=== PATIENT | female | born 1955 | race Caucasian/White ===

== ENCOUNTER 2016-09-14 15:01 | Emergency (ER) | payer OTHER ==
[~2016-09-14] VITALS: Ht 162.6 cm; Wt 107.5 kg
[~2016-09-14 15:01] MED LIST: ABILIFY2 MG PO; ADVAIR 250-501 EACH INH; ALBUTEROL SULF8.5 GM INH; ASPIRIN EC325 MG PO; ATIVAN1 MG PO; BENZONATATE100 MG PO; BISAC-EVAC10 MG PR; BUSPIRONE HCL5 MG PO; CHLORTHALIDONE25 MG; CITALOPRAM HBR20 MG PO; CITALOPRAM HBR40 MG PO; COZAAR50 MG PO; ENEMA133 M1 PR; ESCITALOPRAM OX20 MG; ESCITALOPRAM OX20 MG PO; FERROUS SULFAT325 MG PO; FUROSEMIDE40 MG PO; HYDROCODON-ACE1 EA10 PO; IBUPROFEN600 MG PO; K-TAB ER20 MEQ PO; LASIX40 MG PO; LEXAPRO20 MG PO; LIPITOR40 MG PO; LORAZEPAM1 MG PO; LOSARTAN-HCTZ1 EACH PO; MAPAP325 MG PO; MECLIZINE HCL25 MG PO; MELOXICAM15 MG PO; METOPROLOL SUCC50 MG PO; MICROZIDE12.5 MG PO; MILK OF MA400 MG/5 M PO; MULTI VITAMIN1 EACH PO; NORCO 5-325 TA1 EACH PO; POTASSIUM CHLO10 MEQ; PREDNISONE20 MG PO; REFRESH LIQUIGE15 ML OPTH; RISPERDAL1 MG PO; VALTREX1000 MG PO; VENTOLIN HFA18 GM INH; VITAMIN C250 MG PO; ZITHROMAX250 MG PO; ZOFRAN ODT8 MG PO; ZOFRAN4 MG PO
--- OUTSIDE RECORDS SUMMARY | 2016-09-14 15:30 | XMS ---
Demographics + + + | Address | [address] | | | [address] | | | [place] [address] | + + + | Preferred Language | Unknown | + + + | Marital Status | Unknown | + + + | Methodist Affiliation | Unknown | + + + | Race | Unknown | + + + | Ethnic Group | Unknown | + + + Author + + + | Author | [facility] | + + + | Organization | [facility] | + + + | Address | [address] | | | [place] [address] | + + + | Phone | | + + + Care Team Providers + + + + | Care Kiln Stoker Name | Role | Phone | + + + + Unavailable | Unavailable | + + + + PROBLEMS + + + + + + + + | Type | Condition | ICD9-CM | [id number] | Onset | Condition | SNOMED | | | | Code | Code | Dates | Status | Code | + + + + + + + + | Assessment | Right | | R10.11 | 14 Jun, | Active | [id number] | | | upper | | | 2017 | | | | | quadrant | | | | | | | | pain | | | | | | + + + + + + + + | Assessment | Left lower | | R10.32 | 14 Jun, | Active | [id number] | | | quadrant | | | 2017 | | | | | pain | | | | | | + + + + + + + + | Problem | Blindness, | | H54.12 | | Active | 16443729 | | | left eye, | | | | | | | | low | | | | | | | | vision | | | | | | | | right eye | | | | | | + + + + + + + + | Problem | 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 | | Active | [id number] | | | incontinen | | | | | | | | ce | | | | | | + + + + + + + + | Problem | Anemia | | D64.9 | | Active | 521611627 | + + + + + + + + | 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 | | | Active | 067627025 | | | ve | | | | | | | | arthropath | | | | | | | | y of | | | | | | | | spinal | | | | | | | | facet | | | | | | | | joint | | | | | | + + + + + + + + | Problem | Low mean | R71.8 | | | Active | 18356010 | | | corpuscula | | | | | | | | r volume | | | | | | | | (MCV) | | | | | | + + + + + + + + | Problem | RAD | J45.909 | | | Active | 98883159 | | | (reactive | | | | | | | | airway | | | | | | | | disease) | | | | | | + + + + + + + + | Problem | Elevated | E79.0 | | | Active | 816441632 | | | uric acid | | | | | | | | in blood | | | | | | + + + + + + + + | Problem | High risk | Z79.899 | | | Active | 043088977 | | | medication | | | | | | | | use | | | | | | + + + + + + + + | Problem | Congestive | I50.9 | | | Active | 97393778 | | | heart | | | | | | | | failure | | | | | | + + + + + + + + | Problem | History of | Z86.69 | | | Active | | | | | | | | | | | | pseudoseiz | | | | | | | | ure | | | | | | + + + + + + + + | Problem | HARPAL | G47.33 | | | Active | 91355729 | | | (obstructi | | | | | | | | ve sleep | | | | | | | | apnea) | | | | | | + + + + + + + + | Problem | Right | S96.911A | | | Active | | | | ankle | | | | | | | | strain | | | | | | + + + + + + + + | Problem | Bronchitis | | J40 | | Active | 67945541 | + + + + + + + + | Problem | Constipati | | K59.00 | | Active | 20024839 | | | on | | | | | | + + + + + + + + | Problem | Essential | | I10 | | Active | 92377361 | | | hypertensi | | | | | | | | on | | | | | | + + + + + + + + | Problem | Gait | R26.9 | | | Active | 42348495 | | | disturbanc | | | | | | | | e | | | | | | + + + + + + + + | Problem | Cardiomyop | | I42.9 | | Active | 61809501 | | | athy | | | | | | + + + + + + + + | Problem | Iron | | D50.9 | | Active | 35467684 | | | deficiency | | | | | | | | anemia | | | | | | + + + + + + + + | Problem | Chronic | | N18.3 | | Active | 054343461 | | | kidney | | | | | | | | disease, | | | | | | | | stage 3 | | | | | | + + + + + + + + | Problem | Encounter | | Z13.89 | | Active | 015911316 | | | for | | | | | | | | screening | | | | | | | | for other | | | | | | | | disorder | | | | | | + + + + + + + + | Problem | RLS | | G25.81 | | Active | 88844625 | | | (restless | | | | | | | | legs | | | | | | | | syndrome) | | | | | | + + + + + + + + | Problem | Hyperchole | | E78.0 | | Active | 13733570 | | | sterolemia | | | | | | + + + + + + + + | Problem | Depression | | F32.9 | | Active | 348133059 | + + + + + + + + | Problem | NAFLD | K76.0 | | | Active | 747670849 | | | (nonalcoho | | | | | | | | lic fatty | | | | | | | | liver | | | | | | | | disease) | | | | | | + + + + + + + + | Problem | Anxiety | | F41.9 | | Active | 32983816 | + + + + + + + + | Problem | Anasarca | R60.1 | | | Active | 894024970 | + + + + + + + + | Problem | Osteopenia | | M85.80 | | Active | 50490640 | + + + + + + + + | Problem | PTSD | | F43.10 | | Active | 93611921 | | | (post-trau | | | | | | | | matic | | | | | | | | stress | | | | | | | | disorder) | | | | | | + + + + + + + + | Problem | COPD | | J44.9 | | Active | 15701792 | | | (chronic | | | | | | | | obstructiv | | | | | | | | e | | | | | | | | pulmonary | | | | | | | | disease) | | | | | | + + + + + + + + ALLERGIES + + + + +--------+ | Substance | Reaction | Event Type | Date | Status | + + + + +--------+ | strawberry | diarrhea,vomiti | Non Drug | Jun, | Active | | | ng | Allergy | | | + + + + +--------+ SOCIAL HISTORY No smoking Hx information available PLAN OF CARE VITAL SIGNS + + + + | Height | 64 in | 2016-06-26 | + + + + | Weight | 241 lbs | 2016-06-26 | + + + + | BMI | 41.36 kg/m2 | 2016-06-26 | + + + + | Temperature | 97.5 degrees Fahrenheit | 2016-06-26 | + + + + | Heart Rate | 70 /min | 2016-06-26 | + + + + | Blood pressure systolic | 137 mm Hg | 2016-06-26 | + + + + | Blood pressure diastolic | 82 mm Hg | 2016-06-26 | + + + + MEDICATIONS + + + + + + + +--------+ | Medicati | Instruct | Dosage | Frequenc | Start | End Date | Duration | Status | | on | ions | | y | Date | | | | + + + + + + + +--------+ | Atorvast | Orally | 1 tablet | 24h | | | | Active | | atin | Once a | | | | | | | | Calcium | day | | | | | | | | 40 MG | | | | | | | | + + + + + + + +--------+ | Furosemi | Orally | 2 tablet | 12h | Oct, | | | Active | | de 40 mg | Twice a | am, 1 | | 2015 | | | | | | day | tablet | | | | | | | | | pm | | | | | | + + + + + + + +--------+ | [place] | Nasally | 2 drops | | | | | Active | | Nasal | every 2 | in each | | | | | | | [place] | hrs | nostril | | | | | | | 0.65 % | | as | | | | | | | | | needed | | | | | | + + + + + + + +--------+ | Walker | | as | | 29 Aug, | | 99 | Active | | [place] | | directed | | 2013 | | | | | Wheels . | | | | | | | | + + + + + + + +--------+ | Refresh | Ophthalm | 1 drop | | | | | Active | | Liquigel | ic 24 | into | | | | | | | 1 % | time(s) | affected | | | | | | | | a day | eye as | | | | | | | | | needed | | | | | | + + + + + + + +--------+ | Fleet | | | | | | | Active | | Enema | | | | | | | | | 7-19 | | | | | | | | | GM/118ML | | | | | | | | + + + + + + + +--------+ | Milk of | Orally | 15 ml at | 24h | | | | Active | | Magnesia | Once a | bedtime | | | | | | | 400 | day | as | | | | | | | MG/5ML | | needed | | | | | | | | | for | | | | | | | | | constipa | | | | | | | | | tion | | | | | | + + + + + + + +--------+ | Bisacody | Rectal | 1 | 24h | | | | Active | | l 10 MG | Once a | supposit | | | | | | | | day | ory as | | | | | | | | | needed | | | | | | + + + + + + + +--------+ | Citalopr | Orally | 1 tablet | 24h | | | | Active | | am 20 MG | Once a | | | | | | | | | day | | | | | | | + + + + + + + +--------+ | Lift | NA As | NA | | Oct, | Jan, | 99 | Active | | Chair NA | needed | | | 2013 | 2021 | months | | + + + + + + + +--------+ | Aspirin | Orally | 1 tablet | 24h | | | | Active | | 81 MG | Once a | | | | | | | | | day | | | | | | | + + + + + + + +--------+ | Advair | Inhalati | as | | 30 Nick, | | 30 | Active | | Diskus | on twice | directed | | 2013 | | | | | 250-50 | a day | | | | | | | | MCG/DOSE | | | | | | | | + + + + + + + +--------+ | Miconazo | External | 1 to | 12h | | | | Active | | rb AF 2 | ly Twice | affected | | | | | | | % | a day | area | | | | | | + + + + + + + +--------+ | Ondanset | | | | | | | Active | | sahil 4 MG | | | | | | | | + + + + + + + +--------+ | Potassiu | Orally | 1 | 24h | | | | Active | | m | Once a | capsule | | | | | | | Chloride | day | | | | | | | | 20 MEQ | | | | | | | | + + + + + + + +--------+ | DuoNeb | Inhalati | 3 ml | | 21 Dec, | | 30 days | Active | | 0.5-2.5 | on 6 | | | 2015 | | | | | (3) | times a | | | | | | | | MG/3ML | day, prn | | | | | | | + + + + + + + +--------+ | Metoprol | Orally | 1 tablet | 24h | | | | Active | | ol | Once a | | | | | | | | Succinat | day | | | | | | | | e ER 50 | | | | | | | | | MG | | | | | | | | + + + + + + + +--------+ | Prazosin | Orally | 1 | 24h | | | | Active | | HCl 1 | Once a | capsule | | | | | | | MG | day | at | | | | | | | | | bedtime | | | | | | + + + + + + + +--------+ | Ferrous | Orally | 1 tablet | 12h | 20 Aug, | | 30 | Active | | Sulfate | twice a | | | 2015 | | day(s) | | | 325 (65 | day | | | | | | | | Fe) MG | | | | | | | | + + + + + + + +--------+ | Vitamin | Orally | 1 tablet | 12h | 20 Armond, | | 30 | Active | | C 250 MG | twice a | | | 2015 | | day(s) | | | | day | | | | | | | + + + + + + + +--------+ | Ventolin | Inhalati | 2 puffs | 4h | | | | Active | | HFA 90 | on every | as | | | | | | | MCG/ACT | 4 hrs | needed | | | | | | + + + + + + + +--------+ | Albutero | | | | | | | Active | | l-Ipratr | | | | | | | | | opium | | | | | | | | + + + + + + + +--------+ | Ropiniro | Orally | 1 tablet | 24h | | | | Active | | le HCl 2 | Once a | | | | | | | | MG | day | | | | | | | + + + + + + + +--------+ | Meloxica | Orally | 1 tablet | 24h | | | | Active | | m 15 MG | Once a | | | | | | | | | day | | | | | | | + + + + + + + +--------+ | Shower | | as | | Oct, | | 99 | Active | | Chair . | | directed | | 2013 | | | | + + + + + + + +--------+ | Aripipra | Orally | 1 tablet | 24h | | | | Active | | zole 2 | Once a | | | | | | | | MG | day | | | | | | | + + + + + + + +--------+ | Cetirizi | Orally | 1 tablet | 24h | | | | Active | | ne HCl | Once a | as | | | | | | | 10 MG | day | needed | | | | | | + + + + + + + +--------+ | Acetamin | Orally | 2 tablet | 8h | | | | Active | | ophen | every 8 | as | | | | | | | 325 MG | hrs | needed | | | | | | + + + + + + + +--------+ | BusPIRon | Orally | 1 tablet | 12h | 16 Aug, | | 30 | Active | | e HCl 5 | bid | | | 2016 | | day(s) | | | MG | | | | | | | | + + + + + + + +--------+ RESULTS No Results PROCEDURES + + + + + | Procedure | Date Ordered | Related Diagnosis | Body Site | + + + + + | Est Level III | June 26, 2016 | | | | Intermediate | | | | + + + + + | DSCHRG MED/CURRENT | June 26, 2016 | | | | MED MERGE | | | | + + + + + IMMUNIZATIONS No Known Immunizations"
--- OUTSIDE RECORDS SUMMARY | 2016-09-14 15:30 | XMS ---
Demographics + + + | Address | [address] | | | [address] | | | [place] [address] | + + + | Preferred Language | Unknown | + + + | Marital Status | Unknown | + + + | Islam Affiliation | Unknown | + + + | Race | Unknown | + + + | Ethnic Group | Unknown | + + + Author + + + | Author | [facility] | + + + | Organization | [facility] | + + + | Address | [address] | | | [place] [address] | + + + | Phone | | + + + Care Team Providers + + + + | Care Quantitative Developer Name | Role | Phone | + + + + Unavailable | Unavailable | + + + + PROBLEMS + + + + + + + + | Type | Condition | ICD9-CM | [id number] | Onset | Condition | SNOMED | | | | Code | Code | Dates | Status | Code | + + + + + + + + | Problem | Blindness, | | H54.12 | | Active | 00567255 | | | left eye, | | | | | | | | low | | | | | | | | vision | | | | | | | | right eye | | | | | | + + + + + + + + | Assessment | [place] | B02.9 | | Jun, | Active | 4469795 | | | | | | 2017 | | | + + + + + + + + | Problem | 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 | | Active | 187342124 | | | incontinen | | | | | | | | ce | | | | | | + + + + + + + + | Problem | Anemia | | D64.9 | | Active | 375002860 | + + + + + + + + | 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 | | | Active | 221650087 | | | ve | | | [...] | R71.8 | | | Active | 74580303 | | | corpuscula | | | | | | | | r volume | | | | | | | | (MCV) | | | | | | + + + + + + + + | Problem | Elevated | E79.0 | | | Active | 162510638 | | | uric acid | | | | | | | | in blood | | | | | | + + + + + + + + | Problem | High risk | Z79.899 | | | Active | 097044214 | | | medication | | | | | | | | use | | | | | | + + + + + + + + | Problem | Congestive | I50.9 | | | Active | 00994980 | | | heart | | | [...] | | I42.9 | | Active | 22624857 | | | athy | | | [...] | | N18.3 | | Active | 854609811 | | | kidney | | | | | | | | disease, | | | | | | | | stage 3 | | | | | | + + + + + + + + | Problem | HARPAL | G47.33 | | | Active | 32354472 | | | (obstructi | | | | | | | | ve sleep | | | | | | | | apnea) | | | | | | + + + + + + + + | Problem | Diverticul | K57.90 | | | Active | 325485080 | | | osis | | | | | | + + + + + + + + | Problem | Bronchitis | | J40 | | Active | 55104598 | + + + + + + + + | Problem | NAFLD | K76.0 | | | Active | 203160704 | | | (nonalcoho | | | | | | | | lic fatty | | | | | | | | liver | | | | | | | | disease) | | | | | | + + + + + + + + | Problem | Essential | | I10 | | Active | 03683766 | | | hypertensi | | | | | | | | on | | | | | | + + + + + + + + | Problem | Gait | R26.9 | | | Active | 96766870 | | | disturbanc | | | | | | | | e | | | | | | + + + + + + + + | Problem | RLS | | G25.81 | | Active | 97026089 | | | (restless | | | | | | | | legs | | | | | | | | syndrome) | | | | | | + + + + + + + + | Problem | Iron | | D50.9 | | Active | 87421207 | | | deficiency | | | | | | | | anemia | | | | | | + + + + + + + + | Problem | Constipati | | K59.00 | | Active | 26218557 | | | on | | | | | | + + + + + + + + | Problem | Encounter | | Z13.89 | | Active | 951740212 | | | for | | | | | | | | screening | | | | | | | | for other | | | | | | | | disorder | | | | | | + + + + + + + + | Problem | Depression | | F32.9 | | Active | 960588621 | + + + + + + + + | Problem | PTSD | | F43.10 | | Active | 72301146 | | | (post-trau | | | | | | | | matic | | | | | | | | stress | | | | | | | | disorder) | | | | | | + + + + + + + + | Problem | Anxiety | | F41.9 | | Active | 15832174 | + + + + + + + + | Problem | Hyperchole | | E78.0 | | Active | 18636144 | | | sterolemia | | | | | | + + + + + + + + | Problem | Osteopenia | | M85.80 | | Active | 73445099 | + + + + + + + + | Problem | RAD | J45.909 | | | Active | 58876548 | | | (reactive | | | | | | | | airway | | | | | | | | disease) | | | | | | + + + + + + + + | Problem | COPD | | J44.9 | | Active | 43078085 | | | (chronic | | | [...] | R60.1 | | | Active | 754576080 | + + + + + + [...] + | Height | 64 in | 2016-07-09 | + + + + | Weight | 243 lbs | 2016-07-09 | + + + + | BMI | 41.71 kg/m2 | 2016-07-09 | + + + + | Temperature | 97.8 degrees Fahrenheit | 2016-07-09 | + + + + | Heart Rate | 64 /min | 2016-07-09 | + + + + | Blood pressure systolic | 128 mm Hg | 2016-07-09 | + + + + | Blood pressure diastolic | 70 mm Hg | 2016-07-09 | + + + + MEDICATIONS + [...] MG | twice a | | | 2016 | | day(s) | | | | day | | | | | | | + + + + + + + +--------+ | [place]enda | Nasally | 2 drops | | | | | Active | | Nasal | every 2 | in each | | | | | | | [place] | hrs | nostril | | | [...] As | NA | | Oct, | 29 Jan, | 99 | Active | | Chair NA | needed | | | 2013 | 2021 | months | | + + + + + + + +--------+ | Advair | Inhalati | as | | 30 Sep, | | 30 | Active | | [...] | Shower | | as | | 29 Aug, [...] + + + + + +--------+ | Famciclo | Orally | 1 tablet | 8h | Jun, | 4 July, | 7 day(s) | Active | | vir 500 | every 8 | | | 2016 | 2016 | | | | mg | hrs | | | | | | | + + + + + + + +--------+ | Walker | | as | | Oct, | | 99 | Active | | [place] | | directed | | 2013 | [...] Sulfate | twice a | | | 2016 | | day(s) | | | 325 [...] + + | Est Level III | July 09, 2016 | | | | Intermediate | | | | + + + + + IMMUNIZATIONS No Known Immunizations"
--- OUTSIDE RECORDS SUMMARY | 2016-09-14 15:30 | XMS ---
Demographics + + + | Address | [address] | | | [address] | | | [place] [address] | + + + | Preferred Language | Unknown | + + + | Marital Status | Unknown | + + + | Catholic Affiliation | Unknown | + + + | Race | Unknown | + + + | Ethnic Group | Unknown | + + + Author + + + | Author | [facility] | + + + | Organization | [facility] | + + + | Address | [address] | | | [place] [address] | + + + | Phone | | + + + Care Team Providers + + + + | Care Steel Construction Worker Name | Role | Phone | + + + + Unavailable | Unavailable | + + + + PROBLEMS + + + + + + + + | Type | Condition | ICD9-CM | [id number] | Onset | Condition | SNOMED | | | | Code | Code | Dates | Status | Code | + + + + + + + + | Assessment | Shingles | B02.9 | | 20 July, | Active | 2058527 | | | | | | 2016 | | | + + + + + + + + | Problem | Blindness, | | H54.12 | | Active | 90921005 | | | left eye, | | | | | | | | low | | | | | | | | vision | | | | | | | | right eye | | | | | | + + + + + + + + | Assessment | Diverticul | K57.90 | | 20 July, | Active | 783976044 | | | osis | | | 2016 | | | + + + + + + + + | Problem | 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 | | Active | 569134711 | | | incontinen | | | | | | | | ce | | | | | | + + + + + + + + | Problem | Anemia | | D64.9 | | Active | 012290621 | + + + + + + + + | 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 | | | Active | 098328460 | | | ve | | | [...] | R71.8 | | | Active | 12099447 | | | corpuscula | | | | | | | | r volume | | | | | | | | (MCV) | | | | | | + + + + + + + + | Problem | Elevated | E79.0 | | | Active | 180301746 | | | uric acid | | | | | | | | in blood | | | | | | + + + + + + + + | Problem | High risk | Z79.899 | | | Active | 995067401 | | | medication | | | | | | | | use | | | | | | + + + + + + + + | Problem | Congestive | I50.9 | | | Active | 42186414 | | | heart | | | [...] | | I42.9 | | Active | 76458226 | | | athy | | | [...] | | N18.3 | | Active | 515646638 | | | kidney | | | | | | | | disease, | | | | | | | | stage 3 | | | | | | + + + + + + + + | Problem | HARPAL | G47.33 | | | Active | 80021286 | | | (obstructi | | | | | | | | ve sleep | | | | | | | | apnea) | | | | | | + + + + + + + + | Problem | Diverticul | K57.90 | | | Active | 696439028 | | | osis | | | | | | + + + + + + + + | Problem | Bronchitis | | J40 | | Active | 55023345 | + + + + + + + + | Problem | NAFLD | K76.0 | | | Active | 815099507 | | | (nonalcoho | | | | | | | | lic fatty | | | | | | | | liver | | | | | | | | disease) | | | | | | + + + + + + + + | Problem | Essential | | I10 | | Active | 74351710 | | | hypertensi | | | | | | | | on | | | | | | + + + + + + + + | Problem | Gait | R26.9 | | | Active | 97278749 | | | disturbanc | | | | | | | | e | | | | | | + + + + + + + + | Problem | RLS | | G25.81 | | Active | 73775554 | | | (restless | | | | | | | | legs | | | | | | | | syndrome) | | | | | | + + + + + + + + | Problem | Iron | | D50.9 | | Active | 59065590 | | | deficiency | | | | | | | | anemia | | | | | | + + + + + + + + | Problem | Constipati | | K59.00 | | Active | 12973716 | | | on | | | | | | + + + + + + + + | Problem | Encounter | | Z13.89 | | Active | 076285304 | | | for | | | | | | | | screening | | | | | | | | for other | | | | | | | | disorder | | | | | | + + + + + + + + | Problem | Depression | | F32.9 | | Active | 899715239 | + + + + + + + + | Problem | PTSD | | F43.10 | | Active | 71825294 | | | (post-trau | | | | | | | | matic | | | | | | | | stress | | | | | | | | disorder) | | | | | | + + + + + + + + | Problem | Anxiety | | F41.9 | | Active | 85646566 | + + + + + + + + | Problem | Hyperchole | | E78.0 | | Active | 65263819 | | | sterolemia | | | | | | + + + + + + + + | Problem | Osteopenia | | M85.80 | | Active | 00852864 | + + + + + + + + | Problem | RAD | J45.909 | | | Active | 96945494 | | | (reactive | | | | | | | | airway | | | | | | | | disease) | | | | | | + + + + + + + + | Problem | COPD | | J44.9 | | Active | 69349849 | | | (chronic | | | [...] | R60.1 | | | Active | 838666220 | + + + + + + + + ALLERGIES + + + + +--------+ | Substance | Reaction | Event Type | Date | Status | + + + + +--------+ | strawberry | diarrhea,vomiti | Non Drug | July, | Active | | | ng | Allergy | | | + + + + +--------+ SOCIAL HISTORY No smoking Hx information available PLAN OF CARE VITAL SIGNS + + + + | Height | 64 in | 2016-07-20 | + + + + | Weight | 145 lbs | 2016-07-20 | + + + + | BMI | 24.89 kg/m2 | 2016-07-20 | + + + + | Temperature | 97.6 degrees Fahrenheit | 2016-07-20 | + + + + | Heart Rate | 66 /min | 2016-07-20 | + + + + | Blood pressure systolic | 141 mm Hg | 2016-07-20 | + + + + | Blood pressure diastolic | 69 mm Hg | 2016-07-20 | + + + + MEDICATIONS + [...] | NA As | NA | | 29 Oct, | 29 Nov, | 99 | Active | | Chair [...] Twice a | am, 1 | | 2016 | | | | | | day [...] + + + + + +--------+ | [place] | Nasally | 2 drops | | | | | Active | | Nasal | every 2 | in each | | | | | | | [place] | hrs | nostril | | | | | | | 0.65 % | | as | | | | | | | | | needed | | | | | | + + + + + + + +--------+ | Walker | | as | | Oct, | | | Active | | [place] | | directed | | 2013 | | | | | [place] . | | | | | | [...] + | Est Level III | July 20, 2016 | | | | Intermediate | | | | + + + + + | DS[facility] MED/CURRENT | July 20, 2016 | | | | MED MERGE | | | | + + + + + IMMUNIZATIONS No Known Immunizations"
[2016-09-14] MEDS ORDERED: ABILIFY5 MG PO (16:18)
== END 2016-09-14 16:28 | disposition home or self-care (01) ==
LOC: ED 15:01
DX: G40.89 Other seizures (principal); F41.9 Anxiety disorder, unspecified; F32.9 Major depressive disorder, single episode, unspecified; I10 Essential (primary) hypertension; J44.9 Chronic obstructive pulmonary disease, unspecified; E78.5 Hyperlipidemia, unspecified; Z90.49 Acquired absence of other specified parts of digestive tract; Z98.51 Tubal ligation status; Z91.018 Allergy to other foods; Z79.82 Long term (current) use of aspirin; Z79.899 Other long term (current) drug therapy
CPT/HCPCS: 96374; 96375; 99283; J1885; J2060

== ENCOUNTER 2017-03-12 12:49 | Emergency (ER) | payer OTHER ==
[~2017-03-12] VITALS: Ht 162.6 cm; Wt 110.2 kg
[~2017-03-12 12:49] MED LIST changes: +ABILIFY5 MG PO
--- OUTSIDE RECORDS SUMMARY | 2017-03-12 12:59 | XMS ---
Demographics + + + | Address | [address] | | | [address] | | | [place] [address] | + + + | Preferred Language | Unknown | + + + | Marital Status | Unknown | + + + | Orthodoxy Affiliation | Unknown | + + + | Race | Unknown | + + + | Ethnic Group | Unknown | + + + Author + + + | Author | [facility] | + + + | Organization | [facility] | + + + | Address | [address] | | | [place] [address] | + + + | Phone | | + + + Care Team Providers + + + + | Care Senior Manager Asset Protection Name | Role | Phone | + + + + Unavailable | Unavailable | + + + + PROBLEMS +---------+ + + +--------+ + + | Type | Condition | ICD9-CM | VFO79-LN | Onset | Condition | SNOMED | | | | Code | Code | Dates | Status | Code | +---------+ + + +--------+ + + | Problem | 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 | | Active | [id number] | | | incontinen | | | | | | | | ce | | | | | | +---------+ + + +--------+ + + | Problem | Blindness, | | 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 | | Active | 78240192 | | | left eye, | | | | | | | | low | | | | | | | | vision | | | | | | | | right eye | | | | | | +---------+ + + +--------+ + + | 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 | | | Active | [id number] | | | ve | | | | | | | | arthropath | | | | | | | | y of | | | | | | | | spinal | | | | | | | | facet | | | | | | | | joint | | | | | | +---------+ + + +--------+ + + | Problem | Anemia | | D64.9 | | Active | 960037225 | +---------+ + + +--------+ + + | Problem | Low mean | R71.8 | | | Active | 40459539 | | | corpuscula | | | | | | | | r volume | | | | | | | | (MCV) | | | | | | +---------+ + + +--------+ + + | Problem | Elevated | E79.0 | | | Active | 368176181 | | | uric acid | | | | | | | | in blood | | | | | | +---------+ + + +--------+ + + | Problem | Congestive | I50.9 | | | Active | 12304400 | | | heart | | | | | | | | failure | | | | | | +---------+ + + +--------+ + + | Problem | Cardiomyop | | I42.9 | | Active | 28815280 | | | athy | | | | | | +---------+ + + +--------+ + + | Problem | Gait | R26.9 | | | Active | 77648474 | | | disturbanc | | | | | | | | e | | | | | | +---------+ + + +--------+ + + | Problem | HARPAL | G47.33 | | | Active | 27950458 | | | (obstructi | | | | | | | | ve sleep | | | | | | | | apnea) | | | | | | +---------+ + + +--------+ + + | Problem | Essential | | I10 | | Active | 21597520 | | | hypertensi | | | | | | | | on | | | | | | +---------+ + + +--------+ + + | Problem | Chronic | | N18.3 | | Active | 933074089 | | | kidney | | | | | | | | disease, | | | | | | | | stage 3 | | | | | | +---------+ + + +--------+ + + | Problem | NAFLD | K76.0 | | | Active | 871738230 | | | (nonalcoho | | | | | | | | lic fatty | | | | | | | | liver | | | | | | | | disease) | | | | | | +---------+ + + +--------+ + + | Problem | Iron | | D50.9 | | Active | 09251428 | | | deficiency | | | | | | | | anemia | | | | | | +---------+ + + +--------+ + + | Problem | Encounter | | Z13.89 | | Active | 750104213 | | | for | | | | | | | | screening | | | | | | | | for other | | | | | | | | disorder | | | | | | +---------+ + + +--------+ + + | Problem | RLS | | G25.81 | | Active | 12603146 | | | (restless | | | | | | | | legs | | | | | | | | syndrome) | | | | | | +---------+ + + +--------+ + + | Problem | 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 | | | Active | 79187875 | | | ure | | | | | | +---------+ + + +--------+ + + | Problem | Elevated | R74.8 | | | Active | 423767135 | | | alkaline | | | | | | | | phosphatas | | | | | | | | e level | | | | | | +---------+ + + +--------+ + + | Problem | Depression | | F32.9 | | Active | 511776378 | +---------+ + + +--------+ + + | Problem | Hyperchole | | E78.0 | | Active | 94766035 | | | sterolemia | | | | | | +---------+ + + +--------+ + + | Problem | Anxiety | | F41.9 | | Active | 73909033 | +---------+ + + +--------+ + + | Problem | Bronchitis | | J40 | | Active | 69566327 | +---------+ + + +--------+ + + | Problem | Constipati | | K59.00 | | Active | 61858783 | | | on | | | | | | +---------+ + + +--------+ + + | Problem | HTN | | I10 | | Active | 47209355 | | | (hypertens | | | | | | | | ion) | | | | | | +---------+ + + +--------+ + + | Problem | Diverticul | K57.90 | | | Active | 328732704 | | | osis | | | | | | +---------+ + + +--------+ + + | Problem | Anasarca | R60.1 | | | Active | 619901956 | +---------+ + + +--------+ + + | Problem | Osteopenia | | M85.80 | | Active | 91648796 | +---------+ + + +--------+ + + | Problem | PTSD | | F43.10 | | Active | 00931547 | | | (post-trau | | | | | | | | matic | | | | | | | | stress | | | | | | | | disorder) | | | | | | +---------+ + + +--------+ + + | Problem | COPD | | J44.9 | | Active | 51740463 | | | (chronic | | | | | | | | obstructiv | | | | | | | | e | | | | | | | | pulmonary | | | | | | | | disease) | | | | | | +---------+ + + +--------+ + + | Problem | History of | Z86.69 | | | Active | | | | | | | | | | | | pseudoseiz | | | | | | | | ure | | | | | | +---------+ + + +--------+ + + | Problem | Right | S96.911A | | | Active | | | | ankle | | | | | | | | strain | | | | | | +---------+ + + +--------+ + + | Problem | 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
--- OUTSIDE RECORDS SUMMARY | 2017-03-12 12:59 | XMS ---
Demographics + + + | Address | [address] | | | [address] | | | [place] [address] | + + + | Preferred Language | Unknown | + + + | Marital Status | Unknown | + + + | Holiness Affiliation | Unknown | + + + | Race | Unknown | + + + | Ethnic Group | Unknown | + + + Author + + + | Author | [facility] | + + + | Organization | [facility] | + + + | Address | [address] | | | [place] [address] | + + + | Phone | | + + + Care Team Providers + + + + | Care Gis Physical Scientist Name | Role | Phone | + + + + Unavailable | Unavailable | + + + + PROBLEMS +---------+ + + +--------+ + + | Type | Condition | ICD9-CM | XLU48-CH | Onset | Condition | SNOMED | | | | Code | Code | Dates | Status | Code | +---------+ + + +--------+ + + | Problem | Low mean | R71.8 | | | Active | 58128019 | | | corpuscula | | | | | | | | r volume | | | | | | | | (MCV) | | | | | | +---------+ + + +--------+ + + | 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 | | | Active | 925954907 | | | ve | | | [...] | I50.9 | | | Active | 82886035 | | | heart | | | | | | | | failure | | | | | | +---------+ + + +--------+ + + | Problem | Elevated | E79.0 | | | Active | 478671830 | | | uric acid | | | | | | | | in blood | | | | | | +---------+ + + +--------+ + + | Problem | Cardiomyop | | I42.9 | | Active | 65826001 | | | athy | | | | | | +---------+ + + +--------+ + + | Problem | Gait | R26.9 | | | Active | 82265140 | | | disturbanc | | | | | | | | e | | | | | | +---------+ + + +--------+ + + | Problem | Essential | | I10 | | Active | 69316305 | | | hypertensi | | | | | | | | on | | | | | | +---------+ + + +--------+ + + | Problem | NAFLD | K76.0 | | | Active | 623685874 | | | (nonalcoho | | | | | | | | lic fatty | | | | | | | | liver | | | | | | | | disease) | | | | | | +---------+ + + +--------+ + + | Problem | Anxiety | | F41.9 | | Active | 87469037 | +---------+ + + +--------+ + + | Problem | RLS | | G25.81 | | Active | 28702333 | | | (restless | | | | | | | | legs | | | | | | | | syndrome) | | | | | | +---------+ + + +--------+ + + | Problem | Hyperchole | | E78.0 | | Active | 27800415 | | | sterolemia | | | | | | +---------+ + + +--------+ + + | Problem | Encounter | | Z13.89 | | Active | 713016450 | | | for | | | | | | | | screening | | | | | | | | for other | | | | | | | | disorder | | | | | | +---------+ + + +--------+ + + | Problem | Depression | | F32.9 | | Active | 493649869 | +---------+ + + +--------+ + + | Problem | Constipati | | K59.00 | | Active | 01875633 | | | on | | | | | | +---------+ + + +--------+ + + | Problem | Diverticul | K57.90 | | | Active | 488733322 | | | osis | | | | | | +---------+ + + +--------+ + + | Problem | Bronchitis | | J40 | | Active | 24681796 | +---------+ + + +--------+ + + | Problem | 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 | | | Active | 28986652 | | | ure | | | | | | +---------+ + + +--------+ + + | Problem | Elevated | R74.8 | | | Active | 561246827 | | | alkaline | | | | | | | | phosphatas | | | | | | | | e level | | | | | | +---------+ + + +--------+ + + | Problem | Anasarca | R60.1 | | | Active | 486775028 | +---------+ + + +--------+ + + | Problem | COPD | | J44.9 | | Active | 31177496 | | | (chronic | | | | | | | | obstructiv | | | | | | | | e | | | | | | | | pulmonary | | | | | | | | disease) | | | | | | +---------+ + + +--------+ + + | Problem | PTSD | | F43.10 | | Active | 71132879 | | | (post-trau | | | | | | | | matic | | | | | | | | stress | | | | | | | | disorder) | | | | | | +---------+ + + +--------+ + + | Problem | Screening | Z12.31 | | | Active | 540680503 | | | for breast | | | | | | | | cancer | | | | | | +---------+ + + +--------+ + + | Problem | HTN | | I10 | | Active | 65621889 | | | (hypertens | | | | | | | | ion) | | | | | | +---------+ + + +--------+ + + | Problem | Screening | Z12.4 | | | Active | 638627789 | | | for | | | | | | | | cervical | | | | | | | | cancer | | | | | | +---------+ + + +--------+ + + | Problem | Encounter | Z12.2 | | | Active | 602195439 | | | for | | | | | | | | screening | | | | | | | | for lung | | | | | | | | cancer | | | | | | +---------+ + + +--------+ + + | Problem | 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 | | Active | 345477728 | | | incontinen | | | | | | | | ce | | | | | | +---------+ + + +--------+ + + | Problem | High risk | Z79.899 | | | Active | 651494237 | | | medication | | | | | | | | use | | | | | | +---------+ + + +--------+ + + | Problem | Anemia | | D64.9 | | Active | 000032827 | +---------+ + + +--------+ + + | Problem | History of | Z86.69 | | | Active | | | | | | | | | | | | pseudoseiz | | | | | | | | ure | | | | | | +---------+ + + +--------+ + + | Problem | Osteopenia | | M85.80 | | Active | 49613287 | +---------+ + + +--------+ + + | Problem | Blindness, | | H54.12 | | Active | 27398956 | | | left eye, | | | | | | | | low | | | | | | | | vision | | | | | | | | right eye | | | | | | +---------+ + + +--------+ + + | Problem | RAD | J45.909 | | | Active | 89579716 | | | (reactive | | | | | | | | airway | | | | | | | | disease) | | | | | | +---------+ + + +--------+ + + | Problem | Chronic | | N18.3 | | Active | 255654939 | | | kidney | | | | | | | | disease, | | | | | | | | stage 3 | | | | | | +---------+ + + +--------+ + + | Problem | Iron | | D50.9 | | Active | 91975610 | | | deficiency | | | [...] | G47.33 | | | Active | 02956087 | | | (obstructi | | | [...]
--- OUTSIDE RECORDS SUMMARY | 2017-03-12 12:59 | XMS ---
Demographics + + + | Address | [address] | | | [address] | | | [place] [address] | + + + | Preferred Language [...] | + + + | Organization | [facility] | + + + | Address | [address] | | | [place] [address] | + + + | Phone | | + + + Care Team Providers + + + + | Care Test Cell Technician Name | Role | Phone | + + + + Unavailable | Unavailable | + + + + PROBLEMS +---------+ + + +--------+ + + | Type | Condition | ICD9-CM | YIH66-GD | Onset | Condition | SNOMED | | | | Code | Code | Dates | Status | Code | +---------+ + + +--------+ + + | Problem | Low mean | R71.8 | | | Active | 21823303 | | | corpuscula | | | | | | | | r volume | | | | | | | | (MCV) | | | | | | +---------+ + + +--------+ + + | 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 | | | Active | 966423529 | | | ve | | | [...] | I50.9 | | | Active | 32999005 | | | heart | | | | | | | | failure | | | | | | +---------+ + + +--------+ + + | Problem | Elevated | E79.0 | | | Active | 628914443 | | | uric acid | | | | | | | | in blood | | | | | | +---------+ + + +--------+ + + | Problem | Cardiomyop | | I42.9 | | Active | 12410590 | | | athy | | | | | | +---------+ + + +--------+ + + | Problem | Gait | R26.9 | | | Active | 11605354 | | | disturbanc | | | | | | | | e | | | | | | +---------+ + + +--------+ + + | Problem | Essential | | I10 | | Active | 83314794 | | | hypertensi | | | | | | | | on | | | | | | +---------+ + + +--------+ + + | Problem | NAFLD | K76.0 | | | Active | 439066596 | | | (nonalcoho | | | | | | | | lic fatty | | | | | | | | liver | | | | | | | | disease) | | | | | | +---------+ + + +--------+ + + | Problem | Anxiety | | F41.9 | | Active | 19308201 | +---------+ + + +--------+ + + | Problem | RLS | | G25.81 | | Active | 05377324 | | | (restless | | | | | | | | legs | | | | | | | | syndrome) | | | | | | +---------+ + + +--------+ + + | Problem | Hyperchole | | E78.0 | | Active | 01927987 | | | sterolemia | | | | | | +---------+ + + +--------+ + + | Problem | Encounter | | Z13.89 | | Active | 607657102 | | | for | | | | | | | | screening | | | | | | | | for other | | | | | | | | disorder | | | | | | +---------+ + + +--------+ + + | Problem | Depression | | F32.9 | | Active | 318711006 | +---------+ + + +--------+ + + | Problem | Constipati | | K59.00 | | Active | 25967170 | | | on | | | | | | +---------+ + + +--------+ + + | Problem | Diverticul | K57.90 | | | Active | 426801233 | | | osis | | | | | | +---------+ + + +--------+ + + | Problem | Bronchitis | | J40 | | Active | 31614008 | +---------+ + + +--------+ + + | Problem | 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 | | | Active | 53383487 | | | ure | | | | | | +---------+ + + +--------+ + + | Problem | Elevated | R74.8 | | | Active | 971332735 | | | alkaline | | | | | | | | phosphatas | | | | | | | | e level | | | | | | +---------+ + + +--------+ + + | Problem | Anasarca | R60.1 | | | Active | 769449443 | +---------+ + + +--------+ + + | Problem | COPD | | J44.9 | | Active | 24943803 | | | (chronic | | | | | | | | obstructiv | | | | | | | | e | | | | | | | | pulmonary | | | | | | | | disease) | | | | | | +---------+ + + +--------+ + + | Problem | PTSD | | F43.10 | | Active | 38543993 | | | (post-trau | | | | | | | | matic | | | | | | | | stress | | | | | | | | disorder) | | | | | | +---------+ + + +--------+ + + | Problem | Screening | Z12.31 | | | Active | 389990849 | | | for breast | | | | | | | | cancer | | | | | | +---------+ + + +--------+ + + | Problem | HTN | | I10 | | Active | 21262874 | | | (hypertens | | | | | | | | ion) | | | | | | +---------+ + + +--------+ + + | Problem | Screening | Z12.4 | | | Active | 071763378 | | | for | | | | | | | | cervical | | | | | | | | cancer | | | | | | +---------+ + + +--------+ + + | Problem | Encounter | Z12.2 | | | Active | 832763350 | | | for | | | | | | | | screening | | | | | | | | for lung | | | | | | | | cancer | | | | | | +---------+ + + +--------+ + + | Problem | 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 | | Active | 936048673 | | | incontinen | | | | | | | | ce | | | | | | +---------+ + + +--------+ + + | Problem | High risk | Z79.899 | | | Active | 348884870 | | | medication | | | | | | | | use | | | | | | +---------+ + + +--------+ + + | Problem | Anemia | | D64.9 | | Active | 745037281 | +---------+ + + +--------+ + + | Problem | History of | Z86.69 | | | Active | | | | | | | | | | | | pseudoseiz | | | | | | | | ure | | | | | | +---------+ + + +--------+ + + | Problem | Osteopenia | | M85.80 | | Active | 87810992 | +---------+ + + +--------+ + + | Problem | Blindness, | | 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 | | Active | 78660984 | | | left eye, | | | | | | | | low | | | | | | | | vision | | | | | | | | right eye | | | | | | +---------+ + + +--------+ + + | Problem | RAD | J45.909 | | | Active | 97333271 | | | (reactive | | | | | | | | airway | | | | | | | | disease) | | | | | | +---------+ + + +--------+ + + | Problem | Chronic | | N18.3 | | Active | 570721710 | | | kidney | | | | | | | | disease, | | | | | | | | stage 3 | | | | | | +---------+ + + +--------+ + + | Problem | Iron | | D50.9 | | Active | 73250727 | | | deficiency | | | [...] | G47.33 | | | Active | 46484702 | | | (obstructi | | | | | | | | ve sleep | | | | | | | | apnea) | | | | | | +---------+ + + +--------+ + + ALLERGIES + + + + +--------+ | Substance | Reaction | Event Type | Date | Status | + + + + +--------+ | strawberry | diarrhea,vomiti | Non Drug | Oct, | Active | | | ng | Allergy | | | + + + + +--------+ SOCIAL HISTORY No smoking Hx information available PLAN OF CARE + +---------+ | Activity | Details | + +---------+ +---+ | | +---+ + + + | Follow Up | 2 Months Reason:null | + + + | Pending Test | CT Scan : Chest | + + + | Pending Test | Mammogram: Screening | + + + VITAL SIGNS + + + + | Height | 64 in | 2016-10-19 | + + + + | Weight | 241 lbs | 2016-10-19 | + + + + | BMI | 41.36 kg/m2 | 2016-10-19 | + + + + | Temperature | 98.0 degrees Fahrenheit | 2016-10-19 | + + + + | Heart Rate | 132/65 /min | 2016-10-19 | + + + + MEDICATIONS + [...] | | | Active | | am 40 MG | Once a | | | [...] | | 99 | Active | | [place] | | directed | | 2013 | | | | | Wheelradha . | | | | | | | | + + + + + + + +--------+ | Shower | | as | | 29 Aug, | | 99 | Active | | Chair . | | directed | | 2014 | | | | + + + [...] Orally | 2 tablet | 12h | 01 Aug, | | | Active | | de 40 mg | Twice a | am, 1 | | 2016 | | | | | | day | tablet | | | | | | | | | pm | | | | | | + + + + + + + +--------+ | Banner | Nasally | 2 drops | | | | | Active | | Nasal | every 2 | in each | | | | | | | [place] | hrs | nostril | | | [...] + + + + + +--------+ | Metamuci | | | | | | | Active | | l 48.57 | | | | | | | | | % | | | | | | | | + + + + + + + +--------+ | Abilify | Orally | 1 tablet | 24h | | | | Active | | 2 MG | Once a | | | [...] 0.5-2.5 | on 6 | | | 2014 | | | | | (3) | [...] | NA | | Oct, | 29 Nov, | 99 | Active | | Chair NA | needed | | | 2013 | 2021 | months | | + + + + + + + +--------+ | Ropiniro | Orally | 1 tablet | 12h | | | 30 days | Active | | le HCl 2 | bid | | | | | | | [...] + + + + | Est Level IV | Oct 19, 2016 | | | | Extended | | | | + + + + + | [facility] MED/CURRENT | Oct 19, 2016 | | | | MED MERGE | | | | + + + + + IMMUNIZATIONS No Known Immunizations"
--- OUTSIDE RECORDS SUMMARY | 2017-03-12 12:59 | XMS ---
Demographics + + + | Address | [address] | | | [address] | | | [place] [address] | + + + | Preferred Language [...] | + + + | Organization | [facility] | + + + | Address | [address] | | | [place] [address] | + + + | Phone | | + + + Care Team Providers + + + + | Care Name | Role | Phone | + + + + Unavailable | Unavailable | + + + + PROBLEMS +---------+ + + +--------+ + + | Type | Condition | ICD9-CM | [id number] | Onset | Condition | SNOMED | | | | Code | Code | Dates | Status | Code | +---------+ + + +--------+ + + | Problem | Low mean | R71.8 | | | Active | [id number] | | | corpuscula | | | | | | | | r volume | | | | | | | | (MCV) | | | | | | +---------+ + + +--------+ + + | 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 | | | Active | [id number] | | | ve | | | [...] | I50.9 | | | Active | 97461503 | | | heart | | | | | | | | failure | | | | | | +---------+ + + +--------+ + + | Problem | Elevated | E79.0 | | | Active | 051752507 | | | uric acid | | | | | | | | in blood | | | | | | +---------+ + + +--------+ + + | Problem | Cardiomyop | | I42.9 | | Active | 12589077 | | | athy | | | | | | +---------+ + + +--------+ + + | Problem | Gait | R26.9 | | | Active | 63862892 | | | disturbanc | | | | | | | | e | | | | | | +---------+ + + +--------+ + + | Problem | Essential | | I10 | | Active | 51670032 | | | hypertensi | | | | | | | | on | | | | | | +---------+ + + +--------+ + + | Problem | NAFLD | K76.0 | | | Active | 729316989 | | | (nonalcoho | | | | | | | | lic fatty | | | | | | | | liver | | | | | | | | disease) | | | | | | +---------+ + + +--------+ + + | Problem | Anxiety | | F41.9 | | Active | 79245789 | +---------+ + + +--------+ + + | Problem | RLS | | G25.81 | | Active | 04599688 | | | (restless | | | | | | | | legs | | | | | | | | syndrome) | | | | | | +---------+ + + +--------+ + + | Problem | Hyperchole | | E78.0 | | Active | 10325988 | | | sterolemia | | | | | | +---------+ + + +--------+ + + | Problem | Encounter | | Z13.89 | | Active | 740755238 | | | for | | | | | | | | screening | | | | | | | | for other | | | | | | | | disorder | | | | | | +---------+ + + +--------+ + + | Problem | Depression | | F32.9 | | Active | 387772081 | +---------+ + + +--------+ + + | Problem | Constipati | | K59.00 | | Active | 00646387 | | | on | | | | | | +---------+ + + +--------+ + + | Problem | Diverticul | K57.90 | | | Active | 897514320 | | | osis | | | | | | +---------+ + + +--------+ + + | Problem | Bronchitis | | J40 | | Active | 87598548 | +---------+ + + +--------+ + + | Problem | 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 | | | Active | 42670130 | | | ure | | | | | | +---------+ + + +--------+ + + | Problem | Elevated | R74.8 | | | Active | 014741782 | | | alkaline | | | | | | | | phosphatas | | | | | | | | e level | | | | | | +---------+ + + +--------+ + + | Problem | Anasarca | R60.1 | | | Active | 076674623 | +---------+ + + +--------+ + + | Problem | COPD | | J44.9 | | Active | 07758064 | | | (chronic | | | | | | | | obstructiv | | | | | | | | e | | | | | | | | pulmonary | | | | | | | | disease) | | | | | | +---------+ + + +--------+ + + | Problem | PTSD | | F43.10 | | Active | 26810776 | | | (post-trau | | | | | | | | matic | | | | | | | | stress | | | | | | | | disorder) | | | | | | +---------+ + + +--------+ + + | Problem | Screening | Z12.31 | | | Active | 757941786 | | | for breast | | | | | | | | cancer | | | | | | +---------+ + + +--------+ + + | Problem | HTN | | I10 | | Active | 60557350 | | | (hypertens | | | | | | | | ion) | | | | | | +---------+ + + +--------+ + + | Problem | Screening | Z12.4 | | | Active | 424684347 | | | for | | | | | | | | cervical | | | | | | | | cancer | | | | | | +---------+ + + +--------+ + + | Problem | Encounter | Z12.2 | | | Active | 398962991 | | | for | | | | | | | | screening | | | | | | | | for lung | | | | | | | | cancer | | | | | | +---------+ + + +--------+ + + | Problem | 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 | | Active | 264945345 | | | incontinen | | | | | | | | ce | | | | | | +---------+ + + +--------+ + + | Problem | High risk | Z79.899 | | | Active | 113841723 | | | medication | | | | | | | | use | | | | | | +---------+ + + +--------+ + + | Problem | Anemia | | D64.9 | | Active | 811088194 | +---------+ + + +--------+ + + | Problem | History of | Z86.69 | | | Active | | | | | | | | | | | | pseudoseiz | | | | | | | | ure | | | | | | +---------+ + + +--------+ + + | Problem | Osteopenia | | M85.80 | | Active | 86723644 | +---------+ + + +--------+ + + | Problem | Blindness, | | H54.12 | | Active | 02853591 | | | left eye, | | | | | | | | low | | | | | | | | vision | | | | | | | | right eye | | | | | | +---------+ + + +--------+ + + | Problem | RAD | 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 | | | Active | 33016175 | | | (reactive | | | | | | | | airway | | | | | | | | disease) | | | | | | +---------+ + + +--------+ + + | Problem | Chronic | | N18.3 | | Active | 431281039 | | | kidney | | | | | | | | disease, | | | | | | | | stage 3 | | | | | | +---------+ + + +--------+ + + | Problem | Iron | | D50.9 | | Active | 86507522 | | | deficiency | | | [...] | G47.33 | | | Active | 29472402 | | | (obstructi | | | [...] strawberry | diarrhea,vomiti | Non Drug | 11 Sep, 2016 | Active | | | ng | Allergy | | | + + + + +--------+ SOCIAL HISTORY No smoking Hx information available PLAN OF CARE + +---------+ | Activity | Details | + +---------+ +---+ | | +---+ + + + | Follow Up | prn Reason:null | + + + VITAL SIGNS + + + + | Height | 64 in | 2016-09-22 | + + + + | Weight | 240.6 lbs | 2016-09-22 | + + + + | BMI | 41.29 kg/m2 | 2016-09-22 | + + + + | Temperature | 98.1 degrees Fahrenheit | 2016-09-22 | + + + + | Heart Rate | 70 /min | 2016-09-22 | + + + + | Blood pressure systolic | 131 mm Hg | 2016-09-22 | + + + + | Blood pressure diastolic | 78 mm Hg | 2016-09-22 | + + + + MEDICATIONS + [...] | | 99 | Active | | [place] | | directed | | 2013 | [...] | on twice | directed | | 2014 | | | | | 250-50 | [...] Orally | 1 tablet | 12h | Oct, | | 30 | Active | | e HCl 5 | bid | | | 2015 | | day(s) | | | MG [...] + + + + + +--------+ | [place] | Nasally | 2 drops | | | | | Active | | Nasal | every 2 | in each | | | | | | | [place] | hrs | nostril | | | [...] + + | Est Level III | September 22, 2016 | | | | Intermediate | | | | + + + + + | [facility] MED/CURRENT | September 22, 2016 | | | | MED MERGE | | | | + + + + + IMMUNIZATIONS No Known Immunizations"
--- OUTSIDE RECORDS SUMMARY | 2017-03-12 12:59 | XMS ---
Demographics + + + | Address | [address] | | | [address] | | | [place] [address] | + + + | Preferred Language [...] | + + + | Organization | [facility] | + + + | Address | [address] | | | [place] [address] | + + + | Phone | | + + + Care Team Providers + + + + | Care Clinical Unit Educator Name | Role | Phone | + + + + Unavailable | Unavailable | + + + + PROBLEMS +---------+ + + +--------+ + + | Type | Condition | ICD9-CM | [id number] | Onset | Condition | SNOMED | | | | Code | Code | Dates | Status | Code | +---------+ + + +--------+ + + | Problem | Low mean | R71.8 | | | Active | 94935553 | | | corpuscula | | | | | | | | r volume | | | | | | | | (MCV) | | | | | | +---------+ + + +--------+ + + | 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 | | | Active | 396291034 | | | ve | | | [...] | I50.9 | | | Active | 47345929 | | | heart | | | | | | | | failure | | | | | | +---------+ + + +--------+ + + | Problem | Elevated | E79.0 | | | Active | 857503629 | | | uric acid | | | | | | | | in blood | | | | | | +---------+ + + +--------+ + + | Problem | Cardiomyop | | I42.9 | | Active | 69056213 | | | athy | | | | | | +---------+ + + +--------+ + + | Problem | Gait | R26.9 | | | Active | 00891570 | | | disturbanc | | | | | | | | e | | | | | | +---------+ + + +--------+ + + | Problem | Essential | | I10 | | Active | 98452175 | | | hypertensi | | | | | | | | on | | | | | | +---------+ + + +--------+ + + | Problem | NAFLD | K76.0 | | | Active | 741983704 | | | (nonalcoho | | | | | | | | lic fatty | | | | | | | | liver | | | | | | | | disease) | | | | | | +---------+ + + +--------+ + + | Problem | Anxiety | | F41.9 | | Active | 53489797 | +---------+ + + +--------+ + + | Problem | RLS | | G25.81 | | Active | 88825523 | | | (restless | | | | | | | | legs | | | | | | | | syndrome) | | | | | | +---------+ + + +--------+ + + | Problem | Hyperchole | | E78.0 | | Active | 70936673 | | | sterolemia | | | | | | +---------+ + + +--------+ + + | Problem | Encounter | | Z13.89 | | Active | 123050855 | | | for | | | | | | | | screening | | | | | | | | for other | | | | | | | | disorder | | | | | | +---------+ + + +--------+ + + | Problem | Depression | | F32.9 | | Active | 109241040 | +---------+ + + +--------+ + + | Problem | Constipati | | K59.00 | | Active | 69857344 | | | on | | | | | | +---------+ + + +--------+ + + | Problem | Diverticul | K57.90 | | | Active | 634275761 | | | osis | | | | | | +---------+ + + +--------+ + + | Problem | Bronchitis | | J40 | | Active | 92561564 | +---------+ + + +--------+ + + | Problem | 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 | | | Active | 59208361 | | | ure | | | | | | +---------+ + + +--------+ + + | Problem | Elevated | R74.8 | | | Active | 353679448 | | | alkaline | | | | | | | | phosphatas | | | | | | | | e level | | | | | | +---------+ + + +--------+ + + | Problem | Anasarca | R60.1 | | | Active | 492337857 | +---------+ + + +--------+ + + | Problem | COPD | | J44.9 | | Active | 51852873 | | | (chronic | | | | | | | | obstructiv | | | | | | | | e | | | | | | | | pulmonary | | | | | | | | disease) | | | | | | +---------+ + + +--------+ + + | Problem | PTSD | | F43.10 | | Active | 76373866 | | | (post-trau | | | | | | | | matic | | | | | | | | stress | | | | | | | | disorder) | | | | | | +---------+ + + +--------+ + + | Problem | Screening | Z12.31 | | | Active | 370165070 | | | for breast | | | | | | | | cancer | | | | | | +---------+ + + +--------+ + + | Problem | HTN | | I10 | | Active | 41313299 | | | (hypertens | | | | | | | | ion) | | | | | | +---------+ + + +--------+ + + | Problem | Screening | Z12.4 | | | Active | 054042725 | | | for | | | | | | | | cervical | | | | | | | | cancer | | | | | | +---------+ + + +--------+ + + | Problem | Encounter | Z12.2 | | | Active | 423445924 | | | for | | | | | | | | screening | | | | | | | | for lung | | | | | | | | cancer | | | | | | +---------+ + + +--------+ + + | Problem | 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 | | Active | 512675662 | | | incontinen | | | | | | | | ce | | | | | | +---------+ + + +--------+ + + | Problem | High risk | Z79.899 | | | Active | 173709693 | | | medication | | | | | | | | use | | | | | | +---------+ + + +--------+ + + | Problem | Anemia | | D64.9 | | Active | 935970509 | +---------+ + + +--------+ + + | Problem | History of | Z86.69 | | | Active | | | | | | | | | | | | pseudoseiz | | | | | | | | ure | | | | | | +---------+ + + +--------+ + + | Problem | Osteopenia | | M85.80 | | Active | 38456235 | +---------+ + + +--------+ + + | Problem | Blindness, | | H54.12 | | Active | 53564399 | | | left eye, | | | | | | | | low | | | | | | | | vision | | | | | | | | right eye | | | | | | +---------+ + + +--------+ + + | Problem | RAD | J45.909 | | | Active | 14172051 | | | (reactive | | | | | | | | airway | | | | | | | | disease) | | | | | | +---------+ + + +--------+ + + | Problem | Chronic | | N18.3 | | Active | 494804732 | | | kidney | | | | | | | | disease, | | | | | | | | stage 3 | | | | | | +---------+ + + +--------+ + + | Problem | Iron | | D50.9 | | Active | 82136396 | | | deficiency | | | [...] | G47.33 | | | Active | 16984896 | | | (obstructi | | | [...] | | +---+ + + + | Pending Test | Comprehensive Metabolic Panel | + + + | Pending Test | CBC with Differential Count | + + + VITAL SIGNS MEDICATIONS Unknown Medications RESULTS No Results PROCEDURES No Known procedures IMMUNIZATIONS No Known Immunizations"
--- OUTSIDE RECORDS SUMMARY | 2017-03-12 12:59 | XMS ---
Demographics + + + | Address | [address] | | | [address] | | | [place] [address] | + + + | Preferred Language | Unknown | + + + | Marital Status | Unknown | + + + | Anglican Affiliation | Unknown | + + + | Race | Unknown | + + + | Ethnic Group | Unknown | + + + Author + + + | Author | [facility] | + + + | Organization | [facility] | + + + | Address | [address] | | | [place] [address] | + + + | Phone | | + + + Care Team Providers + + + + | Care Manager Community Outreach Name | Role | Phone | + + + + Unavailable | Unavailable | + + + + PROBLEMS +---------+ + + +--------+ + + | Type | Condition | ICD9-CM | [id number] | Onset | Condition | SNOMED | | | | Code | Code | Dates | Status | Code | +---------+ + + +--------+ + + | Problem | 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 | | Active | 384620024 | | | incontinen | | | | | | | | ce | | | | | | +---------+ + + +--------+ + + | Problem | Blindness, | | H54.12 | | Active | 19606746 | | | left eye, | | | | | | | | low | | | | | | | | vision | | | | | | | | right eye | | | | | | +---------+ + + +--------+ + + | Problem | Anemia | | D64.9 | | Active | 792414473 | +---------+ + + +--------+ + + | 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 | | | Active | 940969653 | | | ve | | | [...] | R71.8 | | | Active | 22295496 | | | corpuscula | | | | | | | | r volume | | | | | | | | (MCV) | | | | | | +---------+ + + +--------+ + + | Problem | Elevated | E79.0 | | | Active | 715886975 | | | uric acid | | | | | | | | in blood | | | | | | +---------+ + + +--------+ + + | Problem | Congestive | I50.9 | | | Active | 31250726 | | | heart | | | [...] | | I42.9 | | Active | 34286904 | | | athy | | | | | | +---------+ + + +--------+ + + | Problem | Right | S96.911A | | | Active | | | | ankle | | | | | | | | strain | | | | | | +---------+ + + +--------+ + + | Problem | Gait | R26.9 | | | Active | 34305432 | | | disturbanc | | | | | | | | e | | | | | | +---------+ + + +--------+ + + | Problem | HARPAL | G47.33 | | | Active | 02747472 | | | (obstructi | | | | | | | | ve sleep | | | | | | | | apnea) | | | | | | +---------+ + + +--------+ + + | Problem | Iron | | D50.9 | | Active | 36844701 | | | deficiency | | | | | | | | anemia | | | | | | +---------+ + + +--------+ + + | Problem | Chronic | | N18.3 | | Active | 089170361 | | | kidney | | | | | | | | disease, | | | | | | | | stage 3 | | | | | | +---------+ + + +--------+ + + | Problem | HTN | | I10 | | Active | 07444647 | | | (hypertens | | | | | | | | ion) | | | | | | +---------+ + + +--------+ + + | Problem | Diverticul | K57.90 | | | Active | 530685311 | | | osis | | | | | | +---------+ + + +--------+ + + | Problem | Anxiety | | F41.9 | | Active | 10929542 | +---------+ + + +--------+ + + | Problem | NAFLD | K76.0 | | | Active | 411073999 | | | (nonalcoho | | | | | | | | lic fatty | | | | | | | | liver | | | | | | | | disease) | | | | | | +---------+ + + +--------+ + + | Problem | Essential | | I10 | | Active | 77104377 | | | hypertensi | | | | | | | | on | | | | | | +---------+ + + +--------+ + + | Problem | Encounter | | Z13.89 | | Active | 989617036 | | | for | | | | | | | | screening | | | | | | | | for other | | | | | | | | disorder | | | | | | +---------+ + + +--------+ + + | Problem | RLS | | G25.81 | | Active | 08392902 | | | (restless | | | | | | | | legs | | | | | | | | syndrome) | | | | | | +---------+ + + +--------+ + + | Problem | Bronchitis | | J40 | | Active | 61933926 | +---------+ + + +--------+ + + | Problem | Constipati | | K59.00 | | Active | 64221331 | | | on | | | | | | +---------+ + + +--------+ + + | Problem | PTSD | | F43.10 | | Active | 64344325 | | | (post-trau | | | | | | | | matic | | | | | | | | stress | | | | | | | | disorder) | | | | | | +---------+ + + +--------+ + + | Problem | COPD | | J44.9 | | Active | 00131562 | | | (chronic | | | | | | | | obstructiv | | | | | | | | e | | | | | | | | pulmonary | | | | | | | | disease) | | | | | | +---------+ + + +--------+ + + | Problem | Hyperchole | | E78.0 | | Active | 75750469 | | | sterolemia | | | | | | +---------+ + + +--------+ + + | Problem | Depression | | F32.9 | | Active | 962895044 | +---------+ + + +--------+ + + | Problem | RAD | J45.909 | | | Active | 44821822 | | | (reactive | | | | | | | | airway | | | | | | | | disease) | | | | | | +---------+ + + +--------+ + + | Problem | High risk | Z79.899 | | | Active | 249161209 | | | medication | | | | | | | | use | | | | | | +---------+ + + +--------+ + + | Problem | Anasarca | R60.1 | | | Active | 870165920 | +---------+ + + +--------+ + + | Problem | Osteopenia | | M85.80 | | Active | 12221132 | +---------+ + + +--------+ + + ALLERGIES + + + + +--------+ | Substance | Reaction | Event Type | Date | Status | + + + + +--------+ | strawberry | diarrhea,vomiti | Non Drug | Sep, | Active | | | ng | Allergy | | | + + + + +--------+ SOCIAL HISTORY No smoking Hx information available PLAN OF CARE + +---------+ | Activity | Details | + +---------+ +---+ | | +---+ + + + | Follow Up | 4 Weeks Reason:null | + + + VITAL SIGNS + + + + | Height | 64 in | 2016-09-14 | + + + + | Weight | 237.2 lbs | 2016-09-14 | + + + + | BMI | 40.71 kg/m2 | 2016-09-14 | + + + + | Temperature | 98.0 degrees Fahrenheit | 2016-09-14 | + + + + | Heart Rate | 73 /min | 2016-09-14 | + + + + | Blood pressure systolic | 126 mm Hg | 2016-09-14 | + + + + | Blood pressure diastolic | 80 mm Hg | 2016-09-14 | + + + + MEDICATIONS + [...] | | 99 | Active | | [place] | | directed | | 2013 | | | | | [place] . | | | | | | | | + + + + + + + +--------+ | [place] | Nasally | 2 drops | | | | | Active | | Nasal | every 2 | in each | | | | | | | [place] | hrs | nostril | | | [...] + + + + + +--------+ RESULTS + +--------+ + + | Name | Result | Date | Reference Range | + +--------+ + + | Urinalysis, Dip | | 2016-09-14 | | | (IH) | | | | + +--------+ + + | Specific [place] | 1.015 | | | + +--------+ + + | pH | 7 | | | + +--------+ + + | Leukocytes | neg | | | + +--------+ + + | Nitrite, Urine | neg | | | + +--------+ + + | Protein | neg | | | + +--------+ + + | Glucose | norm | | | + +--------+ + + | Ketones | neg | | | + +--------+ + + | Urobilingen, | norm | | | | Semi-Qn | | | | + +--------+ + + | Bilirubin | neg | | | + +--------+ + + | Blood Hemoglobin | neg | | | | (BLD) | | | | + +--------+ + + | Phosphorus, Serum | | 2016-09-14 | | + +--------+ + + | Phosphorus, Serum | | | | + +--------+ + + | Magnesium, Serum | | 2016-09-14 | | + +--------+ + + | Magnesium, Serum | | | | + +--------+ + + | TSH | | 2016-09-14 | | + +--------+ + + | TSH | | | | + +--------+ + + | Urinalysis, | | 2016-09-14 | | | w/Culture Reflex | | | | + +--------+ + + | Collection Type | | | | + +--------+ + + | Color | | | | + +--------+ + + | Clarity | | | | + +--------+ + + | Specific [place] | | | | + +--------+ + + | PH | | | | + +--------+ + + | Protein | | | | + +--------+ + + | Glucose | | | | + +--------+ + + | Ketone | | | | + +--------+ + + | Bilirubin | | | | + +--------+ + + | Blood/HGB | | | | + +--------+ + + | Nitrite | | | | + +--------+ + + | Urobilinogen | | | | + +--------+ + + | Leuk Esterase | | | | + +--------+ + + | Casts | | | | + +--------+ + + | WBC'S | | | | + +--------+ + + | RBC'S | | | | + +--------+ + + | Epithelial | | | | + +--------+ + + | Crystals | | | | + +--------+ + + | Bacteria | | | | + +--------+ + + | Comprehensive | | 2016-09-14 | | | Metabolic Panel | | | | + +--------+ + + | CBC with | | 2016-09-14 | | | Differential Count | | | | + +--------+ + + PROCEDURES + + + + + | Procedure | Date Ordered | Related Diagnosis | Body Site | + + + + + | LAB URINALYSIS (DIP | September 14, 2016 | | | | STICK ONLY | | | | + + + + + | Est Level III | September 14, 2016 | | | | Intermediate | | | | + + + + + | [facility] MED/CURRENT | September 14, 2016 | | | | MED MERGE | | | | + + + + + IMMUNIZATIONS No Known Immunizations"
--- OUTSIDE RECORDS SUMMARY | 2017-03-12 12:59 | XMS ---
Demographics + + + | Address | [address] | | | [address] | | | [place] [address] | + + + | Preferred Language | Unknown | + + + | Marital Status | Unknown | + + + | Cheondoism Affiliation | Unknown | + + + | Race | Unknown | + + + | Ethnic Group | Unknown | + + + Author + + + | Author | [facility] | + + + | Organization | [facility] | + + + | Address | [address] | | | [place] [address] | + + + | Phone | | + + + Care Team Providers + + + + | Care Operations Support Specialist Name | Role | Phone | + + + + Unavailable | Unavailable | + + + + PROBLEMS +---------+ + + +--------+ + + | Type | Condition | ICD9-CM | FXL39-FI | Onset | Condition | SNOMED | | | | Code | Code | Dates | Status | Code | +---------+ + + +--------+ + + | Problem | Elevated | E79.0 | | | Active | [id number] | | | uric acid | | | | | | | | in blood | | | | | | +---------+ + + +--------+ + + | Problem | Low mean | R71.8 | | | Active | 64879382 | | | corpuscula | | | | | | | | r volume | | | | | | | | (MCV) | | | | | | +---------+ + + +--------+ + + | Problem | Cardiomyop | | I42.9 | | Active | 47809027 | | | athy | | | | | | +---------+ + + +--------+ + + | Problem | Congestive | I50.9 | | | Active | 62106716 | | | heart | | | | | | | | failure | | | | | | +---------+ + + +--------+ + + | Problem | Gait | R26.9 | | | Active | 72441889 | | | disturbanc | | | | | | | | e | | | | | | +---------+ + + +--------+ + + | Problem | Essential | | I10 | | Active | 59153420 | | | hypertensi | | | | | | | | on | | | | | | +---------+ + + +--------+ + + | Problem | NAFLD | K76.0 | | | Active | 644508344 | | | (nonalcoho | | | | | | | | lic fatty | | | | | | | | liver | | | | | | | | disease) | | | | | | +---------+ + + +--------+ + + | Problem | Anxiety | | F41.9 | | Active | 51345919 | +---------+ + + +--------+ + + | Problem | Hyperchole | | E78.0 | | Active | 29104412 | | | sterolemia | | | | | | +---------+ + + +--------+ + + | Problem | Encounter | | Z13.89 | | Active | 200969022 | | | for | | | | | | | | screening | | | | | | | | for other | | | | | | | | disorder | | | | | | +---------+ + + +--------+ + + | Problem | Depression | | F32.9 | | Active | 206197684 | +---------+ + + +--------+ + + | Problem | Constipati | | K59.00 | | Active | 64423591 | | | on | | | | | | +---------+ + + +--------+ + + | Problem | PTSD | | F43.10 | | Active | 45606797 | | | (post-trau | | | | | | | | matic | | | | | | | | stress | | | | | | | | disorder) | | | | | | +---------+ + + +--------+ + + | Problem | Bronchitis | | J40 | | Active | 23279443 | +---------+ + + +--------+ + + | Problem | HTN | | I10 | | Active | 42412064 | | | (hypertens | | | | | | | | ion) | | | | | | +---------+ + + +--------+ + + | Problem | Diverticul | K57.90 | | | Active | 554239202 | | | osis | | | | | | +---------+ + + +--------+ + + | Problem | Type 2 | E11.9 | | | Active | 29065915 | | | diabetes | | | | | | | | mellitus | | | | | | +---------+ + + +--------+ + + | Problem | 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 | | | Active | 11169171 | | | ure | | | | | | +---------+ + + +--------+ + + | Problem | Osteopenia | | M85.80 | | Active | 14254141 | +---------+ + + +--------+ + + | Problem | Anasarca | R60.1 | | | Active | 487363170 | +---------+ + + +--------+ + + | Problem | COPD | | J44.9 | | Active | 62478830 | | | (chronic | | | | | | | | obstructiv | | | | | | | | e | | | | | | | | pulmonary | | | | | | | | disease) | | | | | | +---------+ + + +--------+ + + | Problem | Encounter | Z12.2 | | | Active | 002086717 | | | for | | | | | | | | screening | | | | | | | | for lung | | | | | | | | cancer | | | | | | +---------+ + + +--------+ + + | Problem | Screening | Z12.31 | | | Active | 425050578 | | | for breast | | | | | | | | cancer | | | | | | +---------+ + + +--------+ + + | Problem | Elevated | R74.8 | | | Active | 853871157 | | | alkaline | | | | | | | | phosphatas | | | | | | | | e level | | | | | | +---------+ + + +--------+ + + | Problem | Screening | Z12.4 | | | Active | 514199507 | | | for | | | | | | | | cervical | | | | | | | | cancer | | | | | | +---------+ + + +--------+ + + | Problem | Anemia | | D64.9 | | Active | 712936060 | +---------+ + + +--------+ + + | Problem | History of | Z86.69 | | | Active | | | | | | | | | | | | pseudoseiz | | | | | | | | ure | | | | | | +---------+ + + +--------+ + + | 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 | | | Active | 618847087 | | | ve | | | [...] | | H54.12 | | Active | 37653341 | | | left eye, | | | | | | | | low | | | | | | | | vision | | | | | | | | right eye | | | | | | +---------+ + + +--------+ + + | Problem | RAD | J45.909 | | | Active | 84038093 | | | (reactive | | | | | | | | airway | | | | | | | | disease) | | | | | | +---------+ + + +--------+ + + | Problem | 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 | | Active | 763002821 | | | incontinen | | | | | | | | ce | | | | | | +---------+ + + +--------+ + + | Problem | High risk | Z79.899 | | | Active | 026977065 | | | medication | | | | | | | | use | | | | | | +---------+ + + +--------+ + + | Problem | Iron | | D50.9 | | Active | 40847338 | | | deficiency | | | | | | | | anemia | | | | | | +---------+ + + +--------+ + + | Problem | RLS | | G25.81 | | Active | 89306145 | | | (restless | | | | | | | | legs | | | | | | | | syndrome) | | | | | | +---------+ + + +--------+ + + | Problem | HARPAL | G47.33 | | | Active | 63538702 | | | (obstructi | | | | | | | | ve sleep | | | | | | | | apnea) | | | | | | +---------+ + + +--------+ + + | Problem | Chronic | | N18.3 | | Active | 528603331 | | | kidney | | | [...]
[2017-03-12] MEDS ORDERED: REQUIP2 MG PO (13:09)
[2017-03-12] MEDS ORDERED: MINIPRESS1 MG PO (13:09)
== END 2017-03-12 14:30 | disposition home or self-care (01) ==
LOC: ED 12:49
DX: M25.551 Pain in right hip (principal); I10 Essential (primary) hypertension; F32.9 Major depressive disorder, single episode, unspecified; F41.9 Anxiety disorder, unspecified; J44.9 Chronic obstructive pulmonary disease, unspecified; E78.5 Hyperlipidemia, unspecified; Z91.018 Allergy to other foods; Z79.899 Other long term (current) drug therapy; Z79.82 Long term (current) use of aspirin
CPT/HCPCS: 73502; 99283

== ENCOUNTER 2018-04-27 07:50 | Day surgery (SDC) | payer OTHER ==
[~2018-04-27] VITALS: Ht 162.6 cm; Wt 104.8 kg
[~2018-04-27 07:50] MED LIST changes: +MINIPRESS1 MG PO; +REQUIP2 MG PO
--- NOTE | 2018-04-27 08:08 | NUR ---
STATES SHE USES WALKER.
[2018-04-27] MEDS ORDERED: GLUCOPHAGE500 MG PO (08:19)
--- NOTE | 2018-04-27 09:36 | NUR ---
04/27/18 0936 Jumana,Tammy 0916 PT ARRIVED TO PACU ON 8L VIA MASK, PT REACTIVE TO TACTILE STIMULI RESP EVEN AND UNLABORED. 0918 O2 DECREASED TO 6L 0926 O2 DECREASED TO 2L. PT WAKES TO VERBAL STIMULI AND DENIES NAUSEA AND PAIN. PT ENCOURAGED TO PASS GAS/AIR. PT REORINTED TO PACU. 0930 PT ASLEEP AND SMALL AMOUNT OF SNORING NOTED.
--- NOTE | 2018-04-27 13:03 | OR ---
[facility] [address], [place] [address] Signed DATE OF OPERATION: 04/27/2018 SURGEON: Alfonzo Monroy MD PREOPERATIVE DIAGNOSES: 1. Left lung cancer status post radiation therapy. 2. Iron-deficiency anemia. 3. Diverticulosis (2017). POSTOPERATIVE DIAGNOSES: 1. Mild gastritis. 2. Tiny hiatal hernia. 3. Moderate sigmoid diverticulosis. 4. A 4 mm polyp in left colon. PROCEDURES: 1. EGD with CLOtest and biopsies of the antrum, fundus, and GE junction. 2. Colonoscopy with hot biopsy. ESTIMATED BLOOD LOSS: None. INDICATIONS: Marina is a 62-year-old female, diabetic female who has been through radiation therapy recently for her left lung cancer. Her oncologist realized she had iron-deficiency anemia. He requested both upper and lower endoscopy. Marina reviewed her colonoscopy in June 2016, with her oncologist. They both agreed to proceed with the upper and lower endoscopy given her findings. We know she has some diverticulosis, but no previous polyps. No family history of colon cancer or polyps. Marina seems to have no specific upper or lower GI complaints currently. In the office, I gave her a pamphlet on both upper and lower endoscopy. We reviewed that together in detail along with the risks including, but not limited to gas bloating, crampy abdominal pain, bleeding, perforation, requiring surgery, and missed diagnosis. We had also reviewed the bowel prep. She also understands the need for IV conscious sedation. We had used an anesthesia provider 2 years ago, for the colonoscopy and it worked out quite well given her advanced medical issues and her ASA 4 status. We therefore had an anesthesia provider help us on this occasion, and once again, it worked out very well for Marina. She had expressed understanding and wished to proceed. PROCEDURE NOTE: Electronically Signed By: ALFONZO MONROY MD 04/27/18 1303 PATIENT NAME: MARINA VALLEJO OPERATIVE REPORT DATE OF : 53 REPORT #: [id number] PHYSICIAN: ALFONZO MONROY MD PCP: JOHNNY RIZO MD REPORT IS CONFIDENTIAL AND NOT TO BE RELEASED WITHOUT AUTHORIZATION [facility] [address], [place] [address] Signed Marina was taken into our endoscopy suite and placed in the supine semi-recumbent position. The posterior oropharynx was anesthetized with Hurricaine spray. A bite block was utilized for the case. She was given IV sedation with propofol per our nurse roughener. The adult gastroscope was introduced and advanced out into the third portion of the duodenum under direct visualization of camera without difficulty. The duodenum and pyloric channel were unremarkable. She had very mild erythema in the stomach, so we went ahead and took a biopsy of the antrum for CLOtest as well as pathologic review. We also took a biopsy of the fundus for pathologic review. Upon retroflexion of scope, she does not have a true hiatal hernia, but it is less than optimal valve at the top of her stomach. We went and brought the camera through the area of the GE junction, which was compliant without stricture. She has very minimal disruption to the Z-line, so we went ahead and took a biopsy in this area. No distal esophagitis. No Huddleston's mucosa. The middle and upper esophagus were unremarkable. After this, the gas had been suctioned out and the gastroscope removed. We could see that Marina had just a little bit punctate erythema above her vocal cords and I do not know if that would be in the field of her radiation or not, I suspect not. Nevertheless, Marina tolerated upper endoscopy quite well. Marina was rotated into the left lateral decubitus position. She was maintained on IV sedation with the propofol per our nurse roughener. A digital rectal exam was performed and this was unremarkable. The adult colonoscope was introduced and advanced all the way around into the cecum under direct visualization of camera. She required just a little extra propofol and a little abdominal compression in order to advance the scope down into the cecum itself. Her prep was good. The scope was slowly withdrawn. We took pictures throughout for photodocumentation. We saw just a tiny polyp back in the left colon and removed it easily with hot biopsy forceps. Of course, she does have diverticula in the left sigmoid colon. They were minimal to moderate in size, minimal to moderate in number, and scattered about. The rectum itself was unremarkable. Upon retroflexion of scope, I saw no pathology above the anal canal. After this, the gas was suctioned out and colonoscope removed. Marina tolerated the procedure quite well. RECOMMENDATIONS: I will see Marina back in my office in 7 to 14 days to review her results. No obvious source for iron-deficiency anemia. Alfonzo Monroy MD ALB/MODL Electronically Signed By: ALFONZO MONROY MD 04/27/18 1303 PATIENT NAME: MARINA VALLEJO MAYCO OPERATIVE REPORT DATE OF : 53 REPORT #: [id number] PHYSICIAN: ALFONZO MONROY MD PCP: JOHNNY RIZO MD REPORT IS CONFIDENTIAL AND NOT TO BE RELEASED WITHOUT AUTHORIZATION [facility] [address] [place] [address] Signed /[id number] cc: MD Johnny Hurst MD Copies: ALFONZO MONROY MD, MALCOLM MD ~ Electronically Signed By: ALFONZO MONROY MD 04/27/18 1303 PATIENT NAME: MARINA VLALEJO OPERATIVE REPORT DATE OF : 53 REPORT #: [id number] PHYSICIAN: ALFONZO MONROY MD PCP: JOHNNY RIZO MD REPORT IS CONFIDENTIAL AND NOT TO BE RELEASED WITHOUT AUTHORIZATION
== END 2018-04-27 10:13 | disposition home or self-care (01) ==
LOC: OPS 07:50 → DS 07:50 → OPS 08:30
PROVIDERS: Colon & Rectal Surgery
PROC: 0DB68ZX Excision of Stomach, Via Natural or Artificial Opening Endoscopic, Diagnostic (ICD-10-PCS; 2018-04-27)
PROC: 0DBE8ZZ Excision of Large Intestine, Via Natural or Artificial Opening Endoscopic (ICD-10-PCS; 2018-04-27)
PROC: 0DB48ZX Excision of Esophagogastric Junction, Via Natural or Artificial Opening Endoscopic, Diagnostic (ICD-10-PCS; principal; 2018-04-27 08:30)
PROC: 0DB78ZX Excision of Stomach, Pylorus, Via Natural or Artificial Opening Endoscopic, Diagnostic (ICD-10-PCS; 2018-04-27 08:30)
DX: D12.6 Benign neoplasm of colon, unspecified (principal); K57.30 Diverticulosis of large intestine without perforation or abscess without bleeding; K29.50 Unspecified chronic gastritis without bleeding; K25.9 Gastric ulcer, unspecified as acute or chronic, without hemorrhage or perforation; K20.9 Esophagitis, unspecified; K44.9 Diaphragmatic hernia without obstruction or gangrene; D50.9 Iron deficiency anemia, unspecified; Z85.118 Personal history of other malignant neoplasm of bronchus and lung; I13.0 Hypertensive heart and chronic kidney disease with heart failure and stage 1 through stage 4 chronic kidney disease, or unspecified chronic kidney disease; E11.22 Type 2 diabetes mellitus with diabetic chronic kidney disease; K21.9 Gastro-esophageal reflux disease without esophagitis; I50.9 Heart failure, unspecified; N18.3 Chronic kidney disease, stage 3 (moderate); J44.9 Chronic obstructive pulmonary disease, unspecified; E78.5 Hyperlipidemia, unspecified; M85.80 Other specified disorders of bone density and structure, unspecified site; F32.9 Major depressive disorder, single episode, unspecified; F41.9 Anxiety disorder, unspecified; E66.9 Obesity, unspecified; Z87.891 Personal history of nicotine dependence; Z91.018 Allergy to other foods; Z79.899 Other long term (current) drug therapy; Z79.82 Long term (current) use of aspirin; Z79.84 Long term (current) use of oral hypoglycemic drugs; G47.30 Sleep apnea, unspecified; Z99.89 Dependence on other enabling machines and devices; Z68.39 Body mass index [BMI] 39.0-39.9, adult
CPT/HCPCS: 86677; 88305; J2250; J2704; J3010; J7120

== ENCOUNTER 2019-01-25 04:38 | Emergency (ER) | payer OTHER ==
[~2019-01-25] VITALS: Ht 162.6 cm; Wt 106.1 kg
--- OUTSIDE RECORDS SUMMARY | ~2019-01-25 | XMS | Encounter Summary ---
Demographics + + + | Address | [address] | | | [place] [address] | + + + | Home Phone | | + + + | Preferred Language | Unknown | + + + | Marital Status | Single | + + + | Mormonism Affiliation | 1041 | + + + | Race | Unknown | + + + | Ethnic Group | Unknown | + + + Author + + + | Author | [facility] | | | and [place] | + + + | Organization | [facility] | | | and [place] | + + + | Address | Unknown | + + + | Phone | Unavailable | + + + Support + + +---------+ + | Name | Relationship | Address | Phone | + + +---------+ + | Carlos Bhatti | ECON | Unknown | | + + +---------+ + | Ney Bhatti | ECON | Unknown | | + + +---------+ + Care Team Providers + +------+ + | Care Adobe Flex Developer Name | Role | Phone | + +------+ + PCP | Unavailable | + +------+ + Encounter Details +--------+ + + + + | Date | Type | Department | Care Team | Description | +--------+ + + + + | 10/04/ | Orders Only | [facility] | Conversion | | | 2018 | | [facility] | Transaction, | | | | | [address] | Provider Unknown | | | | | [address] [place] | | | | | | [address] | (Fax) | | | | | [phone] | | | +--------+ + + + + Social History + +-------+ +--------+------+ | Tobacco Use | Types | Packs/Day | Years | Date | | | | | Used | | + +-------+ +--------+------+ | Never Assessed | | | | | + +-------+ +--------+------+ + + + | Sex Assigned at [...] as of this encounter Plan of Treatment +--------+---------+ + + + | Date | Type | Specialty | Care Team | Description | +--------+---------+ + + + | 05/02/ | Office | Oncology | Monet Mcginnis MD | | | 2019 | Visit | | [address] | | | | | | [place] | | | | | | [address] | | | | | | | | +--------+---------+ + + + | 08/01/ | Office | Pulmonology | Jorge, | | | 2019 | Visit | | Caitlyn Simon, | | | | | | MD [address] | | | | | | [place], | | | | | | [place] [address] | | | | | | [phone] | | | | | | | | +--------+---------+ + + + documented as of this encounter Procedures + +--------+ + + + | Procedure Name | Priori | Date/Time | Associated Diagnosis | Comments | | | ty | | | | + +--------+ + + + | URINALYSIS, | Routin | 10/04/2017 | | Results for this | | MICROSCOPIC ONLY | e | 10:50 AM | | procedure are in the | | | | PDT | | results section. | + +--------+ + + + | RENAL FUNCTION PANEL | Routin | 10/04/2017 | | Results for this | | | e | 10:50 AM | | procedure are in the | | | | PDT | | results section. | + +--------+ + + + documented in this encounter Results Urinalysis, Microscopic Only (10/04/2017 10:50 AM PDT) + + + + + + | Component | Value | Ref Range | Performed | Pathologist | | | | | At | Signature | + + + + + + | Color | Colorless | | EXTERNAL | | | | | | LAB | | + + + + + + | Clarity | Clear | | EXTERNAL | | | | | | LAB | | + + + + + + | Specific | 1.004 (A) | 1.005 - 1.030 | EXTERNAL | | | [facility] | | | LAB | | + + + + + + | Leukocyte | Negative | | EXTERNAL | | | Esterase, | | | LAB | | | Urine | | | | | + + + + + + | Nitrite, | Negative | | EXTERNAL | | | Urine | | | LAB | | + + + + + + | Urobilinoge | Normal | | EXTERNAL | | | n, Urine | | | LAB | | + + + + + + | Protein, | Negative | | EXTERNAL | | | Urine | | | LAB | | + + + + + + | pH, Urine | 5 | 5 - 9 | EXTERNAL | | | | | | LAB | | + + + + + + | Blood, | Negative | | EXTERNAL | | | Urine | | | LAB | | + + + + + + | Ketones | Negative | | EXTERNAL | | | | | | LAB | | + + + + + + | Bilirubin, | Negative | | EXTERNAL | | | Urine | | | LAB | | + + + + + + | Glucose, | Negative | | EXTERNAL | | | Urine | | | LAB | | + + + + + + + + | Specimen | + + | Urine specimen | | (specimen) | + + + + + | Narrative | Performed At | + + + | Bacteria: 1+ | EXTERNAL LAB | + + + + +---------+ + + | Performing | Address | City/State/Zipcode | Phone Number | | Organization | | | | + +---------+ + + | EXTERNAL LAB | | | | + +---------+ + + Renal Function Panel (10/04/2017 10:50 AM PDT) + +---------+ + + + | Component | Value | Ref Range | Performed | Pathologist | | | | | At | Signature | + +---------+ + + + | Glucose, | 111 (A) | 70 - 100 mg/dL | EXTERNAL | | | Fasting | | | LAB | | + +---------+ + + + | BUN | 32 (A) | 6 - 23 mg/dL | EXTERNAL | | | | | | LAB | | + +---------+ + + + | Creatinine | 1.12 | 0.7 - 1.25 | EXTERNAL | | | | | mg/dL | LAB | | + +---------+ + + + | PHOSPHORUS | 3.5 | 2.5 - 5.0 mg/dL | EXTERNAL | | | | | | LAB | | + +---------+ + + + | Albumin | 4.5 | 3.5 - 5.0 | EXTERNAL | | | | | | LAB | | + +---------+ + + + | Na | 140 | 132 - 143 | EXTERNAL | | | | | mmol/L | LAB | | + +---------+ + + + | K | 4.3 | 3.6 - 5.1 | EXTERNAL | | | | | mmol/L | LAB | | + +---------+ + + + | Cl | 99 | 95 - 112 mmol/L | EXTERNAL | | | | | | LAB | | + +---------+ + + + | CO2 | 25 | 19 - 31 mmol/L | EXTERNAL | | | | | | LAB | | + +---------+ + + + | Anion Gap | 20.3 | 7 - 21 mmol/L | EXTERNAL | | | | | | LAB | | + +---------+ + + + | eGFR if not | | | EXTERNAL | | | | | | LAB | | | [place] | | | | | + +---------+ + + + | Phosphorus, | | | EXTERNAL | | | Inorganic | | | LAB | | + +---------+ + + + | BUN/Creatin | 28.6 | 6.0 - 28.6 | EXTERNAL | | | ine Ratio | | | LAB | | + +---------+ + + + | Calcium | 10.1 | 8.5 - 10.3 | EXTERNAL | | | | | mg/dL | LAB | | + +---------+ + + + | Estimated | 49 (A) | 60 mg/dL | EXTERNAL | | | GFR | | | LAB | | + +---------+ + + + + + | Specimen | + + | Blood specimen | | (specimen) | + + + +---------+ + + | Performing | Address | City/State/Zipcode | Phone Number | | Organization | | | | + +---------+ + + | EXTERNAL LAB | | | | + +---------+ + + documented in this encounter Visit Diagnoses Not on filedocumented in this encounter"
--- OUTSIDE RECORDS SUMMARY | ~2019-01-25 | XMS | Encounter Summary ---
Demographics + + + | Address | [address] | | | [place] [address] | + + + | Home Phone | | + + + | Preferred Language | Unknown | + + + | Marital Status | Single | + + + | Holiness Affiliation | 1041 | + + + | Race | Unknown | + + + | Ethnic Group | Unknown | + + + Author + + + | Author | [facility] [employer] (Historical as of | | | 10-29-18) | + + + | Organization | [facility] [employer] (Historical as of | | | 10-29-18) | + + + | Address | [...] | | + + +---------+ + | Marivel Bhatti | ECON | Unknown | | + + +---------+ + Care Team Providers + +------+ + | Care Ad Setter Name | Role | Phone | + +------+ + | Johnny Caldera MD | PCP | | + +------+ + Encounter Details +--------+ + + + + | Date | Type | Department | Care Team | Description | +--------+ + + + + | 10/26/ | Orders Only | [facility] | Mendez, | CKD (chronic kidney | | 2019 | | [place] [address] | [place] | disease), stage II; | | | | [address] | | Essential | | | | [place] [address] | | hypertension, | | | | [phone] | | benign; | | | | | | Hyperuricemia | +--------+ + + + + Social History + + + +--------+ + | Tobacco Use | Types | Packs/Day | Years | Date | | | | | Used | | + + + +--------+ + | Former Smoker | Cigarettes | 2 | 33 | Quit: 02/16/2013 | + + + +--------+ + + +---+---+---+ | Smokeless Tobacco: | | | | | Never Used | | | | + +---+---+---+ + + | Comments: 02/16/13 is when pt quit | + + + + +---------+ + | Alcohol Use | Drinks/We | oz/Week | Comments | | | ek | | | + + +---------+ + | No | 0 | 0.0 | heavy drinker in past hx. | | | Standard | | | | | drinks or | | | | | | | | | | equivalen | | | | | t | | | + + +---------+ + + + + | Sex Assigned at | Date Recorded | | | | + + + | Not on file | | + + + as of this encounter Plan of Treatment Not on fileas of this encounter Procedures + +--------+ + + + | Procedure Name | Priori | Date/Time | Associated Diagnosis | Comments | | | ty | | | | + +--------+ + + + | PROTEIN / CREATININE | Routin | 10/25/2018 | CKD (chronic | Results for this | | RATIO, URINE | e | 3:09 PM | kidney disease), | procedure are in the | | | | PDT | stage II Essential | results section. | | | | | hypertension, benign | | | | | | Hyperuricemia | | + +--------+ + + + | CBC W/AUTO DIFF | Routin | 10/25/2018 | CKD (chronic | Results for this | | (REFLEX TO MANUAL) | e | 3:09 PM | kidney disease), | procedure are in the | | | | PDT | stage II Essential | results section. | | | | | hypertension, benign | | | | | | Hyperuricemia | | + +--------+ + + + | MAGNESIUM | Routin | 10/25/2018 | CKD (chronic | Results for this | | | e | 3:09 PM | kidney disease), | procedure are in the | | | | PDT | stage II Essential | results section. | | | | | hypertension, benign | | | | | | Hyperuricemia | | + +--------+ + + + | RENAL FUNCTION PANEL | Routin | 10/25/2018 | CKD (chronic | Results for this | | | e | 3:09 PM | kidney disease), | procedure are in the | | | | PDT | stage II Essential | results section. | | | | | hypertension, benign | | | | | | Hyperuricemia | | + +--------+ + + + in this encounter Results Renal function panel (10/25/2018 3:09 PM) + +---------+ + + | Component | Value | Ref Range | Performed At | + +---------+ + + | GLUCOSE | 106 (A) | 70 - 100 mg/dL | [facility] | | | | | [facility] | + +---------+ + + | BUN | 32 (A) | 6 - 23 mg/dL | [facility] | | | | | [facility] | + +---------+ + + | CREATININE | 1.14 | 0.70 - 1.25 mg/dL | [facility] | | | | | [facility] | + +---------+ + + | PHOSPHORUS | 3.7 | 2.5 - 5.0 mg/dL | [facility] | | | | | [facility] | + +---------+ + + | Albumin | 4.3 | 3.5 - 5.0 | [facility] | | | | | [facility] | + +---------+ + + | SODIUM | 139 | 132 - 143 mmol/L | [facility] | | | | | [facility] | + +---------+ + + | POTASSIUM | 4.2 | 3.6 - 5.1 mmol/L | [facility] | | | | | [facility] | + +---------+ + + | CHLORIDE | 103 | 95 - 112 mmol/L | [facility] | | | | | [facility] | + +---------+ + + | CO2 | 27 | 19 - 31 mmol/L | [facility] | | | | | [facility] | + +---------+ + + | ANION GAP AGAP | 13.2 | 7 - 21 mmol/L | [facility] | | | | | [facility] | + +---------+ + + | GFR MDRD Non Af Amer | | | [facility] | | | | | [facility] | + +---------+ + + | Phosphorus,Inorganic | | | [facility] | | | | | [facility] | + +---------+ + + | BUN/CREAT | 28.1 | 6.0 - 28.6 | [facility] | | | | | [facility] | + +---------+ + + | CALCIUM | 9.7 | 8.5 - 10.3 mg/dL | [facility] | | | | | [facility] | + +---------+ + + | EGFR | 48 (A) | 60 - 140 mg/dL | [facility] | | | | | [facility] | + +---------+ + + + + | Specimen | + + | Blood | + + + + + + + | Performing | Address | City/State/Zipcode | Phone Number | | Organization | | | | + + + + + | [facility] | [address] | [place] [address] | [phone] | | LABORATORY | [address] | | | + + + + + Magnesium (10/25/2018 3:09 PM) + +-------+ + + | Component | Value | Ref Range | Performed At | + +-------+ + + | MAGNESIUM | 2.2 | 1.7 - 2.5 mg/dL | [facility] | | | | | [facility] | + +-------+ + + + + | Specimen | + + | Blood | + + + + + + + | Performing | Address | City/State/Zipcode | Phone Number | | Organization | | | | + + + + + | [facility] | [address] | [place] [address] | [phone] | | LABORATORY | [address] | | | + + + + + CBC W/Auto Diff (Reflex to Manual) (10/25/2018 3:09 PM) + + + + + | Component | Value | Ref Range | Performed At | + + + + + | WBC | 10.5 | 4.5 - 11.0 10^3/mL | [facility] | | | | | [facility] | + + + + + | RBC | 4.99 | 3.8 - 5.1 10^6/ L | [facility] | | | | | [facility] | + + + + + | HGB | 11.8 (A) | 12.0 - 16.0 g/dL | [facility] | | | | | [facility] | + + + + + | HCT | 36.8 | 35 - 45 % | [facility] | | | | | LABORATORY | + + + + + | MCV | 73.8 (A) | 81 - 99 fL | [facility] | | | | | LAB[facility] | + + + + + | MCH | 19.2 (A) | 10.5 - 15.0 pg | [facility] | | | | | LAB[facility] | + + + + + | MCHC | 24 (A) | 27 - 33 g/dL | [facility] | | | | | [facility] | + + + + + | PLT | 240 | 140 - 440 K/ L | [facility] | | | | | [facility] | + + + + + | RDW SD | 19.2 (A) | 10.5 - 15.0 % | [facility] | | | | | [facility] | + + + + + | MPV | | fL | [facility] | | | | | [facility] | + + + + + | DIFF TYPE | | | [facility] | | | | | [facility] | + + + + + | NEUTROPHILS | 61.6 | 39 - 80 % | [facility] | | | | | [facility] | + + + + + | LYMPHOCYTES | 28.7 | 24 - 44 % | [facility] | | | | | [facility] | + + + + + | MONOCYTES | 7.7 | 0 - 12 % | [facility] | | | | | [facility] | + + + + + | EOSINOPHILS | 1.5 | 0 - 6 % | [facility] | | | | | [facility] | + + + + + | BASOPHILS | 0.5 | 0 - 2 % | [facility] | | | | | LAB[facility] | + + + + + | NEUTROPHILS ABS | | / L | [facility] | | | | | LAB[facility]AT[facility] | + + + + + | LYMPHOCYTES ABS | | / L | [facility] | | | | | LAB[facility] | + + + + + | MONOCYTES ABS | | / L | [facility] | | | | | LAB[facility] | + + + + + | EOSINOPHILS ABS | | / L | [facility] | | | | | LAB[facility]ATORY | + + + + + | BASOPHILS ABS | | / L | [facility] | | | | | LAB[facility]ATORY | + + + + + + + | Specimen | + + | Blood | + + + + + + + | Performing | Address | City/State/Zipcode | Phone Number | | Organization | | | | + + + + + | [facility] | [address] | [place] [address] | [phone] | | LABORATORY | [address] | | | + + + + + Protein / creatinine ratio, urine (10/25/2018 3:09 PM) + +-------+ + + | Component | Value | Ref Range | Performed At | + +-------+ + + | UR | 87.2 | 0 - 150 | [facility] | | PROTEIN/CREATININE | | | LABORATORY | + +-------+ + + + + | Specimen | + + | Urine | + + + + + + + | Performing | Address | City/State/Zipcode | Phone Number | | Organization | | | | + + + + + | [facility] | [address] | [place] [address] | [phone] | | LABORATORY | [address] | | | + + + + + in this encounter Visit Diagnoses + + | Diagnosis | + + | CKD (chronic kidney disease), stage II | + + | Essential hypertension, benign | + + | Hyperuricemia | + + | Other abnormal blood chemistry | + +"
--- OUTSIDE RECORDS SUMMARY | ~2019-01-25 | XMS | Encounter Summary ---
Demographics + + + | Address | [address] | | | [place] [address] | + + + | Home Phone | | + + + | Preferred Language | Unknown | + + + | Marital Status | Single | + + + | Anglican Affiliation | 1041 | + + + | Race | Unknown | + + + | Ethnic Group | Unknown | + + + Author + + + | Author | [facility] | | | and [place] | + + + | Organization | [facility] | | | and [place] | + + + | Address | Unknown | + + + | Phone | Unavailable | + + + Support + + +---------+ + | Name | Relationship | Address | Phone | + + +---------+ + | Carlos Reyeser | ECON | Unknown | | + + +---------+ + | Ney Reyeser | ECON | Unknown | | + + +---------+ + Care Team Providers + +------+ + | Care Hide Worker Name | Role | Phone | + +------+ + PCP | Unavailable | + +------+ + Encounter Details +--------+ + + + + | Date | Type | Department | Care Team | Description | +--------+ + + + + | 08/30/ | Hospital | [facility] | Conversion | Neck pain | | 2014 | Encounter | CONVERSION [address] | Transaction, | | | | | [address] | Provider Unknown | | | | | [place], [place] | | | | | | [address] | (Fax) | | | | | [phone] | | | +--------+ + + + [...] + + documented as of this encounter Medications at Time of Discharge + + + +---------+ + + | Medication | Sig | Dispensed | Refills | Start | End Date | | | | | | Date | | + + + +---------+ + + | albuterol (PROAIR | Inhale 2 puffs into | | 0 | 07/26/19 | | | HFA) 90 mcg/puff | the lungs every 4 | | | 14 | | | inhaler | (four) hours as | | | | | | | needed. | | | | | + + + +---------+ + + | atorvaSTATin | Take 40 mg by mouth | | 0 | 07/26/19 | | | (LIPITOR) 40 mg | daily. | | | 14 | | | tablet | | | | | | + + + +---------+ + + documented as of this encounter Plan of Treatment +--------+---------+ + + + | Date | Type | Specialty | Care Team | Description | +--------+---------+ + + + | 02/18/ | Office | Oncology | Monet Mcginnis MD | | | 2019 | Visit | | [address] | | | | | | [place] | | | | | | [address] | | | | | | | | +--------+---------+ + + + | 08/01/ | Office | Pulmonology | Jorge, | | | 2019 | Visit | | Caitlyn Simon, | | | | | | MD [address] | | | | | | [place], | | | | | | [place] [address] | | | | | | [phone] | | | | | | | | +--------+---------+ + + + documented as of this encounter Procedures + +--------+ + + + | Procedure Name | Priori | Date/Time | Associated Diagnosis | Comments | | | ty | | | | + +--------+ + + + | MRI CERVICAL SPINE W | Routin | 08/04/2013 | | Results for this | | WO CONTRAST | e | 2:38 PM | | procedure are in the | | | | PDT | | results section. | + +--------+ + + + documented in this encounter Results MRI Cervical Spine w wo Contrast (08/04/2013 2:38 PM PDT) + + | Specimen | + + | | + + + + + | Narrative | Performed At | + + + | This is a non-reportable procedure without a radiologist report and | | | is used for image storage only | | + + + + + | Procedure Note | + + | Evin Malhotra - 10/28/2018 2:44 PM PDT This is a non-reportable procedure | | without a radiologist report and isused for image storage only | + + documented in this encounter Visit Diagnoses + + | Diagnosis | + + | Neck pain Cervicalgia | + + documented in this encounter"
--- OUTSIDE RECORDS SUMMARY | ~2019-01-25 | XMS | Encounter Summary ---
Demographics + + + | Address | [address] | | | [place] [address] | + + + | Home Phone | | + + + | Preferred Language | Unknown | + + + | Marital Status | Single | + + + | Orthodox Affiliation | 1041 | + + + | Race | Unknown | + + + | Ethnic Group | Unknown | + + + Author + + + | Author | [facility] | | | and [place] | + + + | Organization | [facility] | | | and [...] Team Providers + +------+ + | Care Visual Inspector Name | Role | Phone | + +------+ + | Johnny Caldera MD | PCP | | + +------+ + Encounter Details +--------+ + + + + | Date | Type | Department | Care Team | Description | +--------+ + + + + | 10/28/ | Orders Only | [facility] | Monet Mcginnis MD | Malignant neoplasm | | 2019 | | HEMATOLOGY AND | [address] | of upper lobe, left | | | | ONCOLOGY [address] | [place] | bronchus or lung | | | | [address] | [address] | (HCC); Iron | | | | [place] | | deficiency anemia; | | | | [address] | | Chronic kidney | | | | [phone] | | disease, stage II | | | | | | (mild); Essential | | | | | | (primary) | | | | | | hypertension | +--------+ + + + + Social History + +-------+ +--------+------+ | Tobacco Use | Types | Packs/Day | Years | Date | | | | | Used | | + +-------+ +--------+------+ | Former Smoker | | 2 | | | + +-------+ +--------+------+ + + | Comments: 02/16/13 is when pt quit | + + + + + | Sex Assigned [...] [place] | | | | | | [address] | | | | | | | | +--------+---------+ + + + | 08/01/ | Office | Pulmonology | Jorge, | | | 2019 | Visit | | Caitlyn Simon | | | | | | MD [address] | | | | | | [place], | | | | | | [place] [address] | | | | | | [phone] | | | | | | | | +--------+---------+ + + + + +------+--------+ + + | Name | Type | Priori | Associated Diagnoses | Order Schedule | | | | ty | | | + +------+--------+ + + | CBC with | Lab | Routin | Malignant neoplasm | Expected: | | Differential | | e | of upper lobe, left | 09/05/2018, Expires: | | | | | bronchus or lung | 12/10/2018 | | | | | (HCC) Iron | | | | | | deficiency anemia | | + +------+--------+ + + | Comprehensive | Lab | STAT | Malignant neoplasm | Expected: | | Metabolic Panel | | | of upper lobe, left | 09/05/2018, Expires: | | | | | bronchus or lung | 12/10/2018 | | | | | (HCC) Iron | | | | | | deficiency anemia | | + +------+--------+ + + | Basic Metabolic | Lab | Routin | Chronic kidney | Expected: | | Panel | | e | disease, stage II | 10/27/2018, Expires: | | | | | (mild) Essential | 11/12/2018 | | | | | (primary) | | | | | | hypertension | | + +------+--------+ + + documented as of this encounter Visit Diagnoses + + | Diagnosis | + + | Malignant neoplasm of upper lobe, left bronchus or lung (HCC) | + + | Iron deficiency anemia Iron deficiency anemia, unspecified | + + | Chronic kidney disease, stage II (mild) Chronic kidney disease, Stage II (mild) | + + | Essential (primary) hypertension Unspecified essential hypertension | + + documented in this encounter"
--- OUTSIDE RECORDS SUMMARY | ~2019-01-25 | XMS | Clinical Summary ---
Demographics + + + | Address | [address] | | | [place] [address] | + + + | Home Phone | | + + + | Preferred Language | Unknown | + + + | Marital Status | Single | + + + | Denominational Affiliation | [id number] | + + + | Race | Unknown | + + + | Ethnic Group | Unknown | + + + Author + + + | Author | [facility] (Historical as of | | | 10-29-18) | + + + | Organization | [facility] (Historical as of | | | 10-29-18) | + + + | Address | Unknown | + + + | Phone | Unavailable | + + + Support + + +---------+ + | Name | Relationship | Address | Phone | + + +---------+ + | Carlos Vallejo | ECON | Unknown | | + + +---------+ + | Ney Vallejo | TEGAN | Unknown | | + + +---------+ + | Marivel Vallejo | ECON | Unknown | | + + +---------+ + Care Team Providers + +------+ + | Care Necktie Operator Pockets And Pieces Name | Role | Phone | + +------+ + | Johnny Caldera MD | PP | | + +------+ + Allergies No Known Allergies Current Medications + + +-------+---------+------+------+-------+ | Prescription | Sig. | Disp. | Refills | Star | End | Statu | | | | | | t | Date | s | | | | | | Date | | | + + +-------+---------+------+------+-------+ | albuterol (PROAIR | Inhale 2 puffs into | | | | | Activ | | HFA) 108 (90 BASE) | the lungs every 4 | | | | | e | | MCG/ACT inhaler | (four) hours as | | | | | | | | needed. | | | | | | + + +-------+---------+------+------+-------+ | atorvastatin | Take 40 mg by mouth | | | | | Activ | | (LIPITOR) 40 MG | daily. | | | | | e | | tablet | | | | | | | + + +-------+---------+------+------+-------+ | | Inhale 1 puff into | | | | | Activ | | fluticasone-salmeter | the lungs 2 (two) | | | | | e | | ol (ADVAIR) 250-50 | times daily. | | | | | | | MCG/DOSE | | | | | | | + + +-------+---------+------+------+-------+ | citalopram | Take 40 mg by mouth | | | | | Activ | | (CELEXA) 20 MG | every morning. | | | | | e | | tablet | | | | | | | + + +-------+---------+------+------+-------+ | LORazepam (ATIVAN) | Take 0.5 mg by mouth | | | | | Activ | | 0.5 MG tablet | every 12 (twelve) | | | | | e | | | hours as needed for | | | | | | | | Anxiety. | | | | | | + + +-------+---------+------+------+-------+ | metoprolol | Take 50 mg by mouth | | | | | Activ | | (TOPROL-XL) 50 MG 24 | daily. | | | | | e | | hr tablet | | | | | | | + + +-------+---------+------+------+-------+ | | Apply 1 drop to eye | | | | | Activ | | carboxymethylcellulo | 2 (two) times daily. | | | | | e | | se (REFRESH) 1 % | | | | | | | | ophthalmic solution | | | | | | | + + +-------+---------+------+------+-------+ | acetaminophen | Take 650 mg by mouth | | | | | Activ | | (TYLENOL) 325 MG | nightly. | | | | | e | | tablet | | | | | | | + + +-------+---------+------+------+-------+ | | Inhale 2 puffs into | | | | | Activ | | ipratropium-albutero | the lungs every 6 | | | | | e | | l (COMBIVENT) 18-103 | (six) hours as | | | | | | | MCG/ACT inhaler | needed for Wheezing. | | | | | | + + +-------+---------+------+------+-------+ | busPIRone (BUSPAR) | Take 10 mg by mouth | | | | | Activ | | 5 MG tablet | 3 (three) times | | | | | e | | | daily. | | | | | | + + +-------+---------+------+------+-------+ | miconazole | Apply topically 2 | | | | | Activ | | (MICONAZORB AF) 2 % | (two) times daily. | | | | | e | | powder | | | | | | | + + +-------+---------+------+------+-------+ | ascorbic acid | Take 250 mg by mouth | | | | | Activ | | (VITAMIN C) 250 MG | 2 (two) times | | | | | e | | tablet | daily. | | | | | | + + +-------+---------+------+------+-------+ | psyllium | Take 1 packet by | | | | | Activ | | (METAMUCIL SMOOTH | mouth 2 (two) times | | | | | e | | TEXTURE) 28 % packet | daily. | | | | | | + + +-------+---------+------+------+-------+ | furosemide (LASIX) | Take 40 mg by mouth | | | | | Activ | | 40 MG tablet | daily. Take 1 tablet | | | | | e | | | by mouth every | | | | | | | | evening | | | | | | + + +-------+---------+------+------+-------+ | prazosin | Take 1 mg by mouth | | | | | Activ | | (MINIPRESS) 1 MG | nightly. | | | | | e | | capsule | | | | | | | + + +-------+---------+------+------+-------+ | ropinirole | Take 2 mg by mouth | | | | | Activ | | (REQUIP) 2 MG tablet | nightly. | | | | | e | + + +-------+---------+------+------+-------+ | lisinopril | Take 5 mg by mouth | | | | | Activ | | (ZESTRIL) 5 MG | daily. | | | | | e | | tablet | | | | | | | + + +-------+---------+------+------+-------+ | metFORMIN | Take 500 mg by mouth | | | | | Activ | | (GLUCOPHAGE) 500 MG | 2 (two) times daily | | | | | e | | tablet | with meals. | | | | | | + + +-------+---------+------+------+-------+ | | Take 3 mLs by | | | | | Activ | | ipratropium-albutero | nebulization 4 | | | | | e | | l (DUO-NEB) 0.5-2.5 | (four) times daily | | | | | | | mg/3mL | as needed. | | | | | | + + +-------+---------+------+------+-------+ | Nasal Moisturizer | by Nasal route. | | | | | Activ | | Combination (OCEAN | | | | | | e | | COMPLETE NA) | | | | | | | + + +-------+---------+------+------+-------+ | fexofenadine | Take 180 mg by mouth | | | | | Activ | | (EMILY) 180 MG | daily. | | | | | e | | tablet | | | | | | | + + +-------+---------+------+------+-------+ | sodium chloride | 1 spray by Each Nare | | | | | Activ | | (OCEAN) 0.65 % nasal | route as needed for | | | | | e | | | Congestion. | | | | | | + + +-------+---------+------+------+-------+ | Turmeric 500 MG | Take by mouth. | | | | | Activ | | CAPS | | | | | | e | + + +-------+---------+------+------+-------+ | benzonatate | Take 100 mg by mouth | | | | | Activ | | (TESSALON) 100 MG | 3 (three) times | | | | | e | | capsule | daily as needed for | | | | | | | | Cough. | | | | | | + + +-------+---------+------+------+-------+ | potassium chloride | Take 0.5 tablets by | | | 02/0 | | Activ | | SA (LIDA PISANO) | mouth daily. | | | 1/20 | | e | | 20 MEQ tablet | | | | 19 | | | + + +-------+---------+------+------+-------+ | gabapentin | TAKE 1 CAPSULE BY | | 1 | 07/ | | Activ | | (NEURONTIN) 100 MG | MOUTH IN THE MORNING | | | 8/20 | | e | | capsule | AND TAKE 1 TO 2 | | | 19 | | | | | CAPSULES BY MOUTH AT | | | | | | | | BEDTIME FOR | | | | | | | | AKATHISIA | | | | | | + + +-------+---------+------+------+-------+ Active Problems + + + | Problem | Noted Date | + + + | Malignant neoplasm of upper lobe of left lung (HCC) | 09/28/2017 | + + + | Chronic obstructive pulmonary disease (HCC) | 08/24/2017 | + + + | Multiple pulmonary nodules | 08/24/2017 | + + + | HARPAL on CPAP | 08/24/2017 | + + + | Personal history of tobacco use, presenting hazards to health | 08/24/2017 | + + + | Irritable larynx syndrome | 08/24/2017 | + + + | Low vitamin D level | 09/18/2016 | + + + | CKD (chronic kidney disease), stage II | 12/16/2015 | + + + | Hyperuricemia | 12/16/2015 | + + + | Chronic diastolic heart failure (HCC) | 06/24/2015 | + + + + + | Last Assessment & Plan: HFpEF. 59yo WF, who complains | | of shortness of breath, edema, increasing weight, some degree of | | orthopnea and PND. Despite going on for some time, gradual in | | onset, has persisted despite attempts at medical therapy. She is | | a resident at [facility], [place], apparently she has poor | | balance, ambulates with the assistance of a walker, the cause is | | poorly understood. She is a distant smoker, quit a couple years | | ago. Echocardiogram reveals normal systolic function. A | | pharmacological nuclear perfusion study fails to demonstrate any | | ischemia, ejection fraction well preserved. There is no evidence | | of pulmonary hypertension or right heart failure. Blood | | pressure well-controlled. She does have persistent edema, this | | may be due to chronic venous insufficiency or some form of lymph | | vessel damage, although there is no surgical history to suggest | | this. At this time, all we can offer is low salt diet, | | compression stockings, elevation of the legs when not ambulating, | | and continued judicious use of diuretics. Tolerating | | medications. No changes in therapy.Last Cath: naLast Echo, | | 07/02/2015: borderline concentric LVH, Grade 1 diastolic | | abnormality, LVEF > 70%. , trace MR, trace TR, trace PI.Last | | Stress Test, 08/21/2015 ([facility]'): Lexiscan, images benign, | | LVEF 73%.ECG, : NSR, 66bpm. | + + + + + | Essential hypertension, benign | 06/24/2015 | + + + + + | Last Assessment & Plan: Hypertension, controlled, continue | | current meds at current dose (furosemide, HCTZ, Toprol-XL).Lab, | | 08/30/2015: K: 4.0, BUN/Cr: 26/1.0 (GFR 55), glu: 175 | + + + + + | HLD (hyperlipidemia) | 06/24/2015 | + + + + + | Last Assessment & Plan: Hyperlipidemia, continue current meds | | at current dose (atorvastatin). | + + + + + | Vision changes | 07/25/2013 | + + + | Gait difficulty | 07/25/2013 | + + + + + | Last Assessment & Plan: Gait difficulty, followed by | | Neurology. | + + + + + | Nonspecific (abnormal) findings on radiological and other | 07/25/2013 | | examination of skull and head | | + + + Encounters +--------+ + + + + | Date | Type | Specialty | Care Team | Description | +--------+ + + + + | 10/26/ | Office | | Noel Bautista, | CKD (chronic kidney | | 2019 | Visit | | [employer] | disease), stage II | | | | | | (Primary Dx); | | | | | | Essential | | | | | | hypertension, benign | +--------+ + + + + | 10/26/ | Documentati | | Andrea | Labs Only (10/25/18) | | 2019 | on Only | | BLAKE Giron | | +--------+ + + + + | 10/26/ | Orders Only | | Andrea, | CKD (chronic kidney | | 2018 | | | BLAKE Giron | disease), stage II; | | | | | | Essential | | | | | | hypertension, | | | | | | benign; | | | | | | Hyperuricemia | +--------+ + + + + from Last 3 Months Family History + + +------+ + | Medical History | Relation | Name | Comments | + + +------+ + | Cancer | Brother | | | + + +------+ + | High cholesterol | Brother | | | + + +------+ + | Hypertension | Brother | | | + + +------+ + | Cancer | Father | | pancreatic | + + +------+ + | Other (see comments) | Mother | | MS | + + +------+ + | Diabetes type II | Paternal | | | | | Grandfath | | | | | er | | | + + +------+ + | Heart disease | Paternal | | | | | Grandfath | | | | | er | | | + + +------+ + | Diabetes type II | Sister | | | + + +------+ + | High cholesterol | Sister | | | + + +------+ + | Hypertension | Sister | | | + + +------+ + + +------+ + + | Relation | Name | Status | Comments | + +------+ + + | Brother | | | cancer | | | | (Age | | | | | 60) | | + +------+ + + | Father | | | pancreatitis cancer, rheumatoid arthritis | | | | (Age | | | | | 68) | | + +------+ + + | Mother | | | Multiple Sclerosis | | | | (Age | | | | | 69) | | + +------+ + + | Paternal Grandfather | | | heart disease, DMII-amputation of leg | | | | (Age | | | | | 72) | | + +------+ + + | Paternal Grandmother | | | age related | | | | (Age | | | | | 93) | | + +------+ + + | Sister | | Alive | DMII,HTN,Hyperlipidmeia | + +------+ + + Social History + + + [...] on file | | + + + Last Filed Vital Signs + + + + | Vital Sign | Reading | Time Taken | + + + + | Blood Pressure | 82/50 | 10/26/2018 11:18 AM PDT | + + + + | Pulse | 62 | 10/26/2018 11:18 AM PDT | + + + + | Temperature | 35.7 C (96.3 F) | 06/09/2018 10:01 AM PDT | + + + + | Respiratory Rate | 16 | 06/09/2018 10:01 AM PDT | + + + + | Oxygen Saturation | 95% | 06/09/2018 10:01 AM PDT | + + + + | Inhaled Oxygen | - | - | | Concentration | | | + + + + | Weight | 109.4 kg (241 lb 3.2 | 10/26/2018 11:18 AM PDT | | | oz) | | + + + + | Height | 162.6 cm (5' 4") | 10/26/2018 11:18 AM PDT | + + + + | Body Mass Index | 41.4 | 10/26/2018 11:18 AM PDT | + + + + Plan of Treatment + + + + + | Health Maintenance | Due Date | Last Done | Comments | + + + + + | Vaccine: | | | | | Dtap/Tdap/Td (1 - | 4 | | | | Tdap) | | | | + + + + + | Vaccine: | | | | | Pneumococcal 19-64 | 4 | | | | Highest Risk (1 of 3 | | | | | - PCV13) | | | | + + + + + | Cervical Cancer | | | | | Screening (Pap) | 5 | | | + + + + + | Breast Cancer | | | | | Screening | 5 | | | | (Mammogram) | | | | + + + + + | Colon Cancer | | | | | Screening | 5 | | | | (Colonoscopy) | | | | + + + + + | Vaccine: Zoster (1 | | | | | of 2) | 5 | | | + + + + + | Vaccine: Influenza | | | | | (#1) | 9 | | | + + + + + Procedures + +--------+ + + + | Procedure Name | Priori | Date/Time | Associated Diagnosis | Comments | | | ty | | | | + +--------+ + + + | URIC ACID | Routin | 10/25/2018 | | Results for this | | | e | 3:09 PM | | procedure are in the [...] | | + +--------+ + + + from Last 3 Months Results Protein / creatinine ratio, urine (10/25/2018 3:09 PM) + +-------+ + + | Component | Value | Ref Range | Performed At | + +-------+ + + | UR | 87.2 | 0 - 150 | [facility] | | PROTEIN/CREATININE | | | LABORATORY | + +-------+ + + + + | Specimen | + + | Urine | + + + + + + + | Performing | Address | City/State/Zipcode | Phone Number | | Organization | | | | + + + + + | [facility] | [address] | [place] [address] | [phone] | | LABORATORY | Blvd[address] | | [...] | + + + + + | [facility] | [address] | [place] [address] | [phone] | | LABORATORY | [address]vd[address] | | | + + + + + Uric acid (10/25/2018 3:09 PM) + +---------+ + + | Component | Value | Ref Range | Performed At | + +---------+ + + | URIC ACID | 6.8 (A) | 2.3 - 6.6 | | + +---------+ + + + + | Specimen | + + | Blood | + + Magnesium (10/25/2018 3:09 PM) + [...] | + + + + + | [facility] | [address] | [place] [address] | [phone] | | LABORATORY | Blvd[address] | | | + + + + + Renal function panel (10/25/2018 3:09 PM) + [...] | + + + + + | [facility] | [address] | [place] [address] | [phone] | | LABORATORY | Blvd. | | | + + + + + from Last 3 Months Insurance + +--------+ +------+-------+ + | Payer | Benefi | Subscriber | Type | Phone | Address | | | t Plan | ID | | | | | | / | | | | | | | Group | | | | | + +--------+ +------+-------+ + | MEDICAID | [employer] | [id number] | | | [address] | | | [address] | | | | [place] | | | [place] | | | | [phone] | | | [employer] | | | | | + +--------+ +------+-------+ + + +--------+ +--------+ + + | Guarantor Name | Accoun | Relation to | Date | Phone | Billing Address | | | t Type | Patient | of | | | | | | | | | | + +--------+ +--------+ + + | HAZEL VALLEJO | Person | Self [birth year] Home: | [address] | | | al/Fam | | [phone] [address] [place], | | | [place] | | | [phone] | [place] [address] | + +--------+ +--------+ + +
--- OUTSIDE RECORDS SUMMARY | ~2019-01-25 | XMS | Encounter Summary ---
Demographics + + + | Address | [address] | | | [place] [address] | + + + | Home Phone | | + + + | Preferred Language | Unknown | + + + | Marital Status | Single | + + + | Moravian Affiliation | 1041 | + + + | Race | Unknown | + + + | Ethnic Group | Unknown | + + + Author + + + | Author | [facility] | | | and [place] | + + + | Organization | [facility] | | [...] Team Providers + +------+ + | Care News Technical Director Name | Role | Phone | + +------+ + | Johnny Caldera MD | PCP | | + +------+ + Encounter Details +--------+ + + + + | Date | Type | Department | Care Team | Description | +--------+ + + + + | 07/01/ | Orders Only | [facility] | Arik Tate | | | 2015 | | [address] | [address] | | | [address] | [place] | | | | | [place], [place] | [place] [address] | | | | | [address] | [phone] | | | | | [phone] | | | +--------+ + + + [...] | Visit | | [address] | | | | | | [place] | | | | | | [address] | | | | | | | | +--------+---------+ + + + | 08/01/ | Office | Pulmonology | Jorge, | | | 2019 | Visit | | Caitlyn Simon, | | | | | | MD [address] | | | | | | [place], | | | | | | [place] [address] | | | | | | [phone] | | | | | | | | +--------+---------+ + + + documented as of this encounter Procedures + +--------+ + + + | Procedure Name | Priori | Date/Time | Associated Diagnosis | Comments | | | ty | | | | + +--------+ + + + | ECHO INTERPRETATION | Routin | 07/02/2015 | | Results for this | | OF OUTSIDE FILMS | e | 4:35 PM | | procedure are in the | | | | PDT | | results section. | + +--------+ + + + documented in this encounter Results ECHO Interpretation of Outside Films (07/02/2015 4:35 PM PDT) + + | Specimen | + + | | + + + + + | Impressions | Performed At | + + + | 1. See Dictation. 2. Borderline concentric LVH, systolic function | | | NML, Grade 1 diastolic abnormality, LVEF >70%. LA/RA/RV NML. 3. | | | Aortic, Mitral, and Tricuspid valves NML, Pulmonic valve not seen | | | well. No /AI. Trace MR, trace TR, trace PI. 4. No Pericardial | | | effusion. 5. IVC appears NML. Inadequate TR to estimate PAP. | | + + + + + + | Narrative | Performed At | + + + | Patient Name: Hazel Bhatti Date of : 1955 | | | Performing Physician: Arik Tate DO | | | | | | INDICATIONS CHF CONCLUSIONS 1. See | | | Dictation. 2. Borderline concentric LVH, systolic function NML, Grade | | | 1 diastolic abnormality, LVEF >70%. LA/RA/RV NML. 3. Aortic, Mitral, | | | and Tricuspid valves NML, Pulmonic valve not seen well. No /AI. | | | Trace MR, trace TR, trace PI. 4. No Pericardial effusion. 5. IVC | | | appears NML. Inadequate TR to estimate PAP. FINDINGS -------- | | | ECG rhythm: Sinus rhythm. Study: This was a technically adequate | | | study. Left Ventricle: Left ventricular systolic function is | | | hyperdynamic with an estimated EF of >70%. Left Ventricle: The left | | | ventricle cavity size is normal. Left Ventricle: There is mild | | | concentric left ventricular hypertrophy. Left Ventricle: The | | | diastolic filling pattern indicates impaired relaxation consistent | | | with mild dysfunction (Grade I). Right Ventricle: The right ventricle | | | is normal in size and function. Left Atrium: The left atrium is | | | normal in size. Right Atrium: The right atrium is normal in size. | | | Aortic Valve: The aortic valve is trileaflet, and appears anatomically | | | normal. No aortic stenosis or regurgitation. Mitral Valve: The | | | mitral valve is normal. Mitral Valve: There is trace mitral | | | regurgitation. Tricuspid Valve: The tricuspid valve appears | | | structurally normal. Tricuspid Valve: Trace tricuspid regurgitation | | | present. Pulmonic Valve: The pulmonic valve was not well visualized. | | | Pulmonic Valve: Trace pulmonic regurgitation. Pericardium: There | | | is no pericardial effusion. IVC/Hepatic Veins: The IVC is normal size | | | (1.5-2.5cm) and collapses >50% with sniff, consistent with central | | | venous pressures of 5-10mmHg. MEASUREMENTS | | | Repair Electric Motor Assembler: MISSAEL Authenticated by: Arik Tate DO Report | | | Date/Time: 07-03-2015 18:35:15 | | + + + + + | Procedure Note | + + | Evin Malhotra Conversion - 11/04/2018 10:53 AM PDT Patient Name: Maribeth Bhatti of | | : 1955 Performing Physician: Arik Tate | | DO INDICATIONS C | | HF CONCLUSIONS 1. See Dictation. 2. Borderline concentric LVH, systolic | | function NML, Grade 1 diastolic abnormality, LVEF >70%. LA/RA/RV NML. 3. Aortic, | | Mitral, and Tricuspid valves NML, Pulmonic valve not seen well. No /AI. Trace MR, | | trace TR, trace PI. 4. No Pericardial effusion. 5. IVC appears NML. Inadequate TR to | | estimate PAP. FINDINGS--------ECG rhythm: Sinus rhythm.Study: This was a technically | | adequate study.Left Ventricle: Left ventricular systolic function is hyperdynamic with | | an estimated EF of >70%.Left Ventricle: The left ventricle cavity size is normal.Left | | Ventricle: There is mild concentric left ventricular hypertrophy.Left Ventricle: The | | diastolic filling pattern indicates impaired relaxation consistent with mild dysfunction | | (Grade I).Right Ventricle: The right ventricle is normal in size and function.Left | | Atrium: The left atrium is normal in size.Right Atrium: The right atrium is normal in | | size.Aortic Valve: The aortic valve is trileaflet, and appears anatomically normal. No | | aortic stenosis or regurgitation.Mitral Valve: The mitral valve is normal.Mitral Valve: | | There is trace mitral regurgitation.Tricuspid Valve: The tricuspid valve appears | | structurally normal.Tricuspid Valve: Trace tricuspid regurgitation present.Pulmonic | | Valve: The pulmonic valve was not well visualized.Pulmonic Valve: Trace pulmonic | | regurgitation.Pericardium: There is no pericardial effusion.IVC/Hepatic Veins: The IVC | | is normal size (1.5-2.5cm) and collapses >50% with sniff, consistent with central venous | | pressures of 5-10mmHg. MEASUREMENTS Repair Electric Motor Assembler: PATRICKuthenticated by: | | Arik Mitchell Date/Time: 07-03-2015 18:35:15 IMPRESSION: 1. See Dictation. 2. | | Borderline concentric LVH, systolic function NML, Grade 1 diastolic abnormality, LVEF | | >70%. LA/RA/RV NML. 3. Aortic, Mitral, and Tricuspid valves NML, Pulmonic valve not | | seen well. No /AI. Trace MR, trace TR, trace PI. 4. No Pericardial effusion. 5. IVC | | appears NML. Inadequate TR to estimate PAP. | |Right Atrium: The right atrium is normal in size. | |Aortic Valve: The aortic valve is trileaflet, and appears anatomically normal. No aortic st enosis or regurgitation. | |Mitral Valve: The mitral valve is normal. | |Mitral Valve: There is trace mitral regurgitation. | |Tricuspid Valve: The tricuspid valve appears structurally normal. | |Tricuspid Valve: Trace tricuspid regurgitation present. | |Pulmonic Valve: The pulmonic valve was not well visualized. | |Pulmonic Valve: Trace pulmonic regurgitation. | |Pericardium: There is no pericardial effusion. | |IVC/Hepatic Veins: The IVC is normal size (1.5-2.5cm) and collapses >50% with sniff, consis tent with central venous pressures of 5-10mmHg. | | | |MEASUREMENTS | | | | | |Repair Electric Motor Assembler: | |Authenticated by: Arik Tate DO | |Report Date/Time: 07-03-2015 18:35:15 | | | |IMPRESSION: | |1. See Dictation. 2. Borderline concentric LVH, systolic function NML, Grade 1 diastolic ab normality, LVEF >70%. LA/RA/RV NML. 3. Aortic, Mitral, and Tricuspid valves NML, Pulmonic v alve not seen well. No /AI. Trace MR, trace TR, trace PI. 4. No | |Pericardial effusion. 5. IVC appears NML. Inadequate TR to estimate PAP. | + + documented in this encounter Visit Diagnoses Not on filedocumented in this encounter"
--- OUTSIDE RECORDS SUMMARY | ~2019-01-25 | XMS | Encounter Summary ---
Demographics + + + | Address | [address] | | | [place] [address] | + + + | Home Phone | | + + + | Preferred Language | Unknown | + + + | Marital Status | Single | + + + | Moravian Affiliation | 1041 | + + + | Race | Unknown | + + + | Ethnic Group | Unknown | + + + Author + + + | Author | [facility] | | | and [place] | + + + | Organization | [facility] | | | [...] Team Providers + +------+ + | Care Technician Trainee Name | Role | Phone | + +------+ + PCP | Unavailable | + +------+ + Encounter Details +--------+ + + + + | Date | Type | Department | Care Team | Description | +--------+ + + + + | 10/27/ | Hospital | [facility] | Conversion | Pain | | 2018 | Encounter | CONVERSION [address] | Transaction, | | | | | [address] | Provider Unknown | | | | | [place], [place] | [phone] | | | | | [address] | | | | | | [phone] | | | +--------+ + + + [...] + + + +---------+ + + | acetaminophen | Take 650 mg by mouth | | 0 | 06/24/19 | | | (TYLENOL) 325 mg | nightly. | | | 16 | | | tablet | | | [...] + + + +---------+ + + | | Inhale 2 puffs into | | 0 | 06/24/19 | | | albuterol-ipratropiu | the lungs every 6 | | | 16 | | | m (COMBIVENT) 103-18 | (six) hours as | | | | | | mcg/puff inhaler | needed for Wheezing. | | | | | + + + +---------+ + + | | Take 3 mLs by | | 0 | 08/25/19 | | | albuterol-ipratropiu | nebulization 4 | | | 18 | | | m 2.5-0.5 mg/3 mL | (four) times daily | | | | | | SOLN | as needed. | | | | | + + + +---------+ + + | ascorbic acid | Take 250 mg by mouth | | 0 | 12/16/19 | | | (VITAMIN C) 250 MG | 2 (two) times | | | 16 | | | tablet | daily. | | | | | + + + +---------+ + + | atorvaSTATin | Take 40 mg by mouth | | 0 | 07/26/19 | | | (LIPITOR) 40 mg | daily. | | | 14 | | | tablet | | | | | | + + + +---------+ + + | busPIRone (BUSPAR) | Take 10 mg by mouth | | 0 | 12/16/19 | | | 5 mg tablet | 3 (three) times | | | 16 | | | | daily. | | | | | + + + +---------+ + + | | Apply 1 drop to eye | | 0 | 06/24/19 | | | carboxymethylcellulo | 2 (two) times daily. | | | 16 | | | se (CELLUVISC) 1% | | | | | | | ophthalmic solution | | | | | | + + + +---------+ + + | citalopram | Take 40 mg by mouth | | 0 | 06/24/19 | | | (CELEXA) 20 mg | every morning. | | | 16 | | | tablet | | | | | | + + + +---------+ + + | fexofenadine | Take 180 mg by mouth | | 0 | 08/25/19 | | | (EMILY) 180 mg | daily. | | | 18 | | | tablet | | | | | | + + + +---------+ + + | | Inhale 1 puff into | | 0 | 06/24/19 | | | fluticasone-salmeter | the lungs 2 (two) | | | 16 | | | ol (ADVAIR DISKUS) | times daily. | | | | | | 250-50 mcg/puff | | | | | | | diskus inhaler | | | | | | + + + +---------+ + + | furosemide (LASIX) | Take 40 mg by mouth | | 0 | 09/12/19 | | | 40 mg tablet | daily. Take 1 tablet | | | 17 | | | | by mouth every | | | | | | | evening | | | | | + + + +---------+ + + | lisinopril | Take 5 mg by mouth | | 0 | 04/02/19 | | | (PRINIVIL, ZESTRIL) | daily. | | | 18 | | | 5 mg tablet | | | | | | + + + +---------+ + + | LORazepam (ATIVAN) | Take 0.5 mg by mouth | | 0 | 06/24/19 | | | 0.5 mg tablet | every 12 (twelve) | | | 16 | | | | hours as needed for | | | | | | | Anxiety. | | | | | + + + +---------+ + + | metFORMIN | Take 500 mg by mouth | | 0 | 04/02/19 | | | (GLUCOPHAGE) 500 mg | 2 (two) times daily | | | 18 | | | tablet | with meals. | | | | | + + + +---------+ + + | metoprolol | Take 50 mg by mouth | | 0 | 06/24/19 | | | succinate | daily. | | | 16 | | | (TOPROL-XL) 50 mg 24 | | | | | | | hr tablet | | | | | | + + + +---------+ + + | miconazole | Apply topically 2 | | 0 | 12/16/19 | | | (LOTRIMIN AF) 2% | (two) times daily. | | | 16 | | | powder | | | | | | + + + +---------+ + + | NASAL MOISTURIZER | by Nasal route. | | 0 | /03/03 | | | COMBINATION NA | | | | 18 | | + + + +---------+ + + | prazosin | Take 1 mg by mouth | | 0 | /30/20 | | | (MINIPRESS) 1 mg | nightly. | | | 17 | | | capsule | | | | | | + + + +---------+ + + | psyllium | Take 1 packet by | | 0 | //20 | | | (METAMUCIL) 28 % | mouth 2 (two) times | | | 17 | | | packet | daily. | | | | | + + + +---------+ + + | rOPINIRole | Take 2 mg by mouth | | 0 | /30/20 | | | (REQUIP) 2 MG tablet | nightly. | | | 17 | | + + + +---------+ + + | sodium chloride | 1 spray by Each Nare | | 0 | 08/25/19 | | | (OCEAN) 0.65% nasal | route as needed for | | | 18 | | | spray | Congestion. | | | | | + + + +---------+ + + | Turmeric 500 MG | Take by mouth. | | 0 | 08/25/19 | | | CAPS | | | | 18 | | + + + +---------+ + [...] [place] | | | | | | [address] | | | | | | | | +--------+---------+ + + + | 08/01/ | Office | Pulmonology | Jorge, | | | 2019 | Visit | | Caitlyn Simon, | | | | | | MD [address] | | | | | | [place], | | | | | | [place] [address] | | | | | | [phone] | | | | | | | | +--------+---------+ + + + documented as of this encounter Procedures + +--------+ + + + | Procedure Name | Priori | Date/Time | Associated Diagnosis | Comments | | | ty | | | | + +--------+ + + + | MRI BRAIN W WO | Routin | 10/26/2017 | | Results for this | | CONTRAST | e | 11:03 PM | | procedure are in the | | | | PDT | | results section. | + +--------+ + + + documented in this encounter Results MRI Brain w wo Contrast (10/26/2017 11:03 PM PDT) + + | Specimen | + + | | + + + + + | Narrative | Performed At | + + + | This is a non-reportable procedure without a radiologist report and | | | is used for image storage only | | + + + + + | Procedure Note | + + | Evin Malhotra - 10/26/2018 8:47 AM PDT This is a non-reportable procedure | | without a radiologist report and isused for image storage only | + + documented in this encounter Visit Diagnoses + + | Diagnosis | + + | Pain Generalized pain | + + documented in this encounter"
--- OUTSIDE RECORDS SUMMARY | ~2019-01-25 | XMS | Encounter Summary ---
Demographics + + + | Address | [address] | | | [place] [address] | + + + | Home Phone | | + + + | Preferred Language | Unknown | + + + | Marital Status | Single | + + + | Baptist Affiliation | CAT | + + + | Race | White | + + + | Ethnic Group | Not or | + + + Author + + + | Author | [facility] | + + + | Organization | [facility] | + + + | Address [...] Team Providers + +------+ + | Care Supervisor Inventory Merchandising Name | Role | Phone | + +------+ + | Jim Wiley MD | PCP | | + +------+ + Encounter Details +--------+ + + + + | Date | Type | Department | Care Team | Description | +--------+ + + + + | 03/18/ | Hospital | Registration [id number] | Jim Greco MD | | | 2005 | Activity | [facility] | [address] | | | | | [address] Mailcode: [id number] | [address] [place], [place] | | | | | [place], [place] | [address] | | | | | [address] | [phone] | | | | | [phone] | | | +--------+ + + + [...]
--- OUTSIDE RECORDS SUMMARY | ~2019-01-25 | XMS | Encounter Summary ---
Demographics + + + | Address | [address] | | | [place] [address] | + + + | Home Phone [...] Author + + + | Author | [facility] | + + + | Organization | [facility] | + + + | Address [...] Team Providers + +------+ + | Care Mortgage Loan Officer Originator Name | Role | Phone | + +------+ + | Jim Wiley MD | PCP | | + +------+ + Encounter Details +--------+ + + + + | Date | Type | Department | Care Team | Description | +--------+ + + + + | 10/17/ | Telephone | Neurology at | Kerry Fernández MD | | | 2013 | | [facility] & | [address] | | | | | [address] | [place] [address] | | | | | [address] Mailcode: | [phone] | | | | | [facility] | | | | | | Health and Healing, | | | | | | Building | | | | | | Floor [place], [place] | | | | | | [address] | | | | | | [phone] | | | +--------+ + + + [...]
--- OUTSIDE RECORDS SUMMARY | ~2019-01-25 | XMS | Encounter Summary ---
Demographics + + + | Address | [address] | | | [place] [address] | + + + | Home Phone | | + + + | Preferred Language | Unknown | + + + | Marital Status | Single | + + + | Gnosticist Affiliation | 1041 | + + + | Race | Unknown | + + + | Ethnic Group | Unknown | + + + Author + + + | Author | [facility] | | | and [place] | + + + | Organization | [facility] | | | and [...] Team Providers + +------+ + | Care Site Supervising Technical Operator Name | Role | Phone | + +------+ + | Johnny Caldera MD | PCP | | + +------+ + Encounter Details +--------+ + + + + | Date | Type | Department | Care Team | Description | +--------+ + + + + | 12/08/ | Orders Only | [facility] | Conversion | | | 2015 | | NEPHROLOGY BRIAN | Transaction, | | | | | [address] [facility] | Provider Unknown | | | | | [place] | | | | | | [address] | (Fax) | | | | | [phone] | | | +--------+ + + + [...] [place] | | | | | | [address] | | | | | | | | +--------+---------+ + + + | 08/01/ | Office | Pulmonology | Jorge, | | | 2019 | Visit | | Caitlyn Simon, | | | | | | MD [address] | | | | | | [place], | | | | | | [place] [address] | | | | | | [phone] | | | | | | | | +--------+---------+ + + + documented as of this encounter Procedures + +--------+ + + + | Procedure Name | Priori | Date/Time | Associated Diagnosis | Comments | | | ty | | | | + +--------+ + + + | CULTURE, URINE | Routin | 12/09/2015 | | Results for this | | | e | 12:00 AM | | procedure are in the | | | | PDT | | results section. | + +--------+ + + + documented in this encounter Results Culture, Urine (12/09/2015 12:00 AM PDT) + + | Specimen | + + | Urine specimen | | (specimen) | + + + + + | Narrative | Performed At | + + + | Specimen Description URINE CULTURE | EXTERNAL LAB | | Positive ESCHERICHIA COLI | | | REPORT STATUS FINAL | | + + + + +---------+ + + | Performing | Address | City/State/Zipcode | Phone Number | | Organization | | | | + +---------+ + + | EXTERNAL LAB | | | | + +---------+ + + documented in this encounter Visit Diagnoses Not on filedocumented in this encounter"
--- OUTSIDE RECORDS SUMMARY | ~2019-01-25 | XMS | Encounter Summary ---
Demographics + + + | Address | [address] | | | [place] [address] | + + + | Home Phone | | + + + | Preferred Language | Unknown | + + + | Marital Status | Single | + + + | Jew Affiliation | 1041 | + + + [...] | + + +---------+ + | Carlos Reyesrhonda | ECON | Unknown | | + + +---------+ + | Ney Reyeser | ECON | Unknown | | + + +---------+ + Care Team Providers + +------+ + | Care Electric Repair Supervisor Name | Role | Phone | + +------+ + PCP | Unavailable | + +------+ + Encounter Details +--------+ + + + + | Date | Type | Department | Care Team | Description | +--------+ + + + + | 08/26/ | Hospital | [facility] | Conversion | Dog bite of hand, | | 2018 | Encounter | CONVERSION [address] | Transaction, | right, initial | | | | [address] | Provider Unknown | encounter | | | | [place], [place] | [phone] | | | | | [address] | | | | | | [phone] | | | +--------+ + + + [...] by Nasal route. | | 0 | 08/25/19 | | | COMBINATION NA | | | | 18 | | + + + +---------+ + + | prazosin | Take 1 mg by mouth | | 0 | 09/12/19 | | | (MINIPRESS) 1 mg | nightly. | | | 17 | | | capsule | | | | | | + + + +---------+ + + | psyllium | Take 1 packet by | | 0 | 09/12/19 | | | (METAMUCIL) 28 % | mouth 2 (two) times | | | 17 | | | packet | daily. | | | | | + + + +---------+ + + | rOPINIRole | Take 2 mg by mouth | | 0 | 09/12/19 | | | (REQUIP) 2 MG tablet [...] [place] | | | | | | [address] | | | | | | | | +--------+---------+ + + + | 08/01/ | Office | Pulmonology | Jorge, | | | 2019 | Visit | | Caitlyn Simon, | | | | | | MD [address] | | | | | | [place], | | | | | | [place] [address] | | | | | | [phone] | | | | | | | | +--------+---------+ + + + documented as of this encounter Procedures + +--------+ + + + | Procedure Name | Priori | Date/Time | Associated Diagnosis | Comments | | | ty | | | | + +--------+ + + + | PET CT SKULL BASE TO | Routin | 07/26/2017 | | Results for this | | MID THIGH | e | 10:05 AM | | procedure are in the | | | | PDT | | results section. | + +--------+ + + + documented in this encounter Results PET CT Skull Base To Mid Thigh (07/26/2017 10:05 AM PDT) + + | Specimen | + + | | + + + + + | Narrative | Performed At | + + + | This is a non-reportable procedure without a radiologist report and | | | is used for image storage only | | + + + + + | Procedure Note | + + | Roscoe Evin Madhu - 10/26/2018 8:47 AM PDT This is a non-reportable procedure | | without a radiologist report and isused for image storage only | + + documented in this encounter Visit Diagnoses + + | Diagnosis | + + | Dog bite of hand, right, initial encounter | + + documented in this encounter"
--- OUTSIDE RECORDS SUMMARY | ~2019-01-25 | XMS | Encounter Summary ---
Demographics + + + | Address | [address] | | | [place] [address] | + + + | Home Phone | | + + + | Preferred Language | Unknown | + + + | Marital Status | Single | + + + | Cheondoism Affiliation | CAT | + + + | Race | White | + + + | Ethnic Group | Not or | + + + Author + + + | Author | [facility] | + + + | Organization | [facility] | + + + | [...] Team Providers + +------+ + | Care Concert Singer Name | Role | Phone | + [...] Bhatti | | 2015 | Encounter | [facility] & | [address] | | | | | [address] | [place], [place] | | | | | [address] Mailcode: | [address] | | | | | [facility] | [phone] | | | | | Health and Healing, | | | | | | [facility] | | | | | | [place], [place] | | | | | | [address] | | | | | | [phone] | | | +--------+ + + + [...]
--- OUTSIDE RECORDS SUMMARY | ~2019-01-25 | XMS | Encounter Summary ---
Demographics + + + | Address | [address] | | | [place] [address] | + + + | Home Phone [...] Author + + + | Author | [facility] | + + + | Organization | [facility] | + + + | Address [...] Team Providers + +------+ + | Care Book Cleaner Name | Role | Phone | + +------+ + | Jim Wiley MD | PCP | | + +------+ + Encounter Details +--------+ + + + + | Date | Type | Department | Care Team | Description | +--------+ + + + + | 08/20/ | Document-Sc | Health Information | Unknown . | | | 2017 | anned | Services [address] | | | | | | [address] | | | | | | Mailcode: [address]A | | | | | | [facility] | | | | | | [place], [place] | | | | | | [address] | | | | | | [phone] | | | +--------+ + + + [...]
--- OUTSIDE RECORDS SUMMARY | ~2019-01-25 | XMS | Encounter Summary ---
Demographics + + + | Address | [address] | | | [place] [address] | + + + | Home Phone | | + + + | Preferred Language | Unknown | + + + | Marital Status | Single | + + + | Congregational Affiliation | 1041 | + + + | Race | Unknown | + + + | Ethnic Group | Unknown | + + + Author + + + | Author | [facility] | | | and [place] | + + + | Organization | [facility] | | | [...] Team Providers + +------+ + | Care Systems Mechanic Name | Role | Phone | + +------+ + | Johnny Caldera MD | PCP | | + +------+ + Encounter Details +--------+ + + + + | Date | Type | Department | Care Team | Description | +--------+ + + + + | 09/10/ | Orders Only | [facility] | WalterNoel frausto, | | | 2016 | | NEPHROLOGY [place] | [facility] [address] | | | | | [address] [place] | [address] | | | | | [address] [place], [place] | [place] | | | | | [address] | [address] | | | | | [phone] | [phone] | | | | | | | | +--------+ + + + [...] [place] | | | | | | [address] | | | | | | | | +--------+---------+ + + + | 08/01/ | Office | Pulmonology | Jorge, | | | 2019 | Visit | | Caitlyn Simon, | | | | | | [address] | | | | | | [place], | | | | | | [place] [address] | | | | | | [phone] | | | | | | | | +--------+---------+ + + + documented as of this encounter Procedures + +--------+ + + + | Procedure Name | Priori | Date/Time | Associated Diagnosis | Comments | | | ty | | | | + +--------+ + + + | EXTERNAL LAB: CBC | Routin | 09/10/2016 | | Results for this | | | e | 7:43 AM | | procedure are in the | | | | PDT | | results section. | + +--------+ + + + | URIC ACID | Routin | 09/10/2016 | | Results for this | | | e | 7:43 AM | | procedure are in the | | | | PDT | | results section. | + +--------+ + + + | PARATHYROID HORMONE, | Routin | 09/10/2016 | | Results for this | | INTACT | e | 7:43 AM | | procedure are in the | | | | PDT | | results section. | + +--------+ + + + | RENAL FUNCTION PANEL | Routin | 09/10/2016 | | Results for this | | | e | 7:43 AM | | procedure are in the | | | | PDT | | results section. | + +--------+ + + + documented in this encounter Results External Lab: CBC (09/10/2016 7:43 AM PDT) + + + + + + | Component | Value | Ref Range | Performed | Pathologist | | | | | At | Signature | + + + + + + | WBC | 8.5 | 4.5 - 11.0 10 | EXTERNAL | | | | | | LAB | | + + + + + + | RED CELL | 4.90 | 3.8 - 5.1 10 | EXTERNAL | | | COUNT | | | LAB | | + + + + + + | Hgb | 12.8 | 12.0 - 16.0 | EXTERNAL | | | | | g/dL | LAB | | + + + + + + | Hematocrit, | 39.7 | 35 - 45 % | EXTERNAL | | | POC | | | LAB | | + + + + + + | MCV | 80.8 (A) | 81 - 99 fL | EXTERNAL | | | | | | LAB | | + + + + + + | MCH | 26 (A) | 27 - 33 pg | EXTERNAL | | | | | | LAB | | + + + + + + | MCHC | 32 | 30 - 36 g/dL | EXTERNAL | | | | | | LAB | | + + + + + + | Platelet | 212 | 140 - 440 K/ L | EXTERNAL | | | Count | | | LAB | | | Plasma | | | | | + + + + + + | RDW-CV | 15.6 (A) | 10.5 - 15.0 % | EXTERNAL | | | | | | LAB | | + + + + + + | MPV | | fL | EXTERNAL | | | | | | LAB | | + + + + + + | Differentia | | | EXTERNAL | | | l Type | | | LAB | | + + + + + + | % Segmented | | % | EXTERNAL | | | | | | LAB | | | Neutrophils | | | | | + + + + + + | % | | % | EXTERNAL | | | Lymphocytes | | | LAB | | + + + + + + | % Monocytes | | % | EXTERNAL | | | | | | LAB | | + + + + + + | % | | % | EXTERNAL | | | Eosinophils | | | LAB | | + + + + + + | % Basophils | | % | EXTERNAL | | | | | | LAB | | + + + + + + | Absolute | | / L | EXTERNAL | | | Segmented | | | LAB | | | Neutrophils | | | | | + + + + + + | Absolute | | / L | EXTERNAL | | | Lymphocytes | | | LAB | | + + + + + + | Absolute | | / L | EXTERNAL | | | Monocytes | | | LAB | | + + + + + + | Absolute | | / L | EXTERNAL | | | Eosinophils | | | LAB | | + + + + + + | Absolute | | / L | EXTERNAL | | | Basophils | | | LAB | | + + + + + + + + | Specimen | + + | Blood specimen | | (specimen) | + + + +---------+ + + | Performing | Address | City/State/Zipcode | Phone Number | | Organization | | | | + +---------+ + + | EXTERNAL LAB | | | | + +---------+ + + Uric Acid (09/10/2016 7:43 AM PDT) + +---------+ + + + | Component | Value | Ref Range | Performed | Pathologist | | | | | At | Signature | + +---------+ + + + | Uric Acid | 9.3 (A) | 2.3 - 6.6 | EXTERNAL | | | | | [...] | | | + +---------+ + + Parathyroid Hormone, Intact (09/10/2016 7:43 AM PDT) + + + + + + | Component | Value | Ref Range | Performed | Pathologist | | | | | At | Signature | + + + + + + | PTH INTACT | 108.5 (A) | 15 - 65 pg/mL | EXTERNAL | | | | | [...] + +---------+ + + Renal Function Panel (09/10/2016 7:43 AM PDT) + +---------+ + + + | Component | Value | Ref Range | Performed | Pathologist | | | | | At | Signature | + +---------+ + + + | Glucose, | 159 (A) | 70 - 100 mg/dL | EXTERNAL | | | Fasting | | | LAB | | + +---------+ + + + | BUN | 23 | 6 - 23 mg/dL | EXTERNAL | | | | | | LAB | | + +---------+ + + + | Creatinine | 1.16 | 0.70 - 1.25 | EXTERNAL | | | | | mg/dL | LAB | | + +---------+ + + + | PHOSPHORUS | | mg/dL | EXTERNAL | | | | | | LAB | | + +---------+ + + + | Albumin | 4.2 | 3.5 - 5.0 | EXTERNAL | | | | | | LAB | | + +---------+ + + + | Na | 139 | 132 - 143 | EXTERNAL | | | | | mmol/L | LAB | | + +---------+ + + + | K | 3.9 | 3.6 - 5.1 | EXTERNAL | | | | | mmol/L | LAB | | + +---------+ + + + | Cl | 100 | 95 - 112 mmol/L | EXTERNAL | | | | | | LAB | | + +---------+ + + + | CO2 | 26 | 19 - 31 mmol/L | EXTERNAL | | | | | | LAB | | + +---------+ + + + | Anion Gap | 16.9 | 7 - 21 mmol/L | EXTERNAL | | | | | | LAB | | + +---------+ + + + | eGFR if not | | | EXTERNAL | | | | | | LAB | | | SAMMARINESE | | | | | + +---------+ + + + | Phosphorus, | 3.5 | 2.5 - 5.0 | EXTERNAL | | | Inorganic | | | LAB | | + +---------+ + + + | BUN/Creatin | 19.8 | 6.0 - 28.6 | EXTERNAL | | | ine Ratio | | | LAB | | + +---------+ + + + | Calcium | 9.8 | 8.4 - 10.2 | EXTERNAL | | | | | mg/dL | LAB | | + +---------+ + + + | Estimated | 47 | mg/dL | EXTERNAL | | | GFR [...]
--- OUTSIDE RECORDS SUMMARY | ~2019-01-25 | XMS | Encounter Summary ---
Demographics + + + | Address | [address] | | | [place] [address] | + + + | Home Phone | | + + + | Preferred Language | Unknown | + + + | Marital Status | Single | + + + | Islam Affiliation | 1041 | + + + | Race | Unknown | + + + | Ethnic Group | Unknown | + + + Author + + + | Author | [facility] | | | and [place] | + + + | Organization | [facility] | | | [...] Team Providers + +------+ + | Care Bobtailer Name | Role | Phone | + +------+ + | Johnny Caldera MD | PCP | | + +------+ + Encounter Details +--------+ + + + + | Date | Type | Department | Care Team | Description | +--------+ + + + + | 04/02/ | Orders Only | [facility] | Conversion | | | 2018 | | CONVERSION [address] | Transaction, | | | | | [address] | Provider Unknown | | | | | [place], [place] | [phone] | | | | | [address] | | | | | | [phone] | | | +--------+ + + + [...] [place] | | | | | | [address] | | | | | | | | +--------+---------+ + + + | 08/01/ | Office | Pulmonology | Jorge, | | | 2019 | Visit | | Caitlyn Simon, | | | | | | MD [address] | | | | | | [place], | | | | | | [place] [address] | | | | | | [phone] | | | | | | | | +--------+---------+ + + + documented as of this encounter Visit Diagnoses Not on filedocumented in this encounter"
--- OUTSIDE RECORDS SUMMARY | ~2019-01-25 | XMS | Encounter Summary ---
Demographics + + + | Address | [address] | | | [place] [address] | + + + | Home Phone | | + + + | Preferred Language | Unknown | + + + | Marital Status | Single | + + + | Mandaen Affiliation | CAT | + + + | Race | White | + + + | Ethnic Group | Not or | + + + Author + + + | Author | [facility] | + + + | Organization | [facility] | + + + | Address [...] Team Providers + +------+ + | Care Home Demonstration Agent Name | Role | Phone | + [...] [address] | | | | | [facility] | [place], [place] | | | | | [address] | [address] | | | | | [place] Mailcode: | [phone] | | | | | [address] | | | | | | [place], [place] | | | | | | [address] | | | | | | [phone] | | | +--------+ + + + [...]
--- OUTSIDE RECORDS SUMMARY | ~2019-01-25 | XMS | Encounter Summary ---
Demographics + + + | Address | [address] | | | [place] [address] | + + + | Home Phone | | + + + | Preferred Language | Unknown | + + + | Marital Status | Single | + + + | Confucianism Affiliation | 1041 | + + + | Race | Unknown | + + + | Ethnic Group | Unknown | + + + Author + + + | Author | [facility] | | | and [place] | + + + | Organization | [facility] | | | [...] Team Providers + +------+ + | Care Chain Pegger Name | Role | Phone | + +------+ + PCP | Unavailable | + +------+ + Encounter Details +--------+ + + + + | Date | Type | Department | Care Team | Description | +--------+ + + + + | 10/04/ | Orders Only | [facility] | Conversion | | | 2018 | | NEPHROLOGY [place] | Transaction, | | | | | [address] | Provider Unknown | | | | | [address] [place] | | | | | | [address] | (Fax) | | | | | [phone] | | | +--------+ + + + [...] [place] | | | | | | [address] | | | | | | | | +--------+---------+ + + + | 08/01/ | Office | Pulmonology | Jorge, | | | 2019 | Visit | | Caitlyn Simon, | | | | | | MD [address] | | | | | | [place], | | | | | | [place] [address] | | | | | | [phone] | | | | | | | [...] - 1.030 | EXTERNAL | | | [place] | | | LAB | | + [...] | | | LAB | | | [place] | | | | | + +---------+ [...]
--- OUTSIDE RECORDS SUMMARY | ~2019-01-25 | XMS | Encounter Summary ---
Demographics + + + | Address | [address] | | | [place] [address] | + + + | Home Phone | | + + + | Preferred Language | Unknown | + + + | Marital Status | Single | + + + | Pentecostalism Affiliation | CAT | + + + | Race | White | + + + | Ethnic Group | Not or | + + + Author + + + | Author | [facility] | + + + | Organization | [facility] | + + + | Address [...] Team Providers + +------+ + | Care Trust Mail Clerk Name | Role | Phone | + +------+ + | Jim Wiley MD | PCP | | + +------+ + Encounter Details +--------+ + + + + | Date | Type | Department | Care Team | Description | +--------+ + + + + | 06/22/ | Abstract | Neurology at | Clinic, Neurology | | | 2014 | | [facility] & | | | | | | Healing [address] | | | | | | [address] Mailcode: | | | | | | [facility] | | | | | | Health and Healing, | | | | | | Building | | | | | | Floor [place], [place] | | | | | | [address] | | | | | | [phone] | | | +--------+ + + + [...]
--- OUTSIDE RECORDS SUMMARY | ~2019-01-25 | XMS | Encounter Summary ---
Demographics + + + | Address | [address] | | | [place] [address] | + + + | Home Phone | | + + + | Preferred Language | Unknown | + + + | Marital Status | Single | + + + | Buddhist Affiliation | CAT | + + + | Race | White | + + + | Ethnic Group | Not or | + + + Author + + + | Author | [facility] | + + + | Organization | [facility] | + + + | [...] Team Providers + +------+ + | Care Program Manufacturing Leader Name | Role | Phone | + +------+ + | Jim Wiley MD | PCP | | + +------+ + Encounter Details +--------+ + + + + | Date | Type | Department | Care Team | Description | +--------+ + + + + | 01/01/ | Abstract | Neurology at | Kerry Fernández MD | | | 2013 | | [facility] & | [address] | | | | | [address] | [place] [address] | | | | | [address] Mailcode: | [phone] | | | | | [address] | | | | | | Health and Healing, | | | | | | [facility] | | | | | | [place], [place] | | | | | | [address] | | | | | | [phone] | | | +--------+ + + + [...]
--- OUTSIDE RECORDS SUMMARY | ~2019-01-25 | XMS | Encounter Summary ---
Demographics + + + | Address | [address] | | | [place] [address] | + + + | Home Phone | | + + + | Preferred Language | Unknown | + + + | Marital Status | Single | + + + | Mormonism Affiliation | CAT | + + + | Race | White | + + + | Ethnic Group | Not or | + + + Author + + + | Author | [facility] | + + + | Organization | [facility] | + + + | [...] Team Providers + +------+ + | Care Manager Of Exhibitions And Collections Name | Role | Phone | + +------+ + | Jim Wiley MD | PCP | | + +------+ + Encounter Details +--------+ + + + + | Date | Type | Department | Care Team | Description | +--------+ + + + + | 03/19/ | Ancillary | Registration [id number] | [address] | | | 2004 | Registratio | [facility] | [address] | | | | n | [address] Mailcode: [address] | [address], | | | | | [place], [place] | [place] [address] | | | | | [address] | [phone] | | | | | [phone] | | | +--------+ + + + [...]
--- OUTSIDE RECORDS SUMMARY | ~2019-01-25 | XMS | Encounter Summary ---
Demographics + + + | Address | [address] | | | [place] [address] | + + + | Home Phone | | + + + | Preferred Language | Unknown | + + + | Marital Status | Single | + + + | Hoahaoism Affiliation | 1041 | + + + | Race | Unknown | + + + | Ethnic Group | Unknown | + + + Author + + + | Author | [facility] | | | and [place] | + + + | Organization | [facility] | | [...] Team Providers + +------+ + | Care Soil Checker Name | Role | Phone | + +------+ + | Johnny Caldera MD | PCP | | + +------+ + Encounter Details +--------+ + + + + | Date | Type | Department | Care Team | Description | +--------+ + + + + | 03/11/ | Orders Only | [facility] | Conversion | | | 2015 | | NEPHROLOGY [place] | Transaction, | | | | | [address] | Provider Unknown | | | | | [address] [place], [place] | | | | | | [address] | (Fax) | | | | | [phone] | | | +--------+ + + + [...] [place] | | | | | | [address] | | | | | | | | +--------+---------+ + + + | 08/01/ | Office | Pulmonology | Jorge, | | | 2019 | Visit | | Caitlyn Simon, | | | | | | MD [address] | | | | | | [place], | | | | | | [place] [address] | | | | | | [phone] | | | | | | | | +--------+---------+ + + + documented as of this encounter Procedures + +--------+ + + + | Procedure Name | Priori | Date/Time | Associated Diagnosis | Comments | | | ty | | | | + +--------+ + + + | EXTERNAL LAB: CBC | Routin | 03/11/2016 | | Results for this | | | e | 7:40 AM | | procedure are in the | | | | PST | | results section. | + +--------+ + + + | URIC ACID | Routin | 03/11/2016 | | Results for this | | | e | 7:40 AM | | procedure are in the | | | | PST | | results section. | + +--------+ + + + | BASIC METABOLIC | Routin | 03/11/2016 | | Results for this | | PANEL | e | 7:40 AM | | procedure are in the | | | | PST | | results section. | + +--------+ + + + | URINALYSIS, | Routin | 03/11/2016 | | Results for this | | MICROSCOPIC ONLY | e | 12:00 AM | | procedure are in the | | | | PST | | results section. | + +--------+ + + + documented in this encounter Results External Lab: CBC (03/11/2016 7:40 AM PST) + + + + + + | Component | Value | Ref Range | Performed | Pathologist | | | | | At | Signature | + + + + + + | WBC | 8.6 | 4.5 - 11.0 10 | EXTERNAL | | | | | | LAB | | + + + + + + | RED CELL | 5.03 | 3.8 - 5.1 10 | EXTERNAL | | | COUNT | | | LAB | | + + + + + + | Hgb | 13.3 | 12.0 - 16.0 | EXTERNAL | | | | | g/dL | LAB | | + + + + + + | Hematocrit, | 40.0 | 35 - 45 % | EXTERNAL | | | POC | | | LAB | | + + + + + + | MCV | 79.5 (A) | 81 - 99 fL | EXTERNAL | | | | | | LAB | | + + + + + + | MCH | 26 (A) | 27 - 33 pg | EXTERNAL | | | | | | LAB | | + + + + + + | MCHC | 33 | 30 - 36 g/dL | EXTERNAL | | | | | | LAB | | + + + + + + | Platelet | 225 | 140 - 440 K/ L | EXTERNAL | | | Count | | | LAB | | | Plasma | | | | | + + + + + + | RDW-CV | 15.7 (A) | 10.5 - 15.0 % | [...] | + +---------+ + + Uric Acid (03/11/2016 7:40 AM PST) + +---------+ + + + | Component | Value | Ref Range | Performed | Pathologist | | | | | At | Signature | + +---------+ + + + | Uric Acid | 8.5 (A) | 2.3 - 6.6 | EXTERNAL [...] | | | + +---------+ + + Basic Metabolic Panel (03/11/2016 7:40 AM PST) + +---------+ + + + | Component | Value | Ref Range | Performed | Pathologist | | | | | At | Signature | + +---------+ + + + | Glucose, | 113 (A) | 70 - 100 mg/dL | EXTERNAL | | | Fasting | | | LAB | | + +---------+ + + + | BUN | 17 | 6 - 23 mg/dL | EXTERNAL | | | | | | LAB | | + +---------+ + + + | Creatinine | 0.92 | 0.70 - 1.25 | EXTERNAL | | | | | mg/dL | LAB | | + +---------+ + + + | BUN/Creatin | 18.5 | 6.0 - 28.6 | EXTERNAL | [...] +---------+ + + + | K | 4.2 | 3.6 - 5.1 | EXTERNAL | | | | | mmol/L | LAB | | + +---------+ + + + | Cl | 102 | 95 - 112 mmol/L | EXTERNAL | | | | | | LAB | | + +---------+ + + + | CO2 | 25 | 19 - 31 mmol/L | EXTERNAL | | | | | | LAB | | + +---------+ + + + | Anion Gap | 16.2 | 7 - 21 mmol/L | EXTERNAL | | | | | | LAB | | + +---------+ + + + | Estimated | 62 | mg/dL | EXTERNAL | | | [...] | | | + +---------+ + + Urinalysis, Microscopic Only (03/11/2016 12:00 AM PST) + + + + + + | Component | Value | Ref Range | Performed | Pathologist | | | | | At | Signature | + + + + + + | Color | Yellow | | EXTERNAL | | | | | | LAB | | + + + + + + | Clarity | Clear | | EXTERNAL | | | | | | LAB | | + + + + + + | Specific | 1.004 (A) | 1.005 - 1.030 | EXTERNAL | | | [place] | | | LAB | | + [...]
--- OUTSIDE RECORDS SUMMARY | ~2019-01-25 | XMS | Encounter Summary ---
Demographics + + + | Address | [address] | | | [place] [address] | + + + | Home Phone | | + + + | Preferred Language | Unknown | + + + | Marital Status | Single | + + + | Jewish Affiliation | CAT | + + + | Race | White | + + + | Ethnic Group | Not or | + + + Author + + + | Author | [facility] | + + + | Organization | [facility] | + + + | Address | Unknown | + + + | Phone | Unavailable | + + + Support + + +---------+ + | Name | Relationship | Address | Phone | + + +---------+ + | Guy Bhatti | ECON | Unknown | | + + +---------+ + | Calros Bhatti | ECON | Unknown | | + + +---------+ + Care Team Providers + +------+ + | Care Food Scientist Name | Role | Phone | + +------+ + PCP | Unavailable | + +------+ + Encounter Details +--------+ + + + + | Date | Type | Department | Care Team | Description | +--------+ + + + + | 05/23/ | Results | [facility] | Jim Greco MD | | | 2003 | Only | [facility] at | [address] | | | | | [address] [place] [address] [place], [place] | | | | | [address] | [address] | | | | | Mailcode: [place] | [phone] | | | | | [place], [place] | | | | | | [address] | | | | | | [phone] | | | +--------+ + + + [...] + +--------+ + + + | CULTURE, BODY FLUID | Routin | 05/24/2003 | | Results for this | | | e | 4:45 PM | | procedure are in the | | | | PST | | results section. | + +--------+ + + + documented in this encounter Results CULT, BODY FLUID (05/24/2003 4:45 PM PST) + + + + + + | Component | Value | Ref Range | Performed | Pathologist | | | | | At | Signature | + + + + + + | SOURCE BODY | Left Eye Vitreous | | | | | SITE | | | | | + + + + + + | CULTURE | Body Fluid | | | | | RESULT | Culture | | | | | | Source...............: | | | | | | Left Eye Vitreous RLB | | | | | | Gram Stain...........: | | | | | | No PMN's | | | | | | | | | | | | No organisms seen. | | | | | | Culture: Final | | | | | | Report: No growth | | | | | | after 14 days. | | | | | | Preliminary Report: No | | | | | | growth after 1 day. | | | | | | Culture examined | | | | | | daily. Report will | | | | | | be updated if growth | | | | | | occurs. Preliminary | | | | | | Report: No growth after | | | | | | 3 days. | | | | | | Preliminary Report: No | | | | | | Growth 7 days Final | | | | | | Report | | | | + + + + + + + + | Specimen | + + | | + + + + + + + | Performing | Address | City/State/Zipcode | Phone Number | | Organization | | | | + + + + + | [facility] | [address] | [place] [address] | | | [facility] | | | | + + + + + documented in this encounter Visit Diagnoses Not on filedocumented in this encounter"
--- OUTSIDE RECORDS SUMMARY | ~2019-01-25 | XMS | Encounter Summary ---
Demographics + + + | Address | [address] | | | [place] [address] | + + + | Home Phone | | + + + | Preferred Language | Unknown | + + + | Marital Status | Single | + + + | Catholic Affiliation | 1041 | + + + [...] Team Providers + +------+ + | Care Tree Thinner Name | Role | Phone | + +------+ + | Johnny Caldera MD | PCP | | + +------+ + Encounter Details +--------+ + + + + | Date | Type | Department | Care Team | Description | +--------+ + + + + | 07/01/ | Orders Only | [facility] | Arik Ttae | | | 2015 | | CONVERSION [address] | [address] | | | [address] | [place] | | | | | [place], [place] | [place] [address] | | | | | [address] | [phone] | | | | | [phone] | | | +--------+ + + + [...] [place] | | | | | | [address] | | | | | | | | +--------+---------+ + + + | 08/01/ | Office | Pulmonology | Jorge, | | | 2019 | Visit | | Caitlyn Simon, | | | | | | MD [address] | | | | | | [place], | | | | | | [place] [address] | | | | | | [phone] | | | | | | | [...] pressures of 5-10mmHg. MEASUREMENTS | | | Buttermaker Continuous Churn: MISSAEL Authenticated by: Arik Tate DO Report [...] venous | | pressures of 5-10mmHg. MEASUREMENTS Buttermaker Continuous Churn: PATRICKuthenticated by: | | Arik Mitchell Date/Time: [...] | |MEASUREMENTS | | | | | |Buttermaker Continuous Churn: | |Authenticated by: Arik Tate DO | [...]
--- OUTSIDE RECORDS SUMMARY | ~2019-01-25 | XMS | Encounter Summary ---
Demographics + + + | Address | [address] | | | [place] [address] | + + + | Home Phone | | + + + | Preferred Language | Unknown | + + + | Marital Status | Single | + + + | Mormonism Affiliation | 1041 | + + + | Race | Unknown | + + + | Ethnic Group | Unknown | + + + Author + + + | Author | [facility] | | | and [place] | + + + | Organization | [facility] | | | [...] Team Providers + +------+ + | Care Grant Officer Name | Role | Phone | + +------+ + | Johnny Caldera MD | PCP | | + +------+ + Encounter Details +--------+ + + + + | Date | Type | Department | Care Team | Description | +--------+ + + + + | 06/23/ | Orders Only | [facility] | Conversion | | | 2016 | | CONVERSION [address] | Transaction, | | | | | [address] | Provider Unknown | | | | | [place], [place] | [phone] | | | | | [address] | | | | | | [phone] | | | +--------+ + + + [...] [place] | | | | | | [address] | | | | | | | | +--------+---------+ + + + | 08/01/ | Office | Pulmonology | Jorge, | | | 2019 | Visit | | Caitlyn Simon, | | | | | | MD [address] | | | | | | [place], | | | | | | [place] [address] | | | | | | [phone] | | | | | | | | +--------+---------+ + + + documented as of this encounter Visit Diagnoses Not on filedocumented in this encounter"
--- OUTSIDE RECORDS SUMMARY | ~2019-01-25 | XMS | Encounter Summary ---
Demographics + + + | Address | [address] | | | [place] [address] | + + + | Home Phone | | + + + | Preferred Language | Unknown | + + + | Marital Status | Single | + + + | Worship Affiliation | 1041 | + + + | Race | Unknown | + + + | Ethnic Group | Unknown | + + + Author + + + | Author | [facility] | | | and [place] | + + + | Organization | [facility] | | | [...] Team Providers + +------+ + | Care Senior Medical Billing Specialist Name | Role | Phone | + +------+ + PCP | Unavailable | + +------+ + Encounter Details +--------+ + + + + | Date | Type | Department | Care Team | Description | +--------+ + + + + | 02/08/ | Orders Only | [facility] | Noel Bautista, | | | 2018 | | [facility] | SUPERVISOR FINE GRADING [address] | | | | | [address] | [address] [address] | | | | | [address] [place], [place] | [place] | | | | | [address] | [address] | | | | | [phone] | [phone] | | | | | | | [...] [place] | | | | | | [address] | | | | | | | | +--------+---------+ + + + | 08/01/ | Office | Pulmonology | Jorge, | | | 2019 | Visit | | Caitlyn Simon, | | | | | | MD [address] | | | | | | [place], | | | | | | [place] [address] | | | | | | [phone] | | | | | | | | +--------+---------+ + + + documented as of this encounter Procedures + +--------+ + + + | Procedure Name | Priori | Date/Time | Associated Diagnosis | Comments | | | ty | | | | + +--------+ + + + | BASIC METABOLIC | Routin | 04/22/2018 | | Results for this | | PANEL | e | 12:00 AM | | procedure are in the | | | | PST | | results section. | + +--------+ + + + documented in this encounter Results Basic Metabolic Panel (04/22/2018 12:00 AM PST) + +---------+ + + + | Component | Value | Ref Range | Performed | Pathologist | | | | | At | Signature | + +---------+ + + + | Glucose, | 118 (A) | 70 - 100 mg/dL | EXTERNAL | | | Fasting | | | LAB | | + +---------+ + + + | BUN | 20 | 6 - 23 mg/dL | EXTERNAL | | | | | | LAB | | + +---------+ + + + | Creatinine | 0.93 | 0.70 - 1.25 | EXTERNAL | | | | | mg/dL | LAB | | + +---------+ + + + | BUN/Creatin | 21.5 | 6.0 - 28.6 | EXTERNAL | | | ine Ratio | | | LAB | | + +---------+ + + + | Calcium | 9.5 | 8.5 - 10.3 | EXTERNAL | | | | | mg/dL | LAB | | + +---------+ + + + | Na | 140 | 132 - 143 | EXTERNAL | | | | | mmol/L | LAB | | + +---------+ + + + | K | 4.5 | 3.6 - 5.1 | EXTERNAL | | | | | mmol/L | LAB | | + +---------+ + + + | Cl | 106 | 95 - 112 mmol/L | EXTERNAL | | | | | | LAB | | + +---------+ + + + | CO2 | 24 | 19 - 31 mmol/L | EXTERNAL | | | | | | LAB | | + +---------+ + + + | Anion Gap | 14.5 | 7 - 21 mmol/L | EXTERNAL | | | | | | LAB | | + +---------+ + + + | Estimated | 61 | mg/dL | EXTERNAL | | | [...]
--- OUTSIDE RECORDS SUMMARY | ~2019-01-25 | XMS | Encounter Summary ---
Demographics + + + | Address | [address] | | | [place] [address] | + + + | Home Phone [...] Author | [facility] | + + + | Organization | [facility] | + + + | Address | [...] Team Providers + +------+ + | Care Travel Rn Or Name | Role | Phone | + +------+ + PCP | Unavailable | + +------+ + Encounter Details +--------+ + + + + | Date | Type | Department | Care Team | Description | +--------+ + + + + | 05/23/ | Results | [facility] | Brown [address] Luna | | | 2003 | Only | [facility] at | [address] | | | | | [address] | [address], | | | | | [place] | [place] [address] | | | | | Mailcode: [place] | [phone] | | | | | [place], [place] | | | | | | [address] | | | | | | [phone] | | | +--------+ + + + [...] | + +--------+ + + + | VITREOUS(OP) | Routin | 05/24/2003 | | Results for this | | | e | | | procedure are in the | | | | | | results section. | + +--------+ + + + documented in this encounter Results VITREOUS(OP) (05/24/2003) + + + + + + | Component | Value | Ref Range | Performed | Pathologist | | | | | At | Signature | + + + + + + | VITREOUS | SOURCE OF SPECIMEN:A | | | | | | Vitreous, Right Eye | | | | | | MICROSCOPIC | | | | | | DESCRIPTION:Microscopic | | | | | | examination reveals | | | | | | there is a moderate | | | | | | infiltrate oflymphocytes | | | | | | and macrophages. There | | | | | | is a moderate amount of | | | | | | free pigment andpigment | | | | | | within macrophages. | | | | | | There are no organisms | | | | | | evident. FINAL | | | | | | PATHOLOGIC | | | | | | DIAGNOSIS:Vitreous: | | | | | | Inflammation, | | | | | | chronicRendering | | | | | | Diagnostician: Abdi | | | | | | Kenzie Saldana | | | | | | MDPathologistElectronica | | | | | | ethan Signed | | | | | | 08/13/2003Comment: | | | | | | SOURCE OF SPECIMEN: | | | | | | Vitreous, Right Eye | | | | + + + + + + + + | Specimen | + + | | + + + + + + + | Performing | Address | City/State/Zipcode | Phone Number | | Organization | | | | + + + + + | [facility] | [address] | [place] [address] | | | INSTITUTE | [place]. | | | + + + + + documented in this encounter Visit Diagnoses Not on filedocumented in this encounter"
--- OUTSIDE RECORDS SUMMARY | ~2019-01-25 | XMS | Encounter Summary ---
Demographics + + + | Address | [address] | | | [place] [address] | + + + | Home Phone | | + + + | Preferred Language | Unknown | + + + | Marital Status | Single | + + + | Baptism Affiliation | CAT | + + + | Race | White | + + + | Ethnic Group | Not or | + + + Author + + + | Author | [facility] | + + + | Organization | [facility] | + + + | Address [...] Team Providers + +------+ + | Care Heading And Priming Tool Setter Name | Role | Phone | + +------+ + | Jim Wiley MD | PCP | | + +------+ + Encounter Details +--------+ + + + + | Date | Type | Department | Care Team | Description | +--------+ + + + + | 03/20/ | Abstract | Neurology at | Rebecca Yuen MD | | | 2014 | | [facility] & | [address] | | | | | [address] | [place], [place] | | | | | [address] Mailcode: | [address] | | | | | [address] | [phone] | | | | | Health and Healing, | | | | | | [facility] | | | | | | Floor [place], [place] | | | | | | [address] | | | | | | [phone] | | | +--------+ + + + [...]
--- OUTSIDE RECORDS SUMMARY | ~2019-01-25 | XMS | Encounter Summary ---
Demographics + + + | Address | [address] | | | [place] [address] | + + + | Home Phone | | + + + | Preferred Language | Unknown | + + + | Marital Status | Single | + + + | Taoism Affiliation | 1041 | + + + | Race | Unknown | + + + | Ethnic Group | Unknown | + + + Author + + + | Author | [facility] | | | and [place] | + + + | Organization | [facility] | | [...] Team Providers + +------+ + | Care Code Clerk Name | Role | Phone | + +------+ + | Johnny Caldera MD | PCP | | + +------+ + Encounter Details +--------+ + + + + | Date | Type | Department | Care Team | Description | +--------+ + + + + | 12/15/ | Orders Only | [facility] | Conversion | | | 2016 | | [address] | Transaction, | | | | | [address] | Provider Unknown | | | | | [place], [place] | [phone] | | | | | [address] | | | | | | [phone] | | | +--------+ + + + [...] [place] | | | | | | [address] | | | | | | | | +--------+---------+ + + + | 08/01/ | Office | Pulmonology | Jorge, | | | 2019 | Visit | | Caitlyn Simon, | | | | | | MD [address] | | | | | | [place], | | | | | | [place] [address] | | | | | | [phone] | | | | | | | | +--------+---------+ + + + documented as of this encounter Visit Diagnoses Not on filedocumented in this encounter"
--- OUTSIDE RECORDS SUMMARY | ~2019-01-25 | XMS | Encounter Summary ---
Demographics + + + | Address | [address] | | | [place] [address] | + + + | Home Phone | | + + + | Preferred Language | Unknown | + + + | Marital Status | Single | + + + | Sabianist Affiliation | CAT | + + + | Race | White | + + + | Ethnic Group | Not or | + + + Author + + + | Author | [facility] | + + + | Organization | [facility] | + + + | [...] Team Providers + +------+ + | Care Agricultural Equipment Mechanic Name | Role | Phone | + +------+ + | Jim Wiley MD | PCP | | + +------+ + Reason for Referral Consultation (Routine) +--------+--------+ + + + + | Status | Reason | Specialty | Diagnoses / | Referred By | Referred To | | | | | Procedures | Contact | Contact | +--------+--------+ + + + + | Closed | | Ophthalmology | Diagnoses | Wilfrid, | Stephane | | | | | Unspecified | Breanne Landeros MD | MD Kerry | | | | | visual loss | [address] | [address] | | | | | Multiple | Ave | Ave | | | | | sclerosis | [place] | [place] | | | | | ([facility]) | [address] | [address] | | | | | Procedures | Phone: | Phone: | | | | | CONSULT TO | [phone] | [phone] | | | | | NEURO | Fax: | Fax: | | | | | OPHTHALMOLOG | [phone] | [phone] | | | | | Y | | | +--------+--------+ + + + + Reason for Visit + + + | Reason | Comments | + + + | Return Patient | | + + + Office Visit - E/M Services (Routine) +--------+--------+ + + + + | Status | Reason | Specialty | Diagnoses / | Referred By | Referred To | | | | | Procedures | Contact | Contact | +--------+--------+ + + + + | Closed | | Neurology | Diagnoses | Inez, | Mass, | | | | | Abnormality | Jim Villa MD | MD Tim | | | | | of gait | [address] | [address] [facility] | | | | | | [facility] | [facility] | | | | | | [facility] | [facility], | | | | | | [address] | [place] | | | | | | [address] | [address] | | | | | | [place], | Phone: | | | | | | [place] [address] | [phone] | | | | | | Phone: | Fax: | | | | | | [phone] | [phone] | | | | | | Fax: | | | | | | | [phone] | | +--------+--------+ + + + + Encounter Details +--------+---------+ + + + | Date | Type | Department | Care Team | Description | +--------+---------+ + + + | 03/21/ | Office | Neurology at | Breanne Yuen MD | Abnormal MRI | | 2015 | Visit | [facility] & | [address] | (Primary Dx) | | | | Healing [address] | [place], [place] | | | | | [address] Mailcode: | [address] | | | | | [address] | [phone] | | | | | Health and Healing, | | | | | | [facility] | | | | | | [place], [place] | | | | | | [address] | | | | | | [phone] | | | +--------+---------+ + + + [...] + + + | Blood Pressure | 111/78 | 03/21/2014 12:33 PM | | | | | PST | | + + + + + | Pulse | 74 | 03/21/2014 12:33 PM | | | [...] + + + + | Weight | 90 kg (198 lb 6.4 | 03/21/2014 12:33 PM | | | | oz) | PST | | + + + + + | Height | 162.6 cm (5' 4") | 03/21/2014 12:33 PM | | | | | PST | | + + + + + | Body Mass Index | 34.06 | 03/21/2014 12:33 PM | | | | | PST | | + + + + + documented in this encounter Progress Notes Tim Franz MD - 03/23/2014 12:11 PM PSTI personally interviewed the patient, duplicated the pertinent parts of the physical examination and personally formulated the plan with Dr. Webster. I have reviewed, entered my findings, and agree with the above documentation. Tim Franz M.D. [facility] aird, Marvin Landeros MD - 03/22/2014 8:07 PM PSTFormatting of this note might be different from the origin al. NEUROLOGY CLINIC FOLLOW UP NOTE 03/21/2014 Author: BREANNE WEBSTER MD SUBJECTIVE/HPI: Hazel Bhatti is a 57 y.o. female with a pmh of HLD, HTN, anxiety, depression, minor stutte r at baseline, and COPD who was admitted to [facility] from [facility] in early October 14 for a variety of neurological complaints including abnormal movements of her lower extre mities, instability, and increased stutter. Outside MRI was reviewed and LP was performed. E EG did not show any epileptic activity. She was discharged to SNF for rehab and external Psy chiatry referral was placed. Since discharge on 10/20, her gait improved significantly with rehab and she was able to move to an assisted living facility. Mrs. Bhatti has had one further event of full-body shaking t hat occurred with preserved consciousness and resulted in an ED visit, from which she was di scharged back to her assisted living facility and thinks she has had two smaller events sinc e then that resolved quickly. The shaking starts in her feet bilaterally and moves up her honey dy to include both of her legs and then all four extremities. 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 We reviewed the results of her MRI and her workup, nothing to suggest multiple sclerosis or malignancy in her CSF, and MRI changes are most likely small vessel disease. We talked abou t risk factors for small vessel disease (she says she does not have migraines). She continue s to have significant memory problems and occasional "electrical" sensations in her head, wo nders if these are strokes. I told her that she does not need to worry that the electrical s ensations are strokes. She has been seeing a mental health provider. Her vision is getting progressively worse (loss of peripheral vision, blurriness of central vision) and an engineering manager (Dr. Vasquez, family members were pretty sure he was not an opht halmologist) has told her that there is nothing intraocular that could be causing this, wond ering if there is a neurological issue but she has no signs on MRI of damage to optic nerve or occipital cortex. She currently has active shingles in R V1 dermatome with weeping sores and pain, dabbing at these frequently with handkerchief, no known ocular involvement per patient and her family. ROS also positive for back pain with no radiation, weakness of legs below knees. Neurologic ROS: MCNULTY: + Focal weakness: + legs bilaterally below knees Focal numbness: - Tingling/paresthesias: - Difficulty walking: + but improved from last admission Difficulty with balance: + but improved from last admission Vertigo: - Scotoma: loss of peripheral vision Change in vision: peripheral vision getting worse, central vision getting blurrier Change in hearing: no Tinnitus: + Exam: Last Vitals: BP 111/78 | Pulse 74 | Ht 1.626 m (5' 4") | Wt 89.994 kg (198 lb 6.4 oz) | BMI 34.04 kg/(m^2) Constitutional: overweight female wearing dark glasses, [...] Intact -Repetition: Intact -Naming: Intact Mood/Affect: Anxious Thought Content: Normal, no auditory or visual [...] in the bilateral upper and lower extremities. Pin prick: Intact and symmetric in the bilateral upper and lower extremities. Proprioception: Intact and symmetric in the bilateral upper and lower extremities. Coordination: Finger to nose is of normal speed, no action tremor, and no end-point dysmetria Patient cannot sufficiently lift legs to perform heel-stovall Gait: Wide-based, normal stride length, steady with walker smooth turning HEENT: Weeping sores in R V1 distribution, not involving eyelid or eye Pulm: breathing comfortably on room air CV: [...] mal slowing or epileptiform activity were seen. snf EEG monitoring to follow. Long-term EEG 10/19-10/20/13: No epileptic activity seen during push-button event on 10/20 at chery roximately 4AM. MRI from outside hospital reviewed with neuroradiology, multiple discrete white matter lesi ons Assessment: This is a 58 yo woman with history of HLD, HTN, anxiety, depression and COPD wh o is following up after an admission for limbshaking events and difficulty walking. Her gait has improved with rehab, now quite steady with walker, and her subsequent limbshaking event s have been rare, associated with increased stress, and all have preserved consciousness, co nsistent with the PNES diagnosis. MRI and LP only revealing of small vessel white matter dis ease. She asks about her difficulties with memory and executive function and although vascul ar dementia could play a role, I also think much of this is pseudodementia intertwined with her anxiety and depression. She has an ophthalmologic history significant for uveitis and mu ltiple surgeries and while her strange darting eye movements and inability to maintain later al gaze seem functional to me, I am not able to evaluate her well fundoscopically since she cannot keep her eyes open for long. I think she merits an evaluation by neuro-ophthalmology given her complicated history in case there is something I am missing, but as she has only b een seeing an engineering manager as an outpatient per family report, I would agree if they think [facility] ophthalmology seems more appropriate for her. Since there were enhancing lesions on th e MRI we reviewed during her admission, she needs to be followed with a repeat scan. We will have the most recent outside images pushed from [facility]. Recommendations: -Neuro-ophthalmology referral - [facility] - RTC in 3 months This patient has been staffed with Dr. Tim Franz, attending physician, who agrees with t jose a above assessment and plan. Breanne Webster MD Neurology PGY-2 Pager [phone] documented in this enco unter Plan of Treatment Not on filedocumented as of this encounter Visit Diagnoses + + | Diagnosis | + + | Abnormal MRI - Primary Other nonspecific (abnormal) findings on radiological and | | other examinations of body structure | + + documented in this encounter
--- OUTSIDE RECORDS SUMMARY | ~2019-01-25 | XMS | Encounter Summary ---
Demographics + + + | Address | [address] | | | [place] [address] | + + + | Home Phone | | + + + | Preferred Language | Unknown | + + + | Marital Status | Single | + + + | Islam Affiliation | 1041 | + + + | Race | Unknown | + + + | Ethnic Group | Unknown | + + + Author + + + | Author | [facility] | | | and [place] | + + + | Organization | [facility] | | [...] Team Providers + +------+ + | Care Prosthetic Dentist Name | Role | Phone | + +------+ + | Johnny Caldera MD | PCP | | + +------+ + Encounter Details +--------+ + + + + | Date | Type | Department | Care Team | Description | +--------+ + + + + | 03/11/ | Orders Only | [facility] | Conversion | | | 2015 | | NEPHROLOGY [place] | Transaction, | | | | | [address] [place] | Provider Unknown | | | | | [address] [place], [place] | | | | | | [address] | (Fax) | | | | | [phone] | | | +--------+ + + + [...] [place] | | | | | | [address] | | | | | | | | +--------+---------+ + + + | 08/01/ | Office | Pulmonology | Jorge, | | | 2019 | Visit | | Caitlyn Simon, | | | | | | MD [address] | | | | | | [place], | | | | | | [place] [address] | | | | | | [phone] | | | | | | | [...] - 1.030 | EXTERNAL | | | [place] | | | LAB | | + [...]
--- OUTSIDE RECORDS SUMMARY | ~2019-01-25 | XMS | Encounter Summary ---
Demographics + + + | Address | [address] | | | [place] [address] | + + + | Home Phone | | + + + | Preferred Language | Unknown | + + + | Marital Status | Single | + + + | Orthodoxy Affiliation | 1041 | + + + | Race | Unknown | + + + | Ethnic Group | Unknown | + + + Author + + + | Author | [facility] | | | and [place] | + + + | Organization | [facility] | | | [...] Team Providers + +------+ + | Care Corporate Risk Analyst Name | Role | Phone | + +------+ + | Johnny Caldera MD | PCP | | + +------+ + Encounter Details +--------+ + + + + | Date | Type | Department | Care Team | Description | +--------+ + + + + | 08/24/ | Orders Only | [facility] | Conversion | | | 2018 | | CONVERSION [address] | Transaction, | | | | | [address] | Provider Unknown | | | | | [place], [place] | [phone] | | | | | [address] | | | | | | [phone] | | | +--------+ + + + [...] [place] | | | | | | [address] | | | | | | | | +--------+---------+ + + + | 08/01/ | Office | Pulmonology | Jorge, | | | 2019 | Visit | | Caitlyn Simon, | | | | | | MD [address] | | | | | | [place], | | | | | | [place] [address] | | | | | | [phone] | | | | | | | | +--------+---------+ + + + documented as of this encounter Visit Diagnoses Not on filedocumented in this encounter"
--- OUTSIDE RECORDS SUMMARY | ~2019-01-25 | XMS | Encounter Summary ---
Demographics + + + | Address | [address] | | | [place] [address] | + + + | Home Phone | | + + + | Preferred Language | Unknown | + + + | Marital Status | Single | + + + | Gnosticism Affiliation | 1041 | + + + | Race | Unknown | + + + | Ethnic Group | Unknown | + + + Author + + + | Author | [facility] | | | and [place] | + + + | Organization | [facility] | | | and [...] Team Providers + +------+ + | Care Docent Coordinator Name | Role | Phone | + +------+ + | Johnny Caldera MD | PCP | | + +------+ + Encounter Details +--------+ + + + + | Date | Type | Department | Care Team | Description | +--------+ + + + + | 09/11/ | Orders Only | [facility] | Conversion | | | 2017 | | CONVERSION [address] | Transaction, | | | | | [address] | Provider Unknown | | | | | [place], [place] | [phone] | | | | | [address] | | | | | | [phone] | | | +--------+ + + + [...] [place] | | | | | | [address] | | | | | | | | +--------+---------+ + + + | 08/01/ | Office | Pulmonology | Jorge, | | | 2019 | Visit | | Caitlyn Simon, | | | | | | MD [address] | | | | | | [place], | | | | | | [place] [address] | | | | | | [phone] | | | | | | | | +--------+---------+ + + + documented as of this encounter Visit Diagnoses Not on filedocumented in this encounter"
--- OUTSIDE RECORDS SUMMARY | ~2019-01-25 | XMS | Encounter Summary ---
Demographics + + + | Address | [address] | | | [place] [address] | + + + | Home Phone | | + + + | Preferred Language | Unknown | + + + | Marital Status | Single | + + + | Alevism Affiliation | 1041 | + + + | Race | Unknown | + + + | Ethnic Group | Unknown | + + + Author + + + | Author | [facility] (Historical as of | | | 10-29-18) | + + + | Organization | [facility] (Historical as of | | | 10-29-18) [...] Team Providers + +------+ + | Care Endocrinology Teacher Name | Role | Phone | + [...] Essential | | | | [place] [address] | | hypertension, | | | | [phone] | | benign; | | | | [...] | + + + + + | [facility] | [address] | [place] [address] | [phone] | | LABORATORY | [address]vd[address] | | [...] | + + + + + | [facility] | [address] | [place] [address] | [phone] | | LABORATORY | Blvd[address] | | [...] | + + + + + | [facility] | [address] | [place] [address] | [phone] | | LABORATORY | Blvd. | | | + + + + + Protein / creatinine ratio, urine (10/25/2018 3:09 PM) + +-------+ + + | Component | Value | Ref Range | Performed At | + +-------+ + + | UR | 87.2 | 0 - 150 | [facility] | | PROTEIN/CREATININE | | | LABORATORY | + +-------+ + + + + | Specimen | + + | Urine | + + + + + + + | Performing | Address | City/State/Zipcode | Phone Number | | Organization | | | | + + + + + | [facility] | [address] | [place] [address] | [phone] | | LABORATORY | Blvd[address] | | | + + + + + in this encounter Visit Diagnoses + + | Diagnosis | + + | CKD (chronic kidney disease), stage II | + + | Essential hypertension, benign | + + | Hyperuricemia | + + | Other abnormal blood chemistry | + +"
--- OUTSIDE RECORDS SUMMARY | ~2019-01-25 | XMS | Encounter Summary ---
Demographics + + + | Address | [address] | | | [place] [address] | + + + | Home Phone | | + + + | Preferred Language | Unknown | + + + | Marital Status | Single | + + + | Sikh Affiliation | 1041 | + + + | Race | Unknown | + + + | Ethnic Group | Unknown | + + + Author + + + | Author | [facility] | | | and [place] | + + + | Organization | [facility] | | [...] Providers + +------+ + | Care Manager Hospitality Name | Role | Phone | + +------+ + | Johnny Caldera MD | PCP | | + +------+ + Encounter Details +--------+ + + + + | Date | Type | Department | Care Team | Description | +--------+ + + + + | 10/25/ | Orders Only | [facility] | Conversion | | | 2019 | | NEPRHOLOGY [place] | Transaction, | | | | | [address] | Provider Unknown | | | | | [address] [place], [place] | [phone] | | | | | [address] | | | | | | [phone] | | | +--------+ + + + [...] [place] | | | | | | [address] | | | | | | | | +--------+---------+ + + + | 08/01/ | Office | Pulmonology | Jorge, | | | 2019 | Visit | | Caitlyn Simon, | | | | | | MD [address] | | | | | | [place], | | | | | | [place] [address] | | | | | | [phone] | | | | | | | [...] + + documented in this encounter Results Uric Acid (10/25/2018 3:09 PM PDT) + +---------+ + + + | Component | Value | Ref Range | Performed | Pathologist | | | | | At | Signature | + +---------+ + + + | Uric Acid | 6.8 (A) | 2.3 - 6.6 | EXTERNAL [...]
--- OUTSIDE RECORDS SUMMARY | ~2019-01-25 | XMS | Encounter Summary ---
Demographics + + + | Address | [address] | | | [place] [address] | + + + | Home Phone | | + + + | Preferred Language | Unknown | + + + | Marital Status | Single | + + + | Orthodox Affiliation | CAT | + + + | Race | White | + + + | Ethnic Group | Not or | + + + Author + + + | Author | [facility] | + + + | Organization | [facility] | + + + | Address [...] Team Providers + +------+ + | Care Plastic Top Assembler Name | Role | Phone | + +------+ + | Jim Wiley MD | PCP | | + +------+ + Encounter Details +--------+ + + + + | Date | Type | Department | Care Team | Description | +--------+ + + + + | 01/01/ | Abstract | Neurology at | Kerry Fernández MD | | | 2013 | | [facility] & | [address] | | | | | [address] | [place] [address] | | | | | [address] Mailcode: | [phone] | | | | | [address] | | | | | | Health and Healing, | | | | | | [facility] | | | | | | [place], [place] | | | | | | [address] | | | | | | [phone] | | | +--------+ + + + [...]
--- OUTSIDE RECORDS SUMMARY | ~2019-01-25 | XMS | Encounter Summary ---
Demographics + + + | Address | [address] | | | [place] [address] | + + + | Home Phone | | + + + | Preferred Language | Unknown | + + + | Marital Status | Single | + + + | Judaism Affiliation | CAT | + + + | Race | White | + + + | Ethnic Group | Not or | + + + Author + + + | Author | [facility] | + + + | Organization | [facility] | + + + | [...] Team Providers + +------+ + | Care Offc Spec Name | Role | Phone | + +------+ + PCP | Unavailable | + +------+ + Encounter Details +--------+ + + + + | Date | Type | Department | Care Team | Description | +--------+ + + + + | 01/09/ | Letter-Neff | [facility] | Letter, [facility] | Letters | | 2004 | scribed | | [place] | | +--------+ + + + + [...] documented as of this encounter Progress Notes Interface, Behavioral Instructor In - 10/12/2004 8:55 AM PDT [id number] 01/09/2004 [id number] SERGESAVANAH LOTTMARINA January 10, 2004 Dr. Carlos De Luna [facility] RE: Marina Bhatti MR#: [id number] Dear Carlos, Thanks very much for your referral of this 48-year-old previously well lady who has presented with persistent left uveitis since cataract surgery in 2002. I understand that Mrs. Bhatti's symptoms in her left eye commenced in February last year approximately 2 months after an uncomplicated left cataract operation. The symptoms at the time consisted of ocular injection, discomfort, and mild decrease in vision. Her treatment at that stage consisted of topical pred forte drops with some relief. However, on presentation to you in April this year, I understand her uveitis persisted despite the use of pred forte and the vision had dropped to 20/400 mainly due to the deposition of a large plaque behind her intraocular lens. Further treatment therefore consisted of a vitrectomy, removal of the plaque, and intravitreal antibiotics. Unfortunately cultures and microscopy of the vitreous fluid did not reveal any organisms. However, Mrs. Bhatti did improve substantially postoperatively with her visual acuity returning to 20/25. Unfortunately Mrs. Bhatti has since had 2 recurrences of her intraocular inflammation commencing in September this year and worsening again in October this year. This inflammation has persisted and worsened despite the use of intensive topical pred forte drops every hour in combination with topical Cyclogyl. On examination today her best-corrected acuity was 20/120 on the left and 20/15 on the right. Intraocular pressure in the left eye was measured at 22 mmHg. Examination of the right eye was essentially within normal limits. Examination of the left anterior segment revealed 3 to 4+ anterior chamber cells with 3+ flare and marked large granulomatous KPs covering half of the inferior cornea. There is no evidence of any hypopyon. Fundal examination revealed 1+ vitreal cells with any evidence of retinitis or vasculitis. Review of systems also failed to reveal any underlying systemic autoimmune conditions. 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 This is largely based on not only her clinical appearance but also the persistence and worsening of her inflammation despite intensive topical pred forte drops. As a result we have decided to try a course of oral ciprofloxacin in an attempt to see whether or not it will respond. Should this fail, however, she may need to be considered for a repeat vitrectomy/vitreous biopsy and intravitreal antibiotics and perhaps even removal of her intraocular lens. I understand that arrangements have made to see her again in 2 weeks' time. Thanks again for your referral of this michelle. Yours sincerely, Dr. Yonatan Javed Uveitis Fellow Guy Durán M.D. Professor of Ophthalmology, Medicine and Cell Biology Chief, Division of Arthritis Rheumatic Diseases Director, Uveitis Clinic /yamilet A documented i n this encounter Plan of Treatment Not on filedocumented as of this encounter Visit Diagnoses Not on filedocumented in this encounter"
--- OUTSIDE RECORDS SUMMARY | ~2019-01-25 | XMS | Encounter Summary ---
Demographics + + + | Address | [address] | | | [place] [address] | + + + | Home Phone | | + + + | Preferred Language | Unknown | + + + | Marital Status | Single | + + + | Sabianist Affiliation | 1041 | + + + | Race | Unknown | + + + | Ethnic Group | Unknown | + + + Author + + + | Author | [facility] | | | and [place] | + + + | Organization | [facility] | | | [...] Team Providers + +------+ + | Care Groundskeeping Maintenance Name | Role | Phone | + +------+ + PCP | Unavailable | + +------+ + Encounter Details +--------+ + + + + | Date | Type | Department | Care Team | Description | +--------+ + + + + | 02/08/ | Orders Only | [facility] | Noel Bautista, | | | 2018 | | [facility] | BROOMMAKING SUPERVISOR [address] | | | | | [address] | [place] | | | | | [address] [place], [place] | [place] | | | | | [address] | [address] | | | | | [phone] | [phone] | | | | | | | [...] [place] | | | | | | [address] | | | | | | | | +--------+---------+ + + + | 08/01/ | Office | Pulmonology | Jorge, | | | 2019 | Visit | | Caitlyn Simon, | | | | | | MD [address] | | | | | | [place], | | | | | | [place] [address] | | | | | | [phone] | | | | | | | [...]
--- OUTSIDE RECORDS SUMMARY | ~2019-01-25 | XMS | Encounter Summary ---
Demographics + + + | Address | [address] | | | [place] [address] | + + + | Home Phone | | + + + | Preferred Language | Unknown | + + + | Marital Status | Single | + + + | Taoism Affiliation | CAT | + + + | Race | White | + + + | Ethnic Group | Not or | + + + Author + + + | Organization | Unknown | + + + | Address | [...] Team Providers + +------+ + | Care Clip And Hanger Attacher Name | Role | Phone | + +------+ + PCP | Unavailable | + +------+ + Encounter Details +--------+ + + + + | Date | Type | Department | Care Team | Description | +--------+ + + + + | 01/04/ | Orders Only | | Record, Operation | | | 2005 | | | | | +--------+ + [...] | + +--------+ + + + | OPERATION RECORD | | 03/18/2004 | | Results for this | | | | | | procedure are in the | | | | | | results section. | + +--------+ + + + documented in this encounter Results OPERATION RECORD (03/18/2004) + + | Transcriptions | + + | Interface, Project Management It Specialist In - 03/04/2005 7:29 PM PST | | [id number] | | [id number] GENEVIEVE GRAY | | | | Date: 03/18/2004 | | | | Attending Surgeon: Kenzie De Luna M.D. | | | | It Auditor(s): Jim Greco M.D. | | | | Preoperative Diagnosis(es): | | 1. Vitreous hemorrhage, left eye. | | 2. Hyphema, left eye. | | 3. 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 | | 4. Propionibacterium endophthalmitis (treated), left eye. | | | | | | Postoperative Diagnosis(es): | | 1. Vitreous hemorrhage, left eye. | | 2. Hyphema, left eye. | | 3. 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 | | 4. Propionibacterium endophthalmitis (treated), left eye. | | | | | | Procedures Performed: | | 1. Pars plana vitrectomy. | | 2. Anterior chamber washout. 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 This eventually required vitrectomy and removal and | | explantation of her posterior chamber intraocular lens. This was culture | | proven to be P. acnes. Shortly after the removal of her intraocular lens, | | she developed a vitreous hemorrhage which has not cleared over time. 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 | | | | Procedure: | | After the obtainment of an informed consent, the patient was taken to the | | Operating Room where retrobulbar anesthesia was obtained by delivering 4 mL | | of a 50:50 mixture of lidocaine and Marcaine into the retrobulbar space | | using an Packer needle. After the establishment of adequate anesthesia | | and akinesia, attention was directed towards the left eye into which a wire | | lid speculum was placed. Slit-like conjunctival peritomies were performed | | in the superotemporal, superonasal, and inferotemporal quadrants so as to | | expose bare sclera, 3 mm posterior to the limbus. The old sclerotomies | | were isolated and a 6-mm posterior infusion cannula was placed inside the | | eye. A 6-mm infusion was placed inside the eye, because with a dense | | hemorrhage and dense hyphema, I felt it would be difficult to see with a | | 4-mm infusion cannula and also ultrasound had shown mild choroidals. A | | paracentesis was made in the anterior chamber and an anterior chamber | | washout was performed. This revealed no corneal staining and a nicely | | formed anterior chamber. Hand-held infusion and microvitrector were placed | | inside the eye and were used to carry out an anterior vitrectomy. This was | | done successfully enough to disclose that the posterior infusion cannula | | was in the posterior cavity, so posterior infusion was turned on. Then | | hand-held infusion was removed and was exchanged for a light pipe. A | | thorough pars plana vitrectomy was performed which removed dense hemorrhage | | from the entirety of the inside of the eye. After removal of all the | | hemorrhage, it was clear that the retina was nicely attached. The optic | | nerve looked healthy, and there were indeed peripheral choroidals. These | | were not kissing, and I did not feel that they needed to be drained. After | | removing all of the hemorrhage in the anterior and posterior chamber, all | | instruments were withdrawn from the eye and binocular indirect | | ophthalmoscopy was performed which revealed a completely attached retina | | without problem. The sclerotomies were sewn closed with 6-0 Vicryl suture, | | were noted to be watertight upon closure. The conjunctiva was sewn closed | | with the 6-0 plain gut suture, and the eye received subconjunctival | | injections of Zinacef and Decadron. Maxitrol was placed in the eye, and the | | eye was patched. The patient was taken from the Operating Room to the | | Recovery Room in stable condition. Complications none. Estimated blood | | loss less than 1 mL. Specimens none. | | | | | | | | | | Kenzie De Luna M.D. | | | | JTS / HS | | [id number] / [id number] / [id number] / | | | | | | | | | | | | Electronically signed by Brown De Luna 03-25-2004 02:18:16 PM | + + documented in this encounter Visit Diagnoses Not on filedocumented in this encounter"
--- OUTSIDE RECORDS SUMMARY | ~2019-01-25 | XMS | Encounter Summary ---
Demographics + + + | Address | [address] | | | [place] [address] | + + + | Home Phone | | + + + | Preferred Language | Unknown | + + + | Marital Status | Single | + + + | Yazdanism Affiliation | CAT | + + + [...] | + + +---------+ + | Guy Vallejo | ECON | Unknown | | + + +---------+ + | Carlos Vallejo | ECON | Unknown | | + + +---------+ + Care Team Providers + +------+ + | Care Rotor Winder Name | Role | Phone | + +------+ + PCP | Unavailable | + +------+ + Encounter Details +--------+ + + + + | Date | Type | Department | Care Team | Description | +--------+ + + + + | 04/ | Procedure - | | Evaluation, Cei | [facility] | | 2005 | | | Ultrasound | | | | Transcribed | | | | +--------+ + + [...] as of this encounter Progress Notes Interface, Supplemental Manager In - 03/20/2005 6:23 AM PST [id number] GENEVIEVE GRAY Ultrasound Evaluation Report Patient: MARINA VALLEJO Date: 03/18/2004 Referring MD: Kenzie De Luna M.D. Eye: Left eye. History: This pleasant, adult female presents with a dense vitreous echo pattern consistent with hemorrhage. She has undergone a recent vitrectomy. She presents today with an increase in her intraocular pressure to 35. Echography: There continues to be a highly diffuse, dense vitreous echo pattern consistent with hemorrhage. There are far peripheral mild serous choroidal effusion elevations. The retina remains intact. There is a cupping of the optic nerve head and a swelling of the peripapillary retina. Jd Mcgarry M.D. and Nawaf Yip, Ophthalmic Echographer [place] / [id number] / [id number] / [id number] / Electronically signed by Jr. Jd Mcgarry 03-30-2004 04:21:01 PM documented i n this encounter Plan of Treatment Not on filedocumented as of this encounter Procedures + +--------+ + + + | Procedure Name | Priori | Date/Time | Associated Diagnosis | Comments | | | ty | | | | + +--------+ + + + | [facility] | | 03/18/2004 | | Results for this | | | | | | procedure are in the | | | | | | results section. | + +--------+ + + + documented in this encounter Results [facility] (03/18/2004) + + | Transcriptions | + + | Interface, Supplemental Manager In - 03/20/2005 6:23 AM PST | | [id number] | | [id number] GENEVIEVE GRAY | | | | | | | | Ultrasound Evaluation Report | | | | | | Patient: MARINA VALLEJO | | Date: 03/18/2004 | | Referring MD: Kenzie De Luna M.D. | | | | | | | | Eye: Left eye. | | | | History: This pleasant, adult female presents with a dense vitreous echo | | pattern consistent with hemorrhage. She has undergone a recent vitrectomy. | | She presents today with an increase in her intraocular pressure to 35. | | | | Echography: There continues to be a highly diffuse, dense vitreous echo | | pattern consistent with hemorrhage. There are far peripheral mild serous | | choroidal effusion elevations. | | | | The retina remains intact. | | | | There is a cupping of the optic nerve head and a swelling of the | | peripapillary retina. | | | | | | | | | | Jd Mcgarry M.D. and | | Nawaf Yip, Ophthalmic Echographer | | | | ME / HS | | [id number] / [id number] / [id number] / | | | | | | | | | | | | | | Electronically signed by Jr. Jd Mcgarry 03-30-2004 04:21:01 PM | + + documented in this encounter Visit Diagnoses Not on filedocumented in this encounter"
--- OUTSIDE RECORDS SUMMARY | ~2019-01-25 | XMS | Encounter Summary ---
Demographics + + + | Address | [address] | | | [place] [address] | + + + | Home Phone | | + + + | Preferred Language | Unknown | + + + | Marital Status | Single | + + + | Uatsdin Affiliation | CAT | + + + | Race | White | + + + | Ethnic Group | Not or | + + + Author + + + | Author | [facility] | + + + | Organization | [facility] | + + + | [...] Team Providers + +------+ + | Care Yarn Examiner Skeins Name | Role | Phone | + +------+ + PCP | Unavailable | + +------+ + Encounter Details +--------+ + + + + | Date | Type | Department | Care Team | Description | +--------+ + + + + | 05/23/ | Results | [facility] | Brown De Luna | | | 2003 | Only | [facility] | MD [address] | | | | | [address] | [place], | | | | | [place] | [place] [address] | | | | | Mailcode: NEAL | [phone] | | | | | [place], [place] | | | | | | [address] | | | | | | [phone] | | | +--------+ + + + [...] + + | [facility] | [address] | [place] [address] | | | INSTITUTE | [place]. | | | + + + + + documented in this encounter Visit Diagnoses Not on filedocumented in this encounter"
--- OUTSIDE RECORDS SUMMARY | ~2019-01-25 | XMS | Encounter Summary ---
Demographics + + + | Address | [address] | | | [place] [address] | + + + | Home Phone | | + + + | Preferred Language | Unknown | + + + | Marital Status | Single | + + + | Temple Affiliation | 1041 | + + + | Race | Unknown | + + + | Ethnic Group | Unknown | + + + Author + + + | Author | [facility] | | | and [place] | + + + | Organization | [facility] | | | [...] Team Providers + +------+ + | Care Photographic Spotter Name | Role | Phone | + +------+ + | Johnny Caldera MD | PCP | | + +------+ + Encounter Details +--------+ + + + + | Date | Type | Department | Care Team | Description | +--------+ + + + + | 09/25/ | Orders Only | [facility] | Conversion | | | 2017 | | NEPHROLOGY [place] | Transaction, | | | | | [address] [place] | Provider Unknown | | | | | [address] [place], [place] | | | | | | [address] | (Fax) | | | | | [phone] | | | +--------+ + + + [...] [place] | | | | | | [address] | | | | | | | | +--------+---------+ + + + | 08/01/ | Office | Pulmonology | Jorge, | | | 2019 | Visit | | Caitlyn Simon, | | | | | | MD [address] | | | | | | [place], | | | | | | [place] [address] | | | | | | [phone] | | | | | | | | +--------+---------+ + + + documented as of this encounter Procedures + +--------+ + + + | Procedure Name | Priori | Date/Time | Associated Diagnosis | Comments | | | ty | | | | + +--------+ + + + | BASIC METABOLIC | Routin | 09/25/2016 | | Results for this | | PANEL | e | 7:17 AM | | procedure are in the | | | | PDT | | results section. | + +--------+ + + + documented in this encounter Results Basic Metabolic Panel (09/25/2016 7:17 AM PDT) + +---------+ + + + | Component | Value | Ref Range | Performed | Pathologist | | | | | At | Signature | + +---------+ + + + | Glucose, | 167 (A) | 70 - 100 mg/dL | EXTERNAL | | | Fasting | | | LAB | | + +---------+ + + + | BUN | 19 | 6 - 23 mg/dL | EXTERNAL | | | | | | LAB | | + +---------+ + + + | Creatinine | 1.04 | 0.70 - 1.25 | EXTERNAL | | | | | mg/dL | LAB | | + +---------+ + + + | BUN/Creatin | 18.3 | 6.0 - 28.6 | EXTERNAL | | | ine Ratio | | | LAB | | + +---------+ + + + | Calcium | 9.5 | 8.4 - 10.2 | EXTERNAL | | | | | mg/dL | LAB | | + +---------+ + + + | Na | 138 | 132 - 143 | EXTERNAL | [...] +---------+ + + + | CO2 | 21 | 19 - 31 mmol/L | EXTERNAL | | | | | | LAB | | + +---------+ + + + | Anion Gap | 18.9 | 7 - 21 mmol/L | EXTERNAL | | | | | | LAB | | + +---------+ + + + | Estimated | 54 | mg/dL | EXTERNAL | | | [...]
--- OUTSIDE RECORDS SUMMARY | ~2019-01-25 | XMS | Encounter Summary ---
Demographics + + + | Address | [address] | | | [place] [address] | + + + | Home Phone | | + + + | Preferred Language | Unknown | + + + | Marital Status | Single | + + + | Episcopal Affiliation | CAT | + + + | Race | White | + + + | Ethnic Group | Not or | + + + Author + + + | Author | [facility] | + + + | Organization | [facility] | + + + | [...] Team Providers + +------+ + | Care Qi Specialist Name | Role | Phone | + +------+ + | Jim Wiley MD | PCP | | + +------+ + Reason for Visit + + + | Reason | Comments | + + + | Erroneous Encounter | | | - Disregard | | + + + Encounter Details +--------+--------+ + + + | Date | Type | Department | Care Team | Description | +--------+--------+ + + + | 10/19/ | Refill | Pediatric | Jennifer Drake, | Erroneous Encounter | | 2013 | | Neurology at | MD [address] [facility] | - Disregard | | | | [address] | [address] | | | | | [facility] | [place], [place] | | | | | [address] [facility] | [address] | | | | | Brittany Ellis Mailcode: | [phone] | | | | | [address] | | | | | | [place], [place] | | | | | | [address] | | | | | | [phone] | | | +--------+--------+ + + + Social History + + [...]
--- OUTSIDE RECORDS SUMMARY | ~2019-01-25 | XMS | Encounter Summary ---
Demographics + + + | Address | [address] | | | [place] [address] | + + + | Home Phone | | + + + | Preferred Language | Unknown | + + + | Marital Status | Single | + + + | Pentecostalism Affiliation | 1041 | + + + | Race | Unknown | + + + | Ethnic Group | Unknown | + + + Author + + + | Author | [facility] | | | and [place] | + + + | Organization | [facility] | | | [...] Team Providers + +------+ + | Care Laboratory Equipment Installer Name | Role | Phone | + +------+ + PCP | Unavailable | + +------+ + Encounter Details +--------+ + + + + | Date | Type | Department | Care Team | Description | +--------+ + + + + | 03// | Orders Only | [facility] | Monet Mcginnis MD | | | 2019 | | [address] [facility] | [address] | | | | | [place] | [place] | | | | | [address] | [address] | | | | | [phone] | | | +--------+ + + + [...] [place] | | | | | | [address] | | | | | | | | +--------+---------+ + + + | 08/01/ | Office | Pulmonology | Jorge, | | | 2019 | Visit | | Caitlyn Simon, | | | | | | MD [address] | | | | | | [place], | | | | | | [place] [address] | | | | | | [phone] | | | | | | | | +--------+---------+ + + + documented as of this encounter Procedures + +--------+ + + + | Procedure Name | Priori | Date/Time | Associated Diagnosis | Comments | | | ty | | | | + +--------+ + + + | EXTERNAL LAB: CBC | Routin | 06/09/2018 | | Results for this | | | e | 9:27 AM | | procedure are in the | | | | PDT | | results section. | + +--------+ + + + | FERRITIN | Routin | 06/09/2018 | | Results for this | | | e | 9:27 AM | | procedure are in the | | | | PDT | | results section. | + +--------+ + + + | COMPREHENSIVE | Routin | 06/09/2018 | | Results for this | | METABOLIC PANEL | e | 9:27 AM | | procedure are in the | | | | PDT | | results section. | + +--------+ + + + documented in this encounter Results External Lab: CBC (06/09/2018 9:27 AM PDT) + + + + + + | Component | Value | Ref Range | Performed | Pathologist | | | | | At | Signature | + + + + + + | WBC | 7.66 | 3.80 - 11.00 | EXTERNAL | | | | | 10*3/uL | LAB | | + + + + + + | RED CELL | 5.29 (H) | 3.70 - 5.10 | EXTERNAL | | | COUNT | | 10*6/uL | LAB | | + + + + + + | Hgb | 12.2 | 11.3 - 15.5 | EXTERNAL | | | | | g/dL | LAB | | + + + + + + | Hematocrit, | 38.3 | 34.0 - 46.0 % | EXTERNAL | | | POC | | | LAB | | + + + + + + | MCV | 72.4 (L) | 80.0 - 100.0 fL | EXTERNAL | | | | | | LAB | | + + + + + + | MCH | 23.0 (L) | 27.0 - 34.0 pg | EXTERNAL | | | | | | LAB | | + + + + + + | MCHC | 31.8 (L) | 32.0 - 35.5 | EXTERNAL | | | | | g/dL | LAB | | + + + + + + | RDW-CV | 63.0 (H) | 37 - 53 fL | EXTERNAL | | | | | | LAB | | + + + + + + | Platelet | 232 | 150 - 400 | EXTERNAL | | | Count | | 10*3/uL | LAB | | | Plasma | | | | | + + + + + + | MPV | 9.0 | fL | EXTERNAL | | | | | | LAB | | + + + + + + | Differentia | AUTOMATED | | EXTERNAL | | | l Type | | | LAB | | + + + + + + | % Segmented | 58.24 | % | EXTERNAL | | | | | | LAB | | | Neutrophils | | | | | + + + + + + | % | 29.43 | % | EXTERNAL | | | Lymphocytes | | | LAB | | + + + + + + | % Monocytes | 10.25 | % | EXTERNAL | | | | | | LAB | | + + + + + + | % | 1.40 | % | EXTERNAL | | | Eosinophils | | | LAB | | + + + + + + | % Basophils | 0.68 | % | EXTERNAL | | | | | | LAB | | + + + + + + | Absolute | 4.46 | 1.90 - 7.40 | EXTERNAL | | | Segmented | | 10*3/uL | LAB | | | Neutrophils | | | | | + + + + + + | Absolute | 2.26 | 1.00 - 3.90 | EXTERNAL | | | Lymphocytes | | 10*3/uL | LAB | | + + + + + + | Absolute | 0.79 | 0.00 - 0.80 | EXTERNAL | | | Monocytes | | 10*3/uL | LAB | | + + + + + + | Absolute | 0.11 | 0.00 - 0.50 | EXTERNAL | | | Eosinophils | | 10*3/uL | LAB | | + + + + + + | Absolute | 0.05 | 0.00 - 0.10 | EXTERNAL | | | Basophils | | 10*3/uL | LAB | | + + + + + + | RBC | 2+ | | EXTERNAL | | | Morphology | | | LAB | | + + + + + + | RBC | ANISO | | EXTERNAL | | | Morphology | | | LAB | | + + + + + + | RBC | 1+ | | EXTERNAL | | | Morphology | | | LAB | | + + + + + + | RBC | HYPO | | EXTERNAL | | | Morphology | | | LAB | | + + + + + + | RBC | 2+ | | EXTERNAL | | | Morphology | | | LAB | | + + + + + + | RBC | MICRO | | EXTERNAL | | | Morphology | | | LAB | | + + + + + + | RBC | 1+ | | EXTERNAL | | | Morphology | | | LAB | | + + + + + + | RBC | [facility]ISTOS | | EXTERNAL | | | Morphology | | | LAB | | + + + + + + | RBC | 1+ | | EXTERNAL | | | Morphology | | | LAB | | + + + + + + | RBC | [facility] | | EXTERNAL | | | Morphology | | | LAB | | + + + + + + + + | Specimen | + + | Blood specimen | | (specimen) | + + + +---------+ + + | Performing | Address | City/State/Zipcode | Phone Number | | Organization | | | | + +---------+ + + | EXTERNAL LAB | | | | + +---------+ + + Ferritin (06/09/2018 9:27 AM PDT) + +-------+ + + + | Component | Value | Ref Range | Performed | Pathologist | | | | | At | Signature | + +-------+ + + + | Ferritin, | 14 | 6 - 170 ng/mL | EXTERNAL | | | External | | | LAB | | + +-------+ + + + + + | Specimen | + + | Blood specimen | | (specimen) | + + + +---------+ + + | Performing | Address | City/State/Zipcode | Phone Number | | Organization | | | | + +---------+ + + | EXTERNAL LAB | | | | + +---------+ + + Comprehensive Metabolic Panel (06/09/2018 9:27 AM PDT) + + + + + + | Component | Value | Ref Range | Performed | Pathologist | | | | | At | Signature | + + + + + + | Na | 139 | 135 - 145 | EXTERNAL | | | | | mmol/L | LAB | | + + + + + + | K | 3.9 | 3.5 - 4.9 | EXTERNAL | | | | | mmol/L | LAB | | + + + + + + | Cl | 103 | 99 - 109 mmol/L | EXTERNAL | | | | | | LAB | | + + + + + + | CO2 | 28 | 23 - 32 mmol/L | EXTERNAL | | | | | | LAB | | + + + + + + | Anion Gap | 12 | 5 - 20 mmol/L | EXTERNAL | | | | | | LAB | | + + + + + + | Glucose, | 118 (H) | 65 - 99 mg/dL | EXTERNAL | | | Fasting | | | LAB | | + + + + + + | BUN | 26 (H) | 8 - 25 mg/dL | EXTERNAL | | | | | | LAB | | + + + + + + | Creatinine | 0.91 | 0.50 - 1.00 | EXTERNAL | | | | | mg/dL | LAB | | + + + + + + | BUN/Creatin | 29 | | EXTERNAL | | | ine Ratio | | | LAB | | + + + + + + | Calcium | 9.5 | 8.5 - 10.5 | EXTERNAL | | | | | mg/dL | LAB | | + + + + + + | Protein, | 7.1 | 6.3 - 8.2 g/dL | EXTERNAL | | | Total | | | LAB | | + + + + + + | Albumin | 4.3 | 3.3 - 4.8 g/dL | EXTERNAL | | | | | | LAB | | + + + + + + | Globulin | 2.8 | 1.3 - 4.9 g/dL | EXTERNAL | | | | | | LAB | | + + + + + + | A/G Ratio | 1.5 | 1.0 - 2.4 | EXTERNAL | | | | | | LAB | | + + + + + + | Bilirubin | 0.7 | 0.1 - 1.5 mg/dL | EXTERNAL | | | Total | | | LAB | | + + + + + + | ALP, | 112 | 35 - 115 U/L | EXTERNAL | | | External | | | LAB | | + + + + + + | AST | 19 | 10 - 45 U/L | EXTERNAL | | | | | | LAB | | + + + + + + | ALT | 24 | 10 - 65 U/L | EXTERNAL | | | | | | LAB | | + + + + + + | Estimated | >60Comment: GFR <60: | mL/min/1.73_m2 | EXTERNAL | | | GFR | CHRONIC KIDNEY DISEASE, | | LAB | | | | IF FOUND OVER A 3 MONTH | | | | | | PERIOD. GFR <15: KIDNEY | | | | | | FAILURE. FOR | | | | | | AMERICANS, MULTIPLY THE | | | | | | CALCULATED GFR BY 1.210. | | | | | | This eGFR is calculated | | | | | | using the MDRD IDMS | | | | | | traceable equation. | | | | + + + [...]
--- OUTSIDE RECORDS SUMMARY | ~2019-01-25 | XMS | Encounter Summary ---
Demographics + + + | Address | [address] | | | [place] [address] | + + + | Home Phone | | + + + | Preferred Language | Unknown | + + + | Marital Status | Single | + + + | Amish Affiliation | [id number] | + + + [...] Team Providers + +------+ + | Care Deburrer Strip Name | Role | Phone | + +------+ + | Johnny Caldera MD | PCP | | + +------+ + Encounter Details +--------+---------+ + + + | Date | Type | Department | Care Team | Description | +--------+---------+ + + + | 11/30/ | Office | [facility] | Jorge, | Adenocarcinoma of | | 2019 | Visit | PULMONOLOGY [address] | Caitlyn Aurora, | left lung (HCC) | | | | [address] [place] | MD [address] | (Primary Dx); | | | | [place], [place] | [place], | Multiple pulmonary | | | | [address] | [place] [address] | nodules; Chronic | | | | [phone] | [phone] | obstructive | | | | | | pulmonary disease, | | | | | | unspecified COPD | | | | | | type (HCC); | | | | | | Irritable larynx | | | | | | syndrome; HARPAL on | | | | | | CPAP; Personal | | | | | | history of tobacco | | | | | | use, presenting | | | | | | hazards to health | +--------+---------+ + + + Social History + +-------+ +--------+------+ | Tobacco Use | Types | Packs/Day | Years | Date | | | | | Used | | + +-------+ +--------+------+ | Former Smoker | | 2 | | | + +-------+ +--------+------+ + +---+---+---+ | Smokeless Tobacco: | | [...] + + + | Blood Pressure | 101/59 | 11/30/2018 9:28 AM | | | | | PDT | | + + + + + | Pulse | 57 | 11/30/2018 9:28 AM | | | | | PDT | | + + + + + | Temperature | 36.3 C (97.3 F) | 11/30/2018 9:28 AM | | | | | PDT | | + + + + + | Respiratory Rate | - | - | | + + + + + | Oxygen Saturation | 94% | 11/30/2018 9:28 AM | | | | | PDT | | + + + + + | Inhaled Oxygen | - | - | | | Concentration | | | | + + + + + | Weight | 109.3 kg (240 lb | 11/30/2018 9:28 AM | | | | 14.4 oz) | PDT | | + + + + + | Height | 162.6 cm (5' 4") | 11/30/2018 9:28 AM | | | | | PDT | | + + + + + | Body Mass Index | 41.35 | 11/30/2018 9:28 AM | | | | | PDT | | + + + + + documented in this encounter Patient Instructions Patient Instructions Caitlyn Patel MD - 11/30/2018 9:30 AM PDTPAUSED BREATH ING: Sit in a position that allows your neck & shoulders to relax but keep your back straight. Breathe in gently through the nose. Stick your tongue out of your mouth, past the teeth & lower lip, in preparation to exhale. This forward stretch of the tongue helps to open the airway at the vocal cords. This may be difficult to do with a severe spasm but will be easier the more you repeat this exercise. With the tongue out, exhale only through the mouth in slow, paused or spaced breaths. The t iming should be like saying Gallardo Gallardo, GallardoEladio, very slowly. Don t use your voice, just breath e out. Repeat 10 times and practice 3 times a day so you will know how to do it well when PAROXYSM S OF COUGHING OCCUR. BELLY BREATHING: Sit in a position that allows your neck and shoulders to relax but keep your back straight. Place your hand on your belly. Breathe in gently through the nose with your belly pushing y our hand outward from your body. As you start to exhale, place the tip of your tongue where your upper teeth meet the roof o f your mouth. This will allow you to make a hissing or S sound as you exhale. This cre ates a back pressure to help keep the airway open. Slowly exhale allowing the hand & belly to move inward to a resting position and make the h issing or S sound as you push the air between your tongue & teeth. Repeat 10 times & practice 3 times a day so you will know how to do it well when PAROXYSMS OF COGHING occurs. documented in this encounter Progress Notes Caitlyn Patel MD - 11/30/2018 9:30 AM PDTFormatting of this note might be d ifferent from the original. Subjective Patient ID: Hazel Bhatti is a 62 y.o. female with T2DM, CKD stage 2, HPL, COPD, chroni c pain syndrome, COPD, HARPAL on CPAP, here to establish care due to multiple pulmonary nodules . HPI Ms Ansari is a 61 yr old woman who multiple medical issues, who was referred to us due to mu ltiple pulmonary nodules, the largest of which is a SHAD nodule that is sub solid, and only m ildly avid with an SUV of 2. These nodules were apparently noted on a CT of the chest done i n October 2016 due to a persistent chest pain. Repeat CT this June showed that the SHAD nodul e is larger compared to 2016. A PET CT was then done this July which showed a low FDG avidity , with the rest of the nodules noted as FDG silent. She has been diagnosed with COPD, and is very short of breath with minimal exertion. She us es a walker to ambulate, and she needs assistance with her ADLs such as showering and gettin g dressed. She has a chronic cough which is productive of white to clear sputum. She has a t endency for fluid overload, and has been on diuretics for this. She also is notably photopho bic (wears dark glasses at all times), and also is very sensitive to smells. Chemical smells , and strong smells make her cough and have more phlegm, as well as make her short of breath . She reports that she eats well, and has not lost weight. She does admit to dysphagia and a spiration. She thinks that she may have aspirated into her lungs in the past. She denies ref lux and regurgitation. She has intermittent chest pains triggered by stress and sometimes gallardo ppens spontaneously. She has had difficulty sleeping despite using CPAP. She is fatigued due to this and does not have very good energy. She is on Advair 250-50 mcg BID, albuterol HFA and nebulizer as needed (often times using H FA up to 4x a day). She is not on oxygen supplementation. Interval History Narrative/Comments: Has done well and is being monitored [facility]. 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 Still complains of dy spnea on exertion and upper airway irritation due to certain smells and scents. The patient reports the following: DYSPNEA: On minimal exertion. Uses a walker to ambulate. Has sensitivities to smell and sce nts with increasing dyspnea and cough because of this. COUGH: Chronic, white sputum. Triggered by certain scents, dust, pollen. ACUTE EXACERBATION: None EXPOSURES: Former smoker. 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 ACTIVITIES OF DAILY LIVING: Needs assistance on all of activities of daily living due to i nability to ambulate and generalized weakness. CONSTITUTIONAL SYMPTOMS: Denies fevers, chills or night sweats. She is fatigued. SINO-NASAL SYMPTOMS: Denies. REFLUX or REGURGITATION: Denies aspiration, dysphagia, and denies uncontrolled reflux. SLEEP: Has had good sleep. CHEST PAINS: None ORTHOPNEA OR PND (Paroxysmal Nocturnal Dyspnea): None PEDAL EDEMA: Chronic mild edema OTHER SYMPTOMS: Debilitating arthralgias. Inhaler regimen includes: Advair 250-50 mcg BID, albuterol HFA and albuterol-ipratropium neb as needed. Oxygen Use: None PAP therapy: On PAP therapy nightly. Other relevant medications: Norah SOCIAL HISTORY She is a past smoker, stopped in 2012, about 1-2 packs a day, for the past 33 years. 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 She says that she did have du st exposure through her last work. She has no animals at home. She currently lives in an [facility] facility. The following elements of the patient's history were reviewed and updated as appropriate. T jose ay are available elsewhere in the patient record. allergies, current medications, past fam nikki history, past medical history, past social history, past surgical history and problem li st Review of Systems Constitutional: Positive for fatigue. Negative for fever and unexpected weight change. HENT: Positive for congestion and rhinorrhea. Negative for sore throat, trouble swallowing and voice change. Respiratory: Positive for apnea (on PAP txt), cough, shortness of breath and wheezing. Nega tive for choking and stridor. Cardiovascular: Positive for chest pain and leg swelling. Negative for palpitations. Gastrointestinal: Negative for abdominal pain, constipation, diarrhea, nausea and vomiting. Genitourinary: Negative for difficulty urinating. Musculoskeletal: Positive for arthralgias, back pain, gait problem, joint swelling, myalgia s and neck pain. Skin: Negative for rash. Neurological: Negative for dizziness. Psychiatric/Behavioral: Negative for sleep disturbance. All other systems reviewed and are negative. Past Medical History: Diagnosis Date Alcohol abuse Anxiety Asthma Chronic kidney disease Chronic UTI COPD (chronic obstructive pulmonary disease) (HCC) Dementia Depression Depression High cholesterol Hypertension Low blood pressure Osteoarthritis Seasonal allergies Seizures (HCC) Sleep apnea Type 2 diabetes mellitus (HCC) Past Surgical History: Procedure Laterality Date ABDOMEN SURGERY APPENDECTOMY COLONOSCOPY HERNIA REPAIR inguinal hernia-left LUNG BIOPSY 09/20/2017 CT NEEDLE BIOPSY LUNG 09/20/2017 Gregory Henderson MD [facility] OTHER SURGICAL HISTORY 12/07/02 OTHER SURGICAL HISTORY 12/16/02 OTHER SURGICAL HISTORY 03/21/03 from left eye OTHER SURGICAL HISTORY CATARACT EXTRACTION - bilateral TONSILLECTOMY AND ADENOIDECTOMY TUBAL LIGATION Objective BP 101/59 | Pulse 57 | Temp 36.3 C (97.3 F) (Oral) | Ht 1.626 m (5' 4") | Wt 109.3 kg (240 lb 14.4 oz) | SpO2 94% | BMI 41.35 kg/m Physical Exam Vital signs reviewed. Oxygen saturation noted at 94% on ambient air GENERAL: pleasant, cooperative, oriented, not in distress HEENT: pink conjunctiva, anicteric sclerae, moist oral mucosae and without any lesions, sli ghtly boggy appearing nasal mucosae; no JVD; MALAMPATTI 4; no thyromegaly; no cervicolymphad enopathies CVS: PMI laterally displaced, NRRR, S1 and S2, grade 2/6 MADONNA along the L parasternal border CHEST: Examination of the chest showed a mild kyphosis LUNGS: Normal effort, Equal in expansion, resonant to percussion, decreased breath sounds d iffusely but on adventitious sounds ABDOMEN: Flabby abdomen, NABS, non-tender on palpation, Traube's space intact, liver span n ormal, no masses palpated EXTREMITIES: good distal pulses, no cyanosis, no clubbing, no nail abnormalities, with +1 e andressa up to mid tibial areas NEURO: awake and oriented, no focal neurologic deficits, walks using a walker LABORATORY AND IMAGING Pulmonary Function Test: 04/30/17 FEV1 1.87 (82%) FVC 2.88 (101%) FEV1/FVC 65 TLC 5.8 (115%) RV/TLC 53 DLCO 21 (86%) IMAGES ARE FROM [facility] CT of the chest done on 06/30/17 reviewed (compared to October 2016) Interval increase in size of a sub solid nodule in the SHAD 0.7x1.3 cm; increase in GGO in t he SHAD at 1.7x1.[address] on 07/26/17 reviewed Mild FDG uptake in mixed nodule in the SHAD (SUV 2), and no activity in the other notable no dules. No hypermetabolic LNs. Pathology 09/20/17 SPECIMEN SOURCE: A. LUNG BIOPSY CLINICAL HISTORY: 09/20/2017 at 1300 H. Nodule SHAD. FINAL PATHOLOGIC DIAGNOSIS: Left upper lobe lung nodule, CT-guided needle core biopsies: - Positive for malignant cells adenocarcinoma. CT of the chest on 09/23/18 reviewed Diminishing SHAD GGO. No recurrence. Assessment /Plan 1. Adenocarcinoma of left lung (HCC) Ms Bhatti is a 62 yr old woman who is a former smoker, who has multiple pulmonary nodules, f ound to have a SHAD adenocarcinoma on CT guided biopsy. She has completed SBRT through Dr Melchor ray. Surveillance CTs, per her reports, have been normal. I will request copies of this from Michael Davis. 2. Multiple pulmonary nodules As above. 3. Chronic obstructive pulmonary disease, unspecified COPD type (HCC) We will continue Advair 250-50 mcg BID, and prn albuterol. PFT shows only mild obstruction, with normal DLCO. Her dyspnea is certainly out of proportion to her lung function. However, it is reassuring to see that she is exercising and that her level of dyspnea have not worse meño. 4. Irritable larynx syndrome I suspect that she has irritable laryngeal syndrome given sensitivity to particular smells and intolerance to this. I have given her upper airway exercises to help with the reactive l aryngospasm she experiences with certain exposures. 5. HARPAL on CPAP Continue PAP therapy. 6. Personal history of tobacco use, presenting hazards to health She is a past smoker. Continue being vigilant about signs of recurrent malignancy. Thank you for allowing us to participate in this patient's care. A return visit has been re quested/scheduled in 5 months for routine clinical follow up. The patient was instructed to call our clinic for any questions, and for any concerns regarding worsening dyspnea, cough o r change in sputum production. We will see the patient sooner than the recommended follow up date, if with any worsening of symptoms. Caitlyn Patel MD Pulmonary and Critical Care Medicine [facility]/[address] , [place] [address]. documente d in this encounter Plan of Treatment +--------+---------+ + + + | Date | Type | Specialty | Care Team | Description | +--------+---------+ + + + | 05/02/ | Office | Oncology | Monet Mcginnis MD | | | 2019 | Visit | | [address] | | | | | | [place] | | | | | | [address] | | | | | | | | +--------+---------+ + + + | 08/01/ | Office | Pulmonology | Jorge, | | | 2019 | Visit | | Caitlyn Simon, | | | | | | MD [address] | | | | | | [place], | | | | | | [place] [address] | | | | | | [phone] | | | | | | | | +--------+---------+ + + + documented as of this encounter Visit Diagnoses + + | Diagnosis | + + | Adenocarcinoma of left lung (HCC) - Primary | + + | Multiple pulmonary nodules Other nonspecific abnormal finding of lung field | + + | Chronic obstructive pulmonary disease, unspecified COPD type (HCC) | + + | Irritable larynx syndrome Other diseases of larynx | + + | HARPAL on CPAP Obstructive sleep apnea (adult) (pediatric) | + + | Personal history of tobacco use, presenting hazards to health | + + documented in this encounter
--- OUTSIDE RECORDS SUMMARY | ~2019-01-25 | XMS | Encounter Summary ---
Demographics + + + | Address | [address] | | | [place] [address] | + + + | Home Phone | | + + + | Preferred Language | Unknown | + + + | Marital Status | Single | + + + | Roman Catholic Affiliation | 1041 | + + + | Race | Unknown | + + + | Ethnic Group | Unknown | + + + Author + + + | Author | [facility] | | | and [place] | + + + | Organization | [facility] | | | and [...] Team Providers + +------+ + | Care Bed Manager Name | Role | Phone | + +------+ + PCP | Unavailable | + +------+ + Encounter Details +--------+ + + + + | Date | Type | Department | Care Team | Description | +--------+ + + + + | 08/31/ | Hospital | [facility] | Conversion | Pain | | 2014 | Encounter | CONVERSION [address] | Transaction, | | | | | [address] | Provider Unknown | | | | | [place], [place] | [phone] | | | | | [address] | | | | | | [phone] | | | +--------+ + + + [...] [place] | | | | | | [address] | | | | | | | | +--------+---------+ + + + | 08/01/ | Office | Pulmonology | Jorge, | | | 2019 | Visit | | Caitlyn Simon, | | | | | | MD [address] | | | | | | [place], | | | | | | [place] [address] | | | | | | [phone] | | | | | | | | +--------+---------+ + + + documented as of this encounter Procedures + +--------+ + + + | Procedure Name | Priori | Date/Time | Associated Diagnosis | Comments | | | ty | | | | + +--------+ + + + | FL C ARM < 1 HOUR | Routin | 08/11/2013 | | Results for this | | | e | 12:26 AM | | procedure are in the | | | | PDT | | results section. | + +--------+ + + + documented in this encounter Results FL C-Arm < 1 Hour (08/11/2013 12:26 AM PDT) + + | Specimen | + + | | + + + + + | Narrative | Performed At | + + + | This is a non-reportable procedure without a radiologist report and | | | is used for image storage only | | + + + + + | Procedure Note | + + | Roscoe Evin Madhu - 10/28/2018 2:44 PM PDT This is a non-reportable procedure | | without a radiologist report and isused for image storage only | + + documented in this encounter Visit Diagnoses + + | Diagnosis | + + | Pain Generalized pain | + + documented in this encounter"
--- OUTSIDE RECORDS SUMMARY | ~2019-01-25 | XMS | Encounter Summary ---
Demographics + + + | Address | [address] | | | [place] [address] | + + + | Home Phone | | + + + | Preferred Language | Unknown | + + + | Marital Status | Single | + + + | Restorationism Affiliation | 1041 | + + + | Race | Unknown | + + + | Ethnic Group | Unknown | + + + Author + + + | Author | [facility] | | | and [place] | + + + | Organization | [facility] | | | [...] Team Providers + +------+ + | Care Brim And Crown Presser Name | Role | Phone | + +------+ + | Johnny Caldera MD | PCP | | + +------+ + Encounter Details +--------+ + + + + | Date | Type | Department | Care Team | Description | +--------+ + + + + | 09/10/ | Orders Only | [facility] | Conversion | | | 2017 | | NEPHROLOGY [place] | Transaction, | | | | | [address] [place] | Provider Unknown | | | | | [address] [place], [place] | | | | | | [address] | (Fax) | | | | | [phone] | | | +--------+ + + + [...] [place] | | | | | | [address] | | | | | | | | +--------+---------+ + + + | 08/01/ | Office | Pulmonology | Jorge, | | | 2019 | Visit | | Caitlyn Simon, | | | | | | MD [address] | | | | | | [place], | | | | | | [place] [address] | | | | | | [phone] | | | | | | | | +--------+---------+ + + + documented as of this encounter Procedures + +--------+ + + + | Procedure Name | Priori | Date/Time | Associated Diagnosis | Comments | | | ty | | | | + +--------+ + + + | URINALYSIS, | Routin | 09/10/2016 | | Results for this | | MICROSCOPIC ONLY | e | 12:00 AM | | procedure are in the | | | | PDT | | results section. | + +--------+ + + + | PROTEIN/CREATININE | Routin | 09/10/2016 | | Results for this | | RATIO, URINE | e | 12:00 AM | | procedure are in the | | | | PDT | | results section. | + +--------+ + + + documented in this encounter Results Protein/Creatinine Ratio, Urine (09/10/2016 12:00 AM PDT) + +-------+ + + + | Component | Value | Ref Range | Performed | Pathologist | | | | | At | Signature | + +-------+ + + + | Protein/Cre | 70.4 | 0 - 150 | EXTERNAL | | | at Ratio | | | LAB | | [...] + +---------+ + + Urinalysis, Microscopic Only (09/10/2016 12:00 AM PDT) + + + + + [...] + + + + | Specific | 1.010 | 1.005 - 1.030 | EXTERNAL | | | [place] | | | LAB | | + [...] + + + | pH, Urine | 7 | 5 - 9 | EXTERNAL | [...]
--- OUTSIDE RECORDS SUMMARY | ~2019-01-25 | XMS | Encounter Summary ---
Demographics + + + | Address | [address] | | | [place] [address] | + + + | Home Phone | | + + + | Preferred Language | Unknown | + + + | Marital Status | Single | + + + | Denominational Affiliation | CAT | + + + | Race | White | + + + | Ethnic Group | Not or | + + + Author + + + | Author | [facility] | + + + | Organization | [facility] | + + + | [...] Team Providers + +------+ + | Care Front End Architect Name | Role | Phone | + [...] Advocate | | 2015 | Encounter | [facility] & | [address] | | | | | [address] | [place], [place] | | | | | [place] Mailcode: | [address] | | | | | [facility] | [phone] | | | | | Health and Healing, | | | | | | [facility] | | | | | | [place], [place] | | | | | | [address] | | | | | | [phone] | | | +--------+ + + + [...]
--- OUTSIDE RECORDS SUMMARY | ~2019-01-25 | XMS | Encounter Summary ---
Demographics + + + | Address | [address] | | | [place] [address] | + + + | Home Phone | | + + + | Preferred Language | Unknown | + + + | Marital Status | Single | + + + | Samaritan Affiliation | CAT | + + + [...] Team Providers + +------+ + | Care Winch Runner Name | Role | Phone | + +------+ + PCP | Unavailable | + +------+ + Encounter Details +--------+ + + + + | Date | Type | Department | Care Team | Description | +--------+ + + + + | 05/ | Procedure - | | Evaluation, Cei [...] as of this encounter Progress Notes Interface, Clinical Liaison In - 03/20/2005 6:23 AM PST [id number] [facility] Ultrasound Evaluation Report Patient: MARINA VALLEJO Date: 03/19/2004 Referring MD: Kenzie De Luna M.D. Eye: Left eye. History: This pleasant adult female is seen today, one day postop vitrectomy. Yesterday her pressure was 35. Today, she presents with a pressure of 5. Echography: The B-scan reveals a significant reduction in the amount of vitreous debris. However, there is an increase in the peripheral choroidal effusion with the largest choroidal being medial, elevated approximately 3 mm. The retina remains intact. Jd Mcgarry M.D. and Nawaf Yip, Ophthalmic Echographer MD / [id number] / [id number] / [id number] / Electronically signed by Jr. Jd Mcgarry 03-30-2004 04:30:14 PM documented i n this encounter Plan of Treatment Not on filedocumented as of this encounter Procedures + +--------+ + + + | Procedure Name | Priori | Date/Time | Associated Diagnosis | Comments | | | ty | | | | + +--------+ + + + | [facility] | | 03/19/2004 | | Results for this | | | | | | procedure are in the | | | | | | results section. | + +--------+ + + + documented in this encounter Results [facility] (03/19/2004) + + | Transcriptions | + + | Interface, Clinical Liaison In - 03/20/2005 6:23 AM PST | | [id number] | | [id number] [facility] G[facility] | | | | | | | | Ultrasound Evaluation Report | | | | | | Patient: MARINA VALLEJO | | Date: 03/19/2004 | | Referring MD: Kenzie De Luna M.D. | | | | | | | | Eye: Left eye. | | | | History: This pleasant adult female is seen today, one day postop | | vitrectomy. Yesterday her pressure was 35. Today, she presents with a | | pressure of 5. | | | | Echography: The B-scan reveals a significant reduction in the amount of | | vitreous debris. However, there is an increase in the peripheral choroidal | | effusion with the largest choroidal being medial, elevated approximately 3 | | mm. | | | | The retina remains intact. | | | | | | | | | | Jd Mcgarry M.D. and | | Nawaf Yip, Ophthalmic Echographer | | | | ME / HS | | [id number] / [id number] / [id number] / | | | | | | | | | | | | | | Electronically signed by Jr. Jd Mcgarry 03-30-2004 04:30:14 PM | + + documented in this encounter Visit Diagnoses Not on filedocumented in this encounter"
--- OUTSIDE RECORDS SUMMARY | ~2019-01-25 | XMS | Encounter Summary ---
Demographics + + + | Address | [address] | | | [place] [address] | + + + | Home Phone | | + + + | Preferred Language | Unknown | + + + | Marital Status | Single | + + + | [employer] Affiliation | [id number] | + + + [...] Team Providers + +------+ + | Care Human Services Assistant Name | Role | Phone | + +------+ + PCP | Unavailable | + +------+ + Encounter Details +--------+ + + + + | Date | Type | Department | Care Team | Description | +--------+ + + + + | 07/14/ | Hospital | [facility] | Conversion | Pain | | 2018 | Encounter | CONVERSION [address] | Transaction, | | | | | [address] | Provider Unknown | | | | | [place], [place] | [phone] | | | | | [address] | | | | | | [phone] | | | +--------+ + + + [...] Oncology | Monet Mcginnis MD | | 2019 | Visit | | [address] | | | | | | [place] | | | | | | [address] | | | | | | | | +--------+---------+ + + + | 08/01/ | Office | Pulmonology | Jorge, | | | 2020 | Visit | | Caitlyn Simon, | | | | | | [address] | | | | | | [place], | | | | | | [place] [address] | | | | | | [phone] | | | | | | | | +--------+---------+ + + + documented as of this encounter Procedures + +--------+ + + + | Procedure Name | Priori | Date/Time | Associated Diagnosis | Comments | | | ty | | | | + +--------+ + + + | CT CHEST WO CONTRAST | Routin | 06/30/2017 | | Results for this | | | e | 2:23 AM | | procedure are in the | | | | PDT | | results section. | + +--------+ + + + documented in this encounter Results CT Chest wo Contrast (06/30/2017 2:23 AM PDT) + + | Specimen | + + | | + + + + + | Narrative | Performed At | + + + | This is a non-reportable procedure without a radiologist report and | | | is used for image storage only | | + + + + + | Procedure Note | + + | Evin Malhotra Madhu - 10/26/2018 8:47 AM PDT This is a non-reportable procedure | | without a radiologist report and isused for image storage only | + + documented in this encounter Visit Diagnoses + + | Diagnosis | + + | Pain Generalized pain | + + documented in this encounter"
--- OUTSIDE RECORDS SUMMARY | ~2019-01-25 | XMS | Encounter Summary ---
Demographics + + + | Address | [address] | | | [place] [address] | + + + | Home Phone | | + + + | Preferred Language | Unknown | + + + | Marital Status | Single | + + + | Adventist Affiliation | 1041 | + + + | Race | Unknown | + + + | Ethnic Group | Unknown | + + + Author + + + | Author | [facility] | | | and [place] | + + + | Organization | [facility] | | | and [place] | + + + | Address | Unknown | + + + | Phone | Unavailable | + + + Support + + +---------+ + | Name | Relationship | Address | Phone | + + +---------+ + | Carlos Reyeser | ECON | Unknown | | + + +---------+ + | Ney Reger | ECON | Unknown | | + + +---------+ + Care Team Providers + +------+ + | Care Dehydrator Operator Name | Role | Phone | + +------+ + PCP | Unavailable | + +------+ + Encounter Details +--------+ + + + + | Date | Type | Department | Care Team | Description | +--------+ + + + + | 09/20/ | Hospital | [facility] | Conversion | Multiple pulmonary | | 2018 | Encounter | [facility] | Transaction, | nodules | | | | CLINICAL DECISION | Provider Unknown | | | | | [address] | [phone] | | | | | [place], [place] | | | | | | [address] | Sofiya Quintero, | | | | | [phone] | MD [facility] | | | | | | [place], [place] | | | | | | [address] | | | | | | | [...] + + + | Blood Pressure | 139/66 | 09/20/2017 4:27 PM | | | | | PDT | | + + + + + | Pulse | 67 | 09/20/2017 4:27 PM | | | | | PDT | | + + + + + | Temperature | 36.5 C (97.7 F) | 09/20/2017 4:27 PM | | | | | PDT | | + + + + + | Respiratory Rate | 16 | 09/20/2017 4:27 PM | | | | | PDT | | + + + + + | Oxygen Saturation | - | - | | + + + + + | Inhaled Oxygen | - | - | | | Concentration | | | | + + + + + | Weight | 107 kg (236 lb) | 09/20/2017 4:27 PM | | | | | PDT | | + + + + + | Height | 162.6 cm (5' 4") | 09/20/2017 4:27 PM | | | | | PDT | | + + + + + | Body Mass Index | 40.51 | 09/20/2017 4:27 PM | | | | | PDT | | + + + + + documented in this encounter Medications at Time of Discharge [...] documented as of this encounter Progress Notes Conversion Transaction, Provider Unknown - 09/20/2017 4:27 PM PDTFormatting of this note m ight be different from the original. Nurse Progress Note by Pauline Rodriges RN at 09/20/17 1627 Author: Pauline Rodriges RN Service: (none) Author Type: Registered Nurse Filed: 09/20/17 1631 Date of Service: 09/20/171626 Status: Signed Senior Developer: Pauline Rodriges RN (Registered Nurse) Pt has met all criteria for discharge. No c/o pain at this time. Discharge instructions g iven to Pt/daughter, no questions or concerns. Drsg to biopsy site C/D/I. Pt has all belon gings, no missing items. Pt discharged home via private automobile with daughter. onver rodo Transaction, Provider Unknown - 09/20/2017 1:27 PM PDT Nurse Progress Note by Julisa Mata RN at 09/20/17 1327 Author: Julisa Mata RN Service: (none) Author Type: Registered Nurse Filed: 09/20/17 1328 Date of Service: 09/20/171326 Status: Signed Senior Developer: Julisa Mata RN (Registered Nurse) Pt tolerated procedure well, vss throughout. Pt given 1mg versed and 25 mcg fentanyl, as we ll as 1mg ativan prior to procedure. Pt transferred to cdu in no observed or stated distress . Report given at bedside. Pt with bandage intact clean and dry. docume nted in this encounter Plan of Treatment +--------+---------+ + + + | Date | Type | Specialty | Care Team | Description | +--------+---------+ + + + | 05/02/ | Office | Oncology | Monet Mcginnis MD | | | 2019 | Visit | | [address] | | | | | | [place] | | | | | | [address] | | | | | | | | +--------+---------+ + + + | 08/01/ | Office | Pulmonology | Jorge, | | | 2019 | Visit | | Caitlyn Simon, | | | | | | MD [address] | | | | | | [place], | | | | | | [place] [address] | | | | | | [phone] | | | | | | | | +--------+---------+ + + + documented as of this encounter Procedures + +--------+ + + + | Procedure Name | Priori | Date/Time | Associated Diagnosis | Comments | | | ty | | | | + +--------+ + + + | XR CHEST INSPIRATION | Routin | 09/20/2017 | | Results for this | | AND EXPIRATION | e | 2:05 PM | | procedure are in the | | | | PDT | | results section. | + +--------+ + + + | CT GUIDED BIOPSY | Routin | 09/20/2017 | | Results for this | | LUNG OR MEDIASTINUM | e | 1:10 PM | | procedure are in the | | | | PDT | | results section. | + +--------+ + + + | EXTERNAL LAB: CBC | Routin | 09/20/2017 | | Results for this | | | e | 9:42 AM | | procedure are in the | | | | PDT | | results section. | + +--------+ + + + | PTT | Routin | 09/20/2017 | | Results for this | | | e | 9:42 AM | | procedure are in the | | | | PDT | | results section. | + +--------+ + + + | PROTIME INR | Routin | 09/20/2017 | | Results for this | | | e | 9:42 AM | | procedure are in the | | | | PDT | | results section. | + +--------+ + + + | TISSUE REQUEST FOR | Routin | 09/20/2017 | | Results for this | | PATHOLOGY (NON-ORD) | e | 12:00 AM | | procedure are in the | | | | PDT | | results section. | + +--------+ + + + documented in this encounter Results XR Chest Inspiration and Expiration (09/20/2017 2:05 PM PDT) + + | Specimen | + + | | + + + + + | Impressions | Performed At | + + + | 1. There is no pneumothorax status post left lung biopsy. | | | | | + + + + + + | Narrative | Performed At | + + + | [facility] 1955 XR CHEST INSPIRATION/EXPIRATION | | | 09/20/2017 1:58 PM INDICATION: Status post biopsy COMPARISON: | | | CT, 09/20/2017 TECHNIQUE: AP view of the chest with inspiration and | | | expiration FINDINGS: The cardiac silhouette is normal in size. | | | There is no pneumothorax status post left lung biopsy. The nodular | | | density is not well seen on plain films. The pulmonary markings are | | | normal in caliber. | | + + + + + | Procedure Note | + + | Roscoe, Rad Conversion - 10/26/2018 8:47 AM PDT [facility] RE[facility]1956XR CHEST | | INSPIRATION/EXPIRATION09/20/2017 1:58 PM INDICATION: Status post biopsy COMPARISON: CT, | | 09/20/2017 TECHNIQUE: AP view of the chest with inspiration and expiration FINDINGS: The | | cardiac silhouette is normal in size. There is no pneumothorax status post left lung | | biopsy. The nodular density is not well seen on plain films. The pulmonary markings are | | normal in caliber. IMPRESSION: 1. There is no pneumothorax status post left lung | | biopsy. | |COMPARISON: CT, 09/20/2017 | | | |TECHNIQUE: AP view of the chest with inspiration and expiration | | | |FINDINGS: The cardiac silhouette is normal in size. There is no pneumothorax status post le ft lung biopsy. The nodular density is not well seen on plain films. The pulmonary markings are normal in caliber. | | | |IMPRESSION: | |1. There is no pneumothorax status post left lung biopsy. | | | | | + + CT Guided Biopsy Lung Or Mediastinum (09/20/2017 1:10 PM PDT) + + | Specimen | + + | | + + + + + | Impressions | Performed At | + + + | 1. Successful CT core needle biopsy of the left upper lobe lung | | | nodule. 2. Chest x-ray pending in 1 hour. | | + + + + + + | Narrative | Performed At | + + + | [facility] CT NEEDLE BIOPSY LUNG 09/20/2017 1:10 PM | | | HISTORY: 61 years. Female. Enlarging left upper lobe lung nodule. | | | COMPARISON: CT chest 06/30/17. PET/CT 07/26/17. DESCRIPTION | | | OF PROCEDURE: Prior to beginning the procedure, I obtained written | | | informed consent and I marked the patient's skin on the left side | | | where the procedure was to be performed. A timeout was performed. | | | Patient positioning: Prone. Radiation dose reduction was performed | | | with automated exposure control. Axial certified medical transcriptionist images were obtained | | | through region of interest with a skin marker grid. A skin site was | | | selected and marked. The skin was then prepped and draped in the | | | usual sterile fashion and anesthetized with 5 mL of 1% lidocaine | | | buffered with sodium bicarbonate. Subsequently, an 19-gauge Bard | | | core biopsy guide needle was advanced using CT guidance until | | | satisfactory needle tip position was achieved. 5 core biopsy | | | sample(s) obtained, and reviewed real-time by Dr. Cross, pathologist, | | | and deemed adequate. Before the guide needle was removed, a | | | Gelfoam slurry was injected at the biopsy site. A limited set of | | | axial images were then obtained through the area biopsied. The | | | patient tolerated the procedure well. COMPLICATIONS: Tiny sliver | | | of pneumothorax on the postbiopsy CT images. MEDICATIONS: I.V. | | | conscious sedation was supervised by Dr. Henderson using 1 mg Ativan, | | | followed by 1 mg Versed and 25 mcg Fentanyl for 25 minutes. Using | | | automated blood pressure, EKG and pulse oximetry, the patient was | | | independently monitored by a radiology nurse certified to give | | | conscious sedation. There were no sedation complications. | | + + + + + | Procedure Note | + + | Roscoe, Rad Conversion - 10/26/2018 8:47 AM PDT [facility] NEEDLE BIOPSY | | LUNG09/20/2017 1:10 PM HISTORY:61 years. Female. Enlarging left upper lobe lung nodule. | | COMPARISON:CT chest 06/30/17. PET/CT 07/26/17. DESCRIPTION OF PROCEDURE:Prior to | | beginning the procedure, I obtained written informed consent and I marked the patient's | | skin on the left side where the procedure was to be performed. A timeout was | | performed.Patient positioning: Prone. Radiation dose reduction was performed with | | automated exposure control.Axial certified medical transcriptionist images were obtained through region of interest | | with a skin marker grid. A skin site was selected and marked. The skin was then | | prepped and draped in the usual sterile fashion and anesthetized with 5 mL of 1% | | lidocaine buffered with sodium bicarbonate. Subsequently, an 19-gauge Bard core biopsy | | guide needle was advanced using CT guidance until satisfactory needle tip position was | | achieved. 5 core biopsy sample(s) obtained, and reviewed real-time by Dr. Cross, | | pathologist, and deemed adequate. Before the guide needle was removed, a Gelfoam slurry | | was injected at the biopsy site. A limited set of axial images were then obtained | | through the area biopsied. The patient tolerated the procedure well. COMPLICATIONS:Tiny | | sliver of pneumothorax on the postbiopsy CT images. MEDICATIONS:I.V. conscious sedation | | was supervised by Dr. Henderson using 1 mg Ativan, followed by 1 mg Versed and 25 mcg | | Fentanyl for 25 minutes. Using automated blood pressure, EKG and pulse oximetry, the | | patient was independently monitored by a radiology nurse certified to give conscious | | sedation. There were no sedation complications. IMPRESSION: 1. Successful CT core | | needle biopsy of the left upper lobe lung nodule.2. Chest x-ray pending in 1 hour. | | | |I.V. conscious sedation was supervised by Dr. Henderson using 1 mg Ativan, followed by 1 mg Purvi sed and 25 mcg Fentanyl for 25 minutes. Using automated blood pressure, EKG and pulse oximet ry, the patient was independently monitored by a radiology nurse | |certified to give conscious sedation. There were no sedation complications. | | | |IMPRESSION: | |1. Successful CT core needle biopsy of the left upper lobe lung nodule. | |2. Chest x-ray pending in 1 hour. | | | | | + + PTT (09/20/2017 9:42 AM PDT) + + + + + + | Component | Value | Ref Range | Performed | Pathologist | | | | | At | Signature | + + + + + + | aPTT, | 26Comment: Testing | 23 - 32 seconds | EXTERNAL | | | Patient | performed at [facility] | [address] | | | [address];[place], [place] | | | | | | [address] | | | | + + + + + + + + | Specimen | + + | Blood specimen | | (specimen) | + + + +---------+ + + | Performing | Address | City/State/Zipcode | Phone Number | | Organization | | | | + +---------+ + + | EXTERNAL LAB | | | | + +---------+ + + Protime INR (09/20/2017 9:42 AM PDT) + + + + + + | Component | Value | Ref Range | Performed | Pathologist | | | | | At | Signature | + + + + + + | INR | 1.0Comment: REFERENCE | | EXTERNAL | | | | RANGE:0.9 - 1.2 | | LAB | | | | NON-ANTICOAGULATED2.0 | | | | | | - 3.0 ALL OTHER | | | | | | THERAPEUTIC | | | | | | INDICATIONS2.5 - 3.5 | | | | | | MECHANICAL HEART VALVES, | | | | | | RECURRENT OR SYSTEMIC | | | | | | EMBOLISMTesting | | | | | | performed at [facility] | | | | | | [facility];[place], [place] | | | | | | [address] | | | | + + + + + + + + | Specimen | + + | Blood specimen | | (specimen) | + + + +---------+ + + | Performing | Address | City/State/Zipcode | Phone Number | | Organization | | | | + +---------+ + + | EXTERNAL LAB | | | | + +---------+ + + External Lab: CBC (09/20/2017 9:42 AM PDT) + + + + + + | Component | Value | Ref Range | Performed | Pathologist | | | | | At | Signature | + + + + + + | WBC | 9.63 | 3.80 - 11.00 | EXTERNAL | | | | | K/uL | LAB | | + + + + + + | RED CELL | 4.67 | 3.70 - 5.10 | EXTERNAL | | | COUNT | | M/uL | LAB | | + + + + + + | Hgb | 11.8 | 11.3 - 15.5 | EXTERNAL | | | | | g/dL | LAB | | + + + + + + | Hematocrit, | 36.5 | 34.0 - 46.0 % | EXTERNAL | | | POC | | | LAB | | + + + + + + | MCV | 78.0 (L) | 80.0 - 100.0 fl | EXTERNAL | | | | | | LAB | | + + + + + + | MCH | 25.2 (L) | 27.0 - 34.0 pg | EXTERNAL | | | | | | LAB | | + + + + + + | MCHC | 32.3 | 32.0 - 35.5 | EXTERNAL | | | | | g/dL | LAB | | + + + + + + | RDW-CV | 45.5 | 37 - 53 fl | EXTERNAL | | | | | | LAB | | + + + + + + | Platelet | 257 | 150 - 400 K/uL | EXTERNAL | | | Count | | | LAB | | | Plasma | | | | | + + + + + + | MPV | 9.0 | fl | EXTERNAL | | | | | | LAB | | + + + + + + | Differentia | AUTOMATED | | EXTERNAL | | | l Type | | | LAB | | + + + + + + | % Segmented | 57.93 | % | EXTERNAL | | | | | | LAB | | | Neutrophils | | | | | + + + + + + | % | 34.27 | % | EXTERNAL | | | Lymphocytes | | | LAB | | + + + + + + | % Monocytes | 6.17 | % | EXTERNAL | | | | | | LAB | | + + + + + + | % | 1.09 | % | EXTERNAL | | | Eosinophils | | | LAB | | + + + + + + | % Basophils | 0.54 | % | EXTERNAL | | | | | | LAB | | + + + + + + | Absolute | 5.58 | 1.90 - 7.40 | EXTERNAL | | | Segmented | | K/uL | LAB | | | Neutrophils | | | | | + + + + + + | Absolute | 3.30 | 1.00 - 3.90 | EXTERNAL | | | Lymphocytes | | K/uL | LAB | | + + + + + + | Absolute | 0.59 | 0.00 - 0.80 | EXTERNAL | | | Monocytes | | K/uL | LAB | | + + + + + + | Absolute | 0.11 | 0.00 - 0.50 | EXTERNAL | | | Eosinophils | | K/uL | LAB | | + + + + + + | Absolute | 0.05Comment: Testing | 0.00 - 0.10 | EXTERNAL | | | Basophils | performed at [facility];[address] | [address] | LAB | | | | [address];[place], [place] | | | | | | [address] | | | | + + + + + + + + | Specimen | + + | Blood specimen | | (specimen) | + + + +---------+ + + | Performing | Address | City/State/Zipcode | Phone Number | | Organization | | | | + +---------+ + + | EXTERNAL LAB | | | | + +---------+ + + Tissue Request For Pathology (09/20/2017 12:00 AM PDT) + + | Specimen | + + | Soft tissue sample | | (specimen) | + + + + + | Narrative | Performed At | + + + | THIS IS AN ADDENDUM REPORT SPECIMEN(S): A LUNG BIOPSY | EXTERNAL LAB | | SPECIMEN SOURCE: A. LUNG BIOPSY CLINICAL HISTORY: 09/20/2017 at | | | [address] Nod[address]. FINAL PATHOLOGIC DIAGNOSIS: Left upper lobe | | | lung nodule, CT-guided needle core biopsies: - Positive for | | | malignant cells | | | | | | adenocarcinoma. See comment. COMMENT: Only one of the biopsies | | | shows diagnostic adenocarcinoma. Unless clinically indicated, | | | confirmatory immunostains for pulmonary origin will not be performed, | | | so that block A1 can be sent for ancillary testing, the results of | | | which will be reported by addendum. As part of the Quality | | | Assurance Program, this case was reviewed by another member of [employer] | | | [facility] (CLAUDE). AMB:emb: C1NR GROSS DESCRIPTION: The | | | specimen is received in formalin labeled with the patient's name and | | | designated "left upper lobe lung biopsy" and consists of five, 0.4 to | | | 1.3 cm mathews-pink cores. A rapid assessment is performed on this | | | specimen. Entirely submitted in A1-A4. AM:rds Intraprocedural | | | Cytologic Examination (I.C.E.) The pathologist performed an | | | Intraprocedural Cytologic Exam [I.C.E.] ([id number], [id number]) The patient's | | | name, date, specimen site were confirmed at time of collection. | | | Pass # Slides [facility] or AA | | | Pathologist Notes 1 1 AA | | | Cytologic Exam Pathologist Name: Dr. Edwin Cross I.C.E. | | | Evaluation Episodes: 1 Number of lesions seen: 1 MICROSCOPIC | | | EXAMINATION: Histologic sections of all submitted blocks are examined | | | by light microscopy. These findings, together with the gross | | | examination, support the pathologic diagnosis. PERFORMING LABORATORY: | | | Professional interpretation and technical preparation was performed | | | by [facility], [facility], [address] | | | [place] [address] (Math Tutor: Edwin Cross M.D.; | | | CLIA#: [id number]). ADDITIONAL NOTES: Immunohistochemistry (IHC) | | | studies for PD-L1 using the concentrated Dako 22C3 clone on the | | | VENTANA BenchMark Ultra platform with OptiView detection was performed | | | at [facility], [address] [place], [place]. The | | | Dako 22C3 pharmDx clone is not FDA approved for use on the VENTANA | | | platform; however, comparison studies show nearly 100% concordance of | | | results for the test performed using the concentrated Dako 22C3 clone | | | on the VENTANA BenchMark Ultra platform compared to the FDA approved | | | Dako 22C3 pharmDx protocol on the Dako Autostainer Link48 (ASL48) | | | platform*. The test using the concentrated Dako 22C3 clone was | | | developed and its performance characteristics determined by [facility] | | | [facility], but this does not represent FDA-approved application of | | | this assay. [facility] is certified under the Clinical | | | Laboratory Improvement Amendment of 1988 (CLIA) as qualified to | | | perform high complexity clinical laboratory testing. This test is | | | used for clinical purposes. It should not be regarded as | | | investigational or for research. * Use of the 22C3 anti | | | | | | PD-L1 antibody to determine PD-L1 expression in multiple automated | | | immunohistochemistry platforms Rox Quiroga, Sasha S, Dee | | | C, Dom L, David J, et al. (2017). Use of the 22C3 anti | | | | | | PD-L1 antibody to determine PD-L1 expression in multiple automated | | | immunohistochemistry platforms. PLOS ONE 12(8): l8048292. | | | https://doi.org/10.1371/journal.pone.6403062 PERFORMING LABORATORY: | | | The technical component and professional interpretation were | | | performed by [facility], [address] [facility] | | | [place] [address] (Math Tutor: Amandeep Pleitez D.O.; [facility]#: | | | [id number]). REASON FOR ADDENDUM: To add results of additional | | | testing. ADDENDUM PATHOLOGIC DIAGNOSIS: PD-L1 expression by IHC: | | | - Tumor proportion score: 20%. - Interpretation of PD-L1 | | | expression level: Low expression, greater than or equal to 1-49%. - | | | Intensity: Moderate. ADDENDUM COMMENT: PD-L1 protein expression | | | by immunohistochemistry is performed on block A1 at the request of | | | Backer. YORDANW:willian REASON FOR ADDENDUM: To add additional testing | | | from [facility] (BRAF [facility] | | | | | | [id number]). Results: BRAF Mutation Not Detected Clinical | | | Significance: BRAF mutations are frequently found in human cancers. | | | They are found most frequently in melanoma (50-70%), papillary thyroid | | | cancer (36-40%) and most all hairy cell leukemias. BRAF mutations are | | | also found with low frequency in colorectal cancer (5-12%), | | | non-small cell lung cancer (NSCLC), acute myeloid leukemia (AML), | | | glioma, sarcomas, breast cancer, hepatoma, and ovarian cancer. The | | | presence of BRAF mutation is believed to be mutually exclusive to the | | | diagnosis of Jiang syndrome (3). Patients with BRAF activating | | | mutations, such as those at V600, may respond to therapy including | | | BRAF and MEK inhibitors or anti-VEGF antibodies. BRAF inactivating | | | mutations, such as those at D594, are unlikely to respond to BRAF | | | inhibitors, but may respond to MEK inhibitors. In patients with | | | metastatic colorectal cancer (CRC), the therapeutic significance of | | | BRAF mutation remains controversial. Some studies suggest that it is | | | similar to KRAS mutation, associated with resistance to anti-EGFR | | | therapy. However, recent meta-analysis suggested that patients with | | | BRAF mutation, when treated with anti-EGFR, show similar response to | | | patients without any mutation. Methodology: DNA was isolated from | | | cells or microdissection-enriched FFPE tissue. Tumor in FFPE must be | | | present in at least 20% of the tissue. BRAF mutations were evaluated | | | in the entire coding region of BRAF exon 15 by high-sensitivity | | | Sandhya sequencing which improves the lower detection limit in mutation | | | hotspot regions to approximately 1% abnormal DNA. This includes V600 | | | mutations and mutations in adjacent codons 598, 599, and 601. | | | Mutation detection outside these hotspot regions has a typical lower | | | detection limit of 10-15% mutated BRAF in a wild-type background. The | | | patient's sequence is compared to the NCBI database: [id number]. | | | Various factors including quantity and quality of nucleic acid, sample | | | preparation and sample age can affect assay performance. | | | References: 1. Marifer PEARSON, et al., Inhibition of mutated, activated | | | BRAF in metastatic melanoma. N Engl J Med. 2010; 363:809-819. 2. | | | Kanika R, et al., [id number], a selective BRAF(V600E) kinase inhibitor, | | | activates the ERK pathway and enhances cell migration and | | | proliferation of BRAF melanoma cells. Pigment Cell Melanoma Res. | | | 2010; 23:190-200. 3. Zach SG, La ML. BRAF mutation testing in | | | colorectal cancer. Arch Pathol Lab Med. 2010 Oct;134(8):1225-8. 4. | | | Marifer PEARSON. Next generation therapies change the landscape in | | | melanoma. F1000 Medicine Reports. 2011;3:8. 5. Alec Quiroga. BRAF mutation | | | in thyroid cancer. Endocr Relat Cancer. 2005 Armond;12(2):245-62. | | | Electronic Signature Reviewed by: Bree Finch M.D., Pathologist | | | The Technical Component Processing, Analysis and Professional | | | Component of this test was completed at [facility] [place], [address] | | | [place] / [address] / [phone] / CLIA #[id number] / | | | Math Tutor(s): Suresh Carreno M.D. . The performance | | | characteristics of this test have been determined by [facility] | | | [facility]. This test has not been approved by the FDA. The FDA has | | | determined such clearance or approval is not necessary. This | | | laboratory is CLIA certified to perform high complexity clinical | | | testing. Images that may be included within this report are | | | public utilities sales representative of the patient but not all testing in its entirety and | | | should not be used to render a result. To add additional testing from | | | [facility] (EGFR Mutation [facility] | | | | | | [id number]). Results: EGFR Mutation Not Detected EGFR | | | Exon 18 Not Detected EGFR Exon 19 Not Detected | | | EGFR Exon 20 Not Detected EGFR Exon 21 Not Detected | | | Notes: EGFR Mutation - No mutations were detected in EGFR exons | | | 18-21. There is no evidence of EGFR T790M mutation using our high | | | sensitivity assay. Clinical Significance: Patients with non-small | | | cell lung cancer (NSCLC) and mutations in EGFR exons 18, 19, 20 or 21 | | | usually respond to anti-EGFR tyrosine kinase inhibitors (TKIs) and | | | have longer survival when compared to EGFR mutation-negative | | | patients. However, patients being treated with TKIs may develop | | | acquired resistance with secondary mutations in exon 20, such as T790M | | | or, less commonly, L747S, D761Y and T854A. NSCLCs with exon 20 | | | mutations, such as T790M mutation, are usually resistant to first | | | generation (erlotinib, gefitinib) and second generation (afatinib, | | | dacomitinib, neratinib) anti- EGFR TKIs, but may respond to third | | | generation TKIs, such as osimertinib. The less common resistance | | | mutations (e.g. L747S, D761Y and T854A) may respond to second or third | | | generation irreversible TKIs based on early studies. | | | Methodology: DNA was isolated from cells or microdissection-enriched | | | FFPE tissue. Formalin-fixed, paraffin-embedded tumor tissue sections | | | were deparaffinized and DNA was isolated. EGFR tyrosine kinase domain | | | mutations were evaluated in the entirety of exons 18 to 21. The | | | patient's sequence is compared to the EGFR sequence database | | | [id number]. This assay is by Sandhya sequencing method with Locked | | | Nucleic Acid (AUTOMATIC COIL MACHINE OPERATOR) for T790M. The sensitivity for detecting the T790M | | | mutation in exon 20 is at least 3% with the remaining mutations | | | having a sensitivity of 10 to 15% for detecting mutated EGFR DNA in a | | | wild-type background. Various factors including quantity and quality | | | of nucleic acid, sample preparation and sample age can affect assay | | | performance. References: 1. Dina SORIANO et al. Epidermal growth | | | factor receptor mutations in aon-ebncj-spss lung cancer: implications | | | for treatment and tumor biology. J Clin Oncol. 2005; 23:3227-34. 2. | | | Apolinar BLOOD, et al. Activating mutations in the epidermal growth factor | | | receptor underlying responsiveness of jvb-ddkps-dlsr lung cancer to | | | gefitinib. N Engl J Med. 2004; 350:2129-39. 3. Anjel RUSSO, et al. | | | Response to treatment and survival of patients with non-small cell | | | lung cancer undergoing somatic EGFR mutation testing. Oncologist. | | | 2007;12:90-8. 4. Radha ROPER, et al. EGFR mutations in lung cancer: | | | correlation with clinical response to gefitinib therapy. Science. | | | 2004; 304:6624-2494. 5. Patrice DB, et al. Differential responses to | | | erlotinib in epidermal growth factor receptor (EGFR)-mutated lung | | | cancers with acquired resistance to gefitinib carrying the L747S and | | | T790M secondary mutations. J Clin Oncol. 2008; 26:1182-4. | | | Electronic Signature Reviewed by: Bree Finch M.D., Pathologist | | | The Technical Component Processing, Analysis and Professional | | | Component of this test was completed at [facility], | | | [facility] / [address] / [phone] / CLIA #[id number] / | | | Math Tutor(s): Suresh Carreno M.D. . The performance | | | characteristics of this test have been determined by [facility] | [facility]. This test has not been approved by the FDA. The FDA has | | | determined such clearance or approval is not necessary. This | | | laboratory is CLIA certified to perform high complexity clinical | | | testing. Images that may be included within this report are | | | public utilities sales representative of the patient but not all testing in its entirety and | | | should not be used to render a result. Add results of additional | | | testing. Results: Not Detected Interpretation: ROS1 | | | rearrangement: Not Detected Interphase FISH analysis was performed | | | using the ROS1 Break Apart FISH Probe Kit. A ROS1 gene rearrangement | | | was not detected and result suggests that ROS1 inhibitors are not | | | indicated. Clinical correlation is recommended for full assessment of | | | disease. Probe Set Detail: ROS1: nuc sagrario(ROS1x1>1)[50] | | | Reference Ranges: ROS1: The sample is considered positive if >50% of | | | the first 50 cells scored are positive, and considered negative if | | | <10% cells are positive. If 10-50% of cells are positive, an | | | additional 50 cells are evaluated by a second technologist. The | | | sample is then considered positive if > or = 15% of all 100 cells | | | scored are positive. Nuclei Scored: 50 Probe set | | | Scoring method CPT Code # of Units | | | Chrom 6: ROS1 5', Chrom 6: ROS1 3' Manual | | | [id number] 1 Electronic Signature Mary Jo Corea M.D., | | | Hematopathologist All controls were within expected ranges. The | | | Technical Component Processing and Analysis of this test was completed | | | at [facility], [address] [place] [address] / [address] / | | | [phone] / CLIA #[id number] / Math Tutor(s): Suresh | | | Veronica Carreno . The Professional Component of this test was completed at | | | [facility], [address] [place] [address] / | | | / . [facility] | | | FISH test uses either FDA cleared and/or analyte specific reagent | | | (ASR) probes. This test was developed and its performance | | | characteristics determined by [facility] in [facility] | | | [facility], [place]. It has not been cleared or approved by the U.S. Food and | | | Drug Administration (FDA). The FDA has determined that such clearance | | | or approval is not necessary. This test is used for clinical | | | purposes and should not be regarded as investigational or for | | | research. This laboratory is regulated under CLIA '88 as qualified to | | | perform high complexity testing. Interphase FISH does not include | | | examination of the entire chromosomal complement. Clinically | | | significant anomalies detectable by routine banded cytogenetic | | | analysis may still be present. Consider reflex banded cytogenetic | | | analysis. Images that may be included within this report are | | | public utilities sales representative of the patient but not all testing in its entirety and | | | should not be used to render a result. Results: Not Detected | | | Interpretation: ALK rearrangement: Not detected Interphase FISH | | | analysis was performed using the ALK Break Apart FISH Probe Kit. FISH | | | probe signals were within the normal reference range. This represents | | | a NORMAL result and suggests that ALK inhibitors are not indicated. | | | Clinical correlation is recommended. Probe Set Detail: nuc | | | sagrario(ALKx1>1)[50/50] Reference Ranges: ALK Lung: The sample is | | | considered positive if >50% of the first 50 cells scored are positive, | | | and considered negative if <10% cells are positive. If 10-50% of | | | cells are positive, an additional 50 cells are evaluated by a second | | | technologist. The sample is then considered positive if > or = 15% of | | | all 100 cells scored are positive. Nuclei Scored: 50 Probe set | | | Scoring method CPT Code | | | # of Units Chrom 2: ALK 3, Chrom 2: ALK 5 Manual | | | 37092 1 Electronic Signature Mary Jo | | | Veronica Corea, Hematopathologist All controls were within expected | | | ranges. The Technical Component Processing and Analysis of this test | | | was completed at [facility], [address] [place] [address] | | | / [address] / [phone] / CLIA #[id number] / Math Tutor(s): | | | Suresh Carreno M.D. . The Professional Component of this test was | | | completed at [facility], [address] [place] [address], | | | [place] [address] / / . [facility] FISH test uses either FDA cleared and/or analyte specific | | | reagent (ASR) probes. This test was developed and its performance | | | characteristics determined by [facility]. It has not | | | been cleared or approved by the U.S. Food and Drug Administration | | | (FDA). The FDA has determined that such clearance or approval is not | | | necessary. This test is used for clinical purposes and should not be | | | regarded as investigational or for research. This laboratory is | | | regulated under CLIA '88 as qualified to perform high complexity | | | testing. Interphase FISH does not include examination of the entire | | | chromosomal complement. Images that may be included within this | | | report are public utilities sales representative of the patient but not all testing in its | | | entirety and should not be used to render a result. ADDENDUM COMMENT: | | | This case was interpreted at [facility] in [place], [place] by Mary Jo Corea | | | Veronica, Hematopathologist. Their report (#[id number], [id number]) | | | is filed electronically within the [employer] computer system. Please see | | | their report for complete details. AMB:alexandra Diagnostician: Amandeep Bullard | | | Maik JI Pathologist Diagnostician: Ciara Catalan MD Pathologist | | | Electronically Signed 10/04/2017 | | + + + + +---------+ + + | Performing | Address | City/State/Zipcode | Phone Number | | Organization | | | | + +---------+ + + | EXTERNAL LAB | | | | + +---------+ + + documented in this encounter Visit Diagnoses + + | Diagnosis | + + | Multiple pulmonary nodules Other nonspecific abnormal finding of lung field | + + documented in this encounter
--- OUTSIDE RECORDS SUMMARY | ~2019-01-25 | XMS | Encounter Summary ---
Demographics + + + | Address | [address] | | | [place] [address] | + + + | Home Phone | | + + + | Preferred Language | Unknown | + + + | Marital Status | Single | + + + | Lutheran Affiliation | CAT | + + + [...] Team Providers + +------+ + | Care Spindle Frame Carver Name | Role | Phone | + +------+ + PCP | Unavailable | + +------+ + Encounter Details +--------+ + + + + | Date | Type | Department | Care Team | Description | +--------+ + + + + | 03/06/ | Procedure - | | Evaluation, [facility] | [facility] | | 2004 | | | Ultrasound | | | [...] as of this encounter Progress Notes Interface, Sock And Stocking Ironer In - 03/20/2005 6:23 AM PST [id number] GENEVIEVE GRAY Ultrasound Evaluation Report Patient: MARINA VALLEJO Date: 03/06/2004 Referring MD: Kenzie De Luna M.D. Eye: Left eye. History: This very pleasant adult female is being followed with an inflammatory process. The most recent ultrasound exam (February 29, 2004) showed mild to moderate choroidals, slightly thickened retina, significant dense vitreous hemorrhage and an echolucency around the retrobulbar optic nerve. The patient presents today with a significant increase in her intraocular pressure to 32. She is in pain. ECHOGRAPHY: The B-scan continues to show a significant amount of diffuse debris in the vitreous consistent with dense hemorrhage. The previously described choroidals are today much less than on February 29, 2004. The retina remains intact. There is a cupping to the optic nerve head. The previously described echolucency in the retrobulbar optic nerve space has resolved. Jd Mcgarry M.D. and Nawaf Yip, Ophthalmic Echographer CT / [id number] / [id number] / [id number] / Electronically signed by Jr. Jd Mcgarry 03-30-2004 04:20:56 PM documented i n this encounter Plan of Treatment Not on filedocumented as of this encounter Procedures + +--------+ + + + | Procedure Name | Priori | Date/Time | Associated Diagnosis | Comments | | | ty | | | | + +--------+ + + + | [facility] | | 03/06/2004 | | Results for this | | | | | | procedure are in the | | | | | | results section. | + +--------+ + + + documented in this encounter Results [facility] (03/06/2004) + + | Transcriptions | + + | Interface, Sock And Stocking Ironer In - 03/20/2005 6:23 AM PST | | [id number] | | [id number] GENEVIEVE GRAY | | | | | | | | Ultrasound Evaluation Report | | | | | | Patient: MARINA VALLEJO | | Date: 03/06/2004 | | Referring MD: Kenzie De Luna M.D. | | | | | | | | Eye: Left eye. | | | | History: This very pleasant adult female is being followed with an | | inflammatory process. The most recent ultrasound exam (February 29, 2004) | | showed mild to moderate choroidals, slightly thickened retina, significant | | dense vitreous hemorrhage and an echolucency around the retrobulbar optic | | nerve. The patient presents today with a significant increase in her | | intraocular pressure to 32. She is in pain. | | | | ECHOGRAPHY: The B-scan continues to show a significant amount of diffuse | | debris in the vitreous consistent with dense hemorrhage. | | | | The previously described choroidals are today much less than on February | | 2003. | | | | The retina remains intact. | | | | There is a cupping to the optic nerve head. | | | | The previously described echolucency in the retrobulbar optic nerve space | | has resolved. | | | | | | | | | | | | Jd Mcgarry M.D. and | | Nawaf Yip, Ophthalmic Echographer | | | | CT / | | [id number] / [id number] / [id number] / | | | | | | | | | | | | | | Electronically signed by Jr. Jd Mcgarry 03-30-2004 04:20:56 PM | + + documented in this encounter Visit Diagnoses Not on filedocumented in this encounter"
--- OUTSIDE RECORDS SUMMARY | ~2019-01-25 | XMS | Clinical Summary ---
Demographics + + + | Address | [address] | | | [place] [address] | + + + | Home Phone [...] + + | Author | [facility] | + + + | Organization | [facility] | + + + | Address | [...] Team Providers + +------+ + | Care Vp Public Relations Name | Role | Phone | + +------+ + | Jim Wiley MD | PCP | | + +------+ + Source Comments GEOVANI is fully live on both [facility] and [facility] In[facility] Allergies + + + + + + | Active Allergy | Reactions | Severity | Noted | Comments | | | | | Date | | + + + + + + | Roslyn | Diarrhea | Medium | 10/19/19 | [...] | | | + +--------+ +--------+-------+---------+--------+ | CARTRIDGE LOADING OPERATOR MEDICAID | CARTRIDGE LOADING OPERATOR | xxxxxxxx | 03/15/19 | | | [...] | Self | [birth year] | [address] | | | al/Fam | | 1956 | [phone] | [address] [place], | | | nikki | | | [address] (Home) | [place] [address] | + +--------+ +--------+ + + Advance [...]
--- OUTSIDE RECORDS SUMMARY | ~2019-01-25 | XMS | Encounter Summary ---
Demographics + + + | Address | [address] | | | [place] [address] | + + + | Home Phone [...] + + + | Author | [facility] | | | and [place] | + + + | Organization | [facility] | | [...] Team Providers + +------+ + | Care Bathhouse Attendant Name | Role | Phone | + [...] Provider Unknown | | | | | [place], [place] | [phone] | | | | | [address] | | | | | | [phone] | | | +--------+ + + + [...] [place] | | | | | | [address] | | | | | | | | +--------+---------+ + + + | 08/01/ | Office | Pulmonology | Jorge, | | | 2019 | Visit | | Caitlyn Simon, | | | | | | MD [address] | | | | | | [place], | | | | | | [place] [address] | | | | | | [phone] | | | | | | | | +--------+---------+ + + + documented as of this encounter Visit Diagnoses Not on filedocumented in this encounter"
--- OUTSIDE RECORDS SUMMARY | ~2019-01-25 | XMS | Encounter Summary ---
Demographics + + + | Address | [address] | | | [place] [address] | + + + | Home Phone | | + + + | Preferred Language | Unknown | + + + | Marital Status | Single | + + + | Tenriism Affiliation | CAT | + + + [...] Team Providers + +------+ + | Care Typing Pool Supervisor Name | Role | Phone | + +------+ + PCP | Unavailable | + +------+ + Encounter Details +--------+ + + + + | Date | Type | Department | Care Team | Description | +--------+ + + + + | 01/09/ | Letter-Neff | [facility] | Letter, [facility] | Letters | | 2004 | scribed | | [place] | | +--------+ + + + + [...] as of this encounter Progress Notes Interface, Process Safety Engineer In - 10/12/2004 8:55 AM PDT [id number] 01/09/2004 [id number] SERGESAVANAH LOTTMARINA January 10, 2004 Dr. Carlos [...]
--- OUTSIDE RECORDS SUMMARY | ~2019-01-25 | XMS | Encounter Summary ---
Demographics + + + | Address | [address] | | | [place] [address] | + + + | Home Phone | | + + + | Preferred Language | Unknown | + + + | Marital Status | Single | + + + | Yarsanism Affiliation | [id number] | + + + [...] Team Providers + +------+ + | Care Hem Inspector Name | Role | Phone | + +------+ + PCP | Unavailable | + +------+ + Encounter Details +--------+ + + + + | Date | Type | Department | Care Team | Description | +--------+ + + + + | 03/12/ | Orders Only | [facility] | Conversion | | | 2017 | | [facility] [place] | Transaction, | | | | | [address] | Provider Unknown | | | | | [address] [place], [place] | [phone] | | | | | [address] | (Fax) | | | | | [phone] | | | +--------+ + + + [...] [place] | | | | | | [address] | | | | | | | | +--------+---------+ + + + | 08/01/ | Office | Pulmonology | Jorge, | | | 2019 | Visit | | Caitlyn Simon, | | | | | | MD [address] | | | | | | [place], | | | | | | [place] [address] | | | | | | [phone] | | | | | | | | +--------+---------+ + + + documented as of this encounter Procedures + +--------+ + + + | Procedure Name | Priori | Date/Time | Associated Diagnosis | Comments | | | ty | | | | + +--------+ + + + | URINALYSIS WITH | Routin | 03/12/2017 | | Results for this | | MICROSCOPIC WITH | e | 12:00 AM | | procedure are in the | | CULTURE IF INDICATED | | PST | | results section. | + +--------+ + + + | PROTEIN/CREATININE | Routin | 03/12/2017 | | Results for this | | RATIO, URINE | e | 12:00 AM | | procedure are in the | | | | PST | | results section. | + +--------+ + + + documented in this encounter Results Urinalysis with Microscopic with Culture if Indicated (03/12/2017 12:00 AM PST) + + + + + + | Component | Value | Ref Range | Performed | Pathologist | | | | | At | Signature | + + + + + + | Color | Light Yellow | | EXTERNAL | | | | | | LAB | | + + + + + + | Clarity | Clear | | EXTERNAL | | | | | | LAB | | + + + + + + | Spec Grav, | 1.009 | 1.005 - 1.030 | EXTERNAL | | | Fluid | | | LAB | | + [...] + + + + + + | Total | NEG | | EXTERNAL | | | Protein | | | LAB | | + [...] + + + + | Ketones | NEG | | EXTERNAL | | | | [...] + + + + + + | WBC, UA | 0 | 0 - 4 | EXTERNAL | | | | | | LAB | | + + + + + + | RBC, UA | 0 | 0 - 4 | EXTERNAL | | | | | | LAB | | + + + + + + | Epithelial | SQUAMOUS1+ | | EXTERNAL | | | Cells | | | LAB | | + + + + + + | Bacteria, | None Seen | | EXTERNAL | | | UA | | | LAB | | + + + + + + | HYALINE | None Seen | | EXTERNAL | | | CASTS UA | | | LAB | | + + + + + + + + | Specimen | + + | | + + + +---------+ + + | Performing | Address | City/State/Zipcode | Phone Number | | Organization | | | | + +---------+ + + | EXTERNAL LAB | | | | + +---------+ + + Protein/Creatinine Ratio, Urine (03/12/2017 12:00 AM PST) + +-------+ + + + | Component | Value | Ref Range | Performed | Pathologist | | | | | At | Signature | + +-------+ + + + | Protein/Cre | 60.6 | 0 - 150 | EXTERNAL | | | at Ratio | | | LAB | | + +-------+ + + + + + | Specimen | + + | Urine specimen | | (specimen) | + + + + + | Narrative | Performed At | + + + | PROTEIN, URINE - 4 - 0.0 - 50.0 CREATININE, URINE - 66 | EXTERNAL LAB | + + + + +---------+ + + | Performing | Address | City/State/Zipcode | Phone Number | | Organization | | | | + +---------+ + + | EXTERNAL LAB | | | | + +---------+ + + documented in this encounter Visit Diagnoses Not on filedocumented in this encounter"
--- OUTSIDE RECORDS SUMMARY | ~2019-01-25 | XMS | Encounter Summary ---
Demographics + + + | Address | [address] | | | [place] [address] | + + + | Home Phone | | + + + | Preferred Language | Unknown | + + + | Marital Status | Single | + + + | Mandaen Affiliation | 1041 | + + + | Race | Unknown | + + + | Ethnic Group | Unknown | + + + Author + + + | Author | [facility] | | | and [place] | + + + | Organization | [facility] | | | [...] Team Providers + +------+ + | Care Cloud Engagement Partner Name | Role | Phone | + +------+ + | Johnny Caldera MD | PCP | | + +------+ + Encounter Details +--------+ + + + + | Date | Type | Department | Care Team | Description | +--------+ + + + + | 10/25/ | Orders Only | [facility] | SachinNoel jackson, | | | 2019 | | NEPRHOLOGY [place] | [facility] [address] | | | | | [address] | [address] | | | | | [address] [place], [place] | [place] | | | | | [address] | [address] | | | | | [phone] | [phone] | | | | | | | [...] [place] | | | | | | [address] | | | | | | | | +--------+---------+ + + + | 08/01/ | Office | Pulmonology | Jorge, | | | 2019 | Visit | | Caitlyn Simon | | | | | | MD [address] | | | | | | [place], | | | | | | [place] [address] | | | | | | [phone] | | | | | | | | +--------+---------+ + + + documented as of this encounter Procedures + +--------+ + + + | Procedure Name | Priori | Date/Time | Associated Diagnosis | Comments | | | ty | | | | + +--------+ + + + | EXTERNAL LAB: CBC | Routin | 10/25/2018 | | Results for this | | | e | 3:09 PM | | procedure are in the | | | | PDT | | results section. | + +--------+ + + + | PROTEIN/CREATININE | Routin | 10/25/2018 | | Results for this | | RATIO, URINE | e | 3:09 PM | | procedure are in the | | | | PDT | | results section. | + +--------+ + + + | MAGNESIUM | Routin | 10/25/2018 | | Results for this | | | e | 3:09 PM | | procedure are in the | | | | PDT | | results section. | + +--------+ + + + | RENAL FUNCTION PANEL | Routin | 10/25/2018 | | Results for this | | | e | 3:09 PM | | procedure are in the | | | | PDT | | results section. | + +--------+ + + + documented in this encounter Results Protein/Creatinine Ratio, Urine (10/25/2018 3:09 PM PDT) + +-------+ + + + | Component | Value | Ref Range | Performed | Pathologist | | | | | At | Signature | + +-------+ + + + | Protein/Cre | 87.2 | 0 - 150 | EXTERNAL | [...] + +---------+ + + External Lab: CBC (10/25/2018 3:09 PM PDT) + + + + + + | Component | Value | Ref Range | Performed | Pathologist | | | | | At | Signature | + + + + + + | WBC | 10.5 | 4.5 - 11.0 10 | EXTERNAL | | | | | | LAB | | + + + + + + | RED CELL | 4.99 | 3.8 - 5.1 10 | EXTERNAL | | | COUNT | | | LAB | | + + + + + + | Hgb | 11.8 (A) | 12.0 - 16.0 | EXTERNAL | | | | | g/dL | LAB | | + + + + + + | Hematocrit, | 36.8 | 35 - 45 % | EXTERNAL | | | POC | | | LAB | | + + + + + + | MCV | 73.8 (A) | 81 - 99 fL | EXTERNAL | | | | | | LAB | | + + + + + + | MCH | 19.2 (A) | 10.5 - 15.0 pg | EXTERNAL | | | | | | LAB | | + + + + + + | MCHC | 24 (A) | 27 - 33 g/dL | EXTERNAL | | | | | | LAB | | + + + + + + | Platelet | 240 | 140 - 440 K/?L | EXTERNAL | | | Count | | | LAB | | | Plasma | | | | | + + + + + + | RDW-CV | 19.2 (A) | 10.5 - 15.0 [...] + + + | % Segmented | 61.6 | 39 - 80 % | EXTERNAL | | | | | | LAB | | | Neutrophils | | | | | + + + + + + | % | 28.7 | 24 - 44 % | EXTERNAL | | | Lymphocytes | | | LAB | | + + + + + + | % Monocytes | 7.7 | 0 - 12 % | EXTERNAL | | | | | | LAB | | + + + + + + | % | 1.5 | 0 - 6 % | EXTERNAL | | | Eosinophils | | | LAB | | + + + + + + | % Basophils | 0.5 | 0 - 2 % | EXTERNAL | | | | | | LAB | | + + + + + + | Absolute | | /?L | EXTERNAL | | | Segmented | | | LAB | | | Neutrophils | | | | | + + + + + + | Absolute | | /?L | EXTERNAL | | | Lymphocytes | | | LAB | | + + + + + + | Absolute | | /?L | EXTERNAL | | | Monocytes | | | LAB | | + + + + + + | Absolute | | /?L | EXTERNAL | | | Eosinophils | | | LAB | | + + + + + + | Absolute | | /?L | EXTERNAL | | | Basophils | [...] | | | + +---------+ + + Magnesium (10/25/2018 3:09 PM PDT) + +-------+ + + + | Component | Value | Ref Range | Performed | Pathologist | | | | | At | Signature | + +-------+ + + + | Magnesium | 2.2 | 1.7 - 2.5 mg/dL | EXTERNAL | | | | [...] + +---------+ + + Renal Function Panel (10/25/2018 3:09 PM PDT) + +---------+ + + + | Component | Value | Ref Range | Performed | Pathologist | | | | | At | Signature | + +---------+ + + + | Glucose, | 106 (A) | 70 - 100 mg/dL | EXTERNAL | | | Fasting | | | LAB | | + +---------+ + + + | BUN | 32 (A) | 6 - 23 mg/dL | EXTERNAL | | | | | | LAB | | + +---------+ + + + | Creatinine | 1.14 | 0.70 - 1.25 | EXTERNAL | | | | | mg/dL | LAB | | + +---------+ + + + | PHOSPHORUS | 3.7 | 2.5 - 5.0 mg/dL | EXTERNAL | | | | | | LAB | | + +---------+ + + + | Albumin | 4.3 | 3.5 - 5.0 | EXTERNAL | [...] +---------+ + + + | Cl | 103 | 95 - 112 mmol/L | EXTERNAL | | | | | | LAB | | + +---------+ + + + | CO2 | 27 | 19 - 31 mmol/L | EXTERNAL | | | | | | LAB | | + +---------+ + + + | Anion Gap | 13.2 | 7 - 21 mmol/L | EXTERNAL | | | | | | LAB | | + +---------+ + + + | eGFR if not | | | EXTERNAL | | | | | | LAB | | | LIBERIAN | | | | | + +---------+ + + + | Phosphorus, | | | EXTERNAL | | | Inorganic | | | LAB | | + +---------+ + + + | BUN/Creatin | 28.1 | 6.0 - 28.6 | EXTERNAL | | | ine Ratio | | | LAB | | + +---------+ + + + | Calcium | 9.7 | 8.5 - 10.3 | EXTERNAL | | | | | mg/dL | LAB | | + +---------+ + + + | Estimated | 48 (A) | 60 - 140 mg/dL | EXTERNAL | | | GFR [...]
--- OUTSIDE RECORDS SUMMARY | ~2019-01-25 | XMS | Encounter Summary ---
Demographics + + + | Address | [address] | | | [place] [address] | + + + | Home Phone | | + + + | Preferred Language | Unknown | + + + | Marital Status | Single | + + + | Baptism Affiliation | 1041 | + + + [...] Team Providers + +------+ + | Care Community Service Officer Coordinator Name | Role | Phone | + +------+ + | Johnny Caldera MD | PCP | | + +------+ + Encounter Details +--------+ + + + + | Date | Type | Department | Care Team | Description | +--------+ + + + + | 04/15/ | Orders Only | [facility] | Conversion | | | 2019 | | CONVERSION [address] | Transaction, | | | | | [address] | Provider Unknown | | | | | [place], [place] | [phone] | | | | | [address] | | | | | | [phone] | | | +--------+ + + + [...] [place] | | | | | | [address] | | | | | | | | +--------+---------+ + + + | 08/01/ | Office | Pulmonology | Jorge, | | | 2019 | Visit | | Caitlyn Simon, | | | | | | MD [address] | | | | | | [place], | | | | | | [place] [address] | | | | | | [phone] | | | | | | | | +--------+---------+ + + + documented as of this encounter Visit Diagnoses Not on filedocumented in this encounter"
--- OUTSIDE RECORDS SUMMARY | ~2019-01-25 | XMS | Encounter Summary ---
Demographics + + + | Address | [address] | | | [place] [address] | + + + | Home Phone | | + + + | Preferred Language | Unknown | + + + | Marital Status | Single | + + + | Worship Affiliation | 1041 | + + + | Race | Unknown | + + + | Ethnic Group | Unknown | + + + Author + + + | Author | [facility] | | | and [place] | + + + | Organization | [facility] | | [...] Team Providers + +------+ + | Care Manganese Breaker Name | Role | Phone | + +------+ + PCP | Unavailable | + +------+ + Encounter Details +--------+ + + + + | Date | Type | Department | Care Team | Description | +--------+ + + + + | 08/30/ | Orders Only | [facility] | Monet Mcginnis MD | | | 2017 | | [address] [facility] | [address] | | | | | [place] | [place] | | | | | [address] | [address] | | | | | [phone] | | | +--------+ + + + [...] [place] | | | | | | [address] | | | | | | | | +--------+---------+ + + + | 08/01/ | Office | Pulmonology | Jorge, | | | 2019 | Visit | | Caitlyn Simon, | | | | | | [address] | | | | | | [place], | | | | | | [place] [address] | | | | | | [phone] | | | | | | | | +--------+---------+ + + + documented as of this encounter Procedures + +--------+ + + + | Procedure Name | Priori | Date/Time | Associated Diagnosis | Comments | | | ty | | | | + +--------+ + + + | EXTERNAL LAB: [facility] | Routin | 11/11/2017 | | Results for this | | | e | 10:35 AM | | procedure are in the | | | | PDT | | results section. | + +--------+ + + + | COMPREHENSIVE | Routin | 11/11/2017 | | Results for this | | METABOLIC PANEL | e | 10:35 AM | | procedure are in the | | | | PDT | | results section. | + +--------+ + + + documented in this encounter Results External Lab: [facility] (11/11/2017 10:35 AM PDT) + + + + + + | Component | Value | Ref Range | Performed | Pathologist | | | | | At | Signature | + + + + + + | WBC | 7.02 | 3.80 - 11.00 | EXTERNAL | | | | | 10*3/uL | LAB | | + + + + + + | RED CELL | 4.42 | 3.70 - 5.10 | EXTERNAL | | | COUNT | | 10*6/uL | LAB | | + + + + + + | Hgb | 10.8 (L) | 11.3 - 15.5 | EXTERNAL | | | | | g/dL | LAB | | + + + + + + | Hematocrit, | 34.1 | 34.0 - 46.0 % | EXTERNAL | | | POC | | | LAB | | + + + + + + | MCV | 77.3 (L) | 80.0 - 100.0 fL | EXTERNAL | | | | | | LAB | | + + + + + + | MCH | 24.5 (L) | 27.0 - 34.0 pg | EXTERNAL | | | | | | LAB | | + + + + + + | MCHC | 31.8 (L) | 32.0 - 35.5 | EXTERNAL | | | | | g/dL | LAB | | + + + + + + | RDW-CV | 45.5 | 37 - 53 fL | EXTERNAL | | | | | | LAB | | + + + + + + | Platelet | 266 | 150 - 400 | EXTERNAL | | | Count | | 10*3/uL | LAB | | | Plasma | | | | | + + + + + + | MPV | 8.3 | fL | EXTERNAL | | | | | | LAB | | + + + + + + | Differentia | AUTOMATED | | EXTERNAL | | | l Type | | | LAB | | + + + + + + | % Segmented | 48.32 | % | EXTERNAL | | | | | | LAB | | | Neutrophils | | | | | + + + + + + | % | 41.65 | % | EXTERNAL | | | Lymphocytes | | | LAB | | + + + + + + | % Monocytes | 8.09 | % | EXTERNAL | | | | | | LAB | | + + + + + + | % | 1.39 | % | EXTERNAL | | | Eosinophils | | | LAB | | + + + + + + | % Basophils | 0.55 | % | EXTERNAL | | | | | | LAB | | + + + + + + | Absolute | 3.39 | 1.90 - 7.40 | EXTERNAL | | | Segmented | | 10*3/uL | LAB | | | Neutrophils | | | | | + + + + + + | Absolute | 2.92 | 1.00 - 3.90 | EXTERNAL | | | Lymphocytes | | 10*3/uL | LAB | | + + + + + + | Absolute | 0.57 | 0.00 - 0.80 | EXTERNAL | | | Monocytes | | 10*3/uL | LAB | | + + + + + + | Absolute | 0.10 | 0.00 - 0.50 | EXTERNAL | | | Eosinophils | | 10*3/uL | LAB | | + + + + + + | Absolute | 0.04 | 0.00 - 0.10 | EXTERNAL | [...] + + + + | RBC | POIK | | EXTERNAL | | | Morphology [...] + +---------+ + + Comprehensive Metabolic Panel (11/11/2017 10:35 AM PDT) + + + + + + | Component | Value | Ref Range | Performed | Pathologist | | | | | At | Signature | + + + + + + | Na | 137 | 135 - 145 | EXTERNAL | | | | | mmol/L | LAB | | + + + + + + | K | 4.7 | 3.5 - 4.9 | EXTERNAL | | | | | mmol/L | LAB | | + + + + + + | Cl | 102 | 99 - 109 mmol/L | EXTERNAL [...] + + + + | Glucose, | 98 | 65 - 99 mg/dL | EXTERNAL | | | Fasting | | | LAB | | + + + + + + | BUN | 25 | 8 - 25 mg/dL | EXTERNAL | | | | | | LAB | | + + + + + + | Creatinine | 1.19 (H) | 0.50 - 1.00 | EXTERNAL | | | | | mg/dL | LAB | | + + + + + + | BUN/Creatin | 21 | | EXTERNAL | | | ine Ratio | | | LAB | | + + + + + + | Calcium | 9.5 | 8.5 - 10.5 | EXTERNAL | | | | | mg/dL | LAB | | + + + + + + | Protein, | 6.6 | 6.3 - 8.2 g/dL | EXTERNAL | | | Total | | | LAB | | + + + + + + | Albumin | 4.1 | 3.3 - 4.8 g/dL | EXTERNAL | | | | | | LAB | | + + + + + + | Globulin | 2.5 | 1.3 - 4.9 g/dL | EXTERNAL | | | | | | LAB | | + + + + + + | A/G Ratio | 1.6 | 1.0 - 2.4 | EXTERNAL | | | | | | LAB | | + + + + + + | Bilirubin | 0.9 | 0.1 - 1.5 mg/dL | EXTERNAL | | | Total | | | LAB | | + + + + + + | ALP, | 110 | 35 - 115 U/L | EXTERNAL | | | External | | | LAB | | + + + + + + | AST | 18 | 10 - 45 U/L | EXTERNAL | | | | | | LAB | | + + + + + + | ALT | 21 | 10 - 65 U/L | EXTERNAL | | | | | | LAB | | + + + + + + | Estimated | 46 (L)Comment: GFR <60: | mL/min/1.73_m2 | EXTERNAL | [...]
--- OUTSIDE RECORDS SUMMARY | ~2019-01-25 | XMS | Encounter Summary ---
Demographics + + + | Address | [address] | | | [place] [address] | + + + | Home Phone | | + + + | Preferred Language | Unknown | + + + | Marital Status | Single | + + + | Anabaptism Affiliation | CAT | + + + | Race | White | + + + | Ethnic Group | Not or | + + + Author + + + | Author | [facility] | + + + | Organization | [facility] | + + + | [...] Team Providers + +------+ + | Care Dredge Hand Name | Role | Phone | + +------+ + PCP | Unavailable | + +------+ + Encounter Details +--------+ + + + + | Date | Type | Department | Care Team | Description | +--------+ + + + + | 02/27/ | Results | [facility] | Brown De Luna | | | 2003 | Only | [facility] | [address] | | | | [address] | [place], | | | | | [place] | [place] [address] | | | | | Mailcode: NEAL | [phone] | | | | | [place], [place] | | | | | | [address] | | | | | | [phone] | | | +--------+ + + + [...] | + +--------+ + + + | AFB PRELIM 1 | Routin | 02/28/2004 | | Results for this | | | e | 12:10 PM | | procedure are in the | | | | PST | | results section. | + +--------+ + + + | CULTURE, BODY FLUID | Routin | 02/28/2004 | | Results for this | | | e | 12:10 PM | | procedure are in the | | | | PST | | results section. | + +--------+ + + + | ACID FAST BACILLI, | Routin | 02/28/2004 | | Results for this | | SMEAR ONLY | e | 12:10 PM | | procedure are in the | | | | PST | | results section. | + +--------+ + + + | CULTURE, AFB (ALL | Routin | 02/28/2004 | | Results for this | | SPEC TYPES EXCEPT | e | 12:10 PM | | procedure are in the | | BLOOD) | | PST | | results section. | + +--------+ + + + | VITREOUS(OP) | Routin | 02/28/2004 | | Results for this | | | e | | | procedure are in the | | | | | | results section. | + +--------+ + + + | LENSES(OP) | Routin | 02/28/2004 | | Results for this | | | e | | | procedure are in the | | | | | | results section. | + +--------+ + + + documented in this encounter Results CULT, BODY FLUID (02/28/2004 12:10 PM PST) + + + + + + | Component | Value | Ref Range | Performed | Pathologist | | | | | At | Signature | + + + + + + | SOURCE BODY | Left Eye Vitreous fluid | | | | | SITE | | | | | + + + + + + | CULTURE | Body Fluid | | | | | RESULT | Culture | | | | | | Source...............: | | | | | | Left Eye Vitreous fluid | | | | | | RLB Gram | | | | | | Stain...........: No | | | | | | organisms seen. | | | | | | | | | | | | Rare PMN's | | | | | | Culture: | | | | | | Org(s) isolated from | | | | | | broth media only: | | | | | | Final | | | | | | ID | | | | | | Propionibacterium sp. | | | | | | | | | | | | | | | | | | Gram | | | | | | positive Prelim ID | | | | | | growth | | | | | | Preliminary [...] | + + + + + | [facility] | [address] | [place] [address] | | | LAB-MICRO | | | | + + + + + JOSAFAT RAGLAND (ALL SPECIMEN TYPES) (02/28/2004 12:10 PM PST) + + + + + + | Component | Value | Ref Range | Performed | Pathologist | | | | | At | Signature | + + + + + + | SOURCE BODY | Left Eye Vitreous fluid | | | | | SITE | | | | | + + + + + + | CULTURE | Acid Fast Bacilli | | | | | RESULT | Culture | | | | | | Source.............: | | | | | | Left Eye Vitreous fluid | | | | | | RLB FA | | | | | | Stain...........: AFB | | | | | | NOT detected. | | | | | | Preliminary 1......: | | | | | | Acid Fast Bacilli NOT | | | | | | detected at 4 weeks. | | | | | | Final Report.......: | | | | | | Acid Fast Bacilli | | | | | | NOT detected at 6 weeks. | | | | + + + + + + + + | Specimen | + + | | + + + + + + + | Performing | Address | City/State/Zipcode | Phone Number | | Organization | | | | + + + + + | [facility] | [address] | [place] [address] | | | LAB-MICRO | | | | + + + + + AFB PRELIM 1 (02/28/2004 12:10 PM PST) + + + + + + | Component | Value | Ref Range | Performed | Pathologist | | | | | At | Signature | + + + + + + | PRELIMINARY | Acid Fast Bacilli NOT | | | | | 1 | detected at 4 weeks. | | | | + + + + + + + + | Specimen | + + | | + + + + + + + | Performing | Address | City/State/Zipcode | Phone Number | | Organization | | | | + + + + + | [facility] | [address] | [place] [address] | | | LAB-MICRO | | | | + + + + + ACID FAST BACILLI, SMEAR ONLY (02/28/2004 12:10 PM PST) + + + + + + | Component | Value | Ref Range | Performed | Pathologist | | | | | At | Signature | + + + + + + | SOURCE BODY | Left Eye Vitreous fluid | | | | | SITE | | | | | + + + + + + | FLUOROCHROM | AFB NOT detected. | | | | | E STAIN | | | | | + + + + + + + + | Specimen | + + | | + + + + + + + | Performing | Address | City/State/Zipcode | Phone Number | | Organization | | | | + + + + + | [facility] | [address] | [place] [address] | | | LAB-MICRO | | | | + + + + + LENSES(OP) (02/28/2004) + + + + + + | Component | Value | Ref Range | Performed | Pathologist | | | | | At | Signature | + + + + + + | LENSES | SOURCE OF SPECIMEN:A IOL | | | | | | for ID only FINAL | | | | | | PATHOLOGIC | | | | | | DIAGNOSIS:Lens: IOL, | | | | | | posterior, explanted. | | | | | | Clinical | | | | | | History:Endophthalmitis, | | | | | | OS. IOL, OS. GROSS | | | | | | DESCRIPTION:Received one | | | | | | clear PCIOL with 2 blue | | | | | | haptics attached, | | | | | | measuring 6mm | | | | | | indiameter. Specimen | | | | | | submitted for ID | | | | | | only.Rendering | | | | | | Diagnostician: Abdi | | | | | | Kenzie Saldana | | | | | | MDPathologistElectronica | | | | | | lly Signed | | | | | | 03/13/2004Comment: | | | | | | SOURCE OF SPECIMEN: IOL | | | | | | for ID only | | | | + + + + + + + + | Specimen | + + | | + + + + + + + | Performing | Address | City/State/Zipcode | Phone Number | | Organization | | | | + + + + + | [facility] | [address] | [place] [address] | | | [facility] | [place]. | | | + + + + + VITREOUS(OP) (02/28/2004) + + + + + + | Component | Value | Ref Range | Performed | Pathologist | | | | | At | Signature | + + + + + + | VITREOUS | SOURCE OF SPECIMEN:A | | | | | | Vitreous for cell block, | | | | | | Left EyeSOURCE OF | | | | | | SPECIMEN:B Undiluted | | | | | | vitreous, left eye | | | | | | Clinical | | | | | | History:Endophthalmitis, | | | | | | OS. MICROSCOPIC | | | | | | DESCRIPTION:Microscopic | | | | | | examination reveals lens | | | | | | capsule, cortex, and | | | | | | hyperplastic | | | | | | lensepithelium. There | | | | | | are no inflammatory | | | | | | cells and no bacteria | | | | | | identified. FINAL | | | | | | PATHOLOGIC | | | | | | DIAGNOSIS:Vitreous: Lens | | | | | | materialRendering | | | | | | Diagnostician: Abdi | | | | | | Kenzie Saldana | | | | | | MDPathologistElectronica | | | | | | ethan Signed | | | | | | 03/13/2004Comment: | | | | | | SOURCE OF SPECIMEN: | | | | | | Vitreous for cell block, | | | | | | Left Eye-Undiluted | | | | | | vitreous, left eye | | | | + + + + + + + + | Specimen | + + | | + + + + + + + | Performing | Address | City/State/Zipcode | Phone Number | | Organization | | | | + + + + + | [facility] | [address] | [place] [address] | | | [facility] | [place]. | | | + + + + + documented in this encounter Visit Diagnoses Not on filedocumented in this encounter"
--- OUTSIDE RECORDS SUMMARY | ~2019-01-25 | XMS | Encounter Summary ---
Demographics + + + | Address | [address] | | | [place] [address] | + + + | Home Phone | | + + + | Preferred Language | Unknown | + + + | Marital Status | Single | + + + | Alevism Affiliation | CAT | + + + [...] Team Providers + +------+ + | Care Grain Elevator Superintendent Name | Role | Phone | + [...] | Transcriptions | + + | Interface, Adult Ministries Director In - 03/04/2005 7:29 PM PST | | [id number] | | [phone] GENEVIEVE GRAY | | | | Date: 03/18/2004 | | | | Attending Surgeon: Kenzie De Luna M.D. | | | | Crimp Setter(s): Jim Greco M.D. | | | | [...] | | JTS / HS | | [id number] / [id number] / [id number] / | | | | | | | | | | | | Electronically signed by Brown De Luna 03-25-2004 02:18:16 PM | + + documented in this encounter Visit Diagnoses Not on filedocumented in this encounter"
--- OUTSIDE RECORDS SUMMARY | ~2019-01-25 | XMS | Encounter Summary ---
Demographics + + + | Address | [address] | | | [place] [address] | + + + | Home Phone [...] + + + | Author | [facility] | | | and [place] | + + + | Organization | [facility] | | | [...] Team Providers + +------+ + | Care Geological Aide Name | Role | Phone | + +------+ + | Johnny Caldera MD | PCP | | + +------+ + Encounter Details +--------+ + + + + | Date | Type | Department | Care Team | Description | +--------+ + + + + | 10/28/ | Orders Only | [facility] | Monet Mcginnis MD | Malignant neoplasm | | 2019 | | HEMATOLOGY AND | [address] | of upper lobe, left | | | | ONCOLOGY [address] | [place] | bronchus or lung | | | | [address] | [address] | (HCC); Iron | | | | [place] | | deficiency anemia; | | | | [address] | | Chronic kidney | | | | [phone] | | disease, stage II | | [...] [place] | | | | | | [address] | | | | | | | | +--------+---------+ + + + | 08/01/ | Office | Pulmonology | Jorge, | | | 2019 | Visit | | Caitlyn Simon | | | | | | MD [address] | | | | | | [place], | | | | | | [place] [address] | | | | | | [phone] | | | | | | | [...]
--- OUTSIDE RECORDS SUMMARY | ~2019-01-25 | XMS | Encounter Summary ---
Demographics + + + | Address | [address] | | | [place] [address] | + + + | Home Phone | | + + + | Preferred Language | Unknown | + + + | Marital Status | Single | + + + | Confucianism Affiliation | 1041 | + + + | Race | Unknown | + + + | Ethnic Group | Unknown | + + + Author + + + | Author | [facility] | | | and [place] | + + + | Organization | [facility] | | | [...] Team Providers + +------+ + | Care Wall Attendant Name | Role | Phone | + +------+ + | Johnny Caldera MD | PCP | | + +------+ + Reason for Visit +---------+ + | Reason | Comments | +---------+ + | Results | 11/10/18 | +---------+ + Encounter Details +--------+ + + + + | Date | Type | Department | Care Team | Description | +--------+ + + + + | 11/15/ | Documentati | [facility] | Andrea, | Results (11/10/18) | | 2019 | on | NEPHROLOGY [facility] | Ezekiel Giron | | | | | [address] | Board Catcher | | | | | [address] [place], [place] | | | | | | [address] | | | | | | [phone] | | | +--------+ + + + [...] 2019 | Visit | | [address] | | | | | | [place] | | | | | | [address] | | | | | | | | +--------+---------+ + + + | 08/01/ | Office | Pulmonology | Jorge, | | | 2019 | Visit | | Caitlyn Simon | | | | | | MD [address] | | | | | | [place], | | | | | | [place] [address] | | | | | | [phone] | | | | | | | | +--------+---------+ + + + documented as of this encounter Procedures + +--------+ + + + | Procedure Name | Priori | Date/Time | Associated Diagnosis | Comments | | | ty | | | | + +--------+ + + + | BASIC METABOLIC | Routin | 11/10/2018 | | Results for this | | PANEL | e | 11:17 AM | | procedure are in the | | | | PDT | | results section. | + +--------+ + + + documented in this encounter Results Basic Metabolic Panel (11/10/2018 11:17 AM PDT) + +---------+ + + + | Component | Value | Ref Range | Performed | Pathologist | | | | | At | Signature | + +---------+ + + + | Na | 137 | 132 - 143 | | | | | | mmol/L | | | + +---------+ + + + | K | 4.3 | 3.6 - 5.1 | | | | | | mmol/L | | | + +---------+ + + + | Cl | 100 | 95 - 112 mmol/L | | | + +---------+ + + + | CO2 | 29 | 19 - 31 mmol/L | | | + +---------+ + + + | Anion Gap | 12 | 7 - 251 mmol/L | | | + +---------+ + + + | Glucose | 106 (A) | 70 - 100 mg/dL | | | + +---------+ + + + | Calcium | 10.0 | 8.5 - 10.3 | | | + +---------+ + + + | BUN | 24 (A) | 6 - 23 mg/dL | | | + +---------+ + + + | Creatinine | 1.05 | 0.70 - 1.25 | | | + +---------+ + + + | GFR | 53 (A) | 60 - 140 | | | | ESTIMATE | | | | | + +---------+ + + + | BUN/Creatin | 22.9 | 6.0 - 28.6 | | | | ine Ratio | | | | | + +---------+ + + + + + | Specimen | + + | Blood | + + documented in this encounter Visit Diagnoses Not on filedocumented in this encounter"
--- OUTSIDE RECORDS SUMMARY | ~2019-01-25 | XMS | Encounter Summary ---
Demographics + + + | Address | [address] | | | [place] [address] | + + + | Home Phone | | + + + | Preferred Language | Unknown | + + + | Marital Status | Single | + + + | Baptist Affiliation | 1041 | + + + | Race | Unknown | + + + | Ethnic Group | Unknown | + + + Author + + + | Author | [facility] | | | and [place] | + + + | Organization | [facility] | | | [...] Team Providers + +------+ + | Care Fruit Or Nut Crops Farm Manager Name | Role | Phone | + +------+ + | Johnny Caldera MD | PCP | | + +------+ + Encounter Details +--------+ + + + + | Date | Type | Department | Care Team | Description | +--------+ + + + + | 10/25/ | Orders Only | [facility] | SachinNoel jackson, | | | 2019 | | [place]PRHOLOGY [place] | CASH APPLICATIONS REPRESENTATIVE [address] | | | | | [address] | [address] | | | | | [address] [place], [place] | [place] | | | | | [address] | [address] | | | | | [phone] | [phone] | | | | | | | [...] [place] | | | | | | [address] | | | | | | | | +--------+---------+ + + + | 08/01/ | Office | Pulmonology | Jorge, | | | 2019 | Visit | | Caitlyn Simon | | | | | | MD [address] | | | | | | [place], | | | | | | [place] [address] | | | | | | [phone] | | | | | | | [...] | | | LAB | | | [facility] | | | | | + +---------+ [...]
--- OUTSIDE RECORDS SUMMARY | ~2019-01-25 | XMS | Encounter Summary ---
Demographics + + + | Address | [address] | | | [place] [address] | + + + | Home Phone | | + + + | Preferred Language | Unknown | + + + | Marital Status | Single | + + + | Buddhism Affiliation | 1041 | + + + | Race | Unknown | + + + | Ethnic Group | Unknown | + + + Author + + + | Author | [facility] | | | and [place] | + + + | Organization | [facility] | | [...] Team Providers + +------+ + | Care Steaming Cabinet Tender Name | Role | Phone | + +------+ + | Johnny Caldera MD | PCP | | + +------+ + Encounter Details +--------+ + + + + | Date | Type | Department | Care Team | Description | +--------+ + + + + | 10/26/ | Orders Only | [facility] | Conversion | | | 2019 | | CONVERSION [address] | Transaction, | | | | | [address] | Provider Unknown | | | | | [place], [place] | [phone] | | | | | [address] | | | | | | [phone] | | | +--------+ + + + [...] [place] | | | | | | [address] | | | | | | | | +--------+---------+ + + + | 08/01/ | Office | Pulmonology | Jorge, | | | 2019 | Visit | | Caitlyn Simon, | | | | | | MD [address] | | | | | | [place], | | | | | | [place] [address] | | | | | | [phone] | | | | | | | | +--------+---------+ + + + documented as of this encounter Visit Diagnoses Not on filedocumented in this encounter"
--- OUTSIDE RECORDS SUMMARY | ~2019-01-25 | XMS | Encounter Summary ---
Demographics + + + | Address | [address] | | | [place] [address] | + + + | Home Phone | | + + + | Preferred Language | Unknown | + + + | Marital Status | Single | + + + | Catholic Affiliation | 1041 | + + + | Race | Unknown | + + + | Ethnic Group | Unknown | + + + Author + + + | Author | [facility] [facility] (Historical as of | | | 10-29-18) | + + + | Organization | [facility] [employer] (Historical as of | | | 10-29-18) [...] Team Providers + +------+ + | Care Second Vp Hr Assessment Name | Role | Phone | + +------+ + | Johnny Caldera MD | PCP | | + +------+ + Reason for Visit + + + | Reason | Comments | + + + | Labs Only | 10/25/18 | + + + Encounter Details +--------+ + + + + | Date | Type | Department | Care Team | Description | +--------+ + + + + | 10/26/ | Documentati | [facility] | Andrea | Polly Only (10/25/18) | | 2019 | on Only | [address] | [address] | | | | | [facility] [address] | | | | | | [place] [address] | | | | | | [phone] | | | +--------+ + + + [...] section. | + +--------+ + + + in this encounter Results Uric acid (10/25/2018 3:09 PM) + +---------+ + + | Component | Value | Ref Range | Performed At | + +---------+ + + | URIC ACID | 6.8 (A) | 2.3 - 6.6 | | + +---------+ + + + + | Specimen | + + | Blood | + + in this encounter Visit Diagnoses Not on filein this encounter"
--- OUTSIDE RECORDS SUMMARY | ~2019-01-25 | XMS | Encounter Summary ---
Demographics + + + | Address | [address] | | | [place] [address] | + + + | Home Phone | | + + + | Preferred Language | Unknown | + + + | Marital Status | Single | + + + | Tenriism Affiliation | 1041 | + + + | Race | Unknown | + + + | Ethnic Group | Unknown | + + + Author + + + | Author | [facility] | | | and [place] | + + + | Organization | [facility] | | | [...] Team Providers + +------+ + | Care Area Attendant Name | Role | Phone | + +------+ + PCP | Unavailable | + +------+ + Encounter Details +--------+ + + + + | Date | Type | Department | Care Team | Description | +--------+ + + + + | 10/04/ | Orders Only | [facility] | Conversion | | | 2018 | | NEPHROLOGY [facility] | Transaction, | | | | | [address] | Provider Unknown | | | | | [address] [place] | | | | | | [address] | (Fax) | | | | | [phone] | | | +--------+ + + + [...] [place] | | | | | | [address] | | | | | | | | +--------+---------+ + + + | 08/01/ | Office | Pulmonology | Jorge, | | | 2019 | Visit | | Caitlyn Simon, | | | | | | MD [address] | | | | | | [place], | | | | | | [place] [address] | | | | | | [phone] | | | | | | | [...] - 1.030 | EXTERNAL | | | [place] | | | LAB | | + [...] | | | LAB | | | [facility] | | | | | + +---------+ [...]
--- OUTSIDE RECORDS SUMMARY | ~2019-01-25 | XMS | Encounter Summary ---
Demographics + + + | Address | [address] | | | [place] [address] | + + + | Home Phone | | + + + | Preferred Language | Unknown | + + + | Marital Status | Single | + + + | Scientology Affiliation | 1041 | + + + | Race | Unknown | + + + | Ethnic Group | Unknown | + + + Author + + + | Author | [facility] | | | and [place] | + + + | Organization | [facility] | | | and [...] Team Providers + +------+ + | Care Immigration Services Officer Name | Role | Phone | + +------+ + | Johnny Caldera MD | PCP | | + +------+ + Encounter Details +--------+ + + + + | Date | Type | Department | Care Team | Description | +--------+ + + + + | 12/08/ | Orders Only | [facility] | Conversion | | | 2015 | | [facility]OLOGY [place] [facility] | Transaction, | | | | | [address] | Provider Unknown | | | | | [address] [place], [place] | [phone] | | | | | [address] | | | | | | [phone] | | | +--------+ + + + [...] 2019 | Visit | | [address] | | | | | | [place] | | | | | | [address] | | | | | | | | +--------+---------+ + + + | 08/01/ | Office | Pulmonology | Jorge, | | | 2019 | Visit | | Caitlyn Simon, | | | | | | MD [address] | | | | | | [place], | | | | | | [place] [address] | | | | | | [phone] | | | | | | | | +--------+---------+ + + + documented as of this encounter Procedures + +--------+ + + + | Procedure Name | Priori | Date/Time | Associated Diagnosis | Comments | | | ty | | | | + +--------+ + + + | EXTERNAL LAB: CBC | Routin | 12/09/2015 | | Results for this | | | e | 7:53 AM | | procedure are in the | | | | PDT | | results section. | + +--------+ + + + | URINALYSIS, | Routin | 12/09/2015 | | Results for this | | MICROSCOPIC ONLY | e | 7:53 AM | | procedure are in the | | | | PDT | | results section. | + +--------+ + + + | URIC ACID | Routin | 12/09/2015 | | Results for this | | | e | 7:53 AM | | procedure are in the | | | | PDT | | results section. | + +--------+ + + + | MAGNESIUM | Routin | 12/09/2015 | | Results for this | | | e | 7:53 AM | | procedure are in the | | | | PDT | | results section. | + +--------+ + + + | BASIC METABOLIC | Routin | 12/09/2015 | | Results for this | | PANEL | e | 7:53 AM | | procedure are in the [...] in this encounter Results Urinalysis, Microscopic Only (12/09/2015 7:53 AM PDT) + + + + + [...] + + + + | Specific | 1.003 (A) | 1.005 - 1.030 | EXTERNAL | | | [place] | | | LAB | | + [...] | + +---------+ + + External Lab: ADRIENNE (12/09/2015 7:53 AM PDT) + + + + + + | Component | Value | Ref Range | Performed | Pathologist | | | | | At | Signature | + + + + + + | WBC | 8.2 | 4.5 - 11.0 10 | EXTERNAL | | | | | | LAB | | + + + + + + | RED CELL | 5.04 | 3.8 - 5.1 10 | EXTERNAL | | | COUNT | | | LAB | | + + + + + + | Hgb | 12.6 | 12.0 - 16.0 | EXTERNAL | | | | | g/dL | LAB | | + + + + + + | Hematocrit, | 39.9 | 35 - 45 % | EXTERNAL | | | POC | | | LAB | | + + + + + + | MCV | 79.3 (A) | 81 - 99 fL | EXTERNAL | | | | | | LAB | | + + + + + + | MCH | 25 (A) | 27 - 33 pg | EXTERNAL | | | | | | LAB | | + + + + + + | MCHC | 32 | 30 - 36 g/dL | EXTERNAL | | | | | | LAB | | + + + + + + | Platelet | 213 | 140 - 440 K/ L | EXTERNAL | | | Count | | | LAB | | | Plasma | | | | | + + + + + + | RDW-CV | | % | EXTERNAL | | [...] | + +---------+ + + Uric Acid (12/09/2015 7:53 AM PDT) + +---------+ + + + | Component | Value | Ref Range | Performed | Pathologist | | | | | At | Signature | + +---------+ + + + | Uric Acid | 9.4 (A) | 2.3 - 6.6 | EXTERNAL [...] | | + +---------+ + + Magnesium (12/09/2015 7:53 AM PDT) + +-------+ + + + [...] + +---------+ + + Basic Metabolic Panel (12/09/2015 7:53 AM PDT) + +---------+ + + + | Component | Value | Ref Range | Performed | Pathologist | | | | | At | Signature | + +---------+ + + + | Glucose, | 117 (A) | 70 - 100 mg/dL | EXTERNAL | | | Fasting | | | LAB | | + +---------+ + + + | BUN | 23 | 6 - 23 mg/dL | EXTERNAL | | | | | | LAB | | + +---------+ + + + | Creatinine | 0.94 | 0.70 - 1.25 | EXTERNAL | | | | | mg/dL | LAB | | + +---------+ + + + | BUN/Creatin | 24.5 | 6.0 - 28.6 | EXTERNAL | | | ine Ratio | | | LAB | | + +---------+ + + + | Calcium | 9.9 | 8.4 - 10.2 | EXTERNAL | | | | | mg/dL | LAB | | + +---------+ + + + | Na | 137 | 132 - 143 | EXTERNAL | | | | | mmol/L | LAB | | + +---------+ + + + | K | 4.1 | 3.6 - 5.1 | EXTERNAL | [...] + + + | Anion Gap | 16.1 | 7 - 21 mmol/L | EXTERNAL [...] | | | + +---------+ + + Culture, Urine (12/09/2015 12:00 AM PDT) + + | Specimen | + + | Urine specimen | | (specimen) | + + + + + | Narrative | Performed At | + + + | Specimen Description Urine CULTURE | EXTERNAL LAB | | Positive Escherichia Coli | | | REPORT STATUS Final | | + + + + +---------+ + + | Performing | Address | City/State/Zipcode | Phone Number | | Organization | | | | + +---------+ + + | EXTERNAL LAB | | | | + +---------+ + + documented in this encounter Visit Diagnoses Not on filedocumented in this encounter"
--- OUTSIDE RECORDS SUMMARY | ~2019-01-25 | XMS | Encounter Summary ---
Demographics + + + | Address | [address] | | | [place] [address] | + + + | Home Phone | | + + + | Preferred Language | Unknown | + + + | Marital Status | Single | + + + | Druze Affiliation | CAT | + + + | Race | White | + + + | Ethnic Group | Not or | + + + Author + + + | Author | [facility] | + + + | Organization | [facility] | + + + | Address [...] Providers + +------+ + | Care Senior Logistics Manager Name | Role | Phone | + +------+ + PCP | Unavailable | + +------+ + Encounter Details +--------+ + + + + | Date | Type | Department | Care Team | Description | +--------+ + + + + | 05/25/ | Document-Sc | UNKNOWN DEPARTMENT | Unknown . | | | 2013 | anned | [address] | | | | | | [address] | | | | | | [place], [place] | | | | | | [address] | | | +--------+ + + + [...]
--- OUTSIDE RECORDS SUMMARY | ~2019-01-25 | XMS | Encounter Summary ---
Demographics + + + | Address | [address] | | | [place] [address] | + + + | Home Phone | | + + + | Preferred Language | Unknown | + + + | Marital Status | Single | + + + | Mosque Affiliation | 1041 | + + + | Race | Unknown | + + + | Ethnic Group | Unknown | + + + Author + + + | Author | [facility] | | | and [place] | + + + | Organization | [facility] | | | and [...] Team Providers + +------+ + | Care Cook Apprentice Name | Role | Phone | + +------+ + | Johnny Caldera MD | PCP | | + +------+ + Reason for Visit +--------+ + | Reason | Comments | +--------+ + | LABS | | +--------+ + Encounter Details +--------+ + + + + | Date | Type | Department | Care Team | Description | +--------+ + + + + | 12/23/ | Telephone | [facility] | Monet Mcginnis MD | LABS | | 2019 | | HEMATOLOGY AND | [address] | | | | | ONCOLOGY [address] | [place], [place] | | | | | [address] | [address] | | | | | [place] | | | | | | [address] | | | | | | [phone] | | | +--------+ + + + [...] | | 2019 | Visit | | [address] | | | | | | [place] | | | | | | [address] | | | | | | | | +--------+---------+ + + + | 08/01/ | Office | Pulmonology | Jorge | | | 2019 | Visit | | Caitlyn Simon | | | | | [address] | | | | | | [place], | | | | | | [place] [address] | | | | | | [phone] | | | | | | | | +--------+---------+ + + + + +------+--------+ + + | Name | Type | Priori | Associated Diagnoses | Order Schedule | | | | ty | | | + +------+--------+ + + | CBC with | Lab | STAT | Malignant neoplasm | 1 Occurrences | | Differential | | | of upper lobe of | starting 12/26/2018 | | | | | left lung (HCC) | until 12/24/2019 | | | | | Iron deficiency | | | | | | anemia, unspecified | | | | | | iron deficiency | | | | | | anemia type | | + +------+--------+ + + | Comprehensive | Lab | STAT | Malignant neoplasm | 1 Occurrences | | Metabolic Panel | | | of upper lobe of | starting 12/26/2018 | | | | | left lung (HCC) | until 12/24/2019 | | | | | Iron deficiency | | | | | | anemia, unspecified | | | | | | iron deficiency | | | | | | anemia type | | + +------+--------+ + + | Ferritin | Lab | STAT | Malignant neoplasm | 1 Occurrences | | | | | of upper lobe of | starting 12/26/2018 | | | | | left lung (HCC) | until 12/24/2019 | | | | | Iron deficiency | | | | | | anemia, unspecified | | | | | | iron deficiency | | | | | | anemia type | | + +------+--------+ + + | Iron and Iron | Lab | STAT | Malignant neoplasm | Expected: | | Binding Capacity | | | of upper lobe of | 12/26/2018, Expires: | | | | | left lung (HCC) | 12/24/2019 | | | | | Iron deficiency | | | | | | anemia, unspecified | | | | | | iron deficiency | | | | | | anemia type | | + +------+--------+ + + documented as of this encounter Visit Diagnoses + + | Diagnosis | + + | Malignant neoplasm of upper lobe of left lung (HCC) - Primary | + + | Iron deficiency anemia, unspecified iron deficiency anemia type | + + documented in this encounter"
--- OUTSIDE RECORDS SUMMARY | ~2019-01-25 | XMS | Encounter Summary ---
Demographics + + + | Address | [address] | | | [place] [address] | + + + | Home Phone | | + + + | Preferred Language | Unknown | + + + | Marital Status | Single | + + + | Confucianist Affiliation | CAT | + + + | Race | White | + + + | Ethnic Group | Not or | + + + Author + + + | Author | [facility] | + + + | Organization | [facility] | + + + | Address [...] Team Providers + +------+ + | Care Station Attendant Name | Role | Phone | [...] [address] | | | | | | [place], [place] | | | | | | [address] | | | +--------+ + + + [...]
--- OUTSIDE RECORDS SUMMARY | ~2019-01-25 | XMS | Encounter Summary ---
Demographics + + + | Address | [address] | | | [place] [address] | + + + | Home Phone | | + + + | Preferred Language | Unknown | + + + | Marital Status | Single | + + + | Rastafari Affiliation | 1041 | + + + | Race | Unknown | + + + | Ethnic Group | Unknown | + + + Author + + + | Author | [facility] | | | and [place] | + + + | Organization | [facility] | | | and [...] Team Providers + +------+ + | Care Watch Supervisor Name | Role | Phone | [...] Provider Unknown | | | | | [place], [place] | [phone] | | | | | [address] | | | | | | [phone] | | | +--------+ + + + [...] [place] | | | | | | [address] | | | | | | | | +--------+---------+ + + + | 08/01/ | Office | Pulmonology | Jorge, | | | 2019 | Visit | | Caitlyn Simon, | | | | | | MD [address] | | | | | | [place], | | | | | | [place] [address] | | | | | | [phone] | | | | | | | | +--------+---------+ + + + documented as of this encounter Visit Diagnoses Not on filedocumented in this encounter"
--- OUTSIDE RECORDS SUMMARY | ~2019-01-25 | XMS | Encounter Summary ---
Demographics + + + | Address | [address] | | | [place] [address] | + + + | Home Phone [...] Team Providers + +------+ + | Care Replanting Machine Crew Name | Role | Phone | + +------+ + | Jim Wiley MD | PCP | | + +------+ + Encounter Details +--------+ + + + + | Date | Type | Department | Care Team | Description | +--------+ + + + + | 02/21/ | Outside | Neurophysiology | Jim Wiley | | | 2014 | Referral | EEG at [facility] [address] | | | | Order | [facility] | [facility] | | | | | Mailcode: [id number] | CLINIC [address] [facility] | | | | | [facility] | [place] [address] | | | | | [place], [place] | [phone] | | | | | [address] | | | | | | [phone] | | | +--------+ + + + [...] 1955 Medical | | | Record Number: [id number] Date of Test: 02/21/2015 Place of | | | Service: [facility] Department: EEG [facility] - [id number] ROUTINE | | | EEG Indication: 59 year old woman with 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
--- OUTSIDE RECORDS SUMMARY | ~2019-01-25 | XMS | Encounter Summary ---
Demographics + + + | Address | [address] | | | [place] [address] | + + + | Home Phone | | + + + | Preferred Language | Unknown | + + + | Marital Status | Single | + + + | Roman Catholic Affiliation | CAT | + + [...] Team Providers + +------+ + | Care Safety Instructor Name | Role | Phone | + +------+ + PCP | Unavailable | + +------+ + Encounter Details +--------+ + + + + | Date | Type | Department | Care Team | Description | +--------+ + + + + | 02/27/ | Orders Only | | Record, Operation | | | 2004 | | | | | +--------+ + [...] + + | OPERATION RECORD | | 02/28/2004 | | Results for this | | | | | | procedure are in the | | | | | | results section. | + +--------+ + + + documented in this encounter Results OPERATION RECORD (02/28/2004) + + | Transcriptions | + + | Interface, Cable Engineer Outside Plant In - 03/04/2005 7:29 PM PST | | [id number] | | [id number] GENEVIEVE GRAY | | | | Date: 02/28/2004 | | | | Attending Surgeon: Kenzie De Luna M.D. | | | | Daycare Provider(s): Jim Tyson M.D. | | Noel Araujo M.D. 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 | | | | Procedures Performed: | | Pars plana vitrectomy and intraocular lens explant and endolaser of the | | left eye. | | | | Anesthesia: | | | | Complications: | | The posterior infusion cannula was inserted into the subchoroidal space | | leading to a choroidal detachment. | | | | Estimated Blood Loss: | | 2 mL. 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 She had a vitrectomy and intravitreal antibiotic | | injection and did well after that regaining good vision; however, the | | endophthalmitis or panuveitis came back necessitating the surgery today. | | The procedure permit, a full discussion of the procedure in its entirety as | | well as the hazards, risks, benefits, and possible complications was had | | with the patient prior to the day of surgery. The patient voiced | | understanding and agreed to proceed. A signed consent is in the chart. | | | | Procedure: | | The patient was brought to the Operating Room where a surgical pause was | | performed in which all parties present reviewed on the patient's name, | | diagnosis, surgery to be performed, and the eye on which it was to be | | performed. A retrobulbar injection of a 1:1 mixture of 0.75% Marcaine and | | 2% lidocaine was given via an Packer needle. Akinesia and anesthesia | | were obtained. The patient was then prepped and draped in the normal | | sterile fashion, and a lid speculum was placed into the left eye. A | | temporal limbal peritomy was performed as well as a superonasal limbal | | peritomy. Cautery was performed to stop any bleeding episcleral vessels, 3 | | mm was measured posterior to the limbus in the inferotemporal quadrant, and | | an MVR blade was used to make a pars plana incision at this site. A | | posterior infusion cannula was inserted and sutured to the globe with a 7-0 | | Vicryl suture, 3 mm was measured posterior to the limbus superotemporally | | and superonasally, and an MVR blade was used to make pars plana incisions | | at these sites. An undiluted vitreous sample that included part of the | | superior capsule which was opacified and appeared to be a pocket of | | inflammatory debris. Following the undiluted sample a light pipe and | | vitreous cutter were inserted; | | however, the vitreous cutter was noted to be in the suprachoroidal space, | | so | | the posterior infusion was removed and was replaced with 6-mm posterior | | infusion cannula that | | could easily be seen in the vitreous cavity. The light pipe and vitreous | | cutter were then reinserted into the eye in the vitreous space and a pars | | plana vitrectomy was performed. The patient then had a previous pars plana | | vitrectomy so only the residual vitreous was left. However, there was | | significant amount of vitreous debris and vitreous hemorrhage. A superior | | limbal peritomy was performed and a crescent blade was used to make a | | half-thickness scleral groove with a 7-mm cord length in the superior | | sclera approximately 1 mm posterior to the limbus. At the base of this | | scleral groove, a crescent blade was used to make a scleral tunnel into | | clear cornea for the full 7-mm length of the incision. A keratome was then | | used to enter the anterior chamber at the leading edge of the scleral | | tunnel and the anterior chamber was filled with viscoelastic. The keratome | | was used to extend the incision into the anterior chamber to the full 7-mm | | length, and the lens was explanted by using long curved forceps to grasp | | the junction of the haptic and the optic and removed the lens through the | | anterior chamber through the superior incision. Four 10-0 nylon sutures | | were placed at the superior wound and then further pars plana vitrectomy | | was performed to remove residual capsular material. Plugs were then placed | | in the sclerotomy and a complete inspection of the retina with indirect | | ophthalmoscopy was performed. No tears or holes were found; however, there | | was a residual choroidal detachment and some retinal draping. The | | sclerotomies were then sutured closed using 6-0 Vicryl suture. The | | posterior infusion cannula was removed and that sclerotomy site closed with | | 6-0 Vicryl suture. Prior to the conjunctival closure, intravitreal | | injections of vancomycin and amikacin were performed. The conjunctiva was | | then sutured closed with 6-0 plain gut suture and sub-Tenon's injection of | | Kenalog as well as subconjunctival injections of Zinacef and Decadron were | | performed. The lid speculum was removed, and the eye was dressed with | | erythromycin ointment, an eye pad, and an eye shield. The patient was | | instructed to return the following day for postoperative examination. The | | patient was instructed not to lift anything heavy, not to get water into | | the eye. Prior to the additional procedure, prior to the pars plana | | vitrectomy, a paracentesis was made into the anterior chamber and the | | anterior chamber was filled with viscoelastic. Also, 4 small incisions | | into the anterior chamber were made using a 25-gauge needle and iris hooks | | were inserted into these to stretch the iris. | | | | Dr. De Luna was present for all of the durbin elements of this case and in fact | | performed nearly the entire case. | | | | | | | | | | Jim Tyson M.D. | | | | | | | | Kenzie De Luna M.D. | | | | TS / HS | | [id number] / [id number] / [id number] / | | | | | | | | | | | | Electronically signed by Brown De Luna 03-25-2004 02:17:15 PM | + + documented in this encounter Visit Diagnoses Not on filedocumented in this encounter"
--- OUTSIDE RECORDS SUMMARY | ~2019-01-25 | XMS | Encounter Summary ---
Demographics + + + | Address | [address] | | | [place] [address] | + + + | Home Phone [...] Author + + + | Author | [facility] | + + + | Organization | [facility] | + + + | Address | [...] Team Providers + +------+ + | Care Tennis Ball Cover Cementer Name | Role | Phone | + [...] | 2005 | Activity | [facility] | [address] | | | | | [address] Mailcode: [id number] | Blvd [place], [place] | | | | | [place], [place] | [address] | | | | | [address] | [phone] | | | | | [phone] | | | +--------+ + + + [...]
--- OUTSIDE RECORDS SUMMARY | ~2019-01-25 | XMS | Encounter Summary ---
Demographics + + + | Address | [address] | | | [place] [address] | + + + | Home Phone [...] + + + | Author | [facility] | + + + | Organization | [facility] | + + + | Address [...] Team Providers + +------+ + | Care Major Account Representative Name | Role | Phone | + +------+ + PCP | Unavailable | + +------+ + Encounter Details +--------+ + + + + | Date | Type | Department | Care Team | Description | +--------+ + + + + | 05/23/ | Results | [facility] | Jim Greco MD | | | 2003 | Only | [facility] | [address] | | | | | [address] [place], [place] | | | | | [place] | [address] | | | | | Mailcode: [place] | [phone] | | | | | [place], [place] | | | | | | [address] | | | | | | [phone] | | | +--------+ + + + [...] + + + | [facility] | [address] | [place] [address] | | | LAB-MICRO | | | | + + + + + documented in this encounter Visit Diagnoses Not on filedocumented in this encounter"
--- OUTSIDE RECORDS SUMMARY | ~2019-01-25 | XMS | Encounter Summary ---
Demographics + + + | Address | [address] | | | [place] [address] | + + + | Home Phone | | + + + | Preferred Language | Unknown | + + + | Marital Status | Single | + + + | Jehovah'S Witness Affiliation | 1041 | + + + | Race | Unknown | + + + | Ethnic Group | Unknown | + + + Author + + + | Author | [facility] | | | and [place] | + + + | Organization | [facility] | | | and [...] Team Providers + +------+ + | Care Structural Analysis Engineer Name | Role | Phone | + +------+ + PCP | Unavailable | + +------+ + Encounter Details +--------+ + + + + | Date | Type | Department | Care Team | Description | +--------+ + + + + | 03/12/ | Orders Only | [facility] | Noel Bautista, | | | 2016 | | NEPRHOLOGY [place] | DENTAL PROSTHETIST [address] | | | | | [address] | [place] | | | | | [address] [place], [place] | [place] | | | | | [address] | [address] | | | | | [phone] | [phone] | | | | | | | [...] [place] | | | | | | [address] | | | | | | | | +--------+---------+ + + + | 08/01/ | Office | Pulmonology | Jorge, | | | 2019 | Visit | | Caitlyn Simon, | | | | | | MD [address] | | | | | | [place], | | | | | | [place] [address] | | | | | | [phone] | | | | | | | | +--------+---------+ + + + documented as of this encounter Procedures + +--------+ + + + | Procedure Name | Priori | Date/Time | Associated Diagnosis | Comments | | | ty | | | | + +--------+ + + + | EXTERNAL LAB: CBC | Routin | 03/12/2017 | | Results for this | | | e | 12:00 AM | | procedure are in the | | | | PST | | results section. | + +--------+ + + + | VITAMIN D, | Routin | 03/12/2017 | | Results for this | | DEFICIENCY SCREEN | e | 12:00 AM | | procedure are in the | | (25-HYDROXY) | | PST | | results section. | + +--------+ + + + | URIC ACID | Routin | 03/12/2017 | | Results for this | | | e | 12:00 AM | | procedure are in the | | | | PST | | results section. | + +--------+ + + + | PARATHYROID HORMONE, | Routin | 03/12/2017 | | Results for this | | INTACT | e | 12:00 AM | | procedure are in the | | | | PST | | results section. | + +--------+ + + + | MAGNESIUM | Routin | 03/12/2017 | | Results for this | | | e | 12:00 AM | | procedure are in the | | | | PST | | results section. | + +--------+ + + + | RENAL FUNCTION PANEL | Routin | 03/12/2017 | | Results for this | | | e | 12:00 AM | | procedure are in the | | | | PST | | results section. | + +--------+ + + + documented in this encounter Results Vitamin D, Deficiency Screen (25-Hydroxy) (03/12/2017 12:00 AM PST) + +--------+ + + + | Component | Value | Ref Range | Performed | Pathologist | | | | | At | Signature | + +--------+ + + + | Vit D, | 23 (A) | 1.7 - 2.5 | EXTERNAL | | | 25-Hydroxy | | | LAB | | + +--------+ + + + + + | Specimen | + + | Blood specimen | | (specimen) | + + + +---------+ + + | Performing | Address | City/State/Zipcode | Phone Number | | Organization | | | | + +---------+ + + | EXTERNAL LAB | | | | + +---------+ + + External Lab: CBC (03/12/2017 12:00 AM PST) + + + + + + | Component | Value | Ref Range | Performed | Pathologist | | | | | At | Signature | + + + + + + | WBC | 12.4 (A) | 4.5 - 11.0 10 | EXTERNAL | | | | | | LAB | | + + + + + + | RED CELL | 4.66 | 3.8 - 5.1 10 | EXTERNAL | | | COUNT | | | LAB | | + + + + + + | Hgb | 12.0 | 12.0 - 16.0 | EXTERNAL | | | | | g/dL | LAB | | + + + + + + | Hematocrit, | 37.4 | 35 - 45 % | EXTERNAL | | | POC | | | LAB | | + + + + + + | MCV | 80.3 (A) | 81 - 99 fL | [...] + + + + | Platelet | 217 | 140 - 440 K/ L | EXTERNAL | | | Count | | | LAB | | | Plasma | | | | | + + + + + + | RDW-CV | 16.1 (A) | 10.5 - 15.0 % | [...] + + + | % Segmented | 57.6 | 39 - 80 % | EXTERNAL | | | | | | LAB | | | Neutrophils | | | | | + + + + + + | % | 30.9 | 24 - 44 % | EXTERNAL | | | Lymphocytes | | | LAB | | + + + + + + | % Monocytes | 9.7 | 0 - 12 % | EXTERNAL | | | | | | LAB | | + + + + + + | % | 0.8 | 0 - 6 % | EXTERNAL | | | Eosinophils | | | LAB | | + + + + + + | % Basophils | 1.0 | 0 - 2 % | EXTERNAL [...] | + +---------+ + + Uric Acid (03/12/2017 12:00 AM PST) + +---------+ + + + | Component | Value | Ref Range | Performed | Pathologist | | | | | At | Signature | + +---------+ + + + | Uric Acid | 8.4 (A) | 2.3 - 6.6 | EXTERNAL [...] + +---------+ + + Parathyroid Hormone, Intact (03/12/2017 12:00 AM PST) + + + + + + | Component | Value | Ref Range | Performed | Pathologist | | | | | At | Signature | + + + + + + | PTH INTACT | 87.42 (A) | 15 - 65 pg/mL | EXTERNAL | | | | | | LAB | | + + + + + + + + | Specimen | + + | Blood specimen | | (specimen) | + + + + + | Narrative | Performed At | + + + | CALCIUM - 9.5 - 8.4 - 10.2 | EXTERNAL LAB | + + + + +---------+ + + | Performing | Address | City/State/Zipcode | Phone Number | | Organization | | | | + +---------+ + + | EXTERNAL LAB | | | | + +---------+ + + Magnesium (03/12/2017 12:00 AM PST) + +-------+ + + + | Component | Value | Ref Range | Performed | Pathologist | | | | | At | Signature | + +-------+ + + + | Magnesium | 2.1 | 1.7 - 2.5 mg/dL | EXTERNAL [...] + +---------+ + + Renal Function Panel (03/12/2017 12:00 AM PST) + +---------+ + + + | Component | Value | Ref Range | Performed | Pathologist | | | | | At | Signature | + +---------+ + + + | Glucose, | 119 (A) | 70 - 100 mg/dL | EXTERNAL | | | Fasting | | | LAB | | + +---------+ + + + | BUN | 26 (A) | 6 - 23 mg/dL | EXTERNAL | | | | | | LAB | | + +---------+ + + + | Creatinine | 1.05 | 0.70 - 1.25 | EXTERNAL | | | | | mg/dL | LAB | | + +---------+ + + + | PHOSPHORUS | | mg/dL | EXTERNAL | | | | | | LAB | | + +---------+ + + + | Albumin | 3.8 | 3.5 - 5.0 | EXTERNAL | [...] +---------+ + + + | Cl | 98 | 95 - 112 mmol/L | EXTERNAL | | | | | | LAB | | + +---------+ + + + | CO2 | 28 | 19 - 31 mmol/L | EXTERNAL | | | | | | LAB | | + +---------+ + + + | Anion Gap | 15.2 | 7 - 21 mmol/L | EXTERNAL | | | | | | LAB | | + +---------+ + + + | eGFR if not | | | EXTERNAL | | | | | | LAB | | | FAROESE | | | | | + +---------+ + + + | Phosphorus, | 4.4 | 2.5 - 5.0 | EXTERNAL | | | Inorganic | | | LAB | | + +---------+ + + + | BUN/Creatin | 24.8 | 6.0 - 28.6 | EXTERNAL | | | ine Ratio | | | LAB | | + +---------+ + + + | Calcium | 9.5 | 8.4 - 10.2 | EXTERNAL | | | | | mg/dL | LAB | | + +---------+ + + + | Estimated | 53 | mg/dL | EXTERNAL | | | [...]
--- OUTSIDE RECORDS SUMMARY | ~2019-01-25 | XMS | Encounter Summary ---
Demographics + + + | Address | [address] | | | [place] [address] | + + + | Home Phone | | + + + | Preferred Language | Unknown | + + + | Marital Status | Single | + + + | Christianity Affiliation | 1041 | + + + | Race | Unknown | + + + | Ethnic Group | Unknown | + + + Author + + + | Author | [facility] | | | and [place] | + + + | Organization | [facility] | | | [...] Team Providers + +------+ + | Care Builder Operator Name | Role | Phone | + +------+ + | Johnny Caldera MD | PCP | | + +------+ + Encounter Details +--------+ + + + + | Date | Type | Department | Care Team | Description | +--------+ + + + + | 09/10/ | Orders Only | [facility] | Conversion | | | 2017 | | NEPHROLOGY [place] | Transaction, | | | | | [address] | Provider Unknown | | | | | [address] [place], [place] | | | | | | [address] | (Fax) | | | | | [phone] | | | +--------+ + + + [...] [place] | | | | | | [address] | | | | | | | | +--------+---------+ + + + | 08/01/ | Office | Pulmonology | Jorge, | | | 2019 | Visit | | Caitlyn Simon, | | | | | | MD [address] | | | | | | [place], | | | | | | [place] [address] | | | | | | [phone] | | | | | | | [...] - 1.030 | EXTERNAL | | | [place] | | | LAB | | + [...]
--- OUTSIDE RECORDS SUMMARY | ~2019-01-25 | XMS | Encounter Summary ---
Demographics + + + | Address | [address] | | | [place] [address] | + + + | Home Phone | | + + + | Preferred Language | Unknown | + + + | Marital Status | Single | + + + | Shinto Affiliation | CAT | + + + | Race | White | + + + | Ethnic Group | Not or | + + + Author + + + | Author | [facility] | + + + | Organization | [facility] | + + + | [...] Team Providers + +------+ + | Care Workers Compensation Claims Adjuster Name | Role | Phone | + [...] | [address] | [place], | | | | | Mailcode: [address] | [place] [address] | | | | | [place], [place] | | | | | | [address] | | | | | | [phone] | | | +--------+ + + + [...]
--- OUTSIDE RECORDS SUMMARY | ~2019-01-25 | XMS | Encounter Summary ---
Demographics + + + | Address | [address] | | | [place] [address] | + + + | Home Phone | | + + + | Preferred Language | Unknown | + + + | Marital Status | Single | + + + | Confucianism Affiliation | CAT | + + + | Race | White | + + + | Ethnic Group | Not or | + + + Author + + + | Author | [facility] | + + + | Organization | [facility] | + + + | [...] Team Providers + +------+ + | Care Heel Sewer Name | Role | Phone | + [...] | | | | | sclerosis | [place], [place] | [place], [place] | | | | | ([facility]) | [address] | [address] | | | | | Procedures | Phone: | Phone: | | | | | CONSULT TO | [phone] | [phone] | | | | | NEURO | Fax: | Fax: | | | | | OPHTHALMOLOG | [phone] | [phone] | | | | | Y | | | +--------+--------+ + + + + Encounter Details +--------+---------+ + + + | Date | Type | Department | Care Team | Description | +--------+---------+ + + + | 07/03/ | Office | [facility] | Kerry Calderón, | Unqualified visual | | 2015 | Visit | [place] | [address] | loss, both eyes | | | | Neuro-Ophthalmology | [place], [place] | (Primary Dx); | | | | at [facility] [address] | [address] | Generalized | | | | Ave Mailcode: [facility] | [phone] | contraction or | | | | [facility] | | constriction in | | | | and Healing, | | visual field, | | | | Building | | bilateral; | | | | Floor [place], [place] | | Photophobia of both | | | | [address] | | eyes; Abnormal MRI | | | | [phone] | | | +--------+---------+ + + + [...] Dr Tiesha [place] and Dr Durán at [facility]. S/p vitrectomy and IOL removal, left eye. Since around that time, she has noted progressive visual decline in both eyes, especially in the p ast year.Occasional stabbing needle like eye pain. Eye pain can be both right and left. Floa ters in right eye that appear to make up shapes. Headache bitemporal. Significant light sens itivity. She was admitted at [facility] in October 2013 for evaluation of difficulty walking, light sensiti vity, stuttering, and shaking spells. MRI of the brain done at outside facility showed white matter lesions. CSF studies negative for MS. Routine EEG 10/19/13: This awake only routine EEG is within normal limits. No seizures, abnor mal slowing or epileptiform activity were seen. detention EEG monitoring to follow. Long-term EEG 10/19-10/20/13: No epileptic activity seen It was felt that her anxiety disorder was most likely contributing to her symptoms. Re-evaluated in neurology at [facility] in March 2014. Also felt that the [...] current facility-administered medications for this visit. Allergies: [place] Past Medical History Diagnosis Date HBP (high [...] Left Color 2.07/22 03/24 Method: Berry - Marmora - Rittler Slit Lamp and Fundus Exam [...] 5. Return to neuro-op PRN Attestations: The signals collection technician, under the supervision of the physician, is responsible for performing the f ollowing sections: RFV, ROS, PMH, PSH, SocHx, FH, Med list, Base Ophth Exam, and formal visu al field testing. The attending physician is responsible for the entire content of the note, has reviewed the data gathered by the signals collection technician, and has personally performed the HPI, the physical examina tion, and the medical decision making. Kerry Calderón MD Back Line Cook of Ophthalmology Bruce Professor Neuro-Ophthalmology Service [facility] [phone] documented in this e ncounter Plan of [...]
--- OUTSIDE RECORDS SUMMARY | ~2019-01-25 | XMS | Encounter Summary ---
Demographics + + + | Address | [address] | | | [place] [address] | + + + | Home Phone [...] Team Providers + +------+ + | Care Park Activities Coordinator Name | Role | Phone | + +------+ + PCP | Unavailable | + +------+ + Encounter Details +--------+ + + + + | Date | Type | Department | Care Team | Description | +--------+ + + + + | 03// | Orders Only | [facility] | Monet Mcginnis MD | | | 2019 | | [address] [facility] | [address] | | | | | [place] | [place] | | | | | [address] | [address] | | | | | [phone] | | | +--------+ + + + [...] [place] | | | | | | [id number] | | | | | | | | +--------+---------+ + + + | 08/01/ | Office | Pulmonology | Jorge, | | | 2019 | Visit | | Caitlyn Simon, | | | | | | MD [address] | | | | | | [place], | | | | | | [place] [address] | | | | | | [phone] | | | | | | | [...]
--- OUTSIDE RECORDS SUMMARY | ~2019-01-25 | XMS | Encounter Summary ---
Demographics + + + | Address | [address] | | | [place] [address] | + + + | Home Phone | | + + + | Preferred Language | Unknown | + + + | Marital Status | Single | + + + | Spiritism Affiliation | 1041 | + + + | Race | Unknown | + + + | Ethnic Group | Unknown | + + + Author + + + | Author | [facility] | | | and [place] | + + + | Organization | [facility] | | | [...] Team Providers + +------+ + | Care Crayon Sawyer Name | Role | Phone | + +------+ + | Johnny Caldera MD | PCP | | + +------+ + Encounter Details +--------+ + + + + | Date | Type | Department | Care Team | Description | +--------+ + + + + | 12/08/ | Orders Only | [facility] | Conversion | | | 2015 | | NEPHROLOGY [place] | Transaction, | | | | | [address] [facility] | Provider Unknown | | | | | [place] | | | | | | [address] | (Fax) | | | | | [phone] | | | +--------+ + + + [...] [place] | | | | | | [address] | | | | | | | | +--------+---------+ + + + | 08/01/ | Office | Pulmonology | Jorge, | | | 2019 | Visit | | Caitlyn Simon, | | | | | | MD [address] | | | | | | [place], | | | | | | [place] [address] | | | | | | [phone] | | | | | | | [...]
--- OUTSIDE RECORDS SUMMARY | ~2019-01-25 | XMS | Encounter Summary ---
Demographics + + + | Address | [address] | | | [place] [address] | + + + | Home Phone | | + + + | Preferred Language | Unknown | + + + | Marital Status | Single | + + + | Latter Day Affiliation | CAT | + + + | Race | White | + + + | Ethnic Group | Not or | + + + Author + + + | Author | [facility] | + + + | Organization | [facility] | + + + | [...] Team Providers + +------+ + | Care Mechanism Assembler Name | Role | Phone | + +------+ + PCP | Unavailable | + +------+ + Encounter Details +--------+ + + + + | Date | Type | Department | Care Team | Description | +--------+ + + + + | 03/23/ | Document-Sc | UNKNOWN DEPARTMENT | Unknown . | | | 2013 | anned | [id number] | | | | | | [address] | | | | | | [place], [place] | | | | | | [address] | | | +--------+ + + + [...]
--- OUTSIDE RECORDS SUMMARY | ~2019-01-25 | XMS | Encounter Summary ---
Demographics + + + | Address | [address] | | | [place] [address] | + + + | Home Phone | | + + + | Preferred Language | Unknown | + + + | Marital Status | Single | + + + | Church Affiliation | CAT | + + + [...] Team Providers + +------+ + | Care Citizenship Instructor Name | Role | Phone | [...] | Transcriptions | + + | Interface, Putty Mixer And Applier In - 03/04/2005 7:29 PM PST | | [id number] | | [id number] GENEVIEVE GRAY | | | | Date: 02/28/2004 | | | | Attending Surgeon: Kenzie De Luna M.D. | | | | Desktop Publishing Operator(s): Jim Tyson M.D. | | Noel Araujo [...] | | TS / HS | | [id number] / [id number] / [id number] / | | | | | | | | | | | | Electronically signed by Brown De Luna 03-25-2004 02:17:15 PM | + + documented in this encounter Visit Diagnoses Not on filedocumented in this encounter"
--- OUTSIDE RECORDS SUMMARY | ~2019-01-25 | XMS | Encounter Summary ---
Demographics + + + | Address | [address] | | | [place] [address] | + + + | Home Phone | | + + + | Preferred Language | Unknown | + + + | Marital Status | Single | + + + | Buddhist Affiliation | 1041 | + + + [...] Team Providers + +------+ + | Care Drawer Liner Name | Role | Phone | + +------+ + | Johnny Caldera MD | PCP | | + +------+ + Encounter Details +--------+ + + + + | Date | Type | Department | Care Team | Description | +--------+ + + + + | 07/25/ | Orders Only | [facility] | Conversion | | | 2014 | | CONVERSION [address] | Transaction, | | | | | [address] | Provider Unknown | | | | | [place], [place] | [phone] | | | | | [address] | | | | | | [phone] | | | +--------+ + + + [...] [place] | | | | | | [address] | | | | | | | | +--------+---------+ + + + | 08/01/ | Office | Pulmonology | Jorge, | | | 2019 | Visit | | Caitlyn Simon, | | | | | | MD [address] | | | | | | [place], | | | | | | [place] [address] | | | | | | [phone] | | | | | | | | +--------+---------+ + + + documented as of this encounter Visit Diagnoses Not on filedocumented in this encounter"
--- OUTSIDE RECORDS SUMMARY | ~2019-01-25 | XMS | Encounter Summary ---
Demographics + + + | Address | [address] | | | [place] [address] | + + + | Home Phone [...] Team Providers + +------+ + | Care Curb Hop Name | Role | Phone | + [...] Provider Unknown | | | | | [place], [place] | [phone] | | | | | [address] | | | | | | [phone] | | | +--------+ + + + [...] [place] | | | | | | [address] | | | | | | | | +--------+---------+ + + + | 08/01/ | Office | Pulmonology | Jorge, | | | 2019 | Visit | | Caitlyn Simon, | | | | | | MD [address] | | | | | | [place], | | | | | | [place] [address] | | | | | | [phone] | | | | | | | | +--------+---------+ + + + documented as of this encounter Visit Diagnoses Not on filedocumented in this encounter"
--- OUTSIDE RECORDS SUMMARY | ~2019-01-25 | XMS | Encounter Summary ---
Demographics + + + | Address | [address] | | | [place] [address] | + + + | Home Phone [...] Team Providers + +------+ + | Care Publisher Assistant Name | Role | Phone | [...] [address] | | | | | | [place], [place] | | | | | | [address] | | | +--------+ + + + [...]
--- OUTSIDE RECORDS SUMMARY | ~2019-01-25 | XMS | Encounter Summary ---
Demographics + + + | Address | [address] | | | [place] [address] | + + + | Home Phone | | + + + | Preferred Language | Unknown | + + + | Marital Status | Single | + + + | Pentecostal Affiliation | 1041 | + + + | Race | Unknown | + + + | Ethnic Group | Unknown | + + + Author + + + | Author | [facility] | | | and [place] | + + + | Organization | [facility] | | [...] Team Providers + +------+ + | Care Correction Officer Name | Role | Phone | + +------+ + PCP | Unavailable | + +------+ + Encounter Details +--------+ + + + + | Date | Type | Department | Care Team | Description | +--------+ + + + + | 08/26/ | Hospital | [facility] | Conversion | Dog bite of hand, | | 2018 | Encounter | CONVERSION [address] | Transaction, | right, initial | | | | [address] | Provider Unknown | encounter | | | | [place], [place] | [phone] | | | | | [address] | | | | | | [phone] | | | +--------+ + + + [...] [place] | | | | | | [address] | | | | | | | | +--------+---------+ + + + | 08/01/ | Office | Pulmonology | Jorge, | | | 2019 | Visit | | Caitlyn Simon, | | | | | | MD [address] | | | | | | [place], | | | | | | [place] [address] | | | | | | [phone] | | | | | | | [...]
--- OUTSIDE RECORDS SUMMARY | ~2019-01-25 | XMS | Encounter Summary ---
Demographics + + + | Address | [address] | | | [place] [address] | + + + | Home Phone | | + + + | Preferred Language | Unknown | + + + | Marital Status | Single | + + + | Zoroastrianism Affiliation | 1041 | + + + | Race | Unknown | + + + | Ethnic Group | Unknown | + + + Author + + + | Author | [facility] | | | and [place] | + + + | Organization | [facility] | | | [...] Team Providers + +------+ + | Care Helmet Coverer Name | Role | Phone | + +------+ + PCP | Unavailable | + +------+ + Encounter Details +--------+ + + + + | Date | Type | Department | Care Team | Description | +--------+ + + + + | 02/17/ | Hospital | [facility] | Conversion | Pain | | 2018 | Encounter | CONVERSION [address] | Transaction, | | | | | [address] | Provider Unknown | | | | | [place], [place] | [phone] | | | | | [address] | | | | | | [phone] | | | +--------+ + + + [...] [place] | | | | | | [address] | | | | | | | | +--------+---------+ + + + | 08/01/ | Office | Pulmonology | Jorge, | | | 2019 | Visit | | Caitlyn Simon, | | | | | | MD [address] | | | | | | [place], | | | | | | [place] [address] | | | | | | [phone] | | | | | | | | +--------+---------+ + + + documented as of this encounter Procedures + +--------+ + + + | Procedure Name | Priori | Date/Time | Associated Diagnosis | Comments | | | ty | | | | + +--------+ + + + | CT CHEST WO CONTRAST | Routin | 02/01/2018 | | Results for this | | | e | 3:13 AM | | procedure are in the | | | | PST | | results section. | + +--------+ + + + documented in this encounter Results CT Chest wo Contrast (02/01/2018 3:13 AM PST) + + | Specimen | + + [...]
--- OUTSIDE RECORDS SUMMARY | ~2019-01-25 | XMS | Clinical Summary ---
Demographics + + + | Address | [address] | | | [place] [address] | + + + | Home Phone | | + + + | Preferred Language | Unknown | + + + | Marital Status | Single | + + + | Christian Affiliation | 1041 | + + + [...] Team Providers + +------+ + | Care Paramedic Name | Role | Phone | + +------+ + | Johnny Caldera MD | PCP | | + +------+ + Allergies No Known Allergies Medications + + + +---------+------+------+-------+ | Medication | Sig | Dispensed | Refills | Star | End | Statu | | | | | | t | Date | s | | | | | | Date | | | + + + +---------+------+------+-------+ | NASAL MOISTURIZER | by Nasal route. | | 0 | 06/1 | | Activ | | COMBINATION NA | | | | 2/20 | | e | | | | | | 18 | | | + + + +---------+------+------+-------+ | albuterol (PROAIR | Inhale 2 puffs into | | 0 | 05/1 | | Activ | | HFA) 90 mcg/puff | the lungs every 4 | | | 3/20 | | e | | inhaler | (four) hours as | | | 14 | | | | | needed. | | | | | | + + + +---------+------+------+-------+ | atorvaSTATin | Take 40 mg by mouth | | 0 | 05/1 | | Activ | | (LIPITOR) 40 mg | daily. | | | 3/20 | | e | | tablet | | | | 14 | | | + + + +---------+------+------+-------+ | | Inhale 1 puff into | | 0 | 04/1 | | Activ | | fluticasone-salmeter | the lungs 2 (two) | | | 1/20 | | e | | ol (ADVAIR DISKUS) | times daily. | | | 16 | | | | 250-50 mcg/puff | | | | | | | | diskus inhaler | | | | | | | + + + +---------+------+------+-------+ | citalopram | Take 40 mg by mouth | | 0 | 04/1 | | Activ | | (CELEXA) 20 mg | every morning. | | | 1/20 | | e | | tablet | | | | 16 | | | + + + +---------+------+------+-------+ | LORazepam (ATIVAN) | Take 0.5 mg by mouth | | 0 | 04/1 | | Activ | | 0.5 mg tablet | every 12 (twelve) | | | 1/20 | | e | | | hours as needed for | | | 16 | | | | | Anxiety. | | | | | | + + + +---------+------+------+-------+ | metoprolol | Take 50 mg by mouth | | 0 | 04/1 | | Activ | | succinate | daily. | | | 20 | | e | | (TOPROL-XL) 50 mg 24 | | | | 16 | | | | hr tablet | | | | | | | + + + +---------+------+------+-------+ | | Apply 1 drop to eye | | 0 | 04/1 | | Activ | | carboxymethylcellulo | 2 (two) times daily. | | | 20 | | e | | se (CELLUVISC) 1% | | | | 16 | | | | ophthalmic solution | | | | | | | + + + +---------+------+------+-------+ | acetaminophen | Take 650 mg by mouth | | 0 | 04/1 | | Activ | | (TYLENOL) 325 mg | nightly. | | | 20 | | e | | tablet | | | | 16 | | | + + + +---------+------+------+-------+ | | Inhale 2 puffs into | | 0 | 04/1 | | Activ | | albuterol-ipratropiu | the lungs every 6 | | | 1/20 | | e | | m (COMBIVENT) 103-18 | (six) hours as | | | 16 | | | | mcg/puff inhaler | needed for Wheezing. | | | | | | + + + +---------+------+------+-------+ | busPIRone (BUSPAR) | Take 10 mg by mouth | | 0 | 10/0 | | Activ | | 5 mg tablet | 3 (three) times | | | 3/20 | | e | | | daily. | | | 16 | | | + + + +---------+------+------+-------+ | miconazole | Apply topically 2 | | 0 | 10/0 | | Activ | | (LOTRIMIN AF) 2% | (two) times daily. | | | 3/20 | | e | | powder | | | | 16 | | | + + + +---------+------+------+-------+ | ascorbic acid | Take 250 mg by mouth | | 0 | 10/0 | | Activ | | (VITAMIN C) 250 MG | 2 (two) times | | | 3/20 | | e | | tablet | daily. | | | 16 | | | + + + +---------+------+------+-------+ | psyllium | Take 1 packet by | | 0 | 06/3 | | Activ | | (METAMUCIL) 28 % | mouth 2 (two) times | | | 0/20 | | e | | packet | daily. | | | 17 | | | + + + +---------+------+------+-------+ | furosemide (LASIX) | Take 40 mg by mouth | | 0 | 06/3 | | Activ | | 40 mg tablet | daily. Take 1 tablet | | | 0/20 | | e | | | by mouth every | | | 17 | | | | | evening | | | | | | + + + +---------+------+------+-------+ | prazosin | Take 1 mg by mouth | | 0 | 06/3 | | Activ | | (MINIPRESS) 1 mg | nightly. | | | 0/20 | | e | | capsule | | | | 17 | | | + + + +---------+------+------+-------+ | rOPINIRole | Take 2 mg by mouth | | 0 | 06/3 | | Activ | | (REQUIP) 2 MG tablet | nightly. | | | 0/20 | | e | | | | | | 17 | | | + + + +---------+------+------+-------+ | lisinopril | Take 5 mg by mouth | | 0 | 01/1 | | Activ | | (PRINIVIL, ZESTRIL) | daily. | | | 12/02 | | e | | 5 mg tablet | | | | 18 | | | + + + +---------+------+------+-------+ | metFORMIN | Take 500 mg by mouth | | 0 | 01/1 | | Activ | | (GLUCOPHAGE) 500 mg | 2 (two) times daily | | | 12/02 | | e | | tablet | with meals. | | | 18 | | | + + + +---------+------+------+-------+ | | Take 3 mLs by | | 0 | 06/1 | | Activ | | albuterol-ipratropiu | nebulization 4 | | | 2/20 | | e | | m 2.5-0.5 mg/3 mL | (four) times daily | | | 18 | | | | SOLN | as needed. | | | | | | + + + +---------+------+------+-------+ | fexofenadine | Take 180 mg by mouth | | 0 | 06/1 | | Activ | | (EMILY) 180 mg | daily. | | | 2/20 | | e | | tablet | | | | 18 | | | + + + +---------+------+------+-------+ | sodium chloride | 1 spray by Each Nare | | 0 | 06/1 | | Activ | | (CHU) 0.65% nasal | route as needed for | | | 2/20 | | e | | spray | Congestion. | | | 18 | | | + + + +---------+------+------+-------+ | Turmeric 500 MG | Take by mouth. | | 0 | 06/1 | | Activ | | CAPS | | | | 2/20 | | e | | | | | | 18 | | | + + + +---------+------+------+-------+ | benzonatate | Take 100 mg by mouth | | 0 | 02/0 | | Activ | | (TESSALON) 100 mg | 3 (three) times | | | 1/20 | | e | | capsule | daily as needed for | | | 19 | | | | | Cough. | | | | | | + + + +---------+------+------+-------+ | potassium chloride | Take 0.5 tablets by | | 0 | 02/0 | | Activ | | (KLOR-CON M20) 20 | mouth daily. | | | 1/20 | | e | | mEq ER tablet | | | | 19 | | | + + + +---------+------+------+-------+ | gabapentin | TAKE 1 CAPSULE BY | | 1 | 07/0 | | Activ | | (NEURONTIN) 100 mg | MOUTH IN THE MORNING | | [...] neoplasm of upper lobe of left lung | 09/28/2017 | + + + + + | Cancer Staging: Clinical: Stage IA3 (cT1c, cN0, cM0) - Signed | | by Monet Mcginnis MD on 12/27/2018 | + + + + + | Chronic obstructive pulmonary disease | 08/24/2017 | + + + | [...] + + | Chronic diastolic heart failure | 06/24/2015 | + + + | Essential hypertension, benign | 06/24/2015 | + + + | HLD (hyperlipidemia) | 06/24/2015 | + + + | Vision changes | 07/25/2013 | + + + | Gait difficulty | 07/25/2013 | + + + | Nonspecific (abnormal) findings on radiological and other | 07/25/2013 | | examination of skull and head | | + + + Encounters +--------+ + + + + | Date | Type | Specialty | Care Team | Description | +--------+ + + + + | 12/27/ | Office | Oncology | Monet Mcginnis MD | Malignant neoplasm | | 2019 | Visit | | | of upper lobe of | | | | | | left lung (HCC) | | | | | | (Primary Dx); Iron | | | | | | deficiency anemia, | | | | | | unspecified iron | | | | | | deficiency anemia | | | | | | type | +--------+ + + + + | 12/23/ | Telephone | Oncology | Monet Mcginnis MD | LABS | | 2018 | | | | | +--------+ + + + + | 11/30/ | Office | Pulmonology | Jorge, | Adenocarcinoma of | | 2018 | Visit | | Caitlyn Simon, | left lung (HCC) | | | | | MD | (Primary Dx); | | | | | | Multiple pulmonary | | | | | | nodules; Chronic | | | | | | obstructive | | | | | [...] | | | hazards to health | +--------+ + + + + | 11/15/ | Documentati | Nephrology | Mendez, | Results (11/10/18) | | 2019 | on | | Ezekiel Giron | | | | | | Air Tester | | +--------+ + + + + | 10/28/ | Orders Only | Oncology | Monet Mcginnis MD | Malignant neoplasm | | 2018 | | | | of upper lobe, left | | | | | | bronchus or lung | | | | | | (HCC); Iron | | | | | | deficiency anemia; | | | | | | Chronic kidney | | | | | | disease, stage II | | | | | | (mild); Essential | | | | | | (primary) | | | | | | hypertension | +--------+ + + + + | 10/26/ | Orders Only | | Conversion | | | 2018 | | | Transaction, | | | | | | Provider Unknown | | +--------+ + + + + | 10/25/ | Orders Only | Nephrology | Conversion | | | 2019 | | | Transaction, | | | | | | Provider Unknown | | +--------+ + + + + | 10/25/ | Orders Only | Nephrology | Sully Bautistaew, | | | 2018 | | | HELP DESK ENGINEER | | +--------+ + + + + from Last 3 Months Immunizations + + + + | Name | Administration Dates | Next Due | + + + + | INFLUENZA PF | 12/02/2018 | | | QUAD(PED/ADOL/ADULT) | | | | ,PSKT or VIAL | | | + + + + Family History + + +------+ + | [...] + + +------+ + | Other (see comment) | Mother | | Other (see comments) - MS | + + +------+ + | Diabetes, NIDDM | Paternal | | | | | Grandfath | | | | | er | | | + + +------+ + | Heart disease | Paternal | | | | | Grandfath | | | | | er | | | + + +------+ + | Diabetes, NIDDM | Sister | | | + + [...] | | + +------+ + + | Brother | | | | + +------+ + + | Brother | | | | + +------+ + + | Brother | | | | + +------+ + + | [...] | DMII,HTN,Hyperlipidmeia | + +------+ + + | Sister | | | | + +------+ + + | Sister | | | | + +------+ + + | Sister | | | | + +------+ + + Social History + +-------+ +--------+------+ [...] + + + | Blood Pressure | 120/66 | 12/27/2018 1:34 PM | | | | | PDT | | + + + + + | Pulse | 75 | 12/27/2018 1:34 PM | | | | | PDT | | + + + + + | Temperature | 36.6 C (97.8 F) | 12/27/2018 1:34 PM | | | | | PDT | | + + + + + | Respiratory Rate | 14 | 12/27/2018 1:34 PM | | | | | PDT | | + + + + + | Oxygen Saturation | 92% | 12/27/2018 1:34 PM | | | | | PDT | | + + + + + | Inhaled Oxygen | - | - | | | Concentration | | | | + + + + + | Weight | 108.4 kg (239 lb) | 12/27/2018 1:34 PM | | | | | PDT | | + + + + + | Height | 162.6 cm (5' 4") | 12/27/2018 1:34 PM | | | | | PDT | | + + + + + | Body Mass Index | 41.02 | 12/27/2018 1:34 PM | | | | | PDT | | + + + + + Plan of Treatment +--------+---------+ + + + | Date | Type | Specialty | Care Team | Description | +--------+---------+ + + + | 05/02/ | Office | Oncology | Monet Mcginnis MD | | | 2020 | Visit | | [address] | | | | | | [place] | | | | | | [address] | | | | | | | | +--------+---------+ + + + | 08/01/ | Office | Pulmonology | Jorge, | | | 2019 | Visit | | Caitlyn Simon, | | | | | | MD [address] | | | | | | [place], | | | | | | [place] [address] | | | | | | [phone] | | | | | | | | +--------+---------+ + + + + + + + + | Health Maintenance | Due Date | Last Done | Comments | + + + + + | Hepatitis C | | | | | Screening | 5 | | | + + + + + | Vaccine: | | | | | Pneumococcal 19-64 | 1 | | | | (1 of 3 - PCV13) | | | | + + + + + | Vaccine: | | | | | Dtap/Tdap/Td (1 - | 4 | | | | Tdap) | | | | + + + + + | Cervical Cancer | | | | | Screening (Pap) | 5 | | | + + + + + | Colorectal Cancer | | | | | Screening | 5 | | | | (Colonoscopy) | | | | + + + + + | Vaccine: Zoster (1 | | | | | of 2) | 5 | | | + + + + + | Breast Cancer | | | | | Screening | 0 | | | + + + + + | Vaccine: Influenza | Completed | 12/02/2018 | | + + + + + Procedures + +--------+ + + + | Procedure Name | Priori | Date/Time | Associated Diagnosis | Comments | | | ty | | | | + +--------+ + + + | LABS - EXTERNAL SCAN | | 12/23/2018 | | Results for this | | | | 12:00 AM | | procedure are [...] | + +--------+ + + + | LABS - EXTERNAL SCAN | | 11/10/2018 | | Results for this | | | | 12:00 AM | | procedure are in the | | | | PDT | | results section. | + +--------+ + + + | LABS - EXTERNAL SCAN | | 11/10/2018 | | Results for this | | | | 12:00 AM | | procedure are [...] section. | + +--------+ + + + from Last 3 Months Results LABS - EXTERNAL SCAN (12/23/2018 12:00 AM PDT)Only the most recent of 3 results within the time period is included. + + + | Narrative | Performed At | + + + | Ordered by an | | | unspecified provider. | | + + + Basic Metabolic Panel (11/10/2018 11:17 AM PDT) [...] + + | Blood | + + External Lab: CBC (10/25/2018 3:09 [...] + +---------+ + + Protein/Creatinine Ratio, Urine (10/25/2018 3:09 PM PDT) [...] | + +---------+ + + Uric Acid (10/25/2018 3:09 PM PDT) + [...] | | | LAB | | | [facility] | | | | | + +---------+ [...] | | | + +---------+ + + from Last 3 Months Insurance + +--------+ +--------+ +---------+--------+ | Payer | Benefi | Subscriber | Effect | Phone | Address | Type | | | t Plan | ID | aubrey | | | | | | / | | Dates | | | | | | Group | | | | | | + +--------+ +--------+ +---------+--------+ | [employer] | [employer] | [id number] | | [phone] | | Medica | | MEDICAID HMO | HEALTH | | [phone]-[id number] | 1 | | id | | | MDCD | | esent | | | | | | [place]MO [place] | | | | | | + +--------+ +--------+ +---------+--------+ + +--------+ +--------+ + + | Guarantor Name | Accoun | Relation to | Date | Phone | Billing Address | | | t Type | Patient | of | | | | | | | | | | + +--------+ +--------+ + + | Hazel Bhatti | Person | Self [birth year] | [address] | | | al/Fam | | 1956 | [phone] | [address] | | | n[place] | | | [address] (Home) | [place] | | | | | | | [address] | + +--------+ +--------+ + + Advance Directives + + + + + | Type | Date Recorded | Patient | Explanation | | | | Candy Department Manager | | + + + + + | Power of | | | | | Supervisor Cutting And Sewing Room | | | | + + + + + | Advance | | | | | Directive | | | | + + + + +
--- OUTSIDE RECORDS SUMMARY | ~2019-01-25 | XMS | Encounter Summary ---
Demographics + + + | Address | [address] | | | [place] [address] | + + + | Home Phone [...] + + + | Author | [facility] | | | and [place] | + + + | Organization | [facility] | | | [...] Team Providers + +------+ + | Care Hotel Dining Room Cashier Name | Role | Phone | + +------+ + | Johnny Caldera MD | PCP | | + +------+ + Reason for Visit + + + | Reason | Comments | + + + | Follow-up | | + + + Encounter Details +--------+---------+ + + + | Date | Type | Department | Care Team | Description | +--------+---------+ + + + | 12/27/ | Office | [facility] | Monet Mcginnis MD | Malignant neoplasm | | 2019 | Visit | HEMATOLOGY AND | [address] | of upper lobe of | | | | ONCOLOGY [address] | [place] | left lung (HCC) | | [address] | [address] | [address] | (Primary Dx); Iron | | | | [place] | | deficiency anemia, | | | | [address] | | unspecified iron | | | | [phone] | | deficiency anemia | | | | | | type | +--------+---------+ + + + Social History [...] + documented in this encounter Progress Notes Monet Mcginnis MD - 12/27/2018 1:30 PM PDT ONCOLOGY FOLLOW-UP VISIT Patient ID: Hazel Bhatti is a 63 y.o. female. Referring Provider: No ref. provider found PCP: Johnny Caldera MD Surgeon: Radiation oncologist: Dr. Cook Oncology History Malignant neoplasm of upper lobe of left lung (HCC) 09/28/2017 Initial Diagnosis Prior heavy smoker. CT showed growing lung nodule in left upper lobe. PET-CT showed low F DG activity. No mediastinum DIANE and no distant metastasis. 09/[address] guided biopsy showed adenocarcinoma, PDL-1=20%, no BRAF/ EGFR mutation. 10/2017 Cancer Staged Brain MRI showed no brain metastasis. 10/2017 - Radiation Therapy Received SBRT radiation to the lung lesion. Stage Cancer Staging Malignant neoplasm of upper lobe of left lung (HCC) Staging form: Lung, AJCC 8th Edition - Clinical: Stage IA3 (cT1c, cN0, cM0) - Signed by Monet Mcginnis MD on 12/27/2018 HPI: She feels well on today's visit. Has chronic ALONSO and arthralgia. Denies any chest pain, cou gh, abdominal pain, n/v, bone pain, headache. No change of bowels and urination. Review of Systems Constitutional: Positive for fatigue. Negative for activity change, appetite change, fever and unexpected weight change. HENT: Negative for mouth sores and trouble swallowing. Respiratory: Positive for shortness of breath. Negative for cough. Cardiovascular: Negative for chest pain and leg swelling. Gastrointestinal: Negative for abdominal distention, abdominal pain, constipation, diarrhea , nausea and vomiting. Musculoskeletal: Positive for arthralgias and back pain. Negative for myalgias. Neurological: Negative for light-headedness and numbness. Hematological: Negative for adenopathy. Does not bruise/bleed easily. Psychiatric/Behavioral: Negative for dysphoric mood. The patient is not nervous/anxious. No Known Allergies Past Medical History: Diagnosis Date Alcohol abuse Anxiety Asthma Chronic kidney disease Chronic UTI COPD (chronic obstructive pulmonary disease) (HCC) Dementia (HCC) Depression Depression High cholesterol Hypertension Low blood pressure Osteoarthritis Seasonal allergies Seizures (HCC) Sleep apnea Type 2 diabetes mellitus (HCC) Past Surgical History: Procedure Laterality Date ABDOMEN SURGERY APPENDECTOMY COLONOSCOPY HERNIA REPAIR inguinal hernia-left LUNG BIOPSY 09/20/2017 CT NEEDLE BIOPSY LUNG 09/20/2017 Gregory Henderson MD [facility] OTHER SURGICAL HISTORY 12/07/02 OTHER SURGICAL HISTORY 12/16/02 OTHER SURGICAL HISTORY 03/21/03 from left eye OTHER SURGICAL HISTORY CATARACT EXTRACTION - bilateral TONSILLECTOMY AND ADENOIDECTOMY TUBAL LIGATION Social History Socioeconomic History Marital status: Single Spouse name: Not on file Number of children: Not on file Years of education: Not on file Highest education level: Not on file Tobacco Use Smoking status: Former Smoker Packs/day: 2.00 Smokeless tobacco: Never Used Tobacco comment: 02/16/13 is when pt quit Family History Problem Relation Age of Onset Other (see comment) Mother Other (see comments) - MS Cancer Father pancreatic Heart disease Paternal Grandfather Diabetes, NIDDM Paternal Grandfather Cancer Brother High cholesterol Brother Hypertension Brother Diabetes, NIDDM Sister High cholesterol Sister Hypertension Sister Current Outpatient Medications on File Prior to Visit Medication Sig Dispense Refill acetaminophen (TYLENOL) 325 mg tablet Take 650 mg by mouth nightly. albuterol (PROAIR HFA) 90 mcg/puff inhaler Inhale 2 puffs into the lungs every 4 (four) hours as needed. albuterol-ipratropium (COMBIVENT) 103-18 mcg/puff inhaler Inhale 2 puffs into the lungs every 6 (six) hours as needed for Wheezing. albuterol-ipratropium 2.5-0.5 mg/3 mL SOLN Take 3 mLs by nebulization 4 (four) times da nikki as needed. ascorbic acid (VITAMIN C) 250 MG tablet Take 250 mg by mouth 2 (two) times daily. atorvaSTATin (LIPITOR) 40 mg tablet Take 40 mg by mouth daily. benzonatate (TESSALON) 100 mg capsule Take 100 mg by mouth 3 (three) times daily as nee ded for Cough. busPIRone (BUSPAR) 5 mg tablet Take 10 mg by mouth 3 (three) times daily. carboxymethylcellulose (CELLUVISC) 1% ophthalmic solution Apply 1 drop to eye 2 (two) t imes daily. citalopram (CELEXA) 20 mg tablet Take 40 mg by mouth every morning. fexofenadine (EMILY) 180 mg tablet Take 180 mg by mouth daily. fluticasone-salmeterol (ADVAIR DISKUS) 250-50 mcg/puff diskus inhaler Inhale 1 puff int o the lungs 2 (two) times daily. furosemide (LASIX) 40 mg tablet Take 40 mg by mouth daily. Take 1 tablet by mouth every evening gabapentin (NEURONTIN) 100 mg capsule TAKE 1 CAPSULE BY MOUTH IN THE MORNING AND TAKE 1 TO 2 CAPSULES BY MOUTH AT BEDTIME FOR AKATHISIA 1 lisinopril (PRINIVIL, ZESTRIL) 5 mg tablet Take 5 mg by mouth daily. LORazepam (ATIVAN) 0.5 mg tablet Take 0.5 mg by mouth every 12 (twelve) hours as needed for Anxiety. metFORMIN (GLUCOPHAGE) 500 mg tablet Take 500 mg by mouth 2 (two) times daily with meal s. metoprolol succinate (TOPROL-XL) 50 mg 24 hr tablet Take 50 mg by mouth daily. miconazole (LOTRIMIN AF) 2% powder Apply topically 2 (two) times daily. NASAL MOISTURIZER COMBINATION NA by Nasal route. potassium chloride (KLOR-CON M20) 20 mEq ER tablet Take 0.5 tablets by mouth daily. prazosin (MINIPRESS) 1 mg capsule Take 1 mg by mouth nightly. psyllium (METAMUCIL) 28 % packet Take 1 packet by mouth 2 (two) times daily. rOPINIRole (REQUIP) 2 MG tablet Take 2 mg by mouth nightly. sodium chloride (OCEAN) 0.65% nasal spray 1 spray by Each Nare route as needed for Tavon estion. Turmeric 500 MG CAPS Take by mouth. No current facility-administered medications on file prior to visit. Objective: BP 120/66 | Pulse 75 | Temp 36.6 C (97.8 F) (Tympanic) | Resp 14 | Ht 1.626 m (5' 4 ") | Wt 108.4 kg (239 lb) | SpO2 92% | BMI 41.02 kg/m Physical Exam Constitutional: She is oriented to person, place, and time. No distress. Obese. HENT: Mouth/Throat: Oropharynx is clear and moist. Neck: Normal range of motion. Neck supple. Cardiovascular: Normal rate and regular rhythm. Pulmonary/Chest: Breath sounds normal. Abdominal: Soft. Bowel sounds are normal. She exhibits no distension. There is tenderness ( mild tender at epigastric area.). Musculoskeletal: She exhibits no edema. Neurological: She is alert and oriented to person, place, and time. No visits with results within 1 Week(s) from this visit. Latest known visit with results is: Documentation on 11/15/2018 Component Date Value Ref Range Status Na 11/10/2018 137 132 - 143 mmol/L Final K 11/10/2018 4.3 3.6 - 5.1 mmol/L Final Cl 11/10/2018 100 95 - 112 mmol/L Final CO2 11/10/2018 29 19 - 31 mmol/L Final Anion Gap 11/10/2018 12 7 - 251 mmol/L Final Glucose 11/10/2018 106* 70 - 100 mg/dL Final Calcium 11/10/2018 10.0 8.5 - 10.3 Final BUN 11/10/2018 24* 6 - 23 mg/dL Final Creatinine 11/10/2018 1.05 0.70 - 1.25 Final GFR ESTIMATE 11/10/2018 53* 60 - 140 Final BUN/Creatinine Ratio 11/10/2018 22.9 6.0 - 28.6 Final 12/2018: WBC=7.2, Hb=11.4, MCV=73.6, wgn=601, normal CMP Imaging: CT CAP with contrast 09/2018: no sign of recurrence or metastasis of lung cancer. Assessment: ECO 63 yo lady, prior heavy smoker, with 1. Clinically stage IA adenocarcinoma of left upper lobe of lung s/p SBRT radiation in 10/14 018. The post treatment CT chest showed good response. Clinically she is doing well without any sign of disease progression. Her lab is good. I gallardo ve reviewed the recent CT result done in 09/2018 with her and her family. It showed no sign o f disease progression or metastasis. Continue q3-6 months surveillance visit. Will repeat th e CT in 6-12 months. 2. Iron deficiency anemia. Work-up EGD/colonoscopy in 04/2018 did not show any malignancy or active bleeding. It is mild. Recommend her to resume oral iron supplement daily. Plan: 1. Return in 4 months with lab. 2. Resume ferrous gluconate daily. Greater than 25minutes were spent examining the patient, review of medical records, counselor camp ing, coordination of care, and CPOE. More than 50% of that time was spent in direct contact with the patient. documented [facility] Plan of Treatment +--------+---------+ + + + | Date | Type | Specialty | Care Team | Description | +--------+---------+ + + + | 05/02/ | Office | Oncology | Monet Mcginnis MD | | | 2019 | Visit | | [address] | | | | | | [place] | | | | | | [address] | | | | | | | | +--------+---------+ + + + | 08/01/ | Office | Pulmonology | Jorge, | | | 2019 | Visit | | Caitlyn Simon, | | | | | | MD [address] | | | | | | [place], | | | | | | [place] [address] | | | | | | [phone] | | | | | | | | +--------+---------+ + + + documented as of this encounter Visit Diagnoses + + | Diagnosis | + + | Malignant neoplasm of upper lobe of left lung (HCC) - Primary | + + | Iron deficiency anemia, unspecified iron deficiency anemia type | + + documented in this encounter
--- OUTSIDE RECORDS SUMMARY | ~2019-01-25 | XMS | Encounter Summary ---
Demographics + + + | Address | [address] | | | [place] [address] | + + + | Home Phone | | + + + | Preferred Language | Unknown | + + + | Marital Status | Single | + + + | Quaker Affiliation | 1041 | + + + | Race | Unknown | + + + | Ethnic Group | Unknown | + + + Author + + + | Author | [facility] | | | and [place] | + + + | Organization | [facility] | | [...] Team Providers + +------+ + | Care Chip Silo Tender Name | Role | Phone | + +------+ + PCP | Unavailable | + +------+ + Encounter Details +--------+ + + + + | Date | Type | Department | Care Team | Description | +--------+ + + + + | 04/12/ | Orders Only | [facility] | Conversion | | | 2019 | | NEPRHOLOGY [place] | Transaction, | | | | | [address] | Provider Unknown | | | | | [address] [place], [place] | [phone] | | | | | [phone] | (Fax) | | | | | [phone] | | | +--------+ + + + [...] [place] | | | | | | [address] | | | | | | | | +--------+---------+ + + + | 08/01/ | Office | Pulmonology | Jorge, | | | 2019 | Visit | | Caitlyn Simon, | | | | | | MD [address] | | | | | | [place], | | | | | | [place] [address] | | | | | | [phone] | | | | | | | | +--------+---------+ + + + documented as of this encounter Procedures + +--------+ + + + | Procedure Name | Priori | Date/Time | Associated Diagnosis | Comments | | | ty | | | | + +--------+ + + + | URIC ACID | Routin | 04/12/2018 | | Results for this | | | e | 4:15 PM | | procedure are in the | | | | PST | | results section. | + +--------+ + + + documented in this encounter Results Uric Acid (04/12/2018 4:15 PM PST) + +---------+ + + + | Component | Value | Ref Range | Performed | Pathologist | | | | | At | Signature | + +---------+ + + + | Uric Acid | 7.3 (A) | 2.3 - 6.6 | EXTERNAL [...]
--- OUTSIDE RECORDS SUMMARY | ~2019-01-25 | XMS | Encounter Summary ---
Demographics + + + | Address | [address] | | | [place] [address] | + + + | Home Phone | | + + + | Preferred Language | Unknown | + + + | Marital Status | Single | + + + | Sabianist Affiliation | 1041 | + + + | Race | Unknown | + + + | Ethnic Group | Unknown | + + + Author + + + | Author | [facility] | | | and [place] | + + + | Organization | [facility] | | | and [...] Team Providers + +------+ + | Care Analytics Leader Name | Role | Phone | + +------+ + | Johnny Caldera MD | PCP | | + +------+ + Encounter Details +--------+ + + + + | Date | Type | Department | Care Team | Description | +--------+ + + + + | 12/08/ | Orders Only | [facility] | Conversion | | | 2015 | | NEPRHOLOGY [place] | Transaction, | | | | | [address] | Provider Unknown | | | | | [address] [place], [place] | [phone] | | | | | [address] | | | | | | [phone] | | | +--------+ + + + [...] [place] | | | | | | [address] | | | | | | | | +--------+---------+ + + + | 08/01/ | Office | Pulmonology | Jorge, | | | 2019 | Visit | | Caitlyn Simon, | | | | | | MD [address] | | | | | | [place], | | | | | | [place] [address] | | | | | | [phone] | | | | | | | [...] - 1.030 | EXTERNAL | | | [facility] | | | LAB | | + [...]
--- OUTSIDE RECORDS SUMMARY | ~2019-01-25 | XMS | Encounter Summary ---
Demographics + + + | Address | [address] | | | [place] [address] | + + + | Home Phone | | + + + | Preferred Language | Unknown | + + + | Marital Status | Single | + + + | Latter-Day Affiliation | 1041 | + + + | Race | Unknown | + + + | Ethnic Group | Unknown | + + + Author + + + | Author | [facility] | | | and [place] | + + + | Organization | [facility] | | | [...] Team Providers + +------+ + | Care Deep Sea Diver Name | Role | Phone | + [...] Provider Unknown | | | | | [place], [place] | [phone] | | | | | [address] | | | | | | [phone] | | | +--------+ + + + [...] [place] | | | | | | [address] | | | | | | | | +--------+---------+ + + + | 08/01/ | Office | Pulmonology | Jorge, | | | 2019 | Visit | | Caitlyn Simon, | | | | | | MD [address] | | | | | | [place], | | | | | | [place] [address] | | | | | | [phone] | | | | | | | | +--------+---------+ + + + documented as of this encounter Visit Diagnoses Not on filedocumented in this encounter"
--- OUTSIDE RECORDS SUMMARY | ~2019-01-25 | XMS | Encounter Summary ---
Demographics + + + | Address | [address] | | | [place] [address] | + + + | Home Phone | | + + + | Preferred Language | Unknown | + + + | Marital Status | Single | + + + | Nondenominational Affiliation | 1041 | + + + | Race | Unknown | + + + | Ethnic Group | Unknown | + + + Author + + + | Author | [facility] | | | and [place] | + + + | Organization | [facility] | | | and [place] | + [...] Team Providers + +------+ + | Care Medication Specialist Name | Role | Phone | + +------+ + PCP | Unavailable | + +------+ + Encounter Details +--------+ + + + + | Date | Type | Department | Care Team | Description | +--------+ + + + + | 03/03/ | Orders Only | [facility] | Monet Mcginnis MD | | | 2017 | | [address] [facility] | [address] | | | | | [place] | [place] | | | | | [address] | [address] | | | | | [phone] | | | +--------+ + + + [...] [place] | | | | | | [address] | | | | | | | | +--------+---------+ + + + | 08/01/ | Office | Pulmonology | Jorge, | | | 2019 | Visit | | Caitlyn Simon, | | | | | | [address] | | | | | | [place], | | | | | | [place] [address] | | | | | | [phone] | | | | | | | | +--------+---------+ + + + documented as of this encounter Procedures + +--------+ + + + | Procedure Name | Priori | Date/Time | Associated Diagnosis | Comments | | | ty | | | | + +--------+ + + + | EXTERNAL LAB: CBC | Routin | 03/03/2018 | | Results for this | | | e | 10:07 AM | | procedure are in the | | | | PST | | results section. | + +--------+ + + + | IRON AND IRON | Routin | 03/03/2018 | | Results for this | | BINDING CAPACITY | e | 10:07 AM | | procedure are in the | | | | PST | | results section. | + +--------+ + + + | FERRITIN | Routin | 03/03/2018 | | Results for this | | | e | 10:07 AM | | procedure are in the | | | | PST | | results section. | + +--------+ + + + | COMPREHENSIVE | Routin | 03/03/2018 | | Results for this | | METABOLIC PANEL | e | 10:07 AM | | procedure are in the | | | | PST | | results section. | + +--------+ + + + documented in this encounter Results Iron and Iron Binding Capacity (03/03/2018 10:07 AM PST) + +--------+ + + + | Component | Value | Ref Range | Performed | Pathologist | | | | | At | Signature | + +--------+ + + + | Iron | 15 (L) | 30 - 180 ug/dL | EXTERNAL | | | | | | LAB | | + +--------+ + + + | TIBC | 375 | 260 - 490 ug/dL | EXTERNAL | | | | | | LAB | | + +--------+ + + + | Iron | 4 (L) | 15 - 50 % | EXTERNAL | | | Saturation | | | LAB | | + [...] + +---------+ + + External Lab: CBC (03/03/2018 10:07 AM PST) + + + + + + | Component | Value | Ref Range | Performed | Pathologist | | | | | At | Signature | + + + + + + | WBC | 8.42 | 3.80 - 11.00 | EXTERNAL | | | | | 10*3/uL | LAB | | + + + + + + | RED CELL | 4.00 | 3.70 - 5.10 | EXTERNAL | | | COUNT | | 10*6/uL | LAB | | + + + + + + | Hgb | 8.3 (L) | 11.3 - 15.5 | EXTERNAL | | | | | g/dL | LAB | | + + + + + + | Hematocrit, | 27.0 (L) | 34.0 - 46.0 % | EXTERNAL | | | POC | | | LAB | | + + + + + + | MCV | 67.6 (L) | 80.0 - 100.0 fL | EXTERNAL | | | | | | LAB | | + + + + + + | MCH | 20.7 (L) | 27.0 - 34.0 pg | EXTERNAL | | | | | | LAB | | + + + + + + | MCHC | 30.6 (L) | 32.0 - 35.5 | EXTERNAL | | | | | g/dL | LAB | | + + + + + + | RDW-CV | 42.4 | 37 - 53 fL | EXTERNAL | | | | | | LAB | | + + + + + + | Platelet | 355 | 150 - 400 | EXTERNAL | [...] + + + | % Segmented | 64.23 | % | EXTERNAL | | | | | | LAB | | | Neutrophils | | | | | + + + + + + | % | 24.78 | % | EXTERNAL | | | Lymphocytes | | | LAB | | + + + + + + | % Monocytes | 9.69 | % | EXTERNAL | | | | | | LAB | | + + + + + + | % | 0.74 | % | EXTERNAL | | | Eosinophils | | | LAB | | + + + + + + | % Basophils | 0.56 | % | EXTERNAL | | | | | | LAB | | + + + + + + | Absolute | 5.41 | 1.90 - 7.40 | EXTERNAL | | | Segmented | | 10*3/uL | LAB | | | Neutrophils | | | | | + + + + + + | Absolute | 2.09 | 1.00 - 3.90 | EXTERNAL | | | Lymphocytes | | 10*3/uL | LAB | | + + + + + + | Absolute | 0.82 (H) | 0.00 - 0.80 | EXTERNAL | | | Monocytes | | 10*3/uL | LAB | | + + + + + + | Absolute | 0.06 | 0.00 - 0.50 | EXTERNAL | | | Eosinophils | | 10*3/uL | LAB | | + + + + + + | Absolute | 0.05 | 0.00 - 0.10 | EXTERNAL | | | Basophils | | 10*3/uL | LAB | | + + + + + + | RBC | 3+ | | EXTERNAL | | | Morphology | | | LAB | | + + + + + + | RBC | HYPO | | EXTERNAL | | | Morphology | | | LAB | | + + + + + + | RBC | 3+ | | EXTERNAL | | | Morphology [...] + + + + | RBC | ACANTHO | | EXTERNAL | | | Morphology [...] | | + +---------+ + + Ferritin (03/03/2018 10:07 AM PST) + +-------+ + + + | Component | Value | Ref Range | Performed | Pathologist | | | | | At | Signature | + +-------+ + + + | Ferritin, | 4 (L) | 6 - 170 ng/mL | EXTERNAL [...] + +---------+ + + Comprehensive Metabolic Panel (03/03/2018 10:07 AM PST) + + + + + + | Component | Value | Ref Range | Performed | Pathologist | | | | | At | Signature | + + + + + + | Na | 136 | 135 - 145 | EXTERNAL | | | | | mmol/L | LAB | | + + + + + + | K | 4.3 | 3.5 - 4.9 | EXTERNAL | | | | | mmol/L | LAB | | + + + + + + | Cl | 102 | 99 - 109 mmol/L | EXTERNAL | | | | | | LAB | | + + + + + + | CO2 | 26 | 23 - 32 mmol/L | EXTERNAL | | | | | | LAB | | + + + + + + | Anion Gap | 12 | 5 - 20 mmol/L | EXTERNAL | | | | | | LAB | | + + + + + + | Glucose, | 102 (H) | 65 - 99 mg/dL | EXTERNAL | | | Fasting | | | LAB | | + + + + + + | BUN | 23 | 8 - 25 mg/dL | EXTERNAL | | | | | | LAB | | + + + + + + | Creatinine | 0.98 | 0.50 - 1.00 | EXTERNAL | | | | | mg/dL | LAB | | + + + + + + | BUN/Creatin | 23 | | EXTERNAL | | | ine Ratio | | | LAB | | + + + + + + | Calcium | 9.3 | 8.5 - 10.5 | EXTERNAL | | | | | mg/dL | LAB | | + + + + + + | Protein, | 6.7 | 6.3 - 8.2 g/dL | EXTERNAL | | | Total | | | LAB | | + + + + + + | Albumin | 4.2 | 3.3 - 4.8 g/dL | EXTERNAL | | | | | | LAB | | + + + + + + | Globulin | 2.5 | 1.3 - 4.9 g/dL | EXTERNAL | | | | | | LAB | | + + + + + + | A/G Ratio | 1.7 | 1.0 - 2.4 | EXTERNAL | | | | | | LAB | | + + + + + + | Bilirubin | 0.6 | 0.1 - 1.5 mg/dL | EXTERNAL | | | Total | | | LAB | | + + + + + + | ALP, | 86 | 35 - 115 U/L | EXTERNAL | | | External | | | LAB | | + + + + + + | AST | 14 | 10 - 45 U/L | EXTERNAL | | | | | | LAB | | + + + + + + | ALT | 18 | 10 - 65 U/L | EXTERNAL | | | | | | LAB | | + + + + + + | Estimated | 57 (L)Comment: GFR <60: | mL/min/1.73_m2 | EXTERNAL [...]
--- OUTSIDE RECORDS SUMMARY | ~2019-01-25 | XMS | Encounter Summary ---
Demographics + + + | Address | [address] | | | [place] [address] | + + + | Home Phone | | + + + | Preferred Language | Unknown | + + + | Marital Status | Single | + + + | Samaritan Affiliation | 1041 | + + + | Race | Unknown | + + + | Ethnic Group | Unknown | + + + Author + + + | Author | [facility] [employer] (Historical as of | | | 10-29-18) | + + + | Organization | [facility] [employer] (Historical as of | | | 10-29-18) | + + + | Address | Unknown | + + + | Phone | Unavailable | + + + Support + + +---------+ + | Name | Relationship | Address | Phone | + + +---------+ + | Carlos Bhatti | ECON | Unknown | | + + +---------+ + | Ney Bhatti | TEGAN | Unknown | | + + +---------+ + | Marivel Bhatti | ECON | Unknown | | + + +---------+ + Care Team Providers + +------+ + | Care Retirement Sales Consultant Name | Role | Phone | + +------+ + | Johnny Caldera MD | PCP | | + +------+ + Encounter Details +--------+---------+ + + + | Date | Type | Department | Care Team | Description | +--------+---------+ + + + | 10/26/ | Office | [facility] | Noel Bautista, | CKD (chronic kidney | | 2019 | Visit | [address] | 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), 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 | | | | [address] | [place] [address] | (Primary Dx); | | | | [place] [address] | [place] [address] | Essential | | | | [phone] | [phone] | hypertension, benign | | | | | | | [...] + + + as of this encounter Last Filed Vital Signs + + + + | Vital Sign | Reading | Time Taken | + + + + | Blood Pressure | 82/50 | 10/26/2018 11:18 AM PDT | + + + + | Pulse | 62 | 10/26/2018 11:18 AM PDT | + + + + | Temperature | - | - | + + + + | Respiratory Rate | - | - | + + + + | Oxygen Saturation | - | - | + + + + | Inhaled [...] AM PDT | + + + + in this encounter Instructions Patient Instructions - WalterjazzmineNoel jacksonZEESHAN - 10/26/2018 11:20 AM PDTMedication Changes made at today's visit: Decrease prazosin to 1mg daily. Next LAB WORK in about: BMP in 1 week, then follow up labs in 6 Months You do NOT need to fast for this lab work, keep hydrated. Next APPOINTMENT: in about 6 Months. Keep hydrated with water. Please have lab work done 1 weeks prior to your appointment. Make sure you are well hydrated prior to going to the lab and are able to give a urine s ample. Call the office with any questions or concerns. Please bring all of your medications in the pharmacy bottles to every visit so a medicat ion review can be done. We recommend to measure your BP at least daily, twice daily if possible, record it and b ring record to every appointment with every healthcare provider you see. DO NOT TAKE any anti-inflammatory drugs such Ibuprofen, Diclofenac, Motrin, Advil, Talley xicam, naprosyn (Aleve), Celebrex, decongestants containing pseudoephedrine (such as some fo rebecca of Sudafed or Actifed) or herbal supplements (because of lack of FDA approval) Call our office if you have blood pressure over 150/90 on more than one occasion, or low blood pressure that is concerning. If you experience diarrhea and /or vomiting for more than 24 hours with no relief please seek medical help immediately. The treatments that are recommended to slow the progression of Chronic Kidney Disease in clude blood sugar control, blood pressure control, healthy body weight (BMI less than 30 kg/ m2), avoid sedentary lifestyle, avoid smoking/ tobacco, avoid NSAIDs, worsening nausea, vomi ting, no or low appetite and/or frequent diarrhea and avoid IV contrast. Do not drink alcohol, drink water when thirsty. If you smoke, you must quit. Smoking worsens kidney disease. Avoid caffeinated beverages such as soda pop, coffee, espresso drinks, energy drinks. Make all healthcare providers aware of the presence of kidney disease and request to adj ust all medications according to level of kidney function and to avoid nephrotoxic medicatio ns if possible, including but not limited to antibiotics. Call us with any questions. Short term use of acetaminophen (Tylenol) for fever or pain is okay. If in doubt please call our office for verification. Avoid exposure to IV contrast agents (DYE) used in CT scans, MRI's, Fluoroscopy, or in h eart catheterization procedures unless necessary or for a life saving procedure. Low salt diet, less than 2gm daily. in this encounter Progress Notes Noel Bautista ARNP - 10/26/2018 11:20 AM PDTFormatting of this note may be different f rom the original. Patient Active Problem List Diagnosis Vision changes Gait difficulty Nonspecific (abnormal) findings on radiological and other examination of skull and head Chronic diastolic heart failure (HCC) Essential hypertension, benign HLD (hyperlipidemia) CKD (chronic kidney disease), stage II Hyperuricemia Low vitamin D level Chronic obstructive pulmonary disease (HCC) Multiple pulmonary nodules HARPAL on CPAP Personal history of tobacco use, presenting hazards to health Irritable larynx syndrome Malignant neoplasm of upper lobe of left lung (HCC) Dear Dr Caldera: Thank you for the opportunity to see Ms. Bhatti in the office today with her son. As you ar e familiar with her case, I will not state her past history in detail. Briefly, she is a 62 y.o. female patient with past history as delineated above. she is here to follow up on her CKD & its associated complications. In 08/2015: her sCr & eGFR were 1.09 & 51. She lives a [facility], assisted living, in [place]. She reports she had a seizure in early September 2016, was seen at the [facility] ER for evaluation, re ports her buspirone was increased - no records for review. The patient has history of hypertension since ~2010. her BP control has been reportedly jennifer quate. she denies any history of prolonged exposure to NSAIDs or recent exposure to known ne phrotoxins. she denies any recurrent nephrolithiasis or pyelonephritis. she tells me that sh e's had no history of urinary retention, gross hematuria or dysuria. she has no incontinence symptoms. No symptoms of UTI. she has 2 nightly nocturia. No history of passing kidney st ones. she has no foamy urine either. her baseline Creatinine is 1.0. There is no family hist ory of renal genetic diseases such as PKD. she says that she feels 'good ' today. Reports fatigue, BP has been low, no home blood pres sure log for review. she denies any blurred vision tinnitus, headache, fever, chills, or co ugh. No nausea, vomiting, abdominal pain, diarrhea, melena, or hematochezia. She has ALONSO, chronic, for which she F/U's with your office. No chest pain, palpitation, dizziness, loss of consciousness, orthopnea, paroxysmal nocturnal dyspnea; she has chronic leg edema for whi ch she F/U's with your office. She has imbalance because of poor vision in right eye. She reports she sleeps most of the day for several days per week. The following portions of the patient's history were reviewed and updated as appropriate: a llergies, current medications, past medical history, past social history, past surgical hist ory, family history and problem list. U/S from 10/2015, showing no evidence of any significant renal anatomic abnormalities. As in History of Present Illness & in Assessment. All the twelve systems were reviewed and were otherwise negative. Current Outpatient Prescriptions Medication Sig Dispense Refill acetaminophen (TYLENOL) 325 MG tablet Take 650 mg by mouth nightly. albuterol (PROAIR HFA) 108 (90 BASE) MCG/ACT inhaler Inhale 2 puffs into the lungs ever y 4 (four) hours as needed. ARIPiprazole (ABILIFY) 2 MG tablet Take 5 mg by mouth nightly. ascorbic acid (VITAMIN C) 250 MG tablet Take 250 mg by mouth 2 (two) times daily. atorvastatin (LIPITOR) 40 MG tablet Take 40 mg by mouth daily. benzonatate (TESSALON) 100 MG capsule Take 100 mg by mouth 3 (three) times daily as nee ded for Cough. busPIRone (BUSPAR) 5 MG tablet Take 10 mg by mouth 3 (three) times daily. carboxymethylcellulose (REFRESH) 1 % ophthalmic solution Apply 1 drop to eye 2 (two) ti mes daily. fexofenadine (EMILY) 180 MG tablet Take 180 mg by mouth daily. fluticasone-salmeterol (ADVAIR) 250-50 MCG/DOSE Inhale 1 puff into the lungs 2 (two) ti mes daily. furosemide (LASIX) 40 MG tablet Take 40 mg by mouth daily. Take 1 tablet by mouth every evening gabapentin (NEURONTIN) 100 MG capsule TAKE 1 CAPSULE BY MOUTH IN THE MORNING AND TAKE 1 TO 2 CAPSULES BY MOUTH AT BEDTIME FOR AKATHISIA 1 ipratropium-albuterol (COMBIVENT) 18-103 MCG/ACT inhaler Inhale 2 puffs into the lungs every 6 (six) hours as needed for Wheezing. ipratropium-albuterol (DUO-NEB) 0.5-2.5 mg/3mL Take 3 mLs by nebulization 4 (four) time s daily as needed. lisinopril (ZESTRIL) 5 MG tablet Take 5 mg by mouth daily. LORazepam (ATIVAN) 0.5 MG tablet Take 0.5 mg by mouth every 12 (twelve) hours as needed for Anxiety. metFORMIN (GLUCOPHAGE) 500 MG tablet Take 500 mg by mouth 2 (two) times daily with meal s. metoprolol (TOPROL-XL) 50 MG 24 hr tablet Take 50 mg by mouth daily. miconazole (MICONAZORB AF) 2 % powder Apply topically 2 (two) times daily. Nasal Moisturizer Combination (OCEAN COMPLETE NA) by Nasal route. potassium chloride SA (K-DUR,KLOR-CON) 20 MEQ tablet Take 0.5 tablets by mouth daily. prazosin (MINIPRESS) 1 MG capsule Take 1 mg by mouth nightly. psyllium (METAMUCIL SMOOTH TEXTURE) 28 % packet Take 1 packet by mouth 2 (two) times da nikki. ropinirole (REQUIP) 2 MG tablet Take 2 mg by mouth nightly. Turmeric 500 MG CAPS Take by mouth. aspirin 81 MG chewable tablet Take 81 mg by mouth daily with breakfast. bisacodyl (DULCOLAX) [address] 10 mg rectally once. cetirizine (ZYRTEC) 10 MG tablet Take 5 mg by mouth daily as needed for Allergies. Cholecalciferol 2000 units CAPS Take by mouth. citalopram (CELEXA) 20 MG tablet Take 40 mg by mouth every morning. Multiple Vitamins-Minerals (PRESERVISION AREDS) TABS Take by mouth 2 (two) times daily . sodium chloride (OCEAN) 0.65 % nasal 1 spray by Each Nare route as needed for Congestio n. Sodium Phosphates (ENEMA RE) Place rectally. No current facility-administered medications for this visit. Physical Exam: BP (!) 82/50 (BP Location: Left upper arm, Patient Position: Sitting) | Pulse 62 | Ht 1.6 26 m (5' 4") | Wt 109.4 kg (241 lb 3.2 oz) | BMI 41.40 kg/m General appearance: Pleasant, not in acute distress. Uses 4ww. Neck: Supple without tracheal deviation or jugular venous distension. Head and ENT: Head is atraumatic. The oropharynx is without erythema or thrush. Eyes: Anicteric. Wears sunglasses in the office Lungs: Clear to auscultation bilaterally. There are no wheezes. Heart: Regular rate and rhythm without any rub, gallop. Grade 2 systolic murmur, best at t he RUSB. Abdominal exam: Obese. Soft and nontender with normal bowel sounds. Musculoskeletal: No costovertebral angle tenderness bilaterally. Extremities: Warm to touch with trace leg edema. There is no cyanosis. Skin: There are no rashes, petechiae, or ecchymosis. Neurological: Awake, alert, and oriented to time, place, and person. Normal gross motor po wer. There is no asterixis. Psychiatric: The patient s behavior is normal. Judgment and thought content are normal. Lab Results Component Value Date BUN 32 (A) 10/25/2018 CREATININE 1.14 10/25/2018 EGFR 48 (A) 10/25/2018 NA 139 10/25/2018 K 4.2 10/25/2018 CL 103 10/25/2018 CO2 27 10/25/2018 CA 9.7 10/25/2018 PHOS 3.7 10/25/2018 MG 2.2 10/25/2018 ALB 4.3 10/25/2018 HGB 11.8 (A) 10/25/2018 URICACID 6.8 (A) 10/25/2018 WBC 10.5 10/25/2018 HCT 36.8 10/25/2018 FERRITIN 14 06/09/2018 LABIRON 4 (L) 03/03/2018 LABPROT 87.2 10/25/2018 [id number] 23 (A) 03/12/2017 Assessment: Ms. Bhatti is a 62 y.o. female patient with stage I-II CKD on a background of hypertension. The most likely pathology here is that of hypertensive nephrosclerosis/arteriolosclerosis. She had episodes of dehydration while also taking furosemide & HCTZ. HCTZ was eventually st opped. RENAL FUNCTION: Creatinine 0.9 - 1.1 BLOOD PRESSURE: Reports it normal, no log today BLOOD SUGAR: Reports it normal ELECTROLYTES: Normal ANEMIA: Mild; severe iron def anemia in the past, was followed by Hem/Onc. VITAMIN D: Needs checked PARATHYROID HORMONE: To be checked URIC ACID: Improved PROTEINURIA: None URINALYSIS: No UTI sxs; she has an E coli colonizer. VOLUME STATUS: Euvolumic. Discussions/Recommendations: I discussed today with Ms.. Bhatti the meaning of her CKD and the interaction of that with h er hypertension and hemodynamics. I stressed the importance of keeping her BP controlled an d avoiding getting dehydrated if we are to have a chance at helping preserve her renal funct ion. She showed good understanding. I gave her instructions on how to chart her blood pres sure in the appropriate manner at home. She is to call us if they fall outside of the optim al provided range. She will strictly abide by a low sodium & low purine diet and will avoid all kinds of NSAIDs for analgesia. PLAN: Decrease prazosin to 1mg daily. If her BP remains low and she is symptomatic she will ne ed to stop this or reduce other vasoactive agents. Follow up labs include: RFP, Magnesium, PTH, Cbc, uric acid, iron panel, ferritin, Urine total qkliutt-[id number] ratio. BP Charting: she will bring me back her home BP charts in 1 week. At that time, I will d ecide whether any changes to her vasoactive regimen are warranted. I advised her to exercise regularly but safely & to try to lose weight methodically; She voiced good understanding. I urged the patient to please call our office with any questions or concerns. She will continue to F/U with your office regularly. She will have labs done before she comes back in [address] Caldera for the opportunity to follow up with this patient and be part of [facility] care team. Please do not hesitate to call me at any time with questions or concerns. Truly yours, Noel Watsonjett [facility] This note prepared with voice recognition software, if any questions concerning spelling an d/or grammar, please call.in this encounter Plan of Treatment + +--------+ + + | Name | Priori | Associated Diagnoses | Order Schedule | | | ty | | | + +--------+ + + | Basic metabolic panel | Routin | CKD (chronic | Expected: 10/27/2018 | | | e | kidney disease), | (Approximate), | | | | stage II Essential | Expires: 11/12/2018 | | | | hypertension, benign | | + +--------+ + + as of this encounter Visit Diagnoses + + | Diagnosis | + + | CKD (chronic kidney disease), stage II - Primary | + + | Essential hypertension, benign | + +
--- OUTSIDE RECORDS SUMMARY | ~2019-01-25 | XMS | Encounter Summary ---
Demographics + + + | Address | [address] | | | [place] [address] | + + + | Home Phone | | + + + | Preferred Language | Unknown | + + + | Marital Status | Single | + + + | Druze Affiliation | 1041 | + + + [...] Team Providers + +------+ + | Care Client Services Specialist Name | Role | Phone | + +------+ + PCP | Unavailable | + +------+ + Encounter Details +--------+ + + + + | Date | Type | Department | Care Team | Description | +--------+ + + + + | 08/30/ | Orders Only | [facility] | Monet Mcginnis MD | | | 2017 | | [address] [facility] | [address] | | | | | [place] | [place] | | | | | [address] | [address] | | | | | [phone] | | | +--------+ + + + [...] [place] | | | | | | [address] | | | | | | | | +--------+---------+ + + + | 08/01/ | Office | Pulmonology | Jorge, | | | 2019 | Visit | | Caitlyn Simon, | | | | | | [address] | | | | | | [place], | | | | | | [place] [address] | | | | | | [phone] | | | | | | | [...]
--- OUTSIDE RECORDS SUMMARY | ~2019-01-25 | XMS | Encounter Summary ---
Demographics + + + | Address | [address] | | | [place] [address] | + + + | Home Phone | | + + + | Preferred Language | Unknown | + + + | Marital Status | Single | + + + | Synagogue Affiliation | 1041 | + + + | Race | Unknown | + + + | Ethnic Group | Unknown | + + + Author + + + | Author | [facility] | | | and [place] | + + + | Organization | [facility] | | [...] Team Providers + +------+ + | Care Executive Candidate Developer Name | Role | Phone | + +------+ + PCP | Unavailable | + +------+ + Encounter Details +--------+ + + + + | Date | Type | Department | Care Team | Description | +--------+ + + + + | 04/12/ | Orders Only | [facility] | Noel Bautista, | | | 2018 | | [facility] | 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 [address] | | | | | [address] | [place] | | | | | [address] [place], [place] | [place] | | | | | [address] | [address] | | | | | [phone] | [phone] | | | | | | | [...] [place] | | | | | | [address] | | | | | | | | +--------+---------+ + + + | 08/01/ | Office | Pulmonology | Jorge, | | | 2019 | Visit | | Caitlyn Simon, | | | | | | MD [address] | | | | | | [place], | | | | | | [place] [address] | | | | | | [phone] | | | | | | | | +--------+---------+ + + + documented as of this encounter Procedures + +--------+ + + + | Procedure Name | Priori | Date/Time | Associated Diagnosis | Comments | | | ty | | | | + +--------+ + + + | PROTEIN/CREATININE | Routin | 04/12/2018 | | Results for this | | RATIO, URINE | e | 4:15 PM | | procedure are in the | | | | PST | | results section. | + +--------+ + + + | PARATHYROID HORMONE, | Routin | 04/12/2018 | | Results for this | | INTACT | e | 4:15 PM | | procedure are in the | | | | PST | | results section. | + +--------+ + + + | MAGNESIUM | Routin | 04/12/2018 | | Results for this | | | e | 4:15 PM | | procedure are in the | | | | PST | | results section. | + +--------+ + + + | RENAL FUNCTION PANEL | Routin | 04/12/2018 | | Results for this | | | e | 4:15 PM | | procedure are in the | | | | PST | | results section. | + +--------+ + + + documented in this encounter Results Protein/Creatinine Ratio, Urine (04/12/2018 4:15 PM PST) + +-------+ + + + | Component | Value | Ref Range | Performed | Pathologist | | | | | At | Signature | + +-------+ + + + | Protein/Cre | 74.1 | 0 - 150 | EXTERNAL | [...] + +---------+ + + Parathyroid Hormone, Intact (04/12/2018 4:15 PM PST) + + + + + + | Component | Value | Ref Range | Performed | Pathologist | | | | | At | Signature | + + + + + + | PTH INTACT | 82.05 (A) | 15 - 65 pg/mL | [...] | | + +---------+ + + Magnesium (04/12/2018 4:15 PM PST) + +-------+ + + + | Component | Value | Ref Range | Performed | Pathologist | | | | | At | Signature | + +-------+ + + + | Magnesium | 2.3 | 1.7 - 2.5 mg/dL | EXTERNAL [...] + +---------+ + + Renal Function Panel (04/12/2018 4:15 PM PST) + +---------+ + + + | Component | Value | Ref Range | Performed | Pathologist | | | | | At | Signature | + +---------+ + + + | Glucose, | 116 (A) | 70 - 100 mg/dL | EXTERNAL | | | Fasting | | | LAB | | + +---------+ + + + | BUN | 22 | 6 - 23 mg/dL | EXTERNAL | | | | | | LAB | | + +---------+ + + + | Creatinine | 1.00 | 0.70 - 1.25 | EXTERNAL | | | | | mg/dL | LAB | | + +---------+ + + + | PHOSPHORUS | 4.3 | 2.5 - 5.0 mg/dL | EXTERNAL | | | | | | LAB | | + +---------+ + + + | Albumin | 4.0 | 3.5 - 5.0 | EXTERNAL | | | | | | LAB | | + +---------+ + + + | Na | 142 | 132 - 143 | EXTERNAL | | | | | mmol/L | LAB | | + +---------+ + + + | K | 4.3 | 3.6 - 5.1 | EXTERNAL | | | | | mmol/L | LAB | | + +---------+ + + + | Cl | 104 | 95 - 112 mmol/L | EXTERNAL | | | | | | LAB | | + +---------+ + + + | CO2 | 24 | 19 - 31 mmol/L | EXTERNAL | | | | | | LAB | | + +---------+ + + + | Anion Gap | 18.3 | 7 - 21 mmol/L | EXTERNAL | | | | | | LAB | | + +---------+ + + + | eGFR if not | | | EXTERNAL | | | | | | LAB | | | HAITIAN | | | | | + +---------+ + + + | Phosphorus, | | | EXTERNAL | | | Inorganic | | | LAB | | + +---------+ + + + | BUN/Creatin | 22.0 | 6.0 - 28.6 | EXTERNAL | | | ine Ratio | | | LAB | | + +---------+ + + + | Calcium | 9.6 | 8.5 - 10.3 | EXTERNAL | | | | | mg/dL | LAB | | + +---------+ + + + | Estimated | 56 (A) | 60 - 140 mg/dL | [...]
--- OUTSIDE RECORDS SUMMARY | ~2019-01-25 | XMS | Encounter Summary ---
Demographics + + + | Address | [address] | | | [place] [address] | + + + | Home Phone | | + + + | Preferred Language | Unknown | + + + | Marital Status | Single | + + + | Congregational Affiliation | 1041 | + + + | Race | Unknown | + + + | Ethnic Group | Unknown | + + + Author + + + | Author | [facility] | | | and [place] | + + + | Organization | [facility] | | | and [...] Providers + +------+ + | Care Supervisor Of Way Name | Role | Phone | + +------+ + | Johnny Caldera MD | PCP | | + +------+ + Encounter Details +--------+---------+ + + + | Date | Type | Department | Care Team | Description | +--------+---------+ + + + | 11/30/ | Office | [facility] | Jorge, | 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 She says that she did have du st exposure through her last work. She has no animals at home. She currently lives in an [facility] living facility. The following elements of the [...] NEEDLE BIOPSY LUNG 09/20/2017 Gregory Henderson MD [facility] CT OTHER SURGICAL HISTORY 12/07/02 OTHER [...] 53 DLCO 21 (86%) IMAGES ARE FROM [facility] CT of the chest done on 06/30/17 [...] Patel MD Pulmonary and Critical Care Medicine [facility]/[address] , [place] [address]. documente d in this encounter Plan of [...] [place] | | | | | | [address] | | | | | | | | +--------+---------+ + + + | 08/01/ | Office | Pulmonology | Jorge, | | | 2019 | Visit | | Caitlyn Simon, | | | | | | MD [address] | | | | | | [place], | | | | | | [place] [address] | | | | | | [phone] | | | | | | | [...]
--- OUTSIDE RECORDS SUMMARY | ~2019-01-25 | XMS | Encounter Summary ---
Demographics + + + | Address | [address] | | | [place] [address] | + + + | Home Phone | | + + + | Preferred Language | Unknown | + + + | Marital Status | Single | + + + | Zoroastrianism Affiliation | CAT | + + + [...] Team Providers + +------+ + | Care Electronic Game Developer Name | Role | Phone | [...] as of this encounter Progress Notes Interface, Gasket Inspector In - 03/20/2005 6:23 AM PST [id number] GENEVIEVE GRAY Ultrasound Evaluation Report Patient: MARINA [...] Mcgarry M.D. and Nawaf Yip, Ophthalmic Echographer [place] / [id number] / [id number] / [id number] / Electronically signed by Jr. Jd Mcgarry [...] | Transcriptions | + + | Interface, Gasket Inspector In - 03/20/2005 6:23 AM PST | | [id number] | | [id number] GENEVIEVE GRAY | | | | | [...] | | ME / HS | | [id number] / [id number] / [id number] / | | | | | | | | | | | | | | Electronically signed by Jr. Jd Mcgarry 03-30-2004 04:21:01 PM | + + documented in this encounter Visit Diagnoses Not on filedocumented in this encounter"
--- OUTSIDE RECORDS SUMMARY | ~2019-01-25 | XMS | Encounter Summary ---
Demographics + + + | Address | [address] | | | [place] [address] | + + + | Home Phone [...] + + + | Author | [facility] | | | and [place] | + + + | Organization | [facility] | | [...] Team Providers + +------+ + | Care Stablehand Name | Role | Phone | + +------+ + PCP | Unavailable | + +------+ + Encounter Details +--------+ + + + + | Date | Type | Department | Care Team | Description | +--------+ + + + + | 04/12/ | Orders Only | [facility] | Noel Bautista, | | | 2018 | | [facility] | SURGERY SPECIALIST [address] | | | | | [address] | [place] | | | | | [address] [place], [place] | [place] | | | | | [address] | [address] | | | | | [phone] | [phone] | | | | | | | [...] | | | | | | [place] | | | | | | [address] | | | | | | | | +--------+---------+ + + + | 08/01/ | Office | Pulmonology | Jorge, | | | 2019 | Visit | | Caitlyn Simon, | | | | | | MD [address] | | | | | | [place], | | | | | | [place] [address] | | | | | | [phone] | | | | | | | [...] | | | LAB | | | INDONESIAN | | | | | + +---------+ [...]
--- OUTSIDE RECORDS SUMMARY | ~2019-01-25 | XMS | Encounter Summary ---
Demographics + + + | Address | [address] | | | [place] [address] | + + + | Home Phone | | + + + | Preferred Language | Unknown | + + + | Marital Status | Single | + + + | Jew Affiliation | CAT | + + + [...] Team Providers + +------+ + | Care Perinatology Physician Name | Role | Phone | [...] [address] | | | | | [facility] | [place], [place] | | | | | [address] | [address] | | | | | Brittany Ellis Mailcode: | [phone] | | | | | [address] | | | | | | [place], [place] | | | | | | [address] | | | | | | [phone] | | | +--------+ + + + [...]
--- OUTSIDE RECORDS SUMMARY | ~2019-01-25 | XMS | Encounter Summary ---
Demographics + + + | Address | [address] | | | [place] [address] | + + + | Home Phone | | + + + | Preferred Language | Unknown | + + + | Marital Status | Single | + + + | Islam Affiliation | 1041 | + + + | Race | Unknown | + + + | Ethnic Group | Unknown | + + + Author + + + | Author | [facility] | | | and [place] | + + + | Organization | [facility] | | [...] Team Providers + +------+ + | Care Chemistry Laboratory Technician Name | Role | Phone | [...] Unknown | | | | | [place], [place] | | | | | | [address] | (Fax) | | | | | [phone] | | | +--------+ + + + [...] [place] | | | | | | [address] | | | | | | | | +--------+---------+ + + + | 08/01/ | Office | Pulmonology | Jorge, | | | 2019 | Visit | | Caitlyn Simon, | | | | | | MD [address] | | | | | | [place], | | | | | | [place] [address] | | | | | | [phone] | | | | | | | [...]
--- OUTSIDE RECORDS SUMMARY | ~2019-01-25 | XMS | Encounter Summary ---
Demographics + + + | Address | [address] | | | [place] [address] | + + + | Home Phone [...] Providers + +------+ + | Care Manager Inventory Name | Role | Phone | + [...] + + | 12/27/ | Office | [facility] | Monet Mcginnis MD | [...] | deficiency anemia, | | | | [address] | | unspecified iron | | | | [phone] | | deficiency anemia | | | [...] NEEDLE BIOPSY LUNG 09/20/2017 Gregory Henderson MD [facility] CT OTHER SURGICAL HISTORY 12/07/02 [...] - 28.6 Final 12/2018: WBC=7.2, Hb=11.4, MCV=73.6, yrg=409, normal CMP Imaging: CT CAP with contrast [...] examining the patient, review of medical records, certified substance abuse counselor ing, coordination of care, and CPOE. More than 50% of that time was spent in direct contact with the patient. [facility] Plan of Treatment +--------+---------+ + + + | Date | Type | Specialty | Care Team | Description | +--------+---------+ + + + | 05/02/ | Office | Oncology | Monet Mcginnis MD | | | 2019 | Visit | | [address] | | | | | | [place] | | | | | | [address] | | | | | | | | +--------+---------+ + + + | 08/01/ | Office | Pulmonology | Jorge, | | | 2019 | Visit | | Caitlyn Simon, | | | | | | MD [address] | | | | | | [place], | | | | | | [place] [address] | | | | | | [phone] | | | | | | | [...]
--- OUTSIDE RECORDS SUMMARY | ~2019-01-25 | XMS | Encounter Summary ---
Demographics + + + | Address | [address] | | | [place] [address] | + + + | Home Phone [...] Team Providers + +------+ + | Care Fender Finisher Name | Role | Phone | + +------+ + PCP | Unavailable | + +------+ + Encounter Details +--------+ + + + + | Date | Type | Department | Care Team | Description | +--------+ + + + + | 02/27/ | Results | [facility] | Brown De Luna | | | 2003 | Only | [facility] | [address] | | | | [address] | [place], | | | | | [place] | [place] [address] | | | | | Mailcode: NEAL | [phone] | | | | | [place], [place] | | | | | | [address] | | | | | | [phone] | | | +--------+ + + + [...] | + + + + + | [facility] | [address] | [place] [address] | | | LAB-MICRO | | | [...] | + + + + + | [facility] | [address] | [place] [address] | | | LAB-MICRO | | | [...] + + + | [facility] | [address] | [place] [address] | | | LAB-MICRO | | | [...] + + + | [facility] | [address] | [place] [address] | | | LAB-MICRO | | | [...] [facility] | [address] | [place] [address] | | | REID | [place]. | [...] + + | [facility] | [address] | [place] [address] | | | INSTITUTE | [place]. | | | + + + + + documented in this encounter Visit Diagnoses Not on filedocumented in this encounter"
--- OUTSIDE RECORDS SUMMARY | ~2019-01-25 | XMS | Encounter Summary ---
Demographics + + + | Address | [address] | | | [place] [address] | + + + | Home Phone | | + + + | Preferred Language | Unknown | + + + | Marital Status | Single | + + + | Sikh Affiliation | CAT | + + + [...] Team Providers + +------+ + | Care Combat Systems Officer Name | Role | Phone | + +------+ + PCP | Unavailable | + +------+ + Encounter Details +--------+ + + + + | Date | Type | Department | Care Team | Description | +--------+ + + + + | 03/11/ | Orders Only | | Record, Operation [...] + + | OPERATION RECORD | | 05/24/2003 | | Results for this | | | | | | procedure are in the | | | | | | results section. 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 Pars plana vitrectomy with vitreous | | biopsy, left eye.2. Injection of intravitreal vancomycin and amikacin, left eye.3. | | Capsulectomy, left eye.Anesthesia:Monitored anesthesia care with retrobulbar | | block.Complications:None.Specimens:Undilated vitreous specimen for pathology and | | microbiology.Indications:This 47-year-old female has a history of cataract | | surgeryapproximately 5 months ago in the left eye. The patient recently hadincreasing | | pain and decreased vision in the left eye over the last severalweeks. The patient has | | suspected P. acnes endophthalmitis and nowundergoes vitrectomy.Procedure:The patient was | | brought into the operating theatre and was placed in thesupine position. After | | sufficient sedation was given, a 50:50 mixture of2% lidocaine and 0.75% Marcaine was | | injected into the retrobulbar spaceusing an Packer needle. The area around the left | | eye was then preppedand draped in the usual sterile manner for ophthalmic surgery. A | | lidspeculum was placed, and the operating microscope was brought over the eye,and the | | eye was set up for standard 3-port vitrectomy with a sewn-ininfusion cannula in the | | inferotemporal quadrant and the instrumentsclerotomies in the superotemporal and | | superonasal quadrants. Correctplacement of the infusion cannula was confirmed using | | transpupillary directvisualization. Then, using light pipe and vitrector, undilated | | vitreousspecimen was aspirated using the cutter to 1.0 mL sample. This was dividedinto | | two, and half sent to Pathology and half sent to Microbiology forproper examination. | | Then, posterior infusion was turned on, and vitrectomywas performed. Dense vitreitis | | was present with vitreous cavity removed inall clock hours using the aid of scleral | | depression. Also, a capsulectomywas performed making a circular posterior capsulotomy. | | Then, thesclerotomy was closed using 6-0 Vicryl sutures. Then, amikacin andvancomycin | | in the usual intravitreal dose were injected pars planainto the vitreous cavity. The | | conjunctival peritomies were closed using6-0 plain gut sutures. Zinacef and Decadron | | were given as subconjunctivalinjections. The patient tolerated the procedure well and | | was moved torecatchison hospitaly area in excellent condition. Dr. Arik De Luna was present forthe | | entire case. No qualified resident was available to assist in thiscase.Jim Greco, | | Saumya De Luna M.D. / [id number] / [id number] / [id number] / T: 05/25/2003 | | | |Procedure: | |The patient was brought into the operating theatre and was placed in the | |supine position. After sufficient sedation was given, a 50:50 mixture of | |2% lidocaine and 0.75% Marcaine was injected into the retrobulbar space | |using an Packer needle. The area around the left eye was then prepped | |and draped in the usual sterile manner for ophthalmic surgery. A lid | |speculum was placed, and the operating microscope was brought over the eye, | |and the eye was set up for standard 3-port vitrectomy with a sewn-in | |infusion cannula in the inferotemporal quadrant and the instrument | |sclerotomies in the superotemporal and superonasal quadrants. Correct | |placement of the infusion cannula was confirmed using transpupillary direct | |visualization. Then, using light pipe and vitrector, undilated vitreous | |specimen was aspirated using the cutter to 1.0 mL sample. This was divided | |into two, and half sent to Pathology and half sent to Microbiology for | |proper examination. Then, posterior infusion was turned on, and vitrectomy | |was performed. Dense vitreitis was present with vitreous cavity removed in | |all clock hours using the aid of scleral depression. Also, a capsulectomy | |was performed making a circular posterior capsulotomy. Then, the | |sclerotomy was closed using 6-0 Vicryl sutures. Then, amikacin and | |vancomycin in the usual intravitreal dose were injected pars plana | |into the vitreous cavity. The conjunctival peritomies were closed using | |6-0 plain gut sutures. Zinacef and Decadron were given as subconjunctival | |injections. The patient tolerated the procedure well and was moved to | |recovery area in excellent condition. Dr. Arik De Luna was present for | |the entire case. No qualified resident was available to assist in this | |case. | | | | | | | | | |Jim Greco M.D. | | | | | | | |Kenzie De Luna M.D. | | | | / | |[id number] / [id number] / [id number] / | | | | | + + documented in this encounter Visit Diagnoses Not on filedocumented in this encounter"
--- OUTSIDE RECORDS SUMMARY | ~2019-01-25 | XMS | Encounter Summary ---
Demographics + + + | Address | [address] | | | [place] [address] | + + + | Home Phone | | + + + | Preferred Language | Unknown | + + + | Marital Status | Single | + + + | Mosque Affiliation | CAT | + + + [...] Team Providers + +------+ + | Care Billet Bed Operator Name | Role | Phone | [...] | | | | | sclerosis | [place] | | | | | ([facility]) | [address] | [address] | | | | | Procedures | Phone: | Phone: | | | | | CONSULT TO | [phone] | [phone] | | | | | NEURO | Fax: | Fax: | | | | | OPHTHALMOLOG | [phone] | [phone] | | | | | Y | [...] gait | [facility] | [address] [facility] | | | | | | [facility] | [facility] | | | | | | [facility] | [facility], | | | | | | [address] | [place] | | | | | [address] | [address] | | | | | | [place], | Phone: | | | | | | [place] [address] | [phone] | | | | | | Phone: | Fax: | | | | | | [phone] | [phone] | | | | | | Fax: | | | | | | | [phone] | | +--------+--------+ + + + + Encounter Details +--------+---------+ + + + | Date | Type | Department | Care Team | Description | +--------+---------+ + + + | 03/21/ | Office | Neurology at | Breanne Yuen MD | Abnormal MRI | | 2015 | Visit | [facility] & | [address] | (Primary Dx) | | | | [address]aling [address] | [place], [place] | | | | | [address] Mailcode: | [address] | | | | | [address] | [phone] | | | | | [facility], | | | | | | [facility] | | | | | | [place], [place] | | | | | | [address] | | | | | | [phone] | | | +--------+---------+ + + + [...] baseline, and COPD who was admitted to [facility] from [facility] in early October 14 for a [...] vision, blurriness of central vision) and an safety grooving machine operator (Dr. Vasquez, family members were pretty sure [...] mal slowing or epileptiform activity were seen. [facility] EEG monitoring to follow. Long-term EEG 10/19-10/20/13: [...] she has only b een seeing an safety grooving machine operator as an outpatient per family report, I would agree if they think [facility] ophthalmology seems more appropriate for her. Since there were enhancing lesions on th e MRI we reviewed during her admission, she needs to be followed with a repeat scan. We will have the most recent outside images pushed from [facility]. Recommendations: -Neuro-ophthalmology referral - [facility] - [facility] in 3 months This patient has been staffed with Dr. Tim Franz, attending physician, who agrees with t jose a above assessment and plan. Breanne Webster MD Neurology PGY-2 Pager [phone] documented in this enco unter Plan of Treatment Not on filedocumented as of this encounter Visit Diagnoses + + | Diagnosis | + + | Abnormal MRI - Primary Other nonspecific (abnormal) findings on radiological and | | other examinations of body structure | + + documented in this encounter
--- OUTSIDE RECORDS SUMMARY | ~2019-01-25 | XMS | Encounter Summary ---
Demographics + + + | Address | [address] | | | [place] [address] | + + + | Home Phone [...] + + + | Author | [facility] | | | and [place] | + + + | Organization | [facility] | | [...] Team Providers + +------+ + | Care Economic History Teacher Name | Role | Phone | + +------+ + | Johnny Caldera MD | PCP | | + +------+ + Encounter Details +--------+ + + + + | Date | Type | Department | Care Team | Description | +--------+ + + + + | 08/26/ | Orders Only | [facility] | Conversion | | | 2015 | | [place] [place] | Transaction, | | | | | [address] | Provider Unknown | | | | | [address] [place], [place] | [phone] | | | | | [address] | | | | | | [phone] | | | +--------+ + + + [...] [place] | | | | | | [address] | | | | | | | | +--------+---------+ + + + | 08/01/ | Office | Pulmonology | Jorge, | | | 2019 | Visit | | Caitlyn Simon, | | | | | | MD [address] | | | | | | [place], | | | | | | [place] [address] | | | | | | [phone] | | | | | | | | +--------+---------+ + + + documented as of this encounter Procedures + +--------+ + + + | Procedure Name | Priori | Date/Time | Associated Diagnosis | Comments | | | ty | | | | + +--------+ + + + | IRON AND IRON | Routin | 08/30/2015 | | Results for this | | BINDING CAPACITY | e | 12:00 AM | | procedure are in the | | | | PDT | | results section. | + +--------+ + + + | RETIC COUNT | Routin | 08/30/2015 | | Results for this | | | e | 12:00 AM | | procedure are in the | | | | PDT | | results section. | + +--------+ + + + | BASIC METABOLIC | Routin | 08/30/2015 | | Results for this | | PANEL | e | 12:00 AM | | procedure are in the | | | | PDT | | results section. | + +--------+ + + + | EXTERNAL LAB: CBC | Routin | 08/27/2015 | | Results for this | | | e | 12:00 AM | | procedure are in the | | | | PDT | | results section. | + +--------+ + + + | BASIC METABOLIC | Routin | 08/27/2015 | | Results for this | | PANEL | e | 12:00 AM | | procedure are in the | | | | PDT | | results section. | + +--------+ + + + | EXTERNAL LAB: CBC | Routin | 08/20/2015 | | Results for this | | | e | 12:00 AM | | procedure are in the | | | | PDT | | results section. | + +--------+ + + + | COMPREHENSIVE | Routin | 08/20/2015 | | Results for this | | METABOLIC PANEL | e | 12:00 AM | | procedure are in the | | | | PDT | | results section. | + +--------+ + + + documented in this encounter Results Iron and Iron Binding Capacity (08/30/2015 12:00 AM PDT) + + | Specimen | + + | | + + + + + | Narrative | Performed At | + + + | IIRON 63.66 37-160 TIBC | EXTERNAL LAB | | 408 245-400 %SAT 15.6 | | | 20-55 FERRITIN 16.39 13-150 | | | UIBC 344 TRANSFE 291.65 192-382 | | + + + + +---------+ + + | Performing | Address | City/State/Zipcode | Phone Number | | Organization | | | | + +---------+ + + | EXTERNAL LAB | | | | + +---------+ + + Retic Count (08/30/2015 12:00 AM PDT) + + + + + + | Component | Value | Ref Range | Performed | Pathologist | | | | | At | Signature | + + + + + + | % | | | EXTERNAL | | | Reticulocyt | | | LAB | | | e Count | | | | | + + + + + + | Absolute | 82.1 (A) | 40 - 79 | EXTERNAL | | | Reticulocyt | | | LAB | | | e Count | | | | | + + + + + + + + | Specimen | + + | Blood specimen | | (specimen) | + + + + + | Narrative | Performed At | + + + | RETIC, PERCENT 1.65 0.8-2.1 | EXTERNAL LAB | | RETIC PROD INDEX 1.1 1.0-2.0 | | + + + + +---------+ + + | Performing | Address | City/State/Zipcode | Phone Number | | Organization | | | | + +---------+ + + | EXTERNAL LAB | | | | + +---------+ + + Basic Metabolic Panel (08/30/2015 12:00 AM PDT) + +---------+ + + + | Component | Value | Ref Range | Performed | Pathologist | | | | | At | Signature | + +---------+ + + + | Glucose, | 175 (A) | 70 - 100 mg/dL | EXTERNAL | | | Fasting | | | LAB | | + +---------+ + + + | BUN | 25 (A) | 6 - 23 mg/dL | EXTERNAL | | | | | | LAB | | + +---------+ + + + | Creatinine | 1.03 | 0.70 - 1.25 | EXTERNAL | | | | | mg/dL | LAB | | + +---------+ + + + | BUN/Creatin | 24.3 | 6.0 - 28.5 | EXTERNAL | | | ine Ratio | | | LAB | | + +---------+ + + + | Calcium | 9.7 | 8.4 - 10.2 | EXTERNAL | | | | | mg/dL | LAB | | + +---------+ + + + | Na | 138 | 132 - 143 | EXTERNAL | | | | | mmol/L | LAB | | + +---------+ + + + | K | 4.0 | 3.6 - 5.1 | EXTERNAL | [...] + + + | Anion Gap | 14.0 | 7 - 21 mmol/L | EXTERNAL | | | | | | LAB | | + +---------+ + + + | Estimated | 55 | mg/dL | EXTERNAL | | | [...] + +---------+ + + External Lab: CBC (08/27/2015 12:00 AM PDT) + + + + + + | Component | Value | Ref Range | Performed | Pathologist | | | | | At | Signature | + + + + + + | WBC | 7.9 | 4.5 - 11.0 10 | EXTERNAL | | | | | | LAB | | + + + + + + | RED CELL | 4.53 | 3.8 - 5.1 10 | EXTERNAL | | | COUNT | | | LAB | | + + + + + + | Hgb | 11.3 (A) | 12.0 - 18.0 | EXTERNAL | | | | | g/dL | LAB | | + + + + + + | Hematocrit, | 35.3 | 35 - 46 % | EXTERNAL | | | POC | | | LAB | | + + + + + + | MCV | 78.0 (A) | 81 - 99 fL | [...] + + + + | Platelet | 245 | 140 - 440 K/ L | EXTERNAL | | | Count | | | LAB | | | Plasma | | | | | + + + + + + | RDW-CV | 16.5 (A) | 10.5 - 16.0 % | EXTERNAL | | | | | | LAB | | + + + + + + | MPV | | fL | EXTERNAL | | | | | | LAB | | + + + + + + | Differentia | Auto | | EXTERNAL | | | l Type | | | LAB | | + + + + + + | % Segmented | 47.7 | 39 - 80 % | EXTERNAL | | | | | | LAB | | | Neutrophils | | | | | + + + + + + | % | 36.0 | 24 - 44 % | EXTERNAL | | | Lymphocytes | | | LAB | | + + + + + + | % Monocytes | 11.3 | 0 - 12 % | EXTERNAL | | | | | | LAB | | + + + + + + | % | 3.2 | 0 - 6 % | EXTERNAL | | | Eosinophils | | | LAB | | + + + + + + | % Basophils | 1.2 | 0 - 2 % | EXTERNAL [...] + +---------+ + + Basic Metabolic Panel (08/27/2015 12:00 AM PDT) + +-------+ + + + | Component | Value | Ref Range | Performed | Pathologist | | | | | At | Signature | + +-------+ + + + | Glucose, | 93 | 70 - 100 mg/dL | EXTERNAL | | | Fasting | | | LAB | | + +-------+ + + + | BUN | 22 | 0 - 23 mg/dL | EXTERNAL | | | | | | LAB | | + +-------+ + + + | Creatinine | 0.93 | 0.70 - 1.25 | EXTERNAL | | | | | mg/dL | LAB | | + +-------+ + + + | BUN/Creatin | 23.7 | 6.0 - 26.6 | EXTERNAL | | | ine Ratio | | | LAB | | + +-------+ + + + | Calcium | 9.6 | 8.4 - 10.2 | EXTERNAL | | | | | mg/dL | LAB | | + +-------+ + + + | Na | 137 | 132 - 143 | EXTERNAL | | | | | mmol/L | LAB | | + +-------+ + + + | K | 3.9 | 3.8 - 5.1 | EXTERNAL | | | | | mmol/L | LAB | | + +-------+ + + + | Cl | 101 | 95 - 112 mmol/L | EXTERNAL | | | | | | LAB | | + +-------+ + + + | CO2 | 26 | 19 - 31 mmol/L | EXTERNAL | | | | | | LAB | | + +-------+ + + + | Anion Gap | 13.9 | 7 - 21 mmol/L | EXTERNAL | | | | | | LAB | | + +-------+ + + + | Estimated | 61 | 60 mg/dL | EXTERNAL | | [...] + +---------+ + + External Lab: CBC (08/20/2015 12:00 AM PDT) + + + + + + | Component | Value | Ref Range | Performed | Pathologist | | | | | At | Signature | + + + + + + | WBC | 8.3 | 4.5 - 11.0 10 | EXTERNAL | | | | | | LAB | | + + + + + + | RED CELL | 4.31 | 3.8 - 5.1 10 | EXTERNAL | | | COUNT | | | LAB | | + + + + + + | Hgb | 10.7 (A) | 12.0 - 16.0 | EXTERNAL | | | | | g/dL | LAB | | + + + + + + | Hematocrit, | 33.8 (A) | 35 - 45 % | EXTERNAL | | | POC | | | LAB | | + + + + + + | MCV | 78.5 (A) | 81 - 99 fL | [...] + + + + | Platelet | 218 | 140 - 440 K/ L | EXTERNAL | | | Count | | | LAB | | | Plasma | | | | | + + + + + + | RDW-CV | 15.4 (A) | 10.5 - 15.0 % | EXTERNAL | | | | | | LAB | | + + + + + + | MPV | | fL | EXTERNAL | | | | | | LAB | | + + + + + + | Differentia | Auto | | EXTERNAL | | | l Type | | | LAB | | + + + + + + | % Segmented | 54.3 | 39 - 80 % | EXTERNAL | | | | | | LAB | | | Neutrophils | | | | | + + + + + + | % | 33.8 | 24 - 44 % | EXTERNAL | | | Lymphocytes | | | LAB | | + + + + + + | % Monocytes | 8.0 | 0 - 12 % | EXTERNAL | | | | | | LAB | | + + + + + + | % | 2.9 | 0 - 6 % | EXTERNAL [...] + +---------+ + + Comprehensive Metabolic Panel (08/20/2015 12:00 AM PDT) + +---------+ + + + | Component | Value | Ref Range | Performed | Pathologist | | | | | At | Signature | + +---------+ + + + | Glucose, | 115 (A) | 70 - 100 mg/dL | EXTERNAL | | | Fasting | | | LAB | | + +---------+ + + + | BUN | 26 (A) | 6 - 23 mg/dL | EXTERNAL | | | | | | LAB | | + +---------+ + + + | Creatinine | 1.09 | 0.70 - 1.25 | EXTERNAL | | | | | mg/dL | LAB | | + +---------+ + + + | BUN/Creatin | 23.9 | 6.0 - 28.6 | EXTERNAL | | | ine Ratio | | | LAB | | + +---------+ + + + | Calcium | 9.3 | 8.4 - 10.2 | EXTERNAL | | | | | mg/dL | LAB | | + +---------+ + + + | Protein, | 5.9 (A) | 6.0 - 8.0 g/dL | EXTERNAL | | | Total | | | LAB | | + +---------+ + + + | Albumin | 3.7 | 3.5 - 5.0 | EXTERNAL | | | | | | LAB | | + +---------+ + + + | Globulin | 2.2 | 1.8 - 3.5 | EXTERNAL | | | | | | LAB | | + +---------+ + + + | A/G Ratio | 1.7 | 1.1 - 2.4 | EXTERNAL | | | | | | LAB | | + +---------+ + + + | Bilirubin | 0.7 | 0.0 - 1.2 mg/dL | EXTERNAL | | | Total | | | LAB | | + +---------+ + + + | ALP, | 82 | 30 - 128 | EXTERNAL | | | External | | | LAB | | + +---------+ + + + | ALT | 18 | 7 - 52 U/L | EXTERNAL | | | | | | LAB | | + +---------+ + + + | AST | 15 | 13 - 39 U/L | EXTERNAL | | | | | | LAB | | + +---------+ + + + | Na | 138 | 132 - 143 | EXTERNAL | | | | | mmol/L | LAB | | + +---------+ + + + | K | 3.6 | 3.6 - 5.1 | EXTERNAL | [...] + + + | Anion Gap | 12.6 | 7 - 21 mmol/L | EXTERNAL | | | | | | LAB | | + +---------+ + + + | Estimated | 51 | mg/dL | EXTERNAL | | | [...]
--- OUTSIDE RECORDS SUMMARY | ~2019-01-25 | XMS | Encounter Summary ---
Demographics + + + | Address | [address] | | | [place] [address] | + + + | Home Phone [...] + + + | Author | [facility] | | | and [place] | + + + | Organization | [facility] | | | [...] Team Providers + +------+ + | Care Emt Dispatcher Name | Role | Phone | + [...] Provider Unknown | | | | | [place], [place] | [phone] | | | | | [address] | | | | | | [phone] | | | +--------+ + + + [...] [place] | | | | | | [address] | | | | | | | | +--------+---------+ + + + | 08/01/ | Office | Pulmonology | Jorge, | | | 2019 | Visit | | Caitlyn Simon, | | | | | | MD [address] | | | | | | [place], | | | | | | [place] [address] | | | | | | [phone] | | | | | | | | +--------+---------+ + + + documented as of this encounter Visit Diagnoses Not on filedocumented in this encounter"
--- OUTSIDE RECORDS SUMMARY | ~2019-01-25 | XMS | Encounter Summary ---
Demographics + + + | Address | [address] | | | [place] [address] | + + + | Home Phone | | + + + | Preferred Language | Unknown | + + + | Marital Status | Single | + + + | Evangelical Affiliation | [phone] | + + + [...] Team Providers + +------+ + | Care Pottery Machine Operator Name | Role | Phone | + +------+ + | Johnny Caldera MD | PCP | | + +------+ + Encounter Details +--------+ + + + + | Date | Type | Department | Care Team | Description | +--------+ + + + + | 09/10/ | Orders Only | [facility] | WalterNoel frausto, | | | 2016 | | NEPHROLOGY [place] | HEALTHCARE ARCHITECT [address] | | | | | [address] [place] | [address] | | | | | [address] [place], [place] | [place] | | | | | [address] | [address] | | | | | [phone] | [phone] | | | | | | | [...] [place] | | | | | | [address] | | | | | | | | +--------+---------+ + + + | 08/01/ | Office | Pulmonology | Jorge, | | | 2019 | Visit | | Caitlyn Simon, | | | | | | [address] | | | | | | [place], | | | | | | [place] [address] | | | | | | [phone] | | | | | | | [...] | | | LAB | | | [facility] | | | | | + +---------+ [...]
--- OUTSIDE RECORDS SUMMARY | ~2019-01-25 | XMS | Encounter Summary ---
Demographics + + + | Address | [address] | | | [place] [address] | + + + | Home Phone [...] Team Providers + +------+ + | Care Appeals Nurse Name | Role | Phone | + [...] as of this encounter Progress Notes Interface, Station Gateman In - 03/20/2005 6:23 AM PST [id number] GENEVIEVE GRAY Ultrasound Evaluation Report Patient: MARINA [...] Mcgarry M.D. and Nawaf Yip, Ophthalmic Echographer [place] / [id number] / [id number] / [id number] / Electronically signed by Jr. Jd Mcgarry [...] | Transcriptions | + + | Interface, Station Gateman In - 03/20/2005 6:23 AM PST | | [id number] | | [id number] GENEVIEVE GRAY | | | | | [...] Yip, Ophthalmic Echographer | | | | [place] / | | [id number] / [id number] / [id number] / | | | | | | | | | | | | | | Electronically signed by Jr. Jd Mcgarry 03-30-2004 04:20:56 PM | + + documented in this encounter Visit Diagnoses Not on filedocumented in this encounter"
--- OUTSIDE RECORDS SUMMARY | ~2019-01-25 | XMS | Encounter Summary ---
Demographics + + + | Address | [address] | | | [place] [address] | + + + | Home Phone | | + + + | Preferred Language | Unknown | + + + | Marital Status | Single | + + + | Uatsdin Affiliation | 1041 | + + + | Race | Unknown | + + + | Ethnic Group | Unknown | + + + Author + + + | Author | [facility] | | | and [place] | + + + | Organization | [facility] | | [...] Team Providers + +------+ + | Care Team Coordinator Name | Role | Phone | [...] Provider Unknown | | | | | [place], [place] | [phone] | | | | | [address] | | | | | | [phone] | | | +--------+ + + + [...] [place] | | | | | | [address] | | | | | | | | +--------+---------+ + + + | 08/01/ | Office | Pulmonology | Jorge, | | | 2019 | Visit | | Caitlyn Simon, | | | | | | MD [address] | | | | | | [place], | | | | | | [place] [address] | | | | | | [phone] | | | | | | | [...]
--- OUTSIDE RECORDS SUMMARY | ~2019-01-25 | XMS | Encounter Summary ---
Demographics + + + | Address | [address] | | | [place] [address] | + + + | Home Phone [...] + + | Author | [facility] | + + + | Organization | [facility] | + + + | [...] Team Providers + +------+ + | Care Automatic Data Processing Planner Name | Role | Phone | + [...] + + + | Closed | | | Diagnoses | Wilfrid, | | | | | | Abnormal | Rebecca Landeros MD | | | | | | movement of | [address] | | | | | | lower | [address] | | | | | | extremity | [place], [place] | | | | | | Procedures | [address] | | | | | | CONSULT TO | Phone: | | | | | | PSYCHIATRY - | [phone] | | | | | | ADULT | Fax: | | | | | | | [phone] | | +--------+--------+ + + + + Speech Therapy (Routine) +--------+--------+ + + + + | Status | Reason | Specialty | Diagnoses / | Referred By | Referred To | | | | | Procedures | Contact | Contact | +--------+--------+ + + + + | Closed | | | Diagnoses | Wilfrid, | | | | | | Abnormal | Rebecca Landeros MD | | | | | | movement of | [address] | | | | | | lower | [address] | | | | | | extremity | [place], [place] | | | | | | Procedures | [address] | | | | | | REHAB SPEECH | Phone: | | | | | | | [phone] | | | | | | LANGUAGE/COG | Fax: | | | | | | NITIVE | [phone] | | | | | | REFERRAL | | | +--------+--------+ + + + + Occupational Therapy (Routine) +--------+--------+ + + + + | Status | Reason | Specialty | Diagnoses / | Referred By | Referred To | | | | | Procedures | Contact | Contact | +--------+--------+ + + + + | Closed | | | Diagnoses | Wilfrid, | | | | | | Abnormal | Rebecca Landeros MD | | | | | | movement of | [address] | | | | | | [address] | [address] | | | | | | extremity | [place], [place] | | | | | | Procedures | [address] | | | | | | PHYS DYS | Phone: | | | | | | OCCUPATIONAL | [phone] | | | | | | THERAPY | Fax: | | | | | | REFERRAL | [phone] | | +--------+--------+ + + + + Physical Therapy (Routine) +--------+--------+ + + + + | Status | Reason | Specialty | Diagnoses / | Referred By | Referred To | | | | | Procedures | Contact | Contact | +--------+--------+ + + + + | Closed | | | Diagnoses | Wilfrid, | | | | | | Abnormal | Rebecca Landeros MD | | | | | | movement of | [address] | | | | | | [address] | [address] | | | | | | extremity | [place], [place] | | | | | | Procedures | [address] | | | | | | PHYSICAL | Phone: | | | | | | THERAPY | [phone] | | | | | | REFERRAL | Fax: | | | | | | | [phone] | | +--------+--------+ + + + + Reason for Visit + + + | Reason | Comments | + + + | Headache | photophobia, not able to ambulate, slurred speech | + + + AUTH/CERT +--------+--------+ + + + + | Status | Reason | Specialty | Diagnoses / | Referred By | Referred To | | | | | Procedures | Contact | Contact | +--------+--------+ + + + + | Closed | | | | | | +--------+--------+ + + + + Encounter Details +--------+ + + + + | Date | Type | Department | Care Team | Description | +--------+ + + + + | 10/17/ | Hospital | [facility] [address] | Kerry Fernández MD | | | 2013 - | Encounter | CAMPUS | [id number] | | | | | [id number] | [place] [address] | | | [address]/ | | [place], | [phone] | | | 2013 | | [place] [address] | | | | | | [phone] | | | +--------+ + + + [...] + + + | Blood Pressure | 102/66 | 10/20/2013 8:45 AM | | | | | PDT | | + + + + + | Pulse | 57 | 10/20/2013 8:45 AM | | | [...] + + + + | Weight | 83.7 kg (184 lb 9.6 | 10/18/2013 2:34 AM | | | | oz) | PDT | | + + + + + | Height | 163.2 cm (5' 4.25") | 10/18/2013 2:34 AM | | | | | PDT | | + + + + + | Body Mass Index | 31.44 | 10/18/2013 2:34 AM | | | | | PDT | | + + + + + documented in this encounter Discharge Summaries Tabitha García MD - 10/19/2013 3:[address] Webster's note. Electronicall y signed by Tabitha García MD at 10/20/2013 1:27 PM PDTBaRebecca alonso MD - 10/19/2013 3:03 PM PDT INPATIENT PROVIDER DISCHARGE Admission Date: 10/17/2013 Discharge Date: 10/20/2013 Service: Neurology Patient PCP: Jim Wiley MD Principal Final Diagnosis: Diagnoses Principal Final Diagnosis: 1. Difficulty walking, light sensitivity, and shaking spells 2. Abnormal MRI Procedures while in house: Lumbar puncture 10/19/13 Significant images/lab findings: no new imaging performed this admission Routine EEG 10/19/13: This awake only routine EEG is within normal limits. No seizures, abnor mal slowing or epileptiform activity were seen. group home EEG monitoring to follow. Long-term EEG 10/19-10/20/13: No epileptic activity seen during push-button event on 10/20 at chery roximately 4AM. MRI from outside hospital reviewed with neuroradiology who felt there were multiple discret e white matter lesions suggestive of multiple sclerosis Lab Results Component Value Date RBCCSF <1 10/19/2013 WBCCSF <1 10/19/2013 PROTEINCSF 45 10/19/2013 GLUCOSECSF 59 10/19/2013 CSFAPP Clear 10/19/2013 EEG: Routine exam was normal. Admitting Presentation: (adapted from Dr. Cohen's admission note from 10/17) Hazel Bhatti is a 57 y.o. female with a pmh of HLD, HTN, anxiety, depression, minor stutte r at baseline, and COPD who presents as a direct admission from [facility] for a v ariety of neurological complaints including abnormal movements of her lower extremities, ins tability, and increased stutter. On WednesdayOctober 14 at approximately 1pm she suddenly gr abbed her head with both hands and became uncommunicative. Witnesses attempted to move to so mewhere she could lie down, but upon standing her legs refused to work and she was lowered s lowly to the floor. It was unclear if she lost consciousness. Eventually she was able to ret urn to a chair where she sat until her fvumqeww-kp-ikj returned home and found her with a pr ofoundly worse stutter and instability when standing which prompted her presentation to the hospital for evaluation. She had two more of these episodes, one on her way to the hospital, and one in the Emergency Room. On 10/17/13 she had a full body quaking/convulsion but remaine d alert and oriented. The episode stopped as abruptly as it started and she began sobbing. S he had one more of these episodes of full body quaking/convulsions while sleeping; she does not remember this episode. Acute work-up at outside hospital, including CT head and MRI head were unremarkable. Ms Bhatti also took 1mg of risperidone on evening, which was a new medication presc ribed to her for restless legs. She slept though until Wednesday morning and spend the rest of the day in bed feeling fatigued and dizzy. Wednesday morning she awoke still feeling off, but was up for breakfast and coffee before the onset of the symptoms that resulted in her hospi talization. She is concerned that risperidone could have played a part in provoking her curr ent symptoms. Outpatient neurology work-up since January for weakness and instability by Dr. Benito zazueta at [facility] in [facility] has included 2 MRIs, normal CSF analysis negative for oligoclona l bands, normal VDRL, normal WHITNEY, and negative gram stain. Baseline stutter is described as intermittent word finding difficulties especially while pr essured; current stutter seems to affect each word and at times each syllable. Brief Hospital Course: Mrs. Bhatti's exam was notable for preserved strength throughout with waxing and waning spee ch difficulties (notably fluent speech occurred during her LP after she was premedicated wit h Ativan), and some difficulty performing finger nose finger testing (hesitation) but fluid movements with no dysmetria. PT evaluated her and found her MRI from outside hospital review ed with neuroradiology who felt there were multiple discrete white matter lesions, some enha ncing, suggestive of multiple sclerosis. LP was repeated and had normal cell count, protein and glucose. Cytometry, cytology, oligoclonal bands and IgG synthesis index were pending at time of discharge. group home VEEG was performed 10/19- 10/20 which showed no epileptiform activi ty. One push-button event was captured on 10/20 in the wallet assembler hours, which was describe d by the patient as "a black-out" lasting several seconds and observed by the RN removing he r bedpan as a period of unresponsiveness with no limb-shaking lasting less than 20 seconds, no post-ictal period. Certainly, given abnormal MRI, concern for multiple sclerosis persists, however differentia l for these findings also includes chronic small-vessel ischemic change although we see more than expected given patient's age. Her presenting symptoms are puzzling and do not seem to have a neurologic correlate. Photophobia seems most likely related to her history of catarac t surgery and does not wax and wane with the patient's headache. Her difficulty ambulating i s not associated with any focal weakness or sensory deficit on exam and she does not have ot her signs of cerebellar dysfunction on exam or imaging. Stutter waxes and wanes and is not a ssociated with naming or word-finding difficulty, most likely related to anxiety, which mariluz ent endorses (also has a chart history of anxiety and depression per PCP notes). Her blackou ts and episodes of conscious limb-shaking appear to be non-epileptic. Although neurologic dysfunction is not completely ruled out as the etiology for the patient 's presenting symptoms, it seems unlikely after extensive workup. What is clear is that the patient needs SNF placement for safety and physical rehab as well as outpatient mental healt h follow up. Discharge Physical Exam: Vital Signs at discharge as appropriate: BP: 102/66 mmHg (10/19/13 0729) Pulse: 53 (10/19/13 0729) Resp: 16 (10/19/13 0432) Weight: 83.734 kg (184 lb 9.6 oz) (10/18/13 0234) General: Alert, lying in bed HE/ENT: No conjunctival icterus or injections, oropharynx clear without erythema or exudate , MMM Resp: No increased work of breathing on room air GI: Soft, nontender abdomen Neurological: Mental status: Orientation: Oriented to person, [facility], month Attention/Concentration: Normal Language: speech slow and stuttering but greatly improved today and w/o dysarthria Cranial nerves: EOMI. PERRL, no nystagmus. Face is symmetric. Palate elevates symmetrically , tongue midline & w/o fasciculations. Strong shoulder shrug bilaterally. Motor: Delt Tri Bi WE WF DI HF KF KE ADF APF EHL Left - 5 5 5 5 - 5 5 5 5 5 - Right - 5 5 5 5 - 5 5 5 5 5 - Cerebellar: Smooth [id number]-[id number]-almr Proprioception: no pronator drift Gait: not walked Discharge Medications: Current Discharge Medication List START taking these medications Details ibuprofen 600 mg oral tablet Take 1 tablet by mouth every six hours as needed for moderate pain. Qty: 30 tablet, Refills: 0 ondansetron 4 mg oral tablet Take 1 tablet by mouth every twelve hours as needed for nausea /vomiting. Qty: 12 tablet, Refills: 0 CONTINUE these medications which have NOT CHANGED Details albuterol 90 mcg/actuation inhalation HFA aerosol inhaler Inhale 2 puffs every four hours a s needed. aspirin 325 mg oral tablet Take 325 mg by mouth once daily. atorvastatin 40 mg oral tablet Take 40 mg by mouth once daily. citalopram 20 mg oral tablet Take 20 mg by mouth once daily. hydrochlorothiazide 12.5 mg oral capsule Take 12.5 mg by mouth once daily. losartan 50 mg oral tablet Take 50 mg by mouth once daily. potassium chloride SR 20 mEq oral tablet,ER particles/crystals Take 20 mEq by mouth once da nikki. STOP taking these medications NIACIN ORAL Comments: Reason for Stopping: risperiDONE 1 mg oral tablet Comments: Reason for Stopping: VITAMIN B COMPLEX (B COMPLEX ORAL) Comments: Reason for Stopping: Stopping niacin since patient needs a special formulation not available at our pharmacy to prevent flushing, and patient is already on atorvastatin for hyperlipidemia. Risperidone is not indicated for restless leg syndrome and seemed to worsen patient's symptoms. Vitamin B complex can be restarted when patient returns home or gets placed in long-term ca re. Discharge Activity: Activity No activity restrictions Follow Up Appointments: External Psychiatry referral placed Requested that patient be scheduled my Neurology resident clinic in 6 weeks. I will call chaya cool when outstanding CSF results come back. Discharge POLST completed Yes Destination: Destination: Care Home Facility Condition on Discharge Stable Discharge Follow Up - Facility MD to follow Facility MD to follow patient. Follow Up Tests: Cytometry, cytology, oligoclonal bands and IgG synthesis index pending Discharging Attending: Tabitha García MD Physician Signature: Rebecca Webster MD Neurology PGY-2 Pager [phone] signed by Tabitha García MD at 10/20/2013 1:27 PM LEONdoyg lang in this encounter Discharge Instructions Instructions Yolande Johnson - 10/20/2013Discharge to [facility] in [place] [address] [phone] documented in this encounter Medications at Time of Discharge + + + +---------+ + + | Medication | Sig | Dispensed | Refills | Start | End Date | | | | | | Date | | + + + +---------+ + + | albuterol 90 | Inhale 2 puffs every | | 0 | | | | mcg/actuation | four hours as | | | | | | inhalation HFA | needed. | | | | | | aerosol inhaler | | | | | | + + + +---------+ + + | aspirin 325 mg | Take 325 mg by mouth | | 0 | | | | oral tablet | once daily. | | | | | + + + +---------+ + + | atorvastatin 40 mg | Take 40 mg by mouth | | 0 | | | | oral tablet | once daily. | | | | | + + + +---------+ + + | citalopram 20 mg | Take 20 mg by mouth | | 0 | | | | oral tablet | once daily. | | | | | + + + +---------+ + + | | Take 12.5 mg by | | 0 | | | | hydrochlorothiazide | mouth once daily. | | | | | | 12.5 mg oral capsule | | | | | | + + + +---------+ + + | ibuprofen 600 mg | Take 1 tablet by | 30 | 0 | 10/20/19 | | | oral tablet | mouth every six | tablet | | 14 | | | | hours as needed for | | | | | | | moderate pain. | | | | | + + + +---------+ + + | losartan 50 mg | Take 50 mg by mouth | | 0 | | | | oral tablet | once daily. | | | | | + + + +---------+ + + | potassium chloride | Take 20 mEq by mouth | | 0 | | | | SR 20 mEq oral | once daily. | | | | | | tablet,ER | | | | | | | particles/crystals | | | | | | + + + +---------+ + + documented as of this encounter Progress Notes Tabitha García MD - 10/20/2013 12:43 PM HINA personally interviewed the patient, sarah cated the pertinent parts of the physical examination and personally formulated the plan [facility] Dr. Drake I reviewed the resident s note and agree with the documented findings and plan of care with the exceptions I have detailed here. This is a 57 year old woman admitted with episodes of altered consciousness, involuntary li mb movements that were not associated with altered mental status, difficulty with speech. H er examination suggested functional component to her speech issues and movements, but she wa s noted to have multiple supratentorial white matter lesions on MRI. I reviewed MRI with ne uroradiologist again today. 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 The FLAIR abnormalities are quite prominent, more than would be expected for small vessel ischemic changes. LP was p erformed, which showed normal WBC (<1) and protein. LOC was captured during admission with intermediate EEG monitoring and no associated epileptiform activity was noted. Etiology of her MRI findings remain uncertain, but current symptoms seem to be largely psychogenic in origi n. Ms. Bhatti endorsed this morning that her symptoms may be largely related to anxiety. She will follow up with neurologist as an outpatient to follow up on imaging abnormalities and IgG index, which is still pending up her discharge. She also needs to establish care w ith a mental health provider. MD TABITHA Pate MD [facility] [address] [place] [address] [facility] DEPARTMENT: Neurology Attending - [phone] Place of Service: [facility] [id number] Date of Service: 10/20/2013 CSN: [id number] Suggestive Modifier: GC - Resident Present Suggested CPT: 59058 - Subsequent, Level 2 Suggested Diagnosis: 780.39 - Other Convulsions hristy, Jennifer Coleman MD,PhD - 10/20/2013 6:38 AM PDTFormatting of this note might be different from the [facility] Pediatric Neurology Progress Note Author: JENNIFER DRAKE MD,PhD Date/Time: 10/18/2013 7:32 AM ID: Hazel Bhatti is a 57 year old female with HLD, HTN, anxiety, depression, minor stutte r at baseline, and COPD presenting for further workup of neurological complaints including a bnormal movements of her lower extremities. Interval History --LP completed yesterday --intermediate EEG on overnight: one event this AM of apparent LOC for 20 sec with no post-ict al period Inpatient Meds Current Inpatient Medications Medication Dose Route Frequency albuterol (PROVENTIL, VENTOLIN) 90 mcg/actuation inhaler 2 puff 2 puff inhalation Q4H PRN aspirin tablet 325 mg 325 mg oral DAILY atorvastatin (LIPITOR) tablet 40 mg 40 mg oral DAILY bisacodyl (DULCOLAX) suppository 10 mg 10 mg rectal BID PRN citalopram (CELEXA) tablet 20 mg 20 mg oral DAILY enoxaparin (LOVENOX) injection 40 mg 40 mg subcutaneous QPM guar gum (BENEFIBER) oral powder 1 packet 1 packet oral DAILY PRN hydrochlorothiazide (HYDRODIURIL) capsule 12.5 mg 12.5 mg oral DAILY ibuprofen (MOTRIN) tablet 600 mg 600 mg oral Q6H PRN losartan (COZAAR) tablet 50 mg 50 mg oral DAILY ondansetron (ZOFRAN) tablet 4 mg 4 mg oral Q12H PRN polyethylene glycol (MIRALAX) powder 17 g 17 g oral DAILY PRN potassium chloride SR (K-DUR) tablet 20 mEq 20 mEq oral DAILY senna-docusate (SENOKOT S) 8.6-50 mg 1 tablet 1 tablet oral BID simethicone chew (MYLICON) tablet 80 mg 80 mg oral TID PRN All Allergies Allergen Reactions Mossyrock Diarrhea PE Last Vitals: BP 92/57 | Pulse 52 | Temp 36.4 C (97.5 F) | RR 16 | Ht 1.632 m (5' 4.25") | Wt 83.734 kg (184 lb 9.6 oz) | SpO2 96% | BMI 31.44 kg/(m^2) 24 Hour Vital Min/Max: Systolic (24hrs), Av mmHg, Min:92 mmHg, Max:102 mmHg Diastolic (24hrs), Av mmHg, Min:55 mmHg, Max:66 mmHg Intake/Output Summary (Last 24 hours) at 10/20/13 0638 Last data filed at 10/20/13 0400 Gross per 24 hour Intake 2338 ml Output 3250 ml Net -912 ml Physical Exam: General: Alert, lying in bed HE/ENT: No conjunctival icterus or injections, oropharynx clear without erythema or exudate , MMM Resp: No increased work of breathing on room air GI: Soft, nontender abdomen Neurological: Mental status: Orientation: Oriented to person, [facility], month Attention/Concentration: Adequate for conversation Language: speech slow and stuttering but greatly improved today and w/o dysarthria Cranial nerves: EOMI. PERRL, no nystagmus. Face is symmetric. Palate elevates symmetrically , tongue midline & w/o fasciculations. Strong shoulder shrug bilaterally. Motor: Delt Tri Bi WE WF DI HF KF KE ADF APF EHL Left - 5 5 5 5 - 5 5 5 5 5 - Right - 5 5 5 5 - 5 5 5 5 5 - Cerebellar: Smooth oywuvu-db-eedg Proprioception: no pronator drift Gait: not walked Labs/Studies Lab: CBC: Recent Labs 10/18/13 0644 WBC 6.38 HB 12.2 HCT 37.9 PLT 252 CMP: Recent Labs 10/18/13 0644 NA 131* K 3.9 CL 100 BICARB 24 BUN 17 CR 1.07 GLU 105* CA 9.1 AST 22 ALT 23 AP 100* TBILI 1.1 TP 7.1 ALB 3.7 Imaging: Outside imaging reviewed with radiology. Multiple white matter lesions apparent that may in dicate vascular disease or multiple sclerosis. No lesions noted in the optic nerve or spinal cord. Assessment: Hazel Bhatti is a 57 y.o. female with a pmh of HLD, HTN, anxiety, depression, minor stutter at baseline, and COPD who presents as a direct admission from [facility] for a variety of neurological complaints including stuttering, hyperkinetic movements o f her lower extremities, and bilateral shaking of extremities with preservation of conscious ness and absence of post-ictal period. Her problems do not fit with any neurological pathway and seem functional. Extensive neurological work-up has so far have been negative with the exception of an abnormal appearing MRI. The MRI is concerning for multiple sclerosis. Her pr evious LP at the OSH lacked oligoclonal bands but this will be repeated here. Her symptoms s eem most consistent with a conversion disorder, and she does endorse anxiety and she thinks her symptoms are likely related to anxiety. Plan: - PT/OT - Discharge likely today, to SNF - Psych evaluation as outpatient - CSF pending for glucose, protein, cell count with cytology and flow cytometry, and oligo clonal bands - Will follow up with outpatient neurologist for further brain imaging and to review CSF r esults Discussed with my attending, Dr. Tabitha García, who agrees with the above assessment and plan. Jennifer Drake MD, PhD Pediatric Neurology, PGY-3 [facility] Pager [phone] Tabitha Neumann MD - 10/19/2013 6:32 AM PDTI personally interviewed the patient, duplicated the pertinent parts of the physical examination and personally formulated the plan with Dr. Drkae. I reviewed the resident s note and agree with the documented findings and plan of care. MD TABITHA Pate MD [facility] [address] [address] [address] [facility] DEPARTMENT: Neurology Attending - [phone] Place of Service: - Date of Service: 10/19/2013 CSN: [id number] Suggestive Modifier: GC - Resident Present Suggested CPT: 32637 - Subsequent, Level 2 Suggested Diagnosis: 780.39 - Other Convulsions hristyJennifer MD,PhD - 10/19/2013 6:32 AM PDTFormatting of this note might be different from the [facility] Pediatric Neurology Progress Note Author: JENNIFER DRAKE MD,PhD Date/Time: 10/18/2013 7:32 AM ID: Hazel Bhatti is a 57 year old female with HLD, HTN, anxiety, depression, minor stutte r at baseline, and COPD presenting for further workup of neurological complaints including a bnormal movements of her lower extremities. 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 Inpatient Meds Current Inpatient Medications Medication Dose Route Frequency albuterol (PROVENTIL, VENTOLIN) 90 mcg/actuation inhaler 2 puff 2 puff inhalation Q4H PRN aspirin tablet 325 mg 325 mg oral DAILY atorvastatin (LIPITOR) tablet 40 mg 40 mg oral DAILY citalopram (CELEXA) tablet 20 mg 20 mg oral DAILY enoxaparin (LOVENOX) injection 40 mg 40 mg subcutaneous QPM hydrochlorothiazide (HYDRODIURIL) capsule 12.5 mg 12.5 mg oral DAILY ibuprofen (MOTRIN) tablet 600 mg 600 mg oral Q6H PRN losartan (COZAAR) tablet 50 mg 50 mg oral DAILY ondansetron (ZOFRAN) tablet 4 mg 4 mg oral Q12H PRN potassium chloride SR (K-DUR) tablet 20 mEq 20 mEq oral DAILY All Allergies Allergen Reactions Mossyrock Diarrhea PE Last Vitals: BP 116/70 | Pulse 56 | Temp 36.6 C (97.9 F) | RR 16 | Ht 1.632 m (5' 4.25" ) | Wt 83.734 kg (184 lb 9.6 oz) | SpO2 94% | BMI 31.44 kg/(m^2) 24 Hour Vital Min/Max: Systolic (24hrs), Av mmHg, Min:74 mmHg, Max:129 mmHg Diastolic (24hrs), Av mmHg, Min:58 mmHg, Max:97 mmHg Intake/Output Summary (Last 24 hours) at 10/19/13 0632 Last data filed at 10/19/13 0430 Gross per 24 hour Intake 3635 ml Output 4025 ml Net -390 ml Physical Exam: General: Alert, lying in bed HE/ENT: No conjunctival icterus or injections, oropharynx clear without erythema or exudate , MMM Resp: No increased work of breathing on room air GI: Soft, nontender abdomen Extremities: Well formed, grossly moving all limbs, no clubbing or cyanosis, no edema Neurological: Mental status: Orientation: Oriented to person, [facility], date Attention/Concentration: Adequate for conversation Language: speech stuttering but greatly improved today and w/o dysarthria Cranial nerves: EOMI. PERRL, no nystagmus. Face is symmetric. Palate elevates symmetrically , tongue midline & w/o fasciculations. Strong shoulder shrug bilaterally. Motor: Motor: No pronator drift Delt Tri Bi WE WF DI HF KF KE ADF APF EHL Left - 5 5 5 5 - 5 5 5 5 5 - Right - 5 5 5 5 - 5 5 5 5 5 - Cerebellar: Very smooth [id number] today, but exam appears exhausting. Proprioception: no pronator drift Gait: not walked Labs/Studies Lab: CBC: Recent Labs 10/18/13 0644 WBC 6.38 HB 12.2 HCT 37.9 PLT 252 CMP: Recent Labs 10/18/13 0644 NA 131* K 3.9 CL 100 BICARB 24 BUN 17 CR 1.07 GLU 105* CA 9.1 AST 22 ALT 23 AP 100* TBILI 1.1 TP 7.1 ALB 3.7 Imaging: Outside imaging reviewed with radiology. Multiple white matter lesions apparent that may in dicate vascular disease or multiple sclerosis. No lesions noted in the optic nerve or spinal cord. Assessment: Hazel Bhatti is a 57 y.o. female with a pmh of HLD, HTN, anxiety, depression, minor stutter at baseline, and COPD who presents as a direct admission from [facility] for a variety of neurological complaints including stuttering, hyperkinetic movements o f her lower extremities, and bilateral shaking of extremities with preservation of conscious ness and absence of post-ictal period. Her problems do not fit with any neurological pathway and seem functional. Extensive neurological work-up has so far have been negative with the exception of an abnormal appearing MRI. The MRI is concerning for multiple sclerosis. Her pr evious LP at the OSH lacked oligoclonal bands but this will be repeated here. Plan: - PT/OT - Long-term EEG to evaluate episodes with convulsions and rule out seizure - Obtain previous imaging from the outside hospital to determine progression of white matte r lesions - LP today. CSF for glucose, protein, cell count with cytology and flow cytometry, and olig oclonal bands - Discharge likely tomorrow, to SNF Discussed with my attending, Dr. Fernández, who agrees with the above assessment and plan. Jennifer Drake MD, PhD Pediatric Neurology, PGY-3 [facility] Pager [phone] ollo Teran - 6:18 AM PDT NEUROLOGY PROGRESS NOTE 10/19/2013 Author: POLLO TERAN, MS4 Attending: Tabitha García MD Background: Hazel Bhatti is a 57 yo female with COPD, HTN, HLD, anxiety, and depression wh o presents from OSH for further workup of stutter, abnormal movements of her lower extremiti es, shaking spells, and headache. Work up from OSH thus far includes MRI showing white matte r lesions (some enhancing) and normal CSF analysis. 24 Hour Events: -PT recs: would benefit for half-way facility level rehab at discharge -Seen by social work and case management: working on SNF placement in [place] -Episode of heavy breathing, full body shaking, awake the whole time, lasted about 2 minute s, around 10 pm last night. -C/o headache and nausea yesterday--treated with Zofran and ibuprofen SUBJECTIVE: Current Medications: Current Inpatient Medications Medication Dose Route Frequency albuterol (PROVENTIL, VENTOLIN) 90 mcg/actuation inhaler 2 puff 2 puff inhalation Q4H PRN aspirin tablet 325 mg 325 mg oral DAILY atorvastatin (LIPITOR) tablet 40 mg 40 mg oral DAILY citalopram (CELEXA) tablet 20 mg 20 mg oral DAILY enoxaparin (LOVENOX) injection 40 mg 40 mg subcutaneous QPM hydrochlorothiazide (HYDRODIURIL) capsule 12.5 mg 12.5 mg oral DAILY ibuprofen (MOTRIN) tablet 600 mg 600 mg oral Q6H PRN losartan (COZAAR) tablet 50 mg 50 mg oral DAILY ondansetron (ZOFRAN) tablet 4 mg 4 mg oral Q12H PRN potassium chloride SR (K-DUR) tablet 20 mEq 20 mEq oral DAILY PHYSICAL EXAM: Last Vitals: BP 116/70 | Pulse 56 | Temp 36.6 C (97.9 F) | RR 16 | Ht 1.632 m (5' 4.25" ) | Wt 83.734 kg (184 lb 9.6 oz) | SpO2 94% | BMI 31.44 kg/(m^2) 24 Hour Vital Min/Max: Systolic (24hrs), Av mmHg, Min:74 mmHg, Max:129 mmHg Diastolic (24hrs), Av mmHg, Min:58 mmHg, Max:97 mmHg Pulse Min: 56 Max: 83 Temp Min: 36.4 C (97.5 F) Max: 36.7 C (98.1 F) Resp Min: 16 Max: 20 SpO2 Min: 91 % Max: 95 % Intake/Output Summary (Last 24 hours) at 10/19/13 0620 Last data filed at 10/19/13 0430 Gross per 24 hour Intake 3635 ml Output 4025 ml Net -390 ml General: Comfortable at rest, sitting up in bed watching TV HEENT: No scleral icterus, conjunctiva pink. Moist mucus membranes. CV: RRR, no m/r/g Pulm: CTAB Neurological: Mental Status: Level of consciousness: Awake, alert. Orientation: Oriented to person, place, date, and situation. Concentration/Attention Span: Normal. Language: Frequent pauses and slow speech, but decreased amount of getting stuck and repea ting syllables Cranial Nerves: I: Not tested II: PERRL, Some chronic peripheral vision loss. III, IV, : Gaze slighty dysconjugate, EOMI, mild left ptosis (chronic). No nystagmus. V: Sensation intact and symmetric to light touch V1-V3 VII: Symmetric facial motor function bilaterally VIII: Did not specifically test IX, X: Palate elevates symmetrically XI: Normal shoulder shrug bilaterally XII: Tongue protrudes midline Motor: Normal tone in all groups. No atrophy. No drift. Delt Tri Bi WE WF DI HF HE KF KE APF ADF Left 5 5 5 5 5 5 5 5 5 5 5 5 Right 5 5 5 5 5 5 5 5 5 5 5 5 Sensation: Light touch: Intact and symmetric in the bilateral upper and lower extremities. DTRs: Biceps Triceps Brachioradialis Knee Ankle Left 2+ 2+ 2+ 2+ 1+ Right 2+ 2+ 2+ 2+ 1+ Plantar response is flexors bilaterally Coordination: Finger to nose with some end-point dysmetria and intention tremor. Improves with concentra tion. Heel to stovall slow and takes great effort, improved after shown what to do. Gait: Not tested Labs: No new labs 10/19 Lab Results Component Value Date WBC 6.38 10/18/2013 HB 12.2 10/18/2013 HCT 37.9 10/18/2013 PLT 252 10/18/2013 MCV 78.3 10/18/2013 RDW 43.5 10/18/2013 Lab Results Component Value Date NA 131 10/18/2013 K 3.9 10/18/2013 CL 100 10/18/2013 BICARB 24 10/18/2013 BUN 17 10/18/2013 CR 1.07 10/18/2013 GLU 105 10/18/2013 CA 9.1 10/18/2013 AST 22 10/18/2013 ALT 23 10/18/2013 AP 100 10/18/2013 TBILI 1.1 10/18/2013 TP 7.1 10/18/2013 ALB 3.7 10/18/2013 TSH: 2.62 Imaging and NeuroDiagnostics: MRI Brain wwo contrast from OSH 10/16/13: Outside imaging reviewed with radiology. Multiple w pablo matter lesions apparent that may indicate vascular disease or multiple sclerosis. No le sions noted in the optic nerve or spinal cord. Neuro team reviewed prior study from 02/2013 which showed the presence of white matter lesions at that point; however, old study done wit hout contrast so comparison of enhancing lesions was not possible. Assessment & Plan Hazel Bhatti is a 57 yo female with pmhx of COPD, HTN, HLD, anxiety, and depression who pr esented to OSH with acute worsening of speech difficulties (stuttering) and inability to wal k after a brief period of altered mental status at home. Hospital course at referring [facility] r complicated by convulsive episodes without a post-ictal period. Neurologic symptoms first began 9 months ago after a GLF (did not hit head or lose consciousness at this time). Shaggy p since then has included MRI with white matter abnormalities and normal CSF analysis includ ing negative VDRL, AFB, WHITNEY, and oligoclonal bands. Since transfer to [facility], has had a few ep isodes of bilateral generalized shaking and labored breathing while remaining responsive. Sp eech fluency improving with strategies given by OUTSIDE RIGGER. Episode on 10/14 is not consistent with acute stroke given waxing/waning course, constellatio n of symptoms, and MRI findings. MS is also unlikely given previous negative LP results. Con vulsive episodes are hard to assess, but do not seem to be consistent with seizures. Cannot localize given constellation of symptoms and physical exam. As pt has described some recent stressors and increased anxiety, this may be playing a large role. However, given MRI abnorm alities will continue work up with vEEG and repeat LP. Plan: 1) Convulsive spells/speech difficulties/gait instability - Continue PT/OT/OUTSIDE RIGGER - group home vEEG to further characterize and evaluate convulsive episodes - Repeat LP done this AM, results pending DVT prophylaxis: enoxaparin DISPO: Likely to SNF tomorrow. This patient has been staffed with Tabitha García MD, attending physician, who agrees wit h the above assessment and plan. Pollo Teran, MS4 Kerry Brenner MD - 10/18/2013 7:31 AM PDTI performed a history and physical examination of the patient an d discussed her management with the resident. I reviewed the resident s note and agree wi th the documented findings and plan of care. Ms. Bhatti's outside MRI was reviewed and not felt consistent with microvascular ischemic ch anges. She has multiple supratentorial white matter lesions many of which enhance with gadol inium When reviewed with radiology at [facility], differential included demyelinating disease such as MS or vasculitis although there does not appear to be any restricted diffusion which wou ld make vasculitis less likely. Will plan on repeat CSF and sending for cell count, protein, glucose, OCG, synthesis rate, flow cytometry and cytology. We would also like to obtain old imaging to determine progression of MRI abnormalities. Given her spells which does not seem epileptic in nature, will try to capture on EEG to exclude seizure as one of her lesions on brain MRI is very close to the cortex and she reportedly had one convulsive episode while a sleep. Her examination remains largely functional and so the extent of any deficit is difficult to determine clinically. Kerry Fernández MD Dietetic Aide Department of Neurology Jennifer Melgar MD,P hD - 10/18/2013 7:31 AM PDT Pediatric Neurology Progress Note Author: JENNIFER DRAKE MD,PhD Date/Time: 10/18/2013 7:32 AM ID: Hazel Bhatti is a 57 year old female with HLD, HTN, anxiety, depression, minor stutte r at baseline, and COPD presenting for further workup of neurological complaints including a bnormal movements of her lower extremities. Interval History --home medications held overnight --risperdol stopped --2 brief episodes this morning (around 5402-4792) of staring. Second episode with bilatera l shaking of upper extremities and sobbing afterwards. No post-ictal period. Inpatient Meds Current Inpatient Medications Medication Dose Route Frequency albuterol (PROVENTIL, VENTOLIN) 90 mcg/actuation inhaler 2 puff 2 puff inhalation Q4H PRN aspirin tablet 325 mg 325 mg oral DAILY atorvastatin (LIPITOR) tablet 40 mg 40 mg oral DAILY citalopram (CELEXA) tablet 20 mg 20 mg oral DAILY enoxaparin (LOVENOX) injection 40 mg 40 mg subcutaneous QPM hydrochlorothiazide (HYDRODIURIL) capsule 12.5 mg 12.5 mg oral DAILY losartan (COZAAR) tablet 50 mg 50 mg oral DAILY potassium chloride SR (K-DUR) tablet 20 mEq 20 mEq oral DAILY All Allergies Allergen Reactions [place] Diarrhea PE Last Vitals: BP 101/68 | Pulse 57 | Temp 36.6 C (97.9 F) | RR 16 | Ht 1.632 m (5' 4.25" ) | Wt 83.734 kg (184 lb 9.6 oz) | SpO2 91% | BMI 31.44 kg/(m^2) 24 Hour Vital Min/Max: Systolic (24hrs), Av mmHg, Min:92 mmHg, Max:120 mmHg Diastolic (24hrs), Av mmHg, Min:63 mmHg, Max:83 mmHg Intake/Output Summary (Last 24 hours) at 10/18/13 1314 Last data filed at 10/18/13 1018 Gross per 24 hour Intake 620 ml Output 1300 ml Net -680 ml Physical Exam: General: Alert, lying in bed HE/ENT: No conjunctival icterus or injections, oropharynx clear without erythema or exudate , MMM Resp: No increased work of breathing on room air GI: Soft, nontender abdomen Extremities: Well formed, grossly moving all limbs, no clubbing or cyanosis, no edema Neurological: Mental status: Orientation: Oriented to person, [facility], date Attention/Concentration: Generally slow speech with frequent word-finding pauses, but follo ws conversation and can speak more fluently as well Language: speech stuttering but w/o dysarthria. Cranial nerves: EOMI. PERRL. Peripheral visual ma intact by exam but patient says she d oes not see in the periphery and does not follow finger into periphery without prompting. No nystagmus. Facial sensation is equal and symmetric. Face is symmetric. Palate elevates symm etrically, tongue midline & w/o fasciculations. Strong shoulder shrug bilaterally. Motor: Normal tone. Strength 5/5 B UE/LE but requires prompting Reflexes: Reflexes +2 bilaterally. Ankle clonus absent. Toes downgoing bilaterally. Cerebellar: Some dysmetria and intention tremor on [id number] that improves with concen tration. Heel-stovall intact but appears exhausting. Proprioception: no pronator drift Gait: not walked Labs/Studies Lab: CBC: Recent Labs 10/18/13 0644 WBC 6.38 HB 12.2 HCT 37.9 PLT 252 CMP: Recent Labs 10/18/13 0644 NA 131* K 3.9 CL 100 BICARB 24 BUN 17 CR 1.07 GLU 105* CA 9.1 AST 22 ALT 23 AP 100* TBILI 1.1 TP 7.1 ALB 3.7 Imaging: Outside imaging reviewed with radiology. Multiple white matter lesions apparent that may in dicate vascular disease or multiple sclerosis. No lesions noted in the optic nerve or spinal cord. Assessment: Hazel Bhatti is a 57 y.o. female with a pmh of HLD, HTN, anxiety, depression, minor stutter at baseline, and COPD who presents as a direct admission from [facility] for a variety of neurological complaints including stuttering, hyperkinetic movements o f her lower extremities, and bilateral shaking of extremities with preservation of conscious ness and absence of post-ictal period. Her problems do not fit with any neurological pathway and seem functional. Extensive neurological work-up has so far have been negative with the exception of an abnormal appearing MRI. Plan: - discontinued risperidone - restart home medications - PT/OT - Psych evaluation - We are considering long-term EEG to evaluate episodes with convulsions and rule out seizu re - Obtain previous imaging from the outside hospital to determine progression of white matte r lesions Discussed with my attending, Dr. Fernández, who agrees with the above assessment and plan. Jennifer Drake MD, PhD Pediatric Neurology, PGY-3 [facility] Pager [phone] ollo Teran D - 014 7:03 AM PDT NEUROLOGY PROGRESS NOTE 10/18/2013 Author: POLLO TERAN, MS4 Attending: Kerry Fernández MD Background: Hazel Bhatti is a 57 yo female with COPD, HTN, HLD, anxiety, and depression wh o presents from OSH for further workup and management of stutter, inability to walk, abnorma l movements of her lower extremities, shaking spells, and headache. Work up from OSH thus fa r includes MRI showing white matter lesions and normal CSF analysis. 24 Hour Events: -Admitted last night -2 brief episodes this morning (around 7273-0895) of staring. Second episode with bilateral shaking of upper extremities and sobbing afterwards. No post-ictal period. SUBJECTIVE: Ms. Bhatti reports feeling tired and having a mild headache this morning. She th inks her speech has slightly improved. She also notes increased anxiety with being in the ho spital. Current Medications: Current Inpatient Medications Medication Dose Route Frequency enoxaparin (LOVENOX) injection 40 mg 40 mg subcutaneous QPM PHYSICAL EXAM: Last Vitals: BP 92/63 | Pulse 63 | Temp 36.5 C (97.7 F) | RR 16 | Ht 1.632 m (5' 4.25") | Wt 83.734 kg (184 lb 9.6 oz) | SpO2 92% | BMI 31.44 kg/(m^2) 24 Hour Vital Min/Max: Systolic (24hrs), Av mmHg, Min:92 mmHg, Max:120 mmHg Diastolic (24hrs), Av mmHg, Min:63 mmHg, Max:83 mmHg Pulse Av Min: 63 Max: 69 Temp Av.6 C (97.9 F) Min: 36.5 C (97.7 F) Max: 36.7 C (98.1 F) Resp Av Min: 16 Max: 16 SpO2 Av % Min: 92 % Max: 92 % Intake/Output Summary (Last 24 hours) at 10/18/13 0709 Last data filed at 10/18/13 0234 Gross per 24 hour Intake 260 ml Output 750 ml Net -490 ml General: Comfortable at rest, sitting up in bed HEENT: No scleral icterus, conjunctiva pink. Moist mucus membranes. Neurological: Mental Status: General: Normal activity, good hygiene, appropriate appearance. Level of consciousness: Awake, alert. Orientation: Oriented to person, place, and situation. Says date is 10/16/2013. Concentration/Attention Span: Normal. Language: Frequent pauses and will repeat the the first syllable of a word many times befo re being able to finish. No dysarthria. Cranial Nerves: I: Not tested II: PERRL, Some chronic peripheral vision loss. III, IV, : Gaze conjugate, EOMI, mild left ptosis. No nystagmus. V: Sensation intact and symmetric to light touch V1-V3 VII: Symmetric facial motor function bilaterally VIII: Intact to finger rub bilaterally IX, X: Palate elevates symmetrically XI: Normal shoulder shrug bilaterally XII: Tongue protrudes midline Motor: Normal tone in all groups. No atrophy. No drift. Delt Tri Bi WE WF DI HF HE KF KE APF ADF Left 5 5 5 5 5 5 5 5 5 5 5 5 Right 5 5 5 5 5 5 5 5 5 5 5 5 Sensation: Light touch: Intact and symmetric in the bilateral upper and lower extremities. Temp: Intact and symmetric in the bilateral upper and lower extremities. DTRs: Biceps Triceps Brachioradialis Knee Ankle Left 2+ 2+ 2+ 2+ 1+ Right 2+ 2+ 2+ 2+ 1+ Plantar response is flexors bilaterally Coordination: Finger to nose with some end-point dysmetria and intention tremor. Improves with concentra tion. Heel to stovall slow and takes great effort Rapid alternating movements are slow, but coordinated. Gait: Not tested Labs: Lab Results Component Value Date WBC 6.38 10/18/2013 HB 12.2 10/18/2013 HCT 37.9 10/18/2013 PLT 252 10/18/2013 MCV 78.3 10/18/2013 RDW 43.5 10/18/2013 Lab Results Component Value Date NA 131 10/18/2013 K 3.9 10/18/2013 CL 100 10/18/2013 BICARB 24 10/18/2013 BUN 17 10/18/2013 CR 1.07 10/18/2013 GLU 105 10/18/2013 CA 9.1 10/18/2013 AST 22 10/18/2013 ALT 23 10/18/2013 AP 100 10/18/2013 TBILI 1.1 10/18/2013 TP 7.1 10/18/2013 ALB 3.7 10/18/2013 Imaging and NeuroDiagnostics: MRI Brain wwo contrast from OSH 10/16/13: Outside imaging reviewed with radiology. Multiple w pablo matter lesions apparent that may indicate vascular disease or multiple sclerosis. No le sions noted in the optic nerve or spinal cord. Assessment & Plan Hazel Bhatti is a 57 yo female with pmhx of COPD, HTN, HLD, anxiety, and depression who pr esented to OSH with acute worsening of speech difficulties and inability to walk after a aury ef period of altered mental status at home. Hospital course at referring further complicated by convulsive episodes without a post-ictal period. Neurologic symptoms first began 9 brown hs ago after a GLF (did not hit head or lose consciousness at this time). Workup since then has included MRI with white matter abnormalities and normal CSF analysis including negative VDRL, AFB, WHITNEY, and oligoclonal bands. Episode on 10/14 is not consistent with acute stroke gi crystal waxing/waning course, constellation of symptoms, and MRI findings. MS is also unlikely g iven previous negative LP results. Convulsive episodes are hard to assess, but do not seem t o be consistent with seizures. Cannot localize given constellation of symptoms and physical exam. As pt has described some recent stressors and increased anxiety, this may be playing a large role. However, will continue to evaluate for other causes. Plan: - Restart home medications - PT/OT/OUTSIDE RIGGER - Psych evaluation (pt and family request) - group home vEEG to further characterize and evaluate convulsive episodes - Repeat LP - Compare old images with more recent ones to determine progression (if any) of abnormaliti es. DISPO: Most likely to SNF for continued rehab. Timeline pending results of work up, but exp ect next couple of days. This patient has been staffed with Kerry Fernández MD, attending physician, who agrees with t he above assessment and plan. Polloroberto Teran, MS4 documented in t his encounter Plan of Treatment + +------+--------+ + + | Name | Type | Priori | Associated Diagnoses | Date/Time | | | | ty | | | + +------+--------+ + + | LEUKEMIA/LYMPHOMA | Lab | Routin | | 10/19/2013 | | MARKER - CSF/BODY | | e | | | | FLUID | | | | | + +------+--------+ + + + +------+--------+ + + | Name | Type | Priori | Associated Diagnoses | Order Schedule | | | | ty | | | + +------+--------+ + + | NON OFFAL SEPARATOR CYTOLOGY | Lab | Routin | | Lab Add Ons for 1 | | | | e | | Occurrences starting | | | | | | 10/19/2013 until | | | | | | 10/19/2013 | + +------+--------+ + + | LEUKEMIA/LYMPHOMA | Lab | Routin | | Lab Add Ons for 1 | | MARKER - CSF/BODY | | e | | Occurrences starting | | FLUID | | | | 10/19/2013 until | | | | | | 10/19/2013 | + +------+--------+ + + documented as of this encounter Procedures + +--------+ + + + | Procedure Name | Priori | Date/Time | Associated Diagnosis | Comments | | | ty | | | | + +--------+ + + + | EEG CONTINUOUS, | Routin | 10/20/2013 | | Results for this | | ADULT | e | 10:11 AM | | procedure are in the | | | | PDT | | results section. | + +--------+ + + + | EEG ROUTINE | Routin | 10/19/2013 | | Results for this | | | e | 3:42 PM | | procedure are in the | | | | PDT | | results section. | + +--------+ + + + | EEG CONTINUOUS, | Routin | 10/19/2013 | | Results for this | | ADULT | e | 3:20 PM | | procedure are in the | | | | PDT | | results section. | + +--------+ + + + | LUMBAR PUNCTURE TRAY | Routin | 10/19/2013 | | Results for this | | TO BEDSIDE | e | 2:17 PM | | procedure are in the | | | | PDT | | results section. | + +--------+ + + + | CELL COUNT, CSF | Urgent | 10/19/2013 | | Results for this | | | | 10:34 AM | | procedure are in the | | | | PDT | | results section. | + +--------+ + + + | DIFFERENTIAL, CSF | Urgent | 10/19/2013 | | Results for this | | | | 10:34 AM | | procedure are in the | | | | PDT | | results section. | + +--------+ + + + | SPECIMEN ROUTING | Routin | 10/19/2013 | | | | | e | 10:34 AM | | | | | | PDT | | | + +--------+ + + + | GLUCOSE, CSF | Routin | 10/19/2013 | | Results for this | | | e | 10:34 AM | | procedure are in the | | | | PDT | | results section. | + +--------+ + + + | OLIGOCLONAL BANDS / | Routin | 10/19/2013 | | Results for this | | IGG SYN RATE, | e | 10:34 AM | | procedure are in the | | SER/CSF | | PDT | | results section. | + +--------+ + + + | CELL COUNT DIFF, CSF | Urgent | 10/19/2013 | | Results for this | | | | 10:34 AM | | procedure are in the | | | | PDT | | results section. | + +--------+ + + + | PROTEIN, CSF | Routin | 10/19/2013 | | Results for this | | | e | 10:34 AM | | procedure are in the | | | | PDT | | results section. | + +--------+ + + + | HEMATOPATHOLOGY | Routin | 10/19/2013 | | Results for this | | | e | | | procedure are in the | | | | | | results section. | + +--------+ + + + | NON OFFAL SEPARATOR CYTOLOGY | Routin | 10/19/2013 | | Results for this | | | e | | | procedure are in the | | | | | | results section. | + +--------+ + + + | CBC AND AUTO DIFF | Routin | 10/18/2013 | | Results for this | | | e | 6:44 AM | | procedure are in the | | | | PDT | | results section. | + +--------+ + + + | CBC, WITH | Routin | 10/18/2013 | | Results for this | | DIFFERENTIAL | e | 6:44 AM | | procedure are in the | | | | PDT | | results section. | + +--------+ + + + | COMPLETE METABOLIC | Routin | 10/18/2013 | | Results for this | | SET | e | 6:44 AM | | procedure are in the | | (NA,K,CL,CO2,BUN,CRE | | PDT | | results section. | | AT,GLUC,CA,AST,ALT,B | | | | | | [place] TOTAL,ALK | | | | | | PHOS,ALB,PROT TOTAL) | | | | | + +--------+ + + + | TSH | Routin | 10/18/2013 | | Results for this | | | e | 6:44 AM | | procedure are in the | | | | PDT | | results section. | + +--------+ + + + | MAGNESIUM, PLASMA | Routin | 10/18/2013 | | Results for this | | | e | 6:44 AM | | procedure are in the | | | | PDT | | results section. | + +--------+ + + + documented in this encounter Results EEG CONTINUOUS, ADULT (10/20/2013 10:11 AM PDT) + + + | Narrative | Performed At | + + + | Patient Name: Hazel Bhatti Date of : 1955 Medical | [facility] - | | Record Number: [id number] Date of Test: 10/20/2013 Place of Service: | [facility] | | [facility] [phone] [facility] Department: EEG [facility] - [phone] | POINT OF CARE | | SNF VIDEO EEG Start Date/Time: 10/20/2013 at 0833 | TESTS | | End Date/Time: 10/20/2013 at 10:27 Telemetry Number: [id number] | | | EEG report - final day: I personally reviewed the video EEG from | | | 0833 to 1027 on 10/20/13. This portion of the EEG study is | | | unchanged from that previously reported. Please see the prior day's | | | report for details. No additional patient events were recorded. The | | | recording was discontinued. Honorio Carmen MD Suggested CPT: | | | 19927 - EEG Extended (1 - 6 hours); if used in addition to 57632, | | | then add modifier 59 Suggested Dx: 780.39-Convulsions | | | | | + + + + + + + + | Performing | Address | City/State/Zipcode | Phone Number | | Organization | | | | + + + + + | [facility] | [address] | [place], [place] | | | [facility] | [address] | [address] | | | TESTS | | | | + + + + + EEG ROUTINE (10/19/2013 3:42 PM PDT) + + + | Narrative | Performed At | + + + | Patient Name: Hazel Bhatti Date of : 1955 Medical | [facility] - | | Record Number: [id number] Date of Test: 10/19/2013 Place of Service: | [facility], | | [facility] [phone] [facility] Department: EEG [facility] - [id number] | POINT OF CARE | | ROUTINE EEG Reason for Exam: Evaluate for epileptiform | TESTS | | activity. History: 57 y.o. female with a pmh of HLD, HTN, | | | anxiety, depression, minor stutter at baseline, and COPD who presents | | | as a direct admission from [facility] for a variety of | | | neurological complaints including stuttering, hyperkinetic movements | | | of her lower extremities, and bilateral shaking of extremities with | | | preservation of consciousness and absence of post-ictal period. | | | Medications: Current Inpatient Medications: albuterol (PROVENTIL, | | | VENTOLIN) 90 mcg/actuation inhaler 2 puff, 2 puff, inhalation, Q4H | | | PRN aspirin tablet 325 mg, 325 mg, oral, DAILY atorvastatin | | | (LIPITOR) tablet 40 mg, 40 mg, oral, DAILY citalopram (CELEXA) tablet | | | 20 mg, 20 mg, oral, DAILY enoxaparin (LOVENOX) injection 40 mg, 40 | | | mg, subcutaneous, QPM hydrochlorothiazide (HYDRODIURIL) capsule 12.5 | | | mg, 12.5 mg, oral, DAILY ibuprofen (MOTRIN) tablet 600 mg, 600 mg, | | | oral, Q6H PRN losartan (COZAAR) tablet 50 mg, 50 mg, oral, DAILY | | | ondansetron (ZOFRAN) tablet 4 mg, 4 mg, oral, Q12H PRN potassium | | | chloride SR (K-DUR) tablet 20 mEq, 20 mEq, oral, DAILY | | | Methods: This study was a Routine EEG with a duration of 29:30 | | | minutes. The recording was performed with routine electrodes applied | | | according to the 10-20 electrode placement system. Video, EKG, and | | | EOG monitoring were utilized. The recording was obtained on a digital | | | system. EEG computer review was utilized. Automated digital spike | | | and seizure detection analysis was used, along with patient-activated | | | alarms and nursing observations. Technologist's Note: No skull | | | defect or scalp edema were present. EEG Description: | | | Background: The record was obtained in awake, drowsy and sleep | | | states. No sedation was used. The posterior awake dominant background | | | activity was a continuous, reactive rhythm of 9 Hz. This was | | | symmetric and well modulated, and attenuated with eye opening. | | | Symmetric diffuse frontocentral beta range activity was present. | | | Interictal Findings: Abnormal slow wave activity: no abnormal | | | slow wave activity noted. Epileptiform activity: none seen. | | | Ictal Activity: No seizures were observed. Clinical Events: None | | | captured. Other variants: None. Activation: a) HV: | | | Hyperventilation was not performed. b) Intermittent Photic | | | Stimulation (IPS): During IPS symmetric bilateral driving of the | | | occipital rhythms appeared. Extra leads: Single EKG lead showed a | | | normal sinus rhythm. IMPRESSION This awake only routine EEG | | | is within normal limits. No seizures, abnormal slowing or | | | epileptiform activity were seen. group home EEG monitoring to follow. | | | This result was directly discussed with the neurology inpatient | | | team. Noel Alicia DO Epilepsy Attending Addendum: | | | I read the EEG independently and agree with the interpretation as | | | documented in the trainee's note which I have edited as appropriate. | | | Honorio Carmen M.D. Suggested Modifier: GC - Resident | | | Present Suggested CPT: 93618 - EEG Routine Awake Only Suggested Dx: | | | 780.39-Convulsions | | + + + + + + + + | Performing | Address | City/State/Zipcode | Phone Number | | Organization | | | | + + + + + | [facility] | 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 female with a pmh of HLD, HTN, anxiety, | | | depression, minor stutter at baseline, and COPD who presents as a | | | direct admission from [facility] for a variety of | | | neurological complaints including stuttering, hyperkinetic movements | | | of her lower extremities, and bilateral shaking of extremities with | | | preservation of consciousness and absence of post-ictal period. | | | Current Inpatient Medications: albuterol (PROVENTIL, VENTOLIN) 90 | | | mcg/actuation inhaler 2 puff, 2 puff, inhalation, Q4H PRN aspirin | | | tablet 325 mg, 325 mg, oral, DAILY atorvastatin (LIPITOR) tablet 40 | | | mg, 40 mg, oral, DAILY bisacodyl (DULCOLAX) suppository 10 mg, 10 mg, | | | rectal, BID PRN citalopram (CELEXA) tablet 20 mg, 20 mg, oral, DAILY | | | enoxaparin (LOVENOX) injection 40 mg, 40 mg, subcutaneous, QPM guar | | | gum (BENEFIBER) oral powder 1 packet, 1 packet, oral, DAILY PRN | | | hydrochlorothiazide (HYDRODIURIL) capsule 12.5 mg, 12.5 mg, oral, | | | DAILY ibuprofen (MOTRIN) tablet 600 mg, 600 mg, oral, Q6H PRN | | | losartan (COZAAR) tablet 50 mg, 50 mg, oral, DAILY ondansetron | | | (ZOFRAN) tablet 4 mg, 4 mg, oral, Q12H PRN polyethylene glycol | | | (MIRALAX) powder 17 g, 17 g, oral, DAILY PRN potassium chloride SR | | | (K-DUR) tablet 20 mEq, 20 mEq, oral, DAILY senna-docusate (SENOKOT S) | | | 8.6-50 mg 1 tablet, 1 tablet, oral, BID simethicone chew (MYLICON) | | | tablet 80 mg, 80 mg, oral, TID PRN Methods: This study was | | | 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 The digital recording was performed with | | | routine electrodes applied according to the 10-20 electrode placement | | | system. The record included video, EKG, and EOG monitoring. EEG was | | | reviewed electronically. Automated digital spike and seizure | | | detection analysis was used, along with patient-activated alarms and | | | nursing observations. EEG Description Interictal Record: The | | | record shows a symmetric, well-modulated, posterior dominant rhythm | | | of 9 Hz that attenuates with eye opening. Stage II sleep is | | | characterized by symmetric sleep spindles, vertex waves, and | | | K-complexes. Events: One push button event was recorded. Push | | | button event at 04:17:34 on 10/20/13. This clinical event was | | | described by the patient stating that after she rolled off the bedpan | | | approximately 10 min prior, she "blacked out" and was unconscious | | | for a few seconds. This was similar to some of her typical events but | | | did not involve shaking as they sometimes do. Review of the video | | | identified the time period in question. There was no ictal or | | | epileptiform activity seen during this time and her normal background | | | including a very obvious posterior dominant rhythm was present. | | | EKG: The single-channel EKG recording shows a normal sinus rhythm. | | | Interpretation: This is a normal intermediate EEG. The one clinical | | | event captured was non-epileptic. There were no epileptiform | | | discharges, abnormal slowing or seizures on this record. The | | | above result was directly conveyed to the Neurology team. Honorio | | | Veronica Carmen Suggested CPT: 29518 - EEG Video, (12 - 24 hours) | | | Suggested Dx: 780.39-Convulsions | | + + + + + + + + | Performing | Address | City/State/Zipcode | Phone Number | | Organization | | | | + + + + + | [facility] | [address] | [place], [place] | | | [facility] POINT OF CARE | [facility] | [address] | | | TESTS | | | | + + + + + LUMBAR PUNCTURE TRAY TO BEDSIDE (10/19/2013 2:17 PM PDT) + + + | Narrative | Performed At | + + + | Rebecca Webster MD 10/19/2013 2:17 PM Procedure Note: Lumbar | | | Puncture Indication: Abnormal MRI of brain Consent: | | | Discussion of the risks, benefits, and alternatives was had with | | | the patient prior to the procedure. A signed consent form for this | | | procedure was obtained and placed on chart. Procedure Details: | | | A Team Pause was performed. The patient was pre-medicated with | | | 1mg Ativan IV. Patient prepared with sterile prep and drape, and | | | local anesthesia was obtained with 3 ml 1% Lidocaine without | | | epinephrine. A 20 gauge spinal needle was inserted between the 3rd | | | and 4th lumbar spaces. CSF was obtained on the 3rd attempt. Opening | | | pressure was not measured. The CSF was noted to be initially pink | | | and blood-tinged but then clear, 17 ml CSF was obtained. No | | | complications were immediately apparent. Estimated blood loss is | | | minimal. Findings: There were no changes to vital signs. Patient | | | did tolerate procedure well. Specimens: CSF sent to lab for | | | analysis: Cell count/diff, protein, glucose, cytology, flow | | | cytometry, OCB and IgG synthesis rate were ordered. REBECCA | | | MD DARIN | | + + + + + | Procedure Note | + + | Rebecca Yuen MD - 10/19/2013 2:13 PM PDT Procedure Note: Lumbar Puncture | | Indication: Abnormal MRI of brainConsent: Discussion of the risks, benefits, and | | alternatives was had with the patient prior to the procedure. A signed consent form for | | this procedure was obtained and placed on chart.Procedure Details: A Team Pause was | | performed. The patient was pre-medicated with 1mg Ativan IV. Patient prepared with | | sterile prep and drape, and local anesthesia was obtained with 3 ml 1% Lidocaine without | | epinephrine. A 20 gauge spinal needle was inserted between the 3rd and 4th lumbar | | spaces. CSF was obtained on the 3rd attempt. Opening pressure was not measured. The CSF | | was noted to be initially pink and blood-tinged but then clear, 17 ml CSF was obtained. | | No complications were immediately apparent. Estimated blood loss is minimal.Findings: | | There were no changes to vital signs. Patient did tolerate procedure well.Specimens: | | CSF sent to lab for analysis: Cell count/diff, protein, glucose, cytology, flow | | cytometry, OCB and IgG synthesis rate were ordered.REBECCA WEBSTER MD | | | | | |REBECCA WEBSTER MD | + + SPECIMEN ROUTING (10/19/2013 10:34 AM PDT) + + | Specimen | + + | | + + + + + + + | Performing | Address | City/State/Zipcode | Phone Number | | Organization | | | | + + + + + | [facility] | [address] | [place] [address] | | | SERVICES, CORE | [address] | | | + + + + + DIFFERENTIAL, CSF (10/19/2013 10:34 AM PDT) + +--------+ + + + | Component | Value | Ref Range | Performed | Pathologist | | | | | At | Signature | + +--------+ + + + | NEUTROPHIL | 1 | 0 - 6 % | [facility] | | | (CSF) | | | LABORATORY | | | | | | SERVICES, | | | | | | CORE | | + +--------+ + + + | LYMPHOCYTES | 90 (H) | 40 - 80 % | [facility] | | | (CSF) | | | LABORATORY | | | | | | SERVICES, | | | | | | CORE | | + +--------+ + + + | MONOCYTES(C | 9 (L) | 15 - 45 % | [facility] | | | SF) | | | LABORATORY | | | | | | SERVICES, | | | | | | CORE | | + +--------+ + + + | MACROPHAGES | | % | [facility] | | | (CSF) | | | LABORATORY | | | | | | SERVICES, | | | | | | CORE | | + +--------+ + + + | EOSINOPHILS | | % | [facility] | | | (CSF) | | | LABORATORY | | | | | | SERVICES, | | | | | | CORE | | + +--------+ + + + | BASOPHILS(C | | % | [facility] | | | SF) | | | LABORATORY | | | | | | SERVICES, | | | | | | CORE | | + +--------+ + + + | TOTAL CELL | 100 | | [facility] | | | COUNTED,CSF | | | LABORATORY | | | | | | SERVICES, | | | | | | CORE | | + +--------+ + + + + + | Specimen | + + | Cerebrospinal fluid | | - Cerebrospinal | | fluid | + + + + + + + | Performing | Address | City/State/Zipcode | Phone Number | | Organization | | | | + + + + + | [facility] | [address] | [place] [address] | | | SERVICES, CORE | [address] | | | + + + + + PROTEIN, CSF (10/19/2013 10:34 AM PDT) + +-------+ + + + | Component | Value | Ref Range | Performed | Pathologist | | | | | At | Signature | + +-------+ + + + | TOTAL | 45 | 15 - 45 mg/dL | [facility] | | | PROTEIN CSF | | | LABORATORY | | | | | | SERVICES, | | | | | | CORE | | + +-------+ + + + + + | Specimen | + + | Cerebrospinal fluid | | - Cerebrospinal | | fluid | + + + + + + + | Performing | Address | City/State/Zipcode | Phone Number | | Organization | | | | + + + + + | [facility] | [address] | [place] [address] | | | SERVICES, CORE | [address] | | | + + + + + OLIGOCLONAL BANDS / IGG SYN RATE, SER/CSF (10/19/2013 10:34 AM PDT) + + + + + + | Component | Value | Ref Range | Performed | Pathologist | | | | | At | Signature | + + + + + + | OLIGOCLONAL | Negative | Negative | [facility] | | | BANDS SF | | | REG UNIV | | | | | | PTH - INTFC | | + + + + + + | IGG SERUM | 806Comment: REFERENCE | [phone] - [phone] | [facility] | | | | INTERVAL: Immunoglobulin | mg/dL | REG UNIV | | | | G Access complete set | | PTH - INTFC | | | | of age- and/or | | | | | | gender-specificreference | | | | | | intervals for this test | | | | | | in the [facility] | | | | | | LaboratoryTest Directory | | | | | | ([place]). | | | | + + + + + + | ALBUMIN, | 4080 | 3500 - 5200 | [facility] | | | SERUM-QUANG | | mg/dL | REG UNIV | | | | | | PTH - INTFC | | + + + + + + | ALBUMIN, | 23 | 0 - 35 mg/dL | [facility] | | | CSF | | | REG UNIV | | | | | | PTH - INTFC | | + + + + + + | ALBUMIN | 5.6 | 0.0 - 9.0 ratio | [facility] | | | INDEX-QUANG | | | REG UNIV | | | | | | PTH - INTFC | | + + + + + + | IGG INDEX | 0.46 | 0.28 - 0.66 | [facility] | | | | | ratio | REG UNIV | | | | | | PTH - INTFC | | + + + + + + | CSF/IGG | 0.09 | 0.09 - 0.25 | [facility] | | | ALBUMIN | | ratio | REG UNIV | | | RATIO | | | PTH - INTFC | | + + + + + + | IGG SYN | <0.0 | <=8.0 mg/d | [facility] | | | RATE | | | REG UNIV | | | | | | PTH - INTFC | | + + + + + + | CSF | 0 | 0 - 1 Bands | [facility] | | | OLIGOCLONAL | | | REG UNIV | | | BANDS | | | PTH - INTFC | | | NUMBER | | | | | + + + + + + | OLIGOCLONAL | See NoteComment: | | [facility] | | | COMMENTS | Isoelectric | | REG UNIV | | | | focusing/immunofixation | | PTH - INTFC | | | | reveals identical | | | | | | bandsin the CSF and the | | | | | | serum. This is | | | | | | consistent with | | | | | | asystemic, not | | | | | | intrathecal, immune | | | | | | reaction and | | | | | | isconsidered to be a | | | | | | negative result for | | | | | | oligoclonal | | | | | | bands.Approximately 5 | | | | | | percent of patients with | | | | | | clinicallydefinitive | | | | | | multiple sclerosis will | | | | | | have a negative | | | | | | result.Performed by [facility] [place] | | | | | | [facility],[address] | | | | | [address], [facility],[place] | | | | | | [address] | | | | | | [phone]. | | | | | | [facility], Buck Cabrera, | | | | | | , Lab. Director | | | | + + + + + + | IGG CSF | 2.1 | 0.0 - 6.0 mg/dL | [facility] | | | | | | REG UNIV | | | | | | PTH - INTFC | | + + + + + + + + | Specimen | + + | Cerebrospinal fluid | | - Cerebrospinal | | fluid | + + + + + + + | Performing | Address | City/State/Zipcode | Phone Number | | Organization | | | | + + + + + | [facility] | [address] | [place], [place] | | | UNIV PTH - INTFC | | [phone] | | + + + + + GLUCOSE, CSF (10/19/2013 10:34 AM PDT) + +-------+ + + + | Component | Value | Ref Range | Performed | Pathologist | | | | | At | Signature | + +-------+ + + + | GLUCOSE CSF | 59 | 40 - 70 mg/dL | [facility] | | | | | | LABORATORY | | | | | | SERVICES, | | | | | | CORE | | + +-------+ + + + + + | Specimen | + + | Cerebrospinal fluid | | - Cerebrospinal | | fluid | + + + + + + + | Performing | Address | City/State/Zipcode | Phone Number | | Organization | | | | + + + + + | [facility] | [address] | [place] [address] | | | SERVICES, CORE | [address] | | | + + + + + CELL COUNT, CSF (10/19/2013 10:34 AM PDT) + + + + + + | Component | Value | Ref Range | Performed | Pathologist | | | | | At | Signature | + + + + + + | CSF | Clear | Clear | [facility] | | | APPEARANCE | | | LABORATORY | | | | | | SERVICES, | | | | | | CORE | | + + + + + + | CSF COLOR | Colorless | Colorless | [facility] | | | | | | LABORATORY | | | | | | SERVICES, | | | | | | CORE | | + + + + + + | CSF TUBE | #3 | | [facility] | | | NUMBER | | | LABORATORY | | | | | | SERVICES, | | | | | | CORE | | + + + + + + | CSF WBC | <1 | 0 - 5 /cu mm | [facility] | | | | | | LABORATORY | | | | | | SERVICES, | | | | | | CORE | | + + + + + + | CSF RBC | <1 | <1 /cu mm | [facility] | | | | | | LABORATORY | | | | | | SERVICES, | | | | | | CORE | | + + + + + + + + | Specimen | + + | Cerebrospinal fluid | | - Cerebrospinal | | fluid | + + + + + + + | Performing | Address | City/State/Zipcode | Phone Number | | Organization | | | | + + + + + | [facility] | [address] | [place] [address] | | | SERVICES, [place] | [address] | | | + + + + + NON OFFAL SEPARATOR CYTOLOGY (10/19/2013) + + + + + + | Component | Value | Ref Range | Performed | Pathologist | | | | | At | Signature | + + + + + + | NON-OFFAL SEPARATOR | SOURCE OF SPECIMEN:A | | [facility] | | | CYTOLOGY | Cerebrospinal FluidGROSS | | DEPARTMENT | | | | DESCRIPTION: 4 ml | | OF | | | | clear colorless fluid: | | PATHOLOGY | | | | 1 Sure[employer] slide | | | | | | preparedCLINICAL | | | | | | HISTORY: None provided | | | | | | | | | | | | Diagnosis:Negative for | | | | | | malignancy. | | | | | | Adequacy:Satisfactory | | | | | | for evaluation. My | | | | | | electronic signature | | | | | | indicates that I have | | | | | | personally reviewed | | | | | | alldiagnostic slides, | | | | | | the gross and/or | | | | | | microscopic portion of | | | | | | thisreport and | | | | | | formulated the final | | | | | | diagnosis. | | | | | | Rendering Diagnostician: | | | | | | Davin Vega | | | | | | [facility])Petrologist | | | | | | Electronically Signed | | | | | | 10/20/2013 | | | | | | 2:01PMRendering | | | | | | Diagnostician: Narcisa Coleman | | | | | | Rodney Martin | | | | | | Ph.D.PathologistElectron | | | | | | shanique Signed 10/22/2013 | | | | | | 3:42PM | | | | + + + + + + + + | Specimen | + + | | + + + + + + + | Performing | Address | City/State/Zipcode | Phone Number | | Organization | | | | + + + + + | [facility] | [address] | [place] [address] | | | PATHOLOGY | [address] | | | + + + + + HEMATOPATHOLOGY (10/19/2013) + + + + + + | Component | Value | Ref Range | Performed | Pathologist | | | | | At | Signature | + + + + + + | HEMATOPATHO | SOURCE OF SPECIMEN:A CSF | | [facility] | | | LOGY | 1x2ml Final | | DEPARTMENT | | | | Pathologic | | OF | | | | Diagnosis:Cerebrospinal | | PATHOLOGY | | | | Fluid:- Suboptimal | | | | | | specimen- No | | | | | | definitive flow | | | | | | cytometric abnormalities | | | | | | Comment: | | | | | | Morphologic review is | | | | | | limited by poor | | | | | | cellularpreservation/valentín | | | | | | hnical artifact. Flow | | | | | | cytometric analysis is | | | | | | attempted andno | | | | | | definitive abnormalities | | | | | | are seen. If there is | | | | | | clinical suspicion | | | | | | forCSF involvement by | | | | | | lymphoma or leukemia, | | | | | | repeat analysis may be | | | | | | considered. | | | | | | Case Reviewed by:Elvai | | | | | | MD Andre, PhD/ | | | | | | Hematopathology | | | | | | FellowBree Smith, | | | | | | /Hematopathologist | | | | | | Clinical History:Per | | | | | | Epic, the patient has a | | | | | | 57 year old female with | | | | | | history of HLD, | | | | | | HTN,anxiety, depression, | | | | | | minor stutter at | | | | | | baseline, and COPD | | | | | | presenting forfurther | | | | | | workup of neurological | | | | | | complaints including | | | | | | abnormal movements ofher | | | | | | lower extremities. | | | | | | CSF Cell Count and | | | | | | Differential: | | | | | | Sample collection Date- | | | | | | 10/19/13 Component | | | | | | Results | | | | | | Component Value | | | | | | Range & Units Status | | | | | | CSF APPEARANCE | | | | | | Clear Clear | | | | | | Final CSF COLOR | | | | | | Colorless Colorless | | | | | | Final CSF TUBE | | | | | | NUMBER #3 | | | | | | Final CSF WBC | | | | | | <1 0-5 /cu mm | | | | | | Final CSF RBC | | | | | | <1 <1 /cu mm Final | | | | | | Component | | | | | | Value Range & | | | | | | Units Status | | | | | | SEGMENTED | | | | | | NEUTROPHIL(CSF) 1 | | | | | | 0-6 % Final | | | | | | LYMPHOCYTES(CSF) | | | | | | 90 (H) 40-80 % | | | | | | Final | | | | | | MONOCYTES(CSF) 9 (L) | | | | | | 15-45 % Final | | | | | | MACROPHAGES(CSF) | | | | | | % Final | | | | | | EOSINOPHILS(CSF) | | | | | | % Final | | | | | | BASOPHILS(CSF) | | | | | | % Final | | | | | | TOTAL CELL COUNTED,CSF | | | | | | 100 Final | | | | | | Gross | | | | | | Description:Fresh CSF | | | | | | was received in the Flow | | | | | | Cytometry Lab for | | | | | | cytologic and | | | | | | possibleimmunologic | | | | | | evaluation. Dede Hollis | | | | | | stained cytoprep was | | | | | | made for | | | | | | cytologicevaluation. | | | | | | Microscopic | | | | | | Description:The cytospin | | | | | | of the concentrated CSF | | | | | | cells was reviewed. | | | | | | It shows poorcellular | | | | | | preservation and/or | | | | | | staining. Unremarkable | | | | | | lymphocytes andmonocytes | | | | | | are present. Some | | | | | | lymphocytes appear to | | | | | | have high N:C ratios | | | | | | andopen chromatin, | | | | | | although this possibly | | | | | | represents technical | | | | | | artifact ordegenerative | | | | | | change. Overall, the | | | | | | specimen is suboptimal | | | | | | for | | | | | | morphologicevaluation. | | | | | | Flow Cytometry | | | | | | Results: Flow | | | | | | cytometric analysis | | | | | | shows | | | | | | nonspecificstaining with | | | | | | CD20. No monoclonal B | | | | | | cell population is | | | | | | detected. No CD34+blast | | | | | | population is detected. | | | | | | The following antigens | | | | | | were tested: | | | | | | CD5 CD10 CD19 CD20 | | | | | | CD34 CD45 sKappa | | | | | | sLambda | | | | | | (Analyte specific | | | | | | reagents are used in | | | | | | many laboratory tests | | | | | | necessary forstandard | | | | | | medical care. This | | | | | | test was developed and | | | | | | its | | | | | | performancecharacteristi | | | | | | cs determined by [facility] | | | | | | laboratories. It has | | | | | | not been clearedor | | | | | | approved by the [place] Food | | | | | | and Drug Administration | | | | | | (FDA). FDA does | | | | | | notrequire this test to | | | | | | go through premarket FDA | | | | | | review. This test is | | | | | | usedfor clinical | | | | | | purposes. It should | | | | | | not be regarded as | | | | | | investigational or | | | | | | forresearch. The | | | | | | laboratory is certified | | | | | | under the Clinical | | | | | | LaboratoryImprovement | | | | | | Amendments (CLIA) as | | | | | | qualified to perform | | | | | | high complexityclinical | | | | | | laboratory testing.) | | | | | | My electronic | | | | | | signature indicates that | | | | | | I have personally | | | | | | reviewed alldiagnostic | | | | | | slides, the gross and/or | | | | | | microscopic portion of | | | | | | thisreport and | | | | | | formulated the final | | | | | | diagnosis. | | | | | | Rendering Diagnostician: | | | | | | Bree Smith | | | | | | MDPathologistElectronica | | | | | | lly Signed 10/21/2013 | | | | | | 11:30AM | | | | + + + + + + + + | Specimen | + + | | + + + + + + + | Performing | Address | City/State/Zipcode | Phone Number | | Organization | | | | + + + + + | [facility] | [address] | [place] [address] | | | PATHOLOGY | [address] | | | + + + + + CBC AND AUTO DIFF (10/18/2013 6:44 AM PDT) + + + + + + | Component | Value | Ref Range | Performed | Pathologist | | | | | At | Signature | + + + + + + | WHITE CELL | 6.38 | 4.40 - 11.00 | [facility] | | | COUNT | | K/cu mm | LABORATORY | | | | | | SERVICES, | | | | | | CORE | | + + + + + + | RED CELL | 4.84 | 4.00 - 5.20 | [facility] | | | COUNT | | M/cu mm | LABORATORY | | | | | | SERVICES, | | | | | | CORE | | + + + + + + | HEMOGLOBIN | 12.2 | 12.0 - 16.0 | [facility] | | | | | g/dL | LABORATORY | | | | | | SERVICES, | | | | | | CORE | | + + + + + + | HEMATOCRIT | 37.9 | 36.0 - 46.0 % | [facility] | | | | | | LABORATORY | | | | | | SERVICES, | | | | | | CORE | | + + + + + + | MCV | 78.3 (L) | 80.0 - 96.0 fL | [facility] | | | | | | LABORATORY | | | | | | SERVICES, | | | | | | CORE | | + + + + + + | MCHC | 32.2 | 33.0 - 35.5 | [facility] | | | | | g/dL | LABORATORY | | | | | | SERVICES, | | | | | | CORE | | + + + + + + | RDW SD | 43.5 | 35.1 - 46.3 fL | [facility] | | | | | | LABORATORY | | | | | | SERVICES, | | | | | | CORE | | + + + + + + | PLATELET | 252 | 150 - 400 K/cu | [facility] | | | COUNT | | mm | LABORATORY | | | | | | SERVICES, | | | | | | CORE | | + + + + + + | MPV | 10.9 | 9.7 - 12.3 fL | [facility] | | | | | | LABORATORY | | | | | | SERVICES, | | | | | | CORE | | + + + + + + | NRBC% | 0.0 | 0.0 - 0.3 % | [facility] | | | | | | LABORATORY | | | | | | SERVICES, | | | | | | CORE | | + + + + + + | NRBC# | 0.00 | 0.00 - 0.02 | [facility] | | | | | K/cu mm | LABORATORY | | | | | | SERVICES, | | | | | | CORE | | + + + + + + | NEUTROPHIL | 40.0 (L) | 50.0 - 70.0 % | [facility] | | | % | | | LABORATORY | | | | | | SERVICES, | | | | | | CORE | | + + + + + + | LYMPHOCYTE | 45.6 (H) | 18.0 - 42.0 % | [facility] | | | % | | | LABORATORY | | | | | | SERVICES, | | | | | | CORE | | + + + + + + | MONOCYTE % | 10.3 (H) | 3.5 - 9.0 % | [facility] | | | | | | LABORATORY | | | | | | SERVICES, | | | | | | CORE | | + + + + + + | EOS % | 3.1 (H) | 1.0 - 3.0 % | [facility] | | | | | | LABORATORY | | | | | | SERVICES, | | | | | | CORE | | + + + + + + | BASO % | 0.8 | 0.0 - 2.0 % | [facility] | | | | | | LABORATORY | | | | | | SERVICES, | | | | | | CORE | | + + + + + + | IG% | 0.2 | 0.0 - 0.6 % | [facility] | | | | | | LABORATORY | | | | | | SERVICES, | | | | | | CORE | | + + + + + + | NEUTROPHIL | 2.55 | 1.80 - 7.70 | [facility] | | | # | | K/cu mm | LABORATORY | | | | | | SERVICES, | | | | | | CORE | | + + + + + + | LYMPHOCYTE | 2.91 | 1.00 - 4.80 | [facility] | | | # | | K/cu mm | LABORATORY | | | | | | SERVICES, | | | | | | CORE | | + + + + + + | MONOCYTE # | 0.66 | 0.10 - 0.90 | [facility] | | | | | K/cu mm | LABORATORY | | | | | | SERVICES, | | | | | | CORE | | + + + + + + | EOS # | 0.20 | 0.00 - 0.50 | [facility] | | | | | K/cu mm | LABORATORY | | | | | | SERVICES, | | | | | | CORE | | + + + + + + | BASO # | 0.05 | 0.00 - 0.10 | [facility] | | | | | K/cu mm | LABORATORY | | | | | | SERVICES, | | | | | | CORE | | + + + + + + | IG# | 0.01 | 0.00 - 0.03 | [facility] | | | | | K/cu mm | LABORATORY | | | | | | SERVICES, | | | | | | CORE | | + + + + + + + + | Specimen | + + | Blood - Blood | + + + + + | Narrative | Performed At | + + + | Immature Granulocytes (IG) include metamyelocytes, myelocytes | [facility] | | and promyelocytes. Bands are not included in the IG count. Bands are | LABORATORY | | included in the neutrophil count. | SERVICES, CORE | + + + + + + + + | Performing | Address | City/State/Zipcode | Phone Number | | Organization | | | | + + + + + | [facility] | [address] | [place] [address] | | | SERVICES, CORE | [address] | | | + + + + + MAGNESIUM, PLASMA (10/18/2013 6:44 AM PDT) + +-------+ + + + | Component | Value | Ref Range | Performed | Pathologist | | | | | At | Signature | + +-------+ + + + | MAGNESIUM,P | 2.1 | 1.8 - 2.5 mg/dL | [facility] | | | LASMA | | | LABORATORY | | | | | | SERVICES, | | | | | | CORE | | + +-------+ + + + + + | Specimen | + + | Blood - Blood | + + + + + + + | Performing | Address | City/State/Zipcode | Phone Number | | Organization | | | | + + + + + | [facility] | [address] | [place] [address] | | | SERVICES, CORE | [address] | | | + + + + + TSH (10/18/2013 6:44 AM PDT) + +-------+ + + + | Component | Value | Ref Range | Performed | Pathologist | | | | | At | Signature | + +-------+ + + + | TSH | 2.62 | 0.50 - 5.07 | [facility] | | | | | mIU/L | LABORATORY | | | | | | SERVICES, | | | | | | CORE | | + +-------+ + + + + + | Specimen | + + | Blood - Blood | + + + + + | Narrative | Performed At | + + + | TSH reference ranges are influenced by a variety of environmental | [facility] | | influences, age, gender and ethnicity. The supplied reference limits | LABORATORY | | are based on published values utilizing a similar TSH assay, and | SERVICES, CORE | | should be interpreted with caution. | | + + + + + + + + | Performing | Address | City/State/Zipcode | Phone Number | | Organization | | | | + + + + + | [facility] | [address] | [place] [address] | | | KASSIDY MACARIO | [address] | | | + + + + + COMPLETE METABOLIC SET (NA,K,CL,CO2,BUN,CREAT,GLUC,CA,AST,ALT,BILI TOTAL,ALK PHOS,ALB,PROT TOTAL) (10/18/2013 6:44 AM PDT) + +---------+ + + + | Component | Value | Ref Range | Performed | Pathologist | | | | | At | Signature | + +---------+ + + + | GLUCOSE, | 105 (H) | 60 - 99 mg/dL | [facility] | | | PLASMA | | | LABORATORY | | | (LAB) | | | SERVICES, | | | | | | CORE | | + +---------+ + + + | BUN, PLASMA | 17 | 6 - 20 mg/dL | [facility] | | | (LAB) | | | LABORATORY | | | | | | SERVICES, | | | | | | CORE | | + +---------+ + + + | CREATININE | 1.07 | 0.60 - 1.10 | [facility] | | | PLASMA | | mg/dL | LABORATORY | | | (LAB) | | | SERVICES, | | | | | | CORE | | + +---------+ + + + | EGFR | >60 | >60 mL/min | [facility] | | | - | | | LABORATORY | | | TONGAN | | | SERVICES, | | | | | | CORE | | + +---------+ + + + | EGFR NON | 53 (L) | >60 mL/min | [facility] | | | -PIETER | | | LABORATORY | | | RICAN | | | SERVICES, | | | | | | CORE | | + +---------+ + + + | SODIUM, | 131 (L) | 136 - 145 | [facility] | | | PLASMA | | mmol/L | LABORATORY | | | (LAB) | | | SERVICES, | | | | | | CORE | | + +---------+ + + + | POTASSIUM, | 3.9 | 3.4 - 5.0 | [facility] | | | PLASMA | | mmol/L | LABORATORY | | | (LAB) | | | SERVICES, | | | | | | CORE | | + +---------+ + + + | CHLORIDE, | 100 | 97 - 108 mmol/L | [facility] | | | PLASMA | | | LABORATORY | | | (LAB) | | | SERVICES, | | | | | | CORE | | + +---------+ + + + | TOTAL CO2, | 24 | 21 - 32 mmol/L | [facility] | | | PLASMA | | | LABORATORY | | | (LAB) | | | SERVICES, | | | | | | CORE | | + +---------+ + + + | CALCIUM, | 9.1 | 8.6 - 10.2 | [facility] | | | PLASMA | | mg/dL | LABORATORY | | | (LAB) | | | SERVICES, | | | | | | CORE | | + +---------+ + + + | BILIRUBIN | 1.1 | 0.3 - 1.2 mg/dL | [facility] | | | TOTAL | | | LABORATORY | | | | | | SERVICES, | | | | | | CORE | | + +---------+ + + + | TOTAL | 7.1 | 6.4 - 8.2 g/dL | [facility] | | | PROTEIN, | | | LABORATORY | | | PLASMA | | | SERVICES, | | | (LAB) | | | CORE | | + +---------+ + + + | ALBUMIN, | 3.7 | 3.5 - 4.7 g/dL | [facility] | | | PLASMA | | | LABORATORY | | | (LAB) | | | SERVICES, | | | | | | CORE | | + +---------+ + + + | ALK PHOS | 100 (H) | 42 - 98 U/L | [facility] | | | | | | LABORATORY | | | | | | SERVICES, | | | | | | CORE | | + +---------+ + + + | AST(SGOT) | 22 | 15 - 41 U/L | [facility] | | | | | | LABORATORY | | | | | | SERVICES, | | | | | | CORE | | + +---------+ + + + | ALT (SGPT) | 23 | 12 - 60 U/L | [facility] | | | | | | LABORATORY | | | | | | SERVICES, | | | | | | CORE | | + +---------+ + + + | ANION | 7 | 4 - 11 mmol/L | [facility] | | | GAP(ALB | | | LABORATORY | | | CORRECTED) | | | SERVICES, | | | | | | CORE | | + +---------+ + + + | POTASSIUM | No Hemo | | [facility] | | | CMNT | | | LABORATORY | | | | | | SERVICES, | | | | | | CORE | | + +---------+ + + + | BILI T CMNT | No Hemo | | [facility] | | | | | | LABORATORY | | | | | | SERVICES, | | | | | | CORE | | + +---------+ + + + | AST CMNT | No Hemo | | [facility] | | | | | | LABORATORY | | | | | | SERVICES, | | | | | | CORE | | + +---------+ + + + | ANION GAP | 7 | mmol/L | [facility] | | | | | | LABORATORY | | | | | | SERVICES, | | | | | | CORE | | + +---------+ + + + + + | Specimen | + + | Blood - Blood | + + + + + | Narrative | Performed At | + + + | GFR is estimated using the MDRD equation recommended by the | [facility] | | National Kidney Disease Education Program. Estimated GFR | LABORATORY | | Interpretive Information: <60 mL/min/1.73 sq m | SERVICES, CORE | | Chronic Kidney Disease <15 mL/min/1.73 sq m | | | Kidney Failure Estimated GFR greater that 60 mL/min/1.73 sq m is of | | | limited clinical value. The MDRD equation is not valid in the | | | following situations: - Patients under 18 years of age - Severe | | | malnutrition or obesity - Vegetarian diet - Rapidly changing kidney | | | function | | + + + + + + + + | Performing | Address | City/State/Zipcode | Phone Number | | Organization | | | | + + + + + | [facility] | [address] | [place] [address] | | | SERVICES, CORE | [address] | | | + + + + + documented in this encounter Visit Diagnoses + + | Diagnosis | + + | Abnormal movement of lower extremity - Primary Abnormal involuntary movements | + + documented in this encounter Administered Medications + +--------+ +--------+------+------+ | Medication Order | MAR | Action | Dose | Rate | Site | | | Action | Date | | | | + +--------+ +--------+------+------+ | aspirin tablet 325 mg 325 mg, | Given | 10/21/19 | 325 mg | | | | oral, DAILY, First dose on Wed | | 14 9:10 | | | | | 10/18/13 at 0930, Until | | AM PDT | | | | | Discontinued | | | | | | + +--------+ +--------+------+------+ +-------+ +--------+---+---+ | Given | 10/20/19 | 325 mg | | | | | 14 9:38 | | | | | | AM PDT | | | | +-------+ +--------+---+---+ | Given | 10/19/19 | 325 mg | | | | | 14 9:34 | | | | | | AM PDT | | | | +-------+ +--------+---+---+ +---+---+ | | | +---+---+ + +-------+ +-------+---+---+ | atorvastatin (LIPITOR) tablet | Given | 10/21/19 | 40 mg | | | | 40 mg 40 mg, oral, DAILY, First | | 14 9:10 | | | | | dose on Wed10/18/13 at 0930, Until | | AM PDT | | | | | Discontinued | | | | | | + +-------+ +-------+---+---+ +-------+ +-------+---+---+ | Given | 10/20/19 | 40 mg | | | | | 14 9:37 | | | | | | AM PDT | | | | +-------+ +-------+---+---+ | Given | 10/19/19 | 40 mg | | | | | 14 9:34 | | | | | | AM PDT | | | | +-------+ +-------+---+---+ +---+---+ | | | +---+---+ + +-------+ +-------+---+---+ | citalopram (CELEXA) tablet 20 | Given | 10/21/19 | 20 mg | | | | mg 20 mg, oral, DAILY, First | | 14 9:10 | | | | | dose on Wed10/18/13 at 0930, Until | | AM PDT | | | | | Discontinued | | | | | | + +-------+ +-------+---+---+ +-------+ +-------+---+---+ | Given | 10/20/19 | 20 mg | | | | | 14 9:38 | | | | | | AM PDT | | | | +-------+ +-------+---+---+ | Given | 10/19/19 | 20 mg | | | | | 14 9:35 | | | | | | AM PDT | | | | +-------+ +-------+---+---+ +---+---+ | | | +---+---+ + +-------+ +-------+---+---+ | enoxaparin (LOVENOX) injection | Given | 10/20/19 | 40 mg | | | | 40 mg 40 mg, subcutaneous, EVERY | | 14 7:40 | | | | | EVENING, First dose on e | | PM PDT | | | | | 10/17/13 at 2345, Until | | | | | | | Discontinued | | | | | | + +-------+ +-------+---+---+ +-------+ +-------+---+---+ | Given | 10/19/19 | 40 mg | | | | | 14 9:28 | | | | | | PM PDT | | | | +-------+ +-------+---+---+ +---+---+ | | | +---+---+ + +-------+ +---------+---+---+ | hydrochlorothiazide | Given | 10/21/19 | 12.5 mg | | | | (HYDRODIURIL) capsule 12.5 mg | | 14 9:10 | | | | | 12.5 mg, oral, DAILY, First dose | | AM PDT | | | | | (after last modification) on Wed | | | | | | | 10/18/13 at 0930, Until | | | | | | | Discontinued | | | | | | + +-------+ +---------+---+---+ +-------+ +---------+---+---+ | Given | 10/20/19 | 12.5 mg | | | | | 14 9:38 | | | | | | AM PDT | | | | +-------+ +---------+---+---+ | Given | 10/19/19 | 12.5 mg | | | | | 14 9:34 | | | | | | AM PDT | | | | +-------+ +---------+---+---+ +---+---+ | | | +---+---+ + +-------+ +--------+---+---+ | ibuprofen (MOTRIN) tablet 600 | Given | 10/21/19 | 600 mg | | | | mg 600 mg, oral, EVERY 6 HOURS | | 14 4:29 | | | | | NEEDED, Starting Wed10/18/13 at | | AM PDT | | | | | 1702, Until Wed10/20/13 at 1819, | | | | | | | moderate pain | | | | | | + +-------+ +--------+---+---+ +-------+ +--------+---+---+ | Given | 10/20/19 | 600 mg | | | | | 14 7:40 | | | | | | PM PDT | | | | +-------+ +--------+---+---+ | Given | 10/20/19 | 600 mg | | | | | 14 4:35 | | | | | | AM PDT | | | | +-------+ +--------+---+---+ +---+---+ | | | +---+---+ + +---------+ +------+---+---+ | LORazepam (ATIVAN) injection 1 | New Bag | 10/20/19 | 1 mg | | | | mg 1 mg, intravenous, ONCE, 1 | | 14 10:36 | | | | | dose, [facility] 10/19/13 at 1045 | | AM PDT | | | | + +---------+ +------+---+---+ +---+---+ | | | +---+---+ + +-------+ +-------+---+---+ | losartan (COZAAR) tablet 50 mg | Given | 10/21/19 | 50 mg | | | | 50 mg, oral, DAILY, First dose | | 14 9:10 | | | | | (after last modification) on Wed | | AM PDT | | | | | 10/18/13 at 0930, Until | | | | | | | Discontinued | | | | | | + +-------+ +-------+---+---+ +-------+ +-------+---+---+ | Given | 10/20/19 | 50 mg | | | | | 14 9:38 | | | | | | AM PDT | | | | +-------+ +-------+---+---+ | Given | 10/19/19 | 50 mg | | | | | 14 9:34 | | | | | | AM PDT | | | | +-------+ +-------+---+---+ +---+---+ | | | +---+---+ + +-------+ +------+---+---+ | ondansetron (ZOFRAN) tablet 4 | Given | 10/19/19 | 4 mg | | | | mg 4 mg, oral, EVERY 12 HOURS | | 14 5:25 | | | | | NEEDED, Starting Wed10/18/13 at | | PM PDT | | | | | 1701, Until Wed10/20/13 at 1819, | | | | | | | nausea/vomiting | | | | | | + +-------+ +------+---+---+ +---+---+ | | | +---+---+ + +-------+ +--------+---+---+ | potassium chloride SR (K-DUR) | Given | 10/21/19 | 20 mEq | | | | tablet 20 mEq 20 mEq, oral, | | 14 9:10 | | | | | DAILY, First dose on Wed10/18/13 | | AM PDT | | | | | at 0930, Until Discontinued | | | | | | + +-------+ +--------+---+---+ +-------+ +--------+---+---+ | Given | 10/20/19 | 20 mEq | | | | | 14 9:37 | | | | | | AM PDT | | | | +-------+ +--------+---+---+ | Given | 10/19/19 | 20 mEq | | | | | 14 9:34 | | | | | | AM PDT | | | | +-------+ +--------+---+---+ +---+---+ | | | +---+---+ + +-------+ + +---+---+ | senna-docusate (SENOKOT S) | Given | 10/21/19 | 1 tablet | | | | 8.6-50 mg 1 tablet 1 tablet, | | 14 9:10 | | | | | oral, TWICE DAILY, First dose on | | AM PDT | | | | | 10/20/13 at 0030, Until | | | | | | | Discontinued | | | | | | + +-------+ + +---+---+ +-------+ + +---+---+ | Given | 10/21/19 | 1 tablet | | | | | 14 4:30 | | | | | | AM PDT | | | | +-------+ + +---+---+ +---+---+ | | | +---+---+ documented in this encounter
--- OUTSIDE RECORDS SUMMARY | ~2019-01-25 | XMS | Encounter Summary ---
Demographics + + + | Address | [address] | | | [place] [address] | + + + | Home Phone | | + + + | Preferred Language | Unknown | + + + | Marital Status | Single | + + + | Taoist Affiliation | CAT | + + + [...] Team Providers + +------+ + | Care Accelerator Systems Director Name | Role | Phone | + +------+ + PCP | Unavailable | + +------+ + Encounter Details +--------+ + + + + | Date | Type | Department | Care Team | Description | +--------+ + + + + | 03/05/ | Procedure - | | Evaluation, Cei [...] as of this encounter Progress Notes Interface, Shank Pinner In - 03/20/2005 6:23 AM PST Ultrasound Evaluation Report Patient: MARINA VALLEJO Date: 05/18/2004 Referring MD: Kenzie De Luna M.D. Eye: Left eye. History: This very pleasant adult lady underwent a cataract extraction and an intraocular lens implant in the left eye last fall. She began noticing a change in her vision in January with a significant decrease in vision and some inflammation in March. Echography: The high-frequency ultrasound (20 MHz), shows the intraocular lens to be in good position. There is no evidence of retained lens nucleus. The anterior chamber is deep and well formed. B-scan shows a significant amount of mobile, diffuse vitreous debris consistent with an inflammatory process. The retina, choroid, sclera, and Tenons appear normal. Jd Mcgarry M.D. and Nawaf Yip, Ophthalmic Echographer MD / [id number] / [id number] / [id number] / Tdocumented in this encounter Plan of Treatment Not on filedocumented as of this encounter Procedures + +--------+ + + + | Procedure Name | Priori | Date/Time | Associated Diagnosis | Comments | | | ty | | | | + +--------+ + + + | [facility] ULTR[facility]OUND | | 05/18/2003 | | Results for this | | | | | | procedure are in the | | | | | | results section. | + +--------+ + + + documented in this encounter Results [facility] ULTRAS[facility] (05/18/2003) + + | Transcriptions | + + | Interface, Shank Pinner In - 03/20/2005 6:23 AM PST | | | | Ultrasound Evaluation Report | | | | | | Patient: MARINA VALLEJO | | Date: 05/18/2004 | | Referring MD: Kenzie De Luna M.D. | | | | | | | | Eye: Left eye. | | | | History: This very pleasant adult lady underwent a cataract extraction and | | an intraocular lens implant in the left eye last fall. She began noticing | | a change in her vision in January with a significant decrease in vision | | and some inflammation in March. | | | | Echography: The high-frequency ultrasound (20 MHz), shows the intraocular | | lens to be in good position. There is no evidence of retained lens nucleus. | | The anterior chamber is deep and well formed. | | | | B-scan shows a significant amount of mobile, diffuse vitreous debris | | consistent with an inflammatory process. | | | | The retina, choroid, sclera, and Tenons appear normal. | | | | | | | | | | | | Jd Mcgarry M.D. and | | Nawaf Yip, Ophthalmic Echographer | | | | MD / | | [id number] / [id number] / [id number] / | | | | | + + documented in this encounter Visit Diagnoses Not on filedocumented in this encounter"
--- OUTSIDE RECORDS SUMMARY | ~2019-01-25 | XMS | Encounter Summary ---
Demographics + + + | Address | [address] | | | [place] [address] | + + + | Home Phone [...] + + | Author | [facility] | | | and [place] | + + + | Organization | [facility] | | [...] Team Providers + +------+ + | Care Etl Tester Name | Role | Phone | + +------+ + PCP | Unavailable | + +------+ + Encounter Details +--------+ + + + + | Date | Type | Department | Care Team | Description | +--------+ + + + + | 09/20/ | Orders Only | [facility] | Conversion | | | 2018 | | NEPHROLOGY [facility] | Transaction, | | | | | [address] | Provider Unknown | | | | | [address] [place] | | | | | | [phone] | (Fax) | | | | | [phone] | | | +--------+ + + + [...] [place] | | | | | | [address] | | | | | | | | +--------+---------+ + + + | 08/01/ | Office | Pulmonology | Jorge, | | | 2019 | Visit | | Caitlyn Simon, | | | | | | MD [address] | | | | | | [place], | | | | | | [place] [address] | | | | | | [phone] | | | | | | | [...] for this | | | e | 7:20 AM | | procedure are in the | | | | PDT | | results section. | + +--------+ + + + | PROTEIN/CREATININE | Routin | 09/20/2017 | | Results for this | | RATIO, URINE | e | 7:20 AM | | procedure are in the | | | | PDT | | results section. | + +--------+ + + + | URIC ACID | Routin | 09/20/2017 | | Results for this | | | e | 7:20 AM | | procedure are in the | | | | PDT | | results section. | + +--------+ + + + | PARATHYROID HORMONE, | Routin | 09/20/2017 | | Results for this | | INTACT | e | 7:20 AM | | procedure are in the | | | | PDT | | results section. | + +--------+ + + + | MAGNESIUM | Routin | 09/20/2017 | | Results for this | | | e | 7:20 AM | | procedure are in the | | | | PDT | | results section. | + +--------+ + + + | RENAL FUNCTION PANEL | Routin | 09/20/2017 | | Results for this | | | e | 7:20 AM | | procedure are in the | | | | PDT | | results section. | + +--------+ + + + documented in this encounter Results Protein/Creatinine Ratio, Urine (09/20/2017 7:20 AM PDT) + +-------+ + + + | Component | Value | Ref Range | Performed | Pathologist | | | | | At | Signature | + +-------+ + + + | Protein/Cre | 72.0 | 0 - 150 | EXTERNAL | [...] +---------+ + + External Lab: CBC (09/20/2017 7:20 AM PDT) + + + + + + | Component | Value | Ref Range | Performed | Pathologist | | | | | At | Signature | + + + + + + | WBC | 9.9 | 4.5 - 11.0 10 | EXTERNAL | | | | | | LAB | | + + + + + + | RED CELL | 4.44 | 3.8 - 5.1 10 | EXTERNAL | | | COUNT | | | LAB | | + + + + + + | Hgb | 11.0 (A) | 12 - 16 g/dL | EXTERNAL | | | | | | LAB | | + + + + + + | Hematocrit, | 34.7 (A) | 35 - 45 % | EXTERNAL | | | POC | | | LAB | | + + + + + + | MCV | 78.1 (A) | 81 - 99 fL | [...] + + + + | Platelet | 265 | 140 - 440 K/ L | EXTERNAL | | | Count | | | LAB | | | Plasma | | | | | + + + + + + | RDW-CV | 16.4 (A) | 10.5 - 15.0 % | [...] | + +---------+ + + Uric Acid (09/20/2017 7:20 AM PDT) + +---------+ + + + | Component | Value | Ref Range | Performed | Pathologist | | | | | At | Signature | + +---------+ + + + | Uric Acid | 8.8 (A) | 2.3 - 6.6 | EXTERNAL [...] + +---------+ + + Parathyroid Hormone, Intact (09/20/2017 7:20 AM PDT) + + + + + + | Component | Value | Ref Range | Performed | Pathologist | | | | | At | Signature | + + + + + + | PTH INTACT | 136.3 (A) | 15 - 65 pg/mL | [...] | | + +---------+ + + Magnesium (09/20/2017 7:20 AM PDT) + +-------+ + + + [...] + +---------+ + + Renal Function Panel (09/20/2017 7:20 AM PDT) + +---------+ + + + | Component | Value | Ref Range | Performed | Pathologist | | | | | At | Signature | + +---------+ + + + | Glucose, | 126 (A) | 70 - 100 mg/dL | EXTERNAL | | | Fasting | | | LAB | | + +---------+ + + + | BUN | 25 (A) | 6 - 23 mg/dL | EXTERNAL | | | | | | LAB | | + +---------+ + + + | Creatinine | 1.14 | 0.7 - 1.25 | EXTERNAL | | | | | mg/dL | LAB | | + +---------+ + + + | PHOSPHORUS | 3.2 | 2.5 - 5.0 mg/dL | EXTERNAL | | | | | | LAB | | + +---------+ + + + | Albumin | 4.2 | 3.5 - 5.0 | EXTERNAL | | | | | | LAB | | + +---------+ + + + | Na | 134 | 132 - 143 | EXTERNAL | [...] + + + | Anion Gap | 15.3 | 7 - 21 mmol/L | EXTERNAL | | | | | | LAB | | + +---------+ + + + | eGFR if not | | | EXTERNAL | | | | | | LAB | | | GUINEAN | | | | | + +---------+ + + + | Phosphorus, | | | EXTERNAL | | | Inorganic | | | LAB | | + +---------+ + + + | BUN/Creatin | 21.9 | 6.0 - 28.6 | EXTERNAL | | | ine Ratio | | | LAB | | + +---------+ + + + | Calcium | 9.5 | 8.4 - 10.2 | EXTERNAL | | | | | mg/dL | LAB | | + +---------+ + + + | Estimated | 48 (A) | 60 mg/dL | EXTERNAL | [...]
--- OUTSIDE RECORDS SUMMARY | ~2019-01-25 | XMS | Clinical Summary ---
Demographics + + + | Address | [address] | | | [place] [address] | + + + | Home Phone | | + + + | Preferred Language | Unknown | + + + | Marital Status | Single | + + + | Mosque Affiliation | 1041 | + + + | Race | Unknown | + + + | Ethnic Group | Unknown | + + + Author + + + | Author | [facility] | | | and [place] | + + + | Organization | [facility] | | | [...] Providers + +------+ + | Care Marketing Teacher Name | Role | Phone | [...] Giron | | | | | | Fabric Normalizer | | +--------+ + + + + [...] | | | 2018 | | | REAGENT TENDER | | +--------+ + + + + [...] | | 2020 | Visit | | [address] | | | | | | [place] | | | | | | [address] | | | | | | | | +--------+---------+ + + + | 08/01/ | Office | Pulmonology | Jorge, | | | 2019 | Visit | | Caitlyn Simon, | | | | | | MD [address] | | | | | | [place], | | | | | | [place] [address] | | | | | | [phone] | | | | | | | [...] | [employer] | [facility] | [id number] | | [phone] | | Medica | [...] | | | | | | | [address] | + +--------+ +--------+ + + Advance Directives + + + + + | Type | Date Recorded | Patient | Explanation | | | | Papier Mache Molder | | + + + + + | Power of | | | | | Architectural Model Maker | | | | + + + + + | Advance | | | | | Directive | | | | + + + + +
--- OUTSIDE RECORDS SUMMARY | ~2019-01-25 | XMS | Encounter Summary ---
Demographics + + + | Address | [address] | | | [place] [address] | + + + | Home Phone [...] Team Providers + +------+ + | Care Forensic Chemist Name | Role | Phone | + [...] Provider Unknown | | | | | [place], [place] | [phone] | | | | | [address] | | | | | | [phone] | | | +--------+ + + + [...] [place] | | | | | | [address] | | | | | | | | +--------+---------+ + + + | 08/01/ | Office | Pulmonology | Jorge, | | | 2019 | Visit | | Caitlyn Simon, | | | | | | MD [address] | | | | | | [place], | | | | | | [place] [address] | | | | | | [phone] | | | | | | | | +--------+---------+ + + + documented as of this encounter Visit Diagnoses Not on filedocumented in this encounter"
--- OUTSIDE RECORDS SUMMARY | ~2019-01-25 | XMS | Encounter Summary ---
Demographics + + + | Address | [address] | | | [place] [address] | + + + | Home Phone [...] Team Providers + +------+ + | Care Commercial Hvac Technician Name | Role | Phone | [...] | Transcriptions | + + | Interface, Feed Mixer Helper In - 03/04/2005 7:29 PM PST Date: | | 05/24/2003Attending Surgeon: Kenzie De Luna M.D.Metabolic Specialist(s): | | Jim Greco M.D.Preoperative Diagnosis(es):Suspected P. [...] procedure well and | [facility] Dr. Arik De Luna was present forthe | | entire case. No qualified resident was available to assist in thiscase.Jim Greco, | | Saumya De Luna M.D. / [id number] / [id number] / [id number] / T: 05/25/2003 | | | |Procedure: [...] M.D. | | | | / | |[id number] / [id number] / [id number] / | | | | | + + documented in this encounter Visit Diagnoses Not on filedocumented in this encounter"
--- OUTSIDE RECORDS SUMMARY | ~2019-01-25 | XMS | Encounter Summary ---
Demographics + + + | Address | [address] | | | [place] [address] | + + + | Home Phone | | + + + | Preferred Language | Unknown | + + + | Marital Status | Single | + + + | Christian Affiliation | CAT | + + + [...] Team Providers + +------+ + | Care Tool Design Draftsperson Name | Role | Phone | + +------+ + PCP | Unavailable | + +------+ + Encounter Details +--------+ + + + + | Date | Type | Department | Care Team | Description | +--------+ + + + + | 02/28/ | Procedure - | | Evaluation, Cei [...] as of this encounter Progress Notes Interface, Hypo Dipper In - 03/20/2005 6:23 AM PST [id number] GENEVIEVE GRAY Ultrasound Evaluation Report Patient: [place] VALLE[place] Date: 02/29/2004 Referring MD: Kenzie De Luna M.D. Eye: Left eye. 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 Today there is no view of the posterior segment. ECHOGRAPHY: The B-scan reveals a significant, diffuse echo pattern in the vitreous suggesting massive hemorrhage. There are what appear to be shallow peripheral choroidals. A moderate amount of precipitates appear imaged along what is possibly remnant vitreous. An echolucency exists at the level of Tenon's especially inferiorly that travels back to the retrobulbar optic nerve area where there is an echolucency surrounding the nerve. Jd Mcgarry M.D. and Nawaf Yip, Ophthalmic Echographer [place] / [id number] / [id number] / [id number] / Electronically signed by Jr. Jd Mcgarry 03-30-2004 04:20:50 PM documented i n this encounter Plan of Treatment Not on filedocumented as of this encounter Procedures + +--------+ + + + | Procedure Name | Priori | Date/Time | Associated Diagnosis | Comments | | | ty | | | | + +--------+ + + + | [facility] | | 02/29/2004 | | Results for this | | | | | | procedure are in the | | | | | | results section. | + +--------+ + + + documented in this encounter Results [facility] (02/29/2004) + + | Transcriptions | + + | Interface, Hypo Dipper In - 03/20/2005 6:23 AM PST | | [id number] | | [id number] GENEVIEVE GRAY | | | | | | | | Ultrasound Evaluation Report | | | | | | Patient: [place] VALLEJO | | Date: 02/29/2004 | | Referring MD: Kenzie De Luna M.D. | | | | | | | | Eye: Left eye. | | | | History: This very pleasant adult female presents with a history of | | endophthalmitis earlier in the year. Today there is no view of the | | posterior segment. | | | | ECHOGRAPHY: The B-scan reveals a significant, diffuse echo pattern in the | | vitreous suggesting massive hemorrhage. There are what appear to be | | shallow peripheral choroidals. | | | | A moderate amount of precipitates appear imaged along what is possibly | | remnant vitreous. | | | | An echolucency exists at the level of Tenon's especially inferiorly that | | travels back to the retrobulbar optic nerve area where there is an | | echolucency surrounding the nerve. | | | | | | | | | | | | Jd Mcgarry M.D. and | | Nawaf Yip, Ophthalmic Echographer | | | | [place] / [place] | | [id number] / [id number] / [id number] / | | | | | | | | | | | | | | Electronically signed by Jr. Jd Mcgarry 03-30-2004 04:20:50 PM | + + documented in this encounter Visit Diagnoses Not on filedocumented in this encounter"
--- OUTSIDE RECORDS SUMMARY | ~2019-01-25 | XMS | Encounter Summary ---
Demographics + + + | Address | [address] | | | [place] [address] | + + + | Home Phone | | + + + | Preferred Language | Unknown | + + + | Marital Status | Single | + + + | Presybeterian Affiliation | 1041 | + + + | Race | Unknown | + + + | Ethnic Group | Unknown | + + + Author + + + | Author | [facility] | | | and [place] | + + + | Organization | [facility] | | [...] Team Providers + +------+ + | Care Sales Manager [place] Name | Role | Phone | + [...] Provider Unknown | | | | | [place], [place] | [phone] | | | | | [address] | | | | | | [phone] | | | +--------+ + + + [...] [place] | | | | | | [address] | | | | | | | | +--------+---------+ + + + | 08/01/ | Office | Pulmonology | Jorge, | | | 2019 | Visit | | Caitlyn Simon, | | | | | | MD [address] | | | | | | [place], | | | | | | [place] [address] | | | | | | [phone] | | | | | | | [...]
--- OUTSIDE RECORDS SUMMARY | ~2019-01-25 | XMS | Encounter Summary ---
Demographics + + + | Address | [address] | | | [place] [address] | + + + | Home Phone | | + + + | Preferred Language | Unknown | + + + | Marital Status | Single | + + + | Zoroastrian Affiliation | CAT | + + + [...] Team Providers + +------+ + | Care Rotary Cutter Operator Name | Role | Phone | + +------+ + | Jim Wiley MD | PCP | | + +------+ + Encounter Details +--------+ + + + + | Date | Type | Department | Care Team | Description | +--------+ + + + + | 03/20/ | Abstract | Neurology at | Rebecca Yuen MD | | | 2014 | | [facility] & | [address] | | | | | [address] | [place], [place] | | | | | [address] Mailcode: | [address] | | | | | [address] | [phone] | | | | | Health and Healing, | | | | | | [facility] | | | | | | Floor [place], [place] | | | | | | [address] | | | | | | [phone] | | | +--------+ + + + [...]
--- OUTSIDE RECORDS SUMMARY | ~2019-01-25 | XMS | Encounter Summary ---
Demographics + + + | Address | [address] | | | [place] [address] | + + + | Home Phone | | + + + | Preferred Language | Unknown | + + + | Marital Status | Single | + + + | Anglican Affiliation | CAT | + + + [...] Team Providers + +------+ + | Care Poll Clerk Name | Role | Phone | [...] as of this encounter Progress Notes Interface, Furnishings Conservator In - 03/20/2005 6:23 AM PST Ultrasound [...] Mcgarry M.D. and Nawaf Yip, Ophthalmic Echographer [place] / [id number] / [id number] / [id number] / Tdocumented in this encounter Plan of [...] | Transcriptions | + + | Interface, Furnishings Conservator In - 03/20/2005 6:23 AM PST | [...] Yip, Ophthalmic Echographer | | | | [place] / | | [id number] / [id number] / [id number] / | | | | | + + documented in this encounter Visit Diagnoses Not on filedocumented in this encounter"
--- OUTSIDE RECORDS SUMMARY | ~2019-01-25 | XMS | Encounter Summary ---
Demographics + + + | Address | [address] | | | [place] [address] | + + + | Home Phone [...] + + + | Author | [facility] (Historical as of | | | 10-29-18) | + + + | Organization | [facility] (Historical as of | | | 10-29-18) [...] + +------+ + | Care Manager Of Patient Name | Role | Phone | + [...] | Visit | [address] | [place] [address] | disease), stage II | | | | [address] | [place] [address] | (Primary Dx); | | | | [place] [address] | [place] [address] | Essential | | | | [phone] | [phone] | hypertension, benign | | | | [...] were 1.09 & 50. She lives a [facility], assisted living, in [place]. She reports she had a seizure in early September 2016, was seen at the [facility] ER for evaluation, re ports her buspirone [...] LABIRON 4 (L) 03/03/2018 LABPROT 87.2 10/25/2018 [id number] (A) 03/12/2017 Assessment: Ms. Bhatti is [...] uric acid, iron panel, ferritin, Urine total mtctttn-yu-nwapmdsdzm ratio. BP Charting: she will bring me [...] with this patient and be part of [facility] care team. Please do not hesitate to call me at any time with questions or concerns. Truly yours, Noel Watsonjett [facility] Nephrology This note prepared with voice recognition [...]
--- OUTSIDE RECORDS SUMMARY | ~2019-01-25 | XMS | Clinical Summary ---
Demographics + + + | Address | [address] | | | [place] [address] | + + + | Home Phone | | + + + | Preferred Language | Unknown | + + + | Marital Status | Single | + + + | Muslim Affiliation | 1041 | + + + | Race | Unknown | + + + | Ethnic Group | Unknown | + + + Author + + + | Author | [facility] (Historical as of | | | 10-29-18) | + + + | Organization | [facility] (Historical as of | | | 10-29-18) [...] Team Providers + +------+ + | Care Fireproof Door Maker Name | Role | Phone | + [...] She [facility] | | [facility], apparently she has poor | | balance, [...] trace PI.Last | | Stress Test, 08/21/2015 ([facility]'): Lexiscan, images benign, | | LVEF [...] | | 2019 | Visit | | APPLICATION INTEGRATION ENGINEER | disease), stage II | | | [...] + + + | [facility] | [address] | [place] [address] | [phone] | | LABORATORY | Blvd. | | [...] + + + | [facility] | [address] | [place] [address] | [phone] | | LABORATORY | Blvd. | | [...] | + + + + + | [facility] | [address] | [place] [address] | [phone] | | LABORATORY | Blvd. | | [...] + + + | [facility] | [address] | [place] [address] | [phone] | | LABORATORY | Blvd. | | [...] +------+-------+ + | MEDICAID | EASTER | [id number] | | | [address] | | | [address] | | | | [place] | | | [place] | | | | [address] | | | BURN OUT SCARFING OPERATOR | | | | | + +--------+ [...] | | al/Fam | | 5 | [phone] | [address] [place], | | | n[place]ki | | | [address] | [place] [address] | + +--------+ +--------+ + +
--- OUTSIDE RECORDS SUMMARY | ~2019-01-25 | XMS | Encounter Summary ---
Demographics + + + | Address | [address] | | | [place] [address] | + + + | Home Phone | | + + + | Preferred Language | Unknown | + + + | Marital Status | Single | + + + | Adventism Affiliation | 1041 | + + + | Race | Unknown | + + + | Ethnic Group | Unknown | + + + Author + + + | Author | [facility] | | | and [place] | + + + | Organization | [facility] | | | [...] Team Providers + +------+ + | Care Veneer Puller Name | Role | Phone | + +------+ + | Johnny Caldera MD | PCP | | + +------+ + Encounter Details +--------+ + + + + | Date | Type | Department | Care Team | Description | +--------+ + + + + | 10/25/ | Orders Only | [facility] | Conversion | | | 2019 | | NEPRHOLOGY [place] | Transaction, | | | | | [address] | Provider Unknown | | | | | [address] [place], [place] | [phone] | | | | | [address] | | | | | | [phone] | | | +--------+ + + + [...] [place] | | | | | | [address] | | | | | | | | +--------+---------+ + + + | 08/01/ | Office | Pulmonology | Jorge, | | | 2019 | Visit | | Caitlyn Simon, | | | | | | MD [address] | | | | | | [place], | | | | | | [place] [address] | | | | | | [phone] | | | | | | | [...]
--- OUTSIDE RECORDS SUMMARY | ~2019-01-25 | XMS | Encounter Summary ---
Demographics + + + | Address | [address] | | | [place] [address] | + + + | Home Phone | | + + + | Preferred Language | Unknown | + + + | Marital Status | Single | + + + | Nondenominational Affiliation | CAT | + + + [...] Team Providers + +------+ + | Care Loaf Counter Name | Role | Phone | + +------+ + | Jim Wiley MD | PCP | | + +------+ + Encounter Details +--------+ + + + + | Date | Type | Department | Care Team | Description | +--------+ + + + + | 10/17/ | Telephone | Neurology at | Kerry Fernández MD | | | 2013 | | [facility] & | [address] | | | | | [address] | [place] [address] | | | | | [address] Mailcode: | [phone] | | | | | [facility] | | | | | | Health and Healing, | | | | | | Building | | | | | | Floor [place], [place] | | | | | | [address] | | | | | | [phone] | | | +--------+ + + + [...]
--- OUTSIDE RECORDS SUMMARY | ~2019-01-25 | XMS | Encounter Summary ---
Demographics + + + | Address | [address] | | | [place] [address] | + + + | Home Phone | | + + + | Preferred Language | Unknown | + + + | Marital Status | Single | + + + | Christianity Affiliation | CAT | + + + [...] Team Providers + +------+ + | Care Cutter Barrel Drum Name | Role | Phone | + [...] as of this encounter Progress Notes Interface, Colleter In - 03/20/2005 6:23 AM PST [id number] GENEVIEVE GRAY Ultrasound Evaluation Report Patient: [place] [...] Mcgarry M.D. and Nawaf Yip, Ophthalmic Echographer [place] / [id number] / [id number] / [id number] / Electronically signed by Jr. Jd Mcgarry [...] | Transcriptions | + + | Interface, Colleter In - 03/20/2005 6:23 AM PST | | [id number] | | [id number] GNEEVIEVE GRAY | | | | | | [...] | | [place] / [place] | | [id number] / [id number] / [id number] / | | | | | | | | | | | | | | Electronically signed by Jr. Jd Mcgarry 03-30-2004 04:20:50 PM | + + documented in this encounter Visit Diagnoses Not on filedocumented in this encounter"
--- OUTSIDE RECORDS SUMMARY | ~2019-01-25 | XMS | Encounter Summary ---
Demographics + + + | Address | [address] | | | [place] [address] | + + + | Home Phone [...] + + + | Author | [facility] | | | and [place] | + + + | Organization | [facility] | | [...] Providers + +------+ + | Care Medical Records Secretary Name | Role | Phone | + [...] Provider Unknown | | | | | [place], [place] | [phone] | | | | | [address] | | | | | | [phone] | | | +--------+ + + + [...] [place] | | | | | | [address] | | | | | | | | +--------+---------+ + + + | 08/01/ | Office | Pulmonology | Jorge, | | | 2020 | Visit | | Caitlyn Simon, | | | | | | [address] | | | | | | [place], | | | | | | [place] [address] | | | | | | [phone] | | | | | | | [...]
--- OUTSIDE RECORDS SUMMARY | ~2019-01-25 | XMS | Encounter Summary ---
Demographics + + + | Address | [address] | | | [place] [address] | + + + | Home Phone | | + + + | Preferred Language | Unknown | + + + | Marital Status | Single | + + + | Baptism Affiliation | 1041 | + + + | Race | Unknown | + + + | Ethnic Group | Unknown | + + + Author + + + | Author | [facility] | | | and [place] | + + + | Organization | [facility] | | [...] Team Providers + +------+ + | Care Consumer Loan Specialist Name | Role | Phone | [...] + + | 11/15/ | Documentati | [facility] | Andrea, | Results (11/10/18) | | 2019 | on | NEPHROLOGY [place] | Ezekiel Giron | | | | | [address] | Banking Center Manager | | | | | [address] [place], [place] | | | | | | [address] | | | | | | [phone] | | | +--------+ + + + [...] [place] | | | | | | [address] | | | | | | | | +--------+---------+ + + + | 08/01/ | Office | Pulmonology | Jorge, | | | 2019 | Visit | | Caitlyn Simon | | | | | | MD [address] | | | | | | [place], | | | | | | [place] [address] | | | | | | [phone] | | | | | | | [...]
--- OUTSIDE RECORDS SUMMARY | ~2019-01-25 | XMS | Encounter Summary ---
Demographics + + + | Address | [address] | | | [place] [address] | + + + | Home Phone | | + + + | Preferred Language | Unknown | + + + | Marital Status | Single | + + + | Baptism Affiliation | 1041 | + + + | Race | Unknown | + + + | Ethnic Group | Unknown | + + + Author + + + | Author | [facility] | | | and [place] | + + + | Organization | [facility] | | [...] Team Providers + +------+ + | Care Editor City Name | Role | Phone | + +------+ + | Johnny Caldera MD | PCP | | + +------+ + Encounter Details +--------+ + + + + | Date | Type | Department | Care Team | Description | +--------+ + + + + | 08/26/ | Orders Only | [facility] | Conversion | | | 2015 | | NEPRHOLOGY [place] | Transaction, | | | | | [address] | Provider Unknown | | | | | [address] [place], [place] | [phone] | | | | | [address] | | | | | | [phone] | | | +--------+ + + + [...] [place] | | | | | | [address] | | | | | | | | +--------+---------+ + + + | 08/01/ | Office | Pulmonology | Jorge, | | | 2019 | Visit | | Caitlyn Simon, | | | | | | MD [address] | | | | | | [place], | | | | | | [place] [address] | | | | | | [phone] | | | | | | | [...]
--- OUTSIDE RECORDS SUMMARY | ~2019-01-25 | XMS | Encounter Summary ---
Demographics + + + | Address | [address] | | | [place] [address] | + + + | Home Phone | | + + + | Preferred Language | Unknown | + + + | Marital Status | Single | + + + | Mu-Ism Affiliation | CAT | + + + | Race | White | + + + | Ethnic Group | Not or | + + + Author + + + | Author | [facility] | + + + | Organization | [facility] | + + + | [...] Team Providers + +------+ + | Care Shipping Checker Name | Role | Phone | + +------+ + | Jim Wiley MD | PCP | | + +------+ + Encounter Details +--------+ + + + + | Date | Type | Department | Care Team | Description | +--------+ + + + + | 03/19/ | Ancillary | Registration [address] | | | 2004 | Registratio | [facility] | MD [address] | | | | n | [place] Mailcode: [id number] | [address], | | | | | [place], [place] | [place] [address] | | | | | [address] | [phone] | | | | | [phone] | | | +--------+ + + + [...]
--- OUTSIDE RECORDS SUMMARY | ~2019-01-25 | XMS | Encounter Summary ---
Demographics + + + | Address | [address] | | | [place] [address] | + + + | Home Phone | | + + + | Preferred Language | Unknown | + + + | Marital Status | Single | + + + | Mandaeism Affiliation | CAT | + + + [...] Phone | + + +---------+ + | uGy Bhatti | ECON | Unknown | | + + +---------+ + | Carlos Bhatti | ECON | Unknown | | + + +---------+ + Care Team Providers + +------+ + | Care Billboard Poster Helper Name | Role | Phone | + [...] | | Neurology at | MD [address] [facility] | - Disregard | | | | [address] | [address] | | | | | [facility] | [place], [place] | | | | | [address] [facility] | [address] | | | | | [place]any [place] Mailcode: | [phone] | | | | | [address] | | | | | | [place], [place] | | | | | | [address] | | | | | | [phone] | | | +--------+--------+ + + + [...]
--- OUTSIDE RECORDS SUMMARY | ~2019-01-25 | XMS | Encounter Summary ---
Demographics + + + | Address | [address] | | | [place] [address] | + + + | Home Phone [...] Team Providers + +------+ + | Care Pen Or Pencil Assembly Machine Operator Name | Role | Phone | + +------+ + PCP | Unavailable | + +------+ + Encounter Details +--------+ + + + + | Date | Type | Department | Care Team | Description | +--------+ + + + + | 10/04/ | Orders Only | [facility] | Conversion | | | 2018 | | NEPHROLOGY [place] | Transaction, | | | | | [address] | Provider Unknown | | | | | [address] [place] | | | | | | [address] | (Fax) | | | | | [phone] | | | +--------+ + + + [...] [place] | | | | | | [address] | | | | | | | | +--------+---------+ + + + | 08/01/ | Office | Pulmonology | Jorge, | | | 2019 | Visit | | Caitlyn Simon, | | | | | | MD [address] | | | | | | [place], | | | | | | [place] [address] | | | | | | [phone] | | | | | | | [...] - 1.030 | EXTERNAL | | | [place] | | | LAB | | + [...] | | | LAB | | | [facility] | | | | | + +---------+ [...]
--- OUTSIDE RECORDS SUMMARY | ~2019-01-25 | XMS | Encounter Summary ---
Demographics + + + | Address | [address] | | | [place] [address] | + + + | Home Phone [...] + + + | Author | [facility] | | | and [place] | + + + | Organization | [facility] | | [...] Team Providers + +------+ + | Care Television Announcer Name | Role | Phone | + +------+ + PCP | Unavailable | + +------+ + Encounter Details +--------+ + + + + | Date | Type | Department | Care Team | Description | +--------+ + + + + | 09/20/ | Orders Only | [facility] | Conversion | | | 2018 | | NEPHROLOGY [place] | Transaction, | | | | | [address] | Provider Unknown | | | | | [address] [place] | | | | | | [address] | (Fax) | | | | | [phone] | | | +--------+ + + + [...] [address] | | | | | | [place] | | | | | | [address] | | | | | | | | +--------+---------+ + + + | 08/01/ | Office | Pulmonology | Jorge, | | | 2019 | Visit | | Caitlyn Simon, | | | | | | MD [address] | | | | | | [place], | | | | | | [place] [address] | | | | | | [phone] | | | | | | | [...] | | | LAB | | | [facility] | | | | | + +---------+ [...]
--- OUTSIDE RECORDS SUMMARY | ~2019-01-25 | XMS | Encounter Summary ---
Demographics + + + | Address | [address] | | | [place] [address] | + + + | Home Phone | | + + + | Preferred Language | Unknown | + + + | Marital Status | Single | + + + | Synagogue Affiliation | 1041 | + + + | Race | Unknown | + + + | Ethnic Group | Unknown | + + + Author + + + | Author | [facility] | | | and [place] | + + + | Organization | [facility] | | [...] Providers + +------+ + | Care Senior Test Engineer Name | Role | Phone | + +------+ + PCP | Unavailable | + +------+ + Encounter Details +--------+ + + + + | Date | Type | Department | Care Team | Description | +--------+ + + + + | 03/12/ | Orders Only | [facility] | Conversion | | | 2017 | | NEPRHOLOGY [place] | Transaction, | | | | | [address] | Provider Unknown | | | | | [address] [place], [place] | [phone] | | | | | [address] | (Fax) | | | | | [phone] | | | +--------+ + + + [...] [place] | | | | | | [address] | | | | | | | | +--------+---------+ + + + | 08/01/ | Office | Pulmonology | Jorge, | | | 2019 | Visit | | Caitlyn Simon, | | | | | | MD [address] | | | | | | [place], | | | | | | [place] [address] | | | | | | [phone] | | | | | | | [...]
--- OUTSIDE RECORDS SUMMARY | ~2019-01-25 | XMS | Encounter Summary ---
Demographics + + + | Address | [address] | | | [place] [address] | + + + | Home Phone | | + + + | Preferred Language | Unknown | + + + | Marital Status | Single | + + + | Druze Affiliation | 1041 | + + + | Race | Unknown | + + + | Ethnic Group | Unknown | + + + Author + + + | Author | [facility] | | | and [place] | + + + | Organization | [facility] | | [...] Team Providers + +------+ + | Care Set Off Press Operator Name | Role | Phone | + +------+ + | Johnny Caldera MD | PCP | | + +------+ + Encounter Details +--------+ + + + + | Date | Type | Department | Care Team | Description | +--------+ + + + + | 09/25/ | Orders Only | [facility] | Conversion | | | 2017 | | NEPHROLOGY [place] | Transaction, | | | | | [address] | Provider Unknown | | | | | [address] [place], [place] | | | | | | [address] | (Fax) | | | | | [phone] | | | +--------+ + + + [...] [place] | | | | | | [address] | | | | | | | | +--------+---------+ + + + | 08/01/ | Office | Pulmonology | Jorge, | | | 2019 | Visit | | Caitlyn Simon, | | | | | | MD [address] | | | | | | [place], | | | | | | [place] [address] | | | | | | [phone] | | | | | | | [...]
--- OUTSIDE RECORDS SUMMARY | ~2019-01-25 | XMS | Encounter Summary ---
Demographics + + + | Address | [address] | | | [place] [address] | + + + | Home Phone [...] + + | Author | [facility] | | | and [place] | + + + | Organization | [facility] | | | [...] Team Providers + +------+ + | Care Chef Instructor Name | Role | Phone | [...] Provider Unknown | | | | | [place], [place] | [phone] | | | | | [address] | | | | | | [phone] | | | +--------+ + + + [...] [place] | | | | | | [address] | | | | | | | | +--------+---------+ + + + | 08/01/ | Office | Pulmonology | Jorge, | | | 2019 | Visit | | Caitlyn Simon, | | | | | | MD [address] | | | | | | [place], | | | | | | [place] [address] | | | | | | [phone] | | | | | | | | +--------+---------+ + + + documented as of this encounter Visit Diagnoses Not on filedocumented in this encounter"
--- OUTSIDE RECORDS SUMMARY | ~2019-01-25 | XMS | Encounter Summary ---
Demographics + + + | Address | [address] | | | [place] [address] | + + + | Home Phone | | + + + | Preferred Language | Unknown | + + + | Marital Status | Single | + + + | Jain Affiliation | 1041 | + + + | Race | Unknown | + + + | Ethnic Group | Unknown | + + + Author + + + | Author | [facility] | | | and [place] | + + + | Organization | [facility] | | | [...] Team Providers + +------+ + | Care Glassware Maker Name | Role | Phone | + +------+ + PCP | Unavailable | + +------+ + Encounter Details +--------+ + + + + | Date | Type | Department | Care Team | Description | +--------+ + + + + | 03/12/ | Orders Only | [facility] | Noel Bautista, | | | 2016 | | NEPRHOLOGY [place] | GRAVEL INSPECTOR [address] | | | | | [address] | [place] | | | | | [address] [place], [place] | [place] | | | | | [address] | [address] | | | | | [phone] | [phone] | | | | | | | [...] [place] | | | | | | [address] | | | | | | | | +--------+---------+ + + + | 08/01/ | Office | Pulmonology | Jorge, | | | 2019 | Visit | | Caitlyn Simon, | | | | | | MD [address] | | | | | | [place], | | | | | | [place] [address] | | | | | | [phone] | | | | | | | [...] | | | LAB | | | [facility] | | | | | + +---------+ [...]
--- OUTSIDE RECORDS SUMMARY | ~2019-01-25 | XMS | Encounter Summary ---
Demographics + + + | Address | [address] | | | [place] [address] | + + + | Home Phone | | + + + | Preferred Language | Unknown | + + + | Marital Status | Single | + + + | Caodaism Affiliation | 1041 | + + + | Race | Unknown | + + + | Ethnic Group | Unknown | + + + Author + + + | Author | [facility] (Historical as of | | | 10-29-18) | + + + | Organization | [facility] (Historical as of | | | 10-29-18) [...] Team Providers + +------+ + | Care Transplanter Orchid Name | Role | Phone | + [...] | | | | | [facility] [address] | | | | | | [place] [address] | | | | | | [phone] | | | +--------+ + + + [...]
--- OUTSIDE RECORDS SUMMARY | ~2019-01-25 | XMS | Encounter Summary ---
Demographics + + + | Address | [address] | | | [place] [address] | + + + | Home Phone | | + + + | Preferred Language | Unknown | + + + | Marital Status | Single | + + + | Yazidi Affiliation | 1041 | + + + [...] Providers + +------+ + | Care Senior Administrative Services Officer Name | Role | Phone | + +------+ + PCP | Unavailable | + +------+ + Encounter Details +--------+ + + + + | Date | Type | Department | Care Team | Description | +--------+ + + + + | 04/12/ | Orders Only | [facility] | Conversion | | | 2019 | | NEPRHOLOGY [place] | Transaction, | | | | | [address] | Provider Unknown | | | | | [address] [place], [place] | [phone] | | | | | [address] | (Fax) | | | | | [phone] | | | +--------+ + + + [...] [place] | | | | | | [address] | | | | | | | | +--------+---------+ + + + | 08/01/ | Office | Pulmonology | Jorge, | | | 2019 | Visit | | Caitlyn Simon, | | | | | | MD [address] | | | | | | [place], | | | | | | [place] [address] | | | | | | [phone] | | | | | | | [...]
--- OUTSIDE RECORDS SUMMARY | ~2019-01-25 | XMS | Encounter Summary ---
Demographics + + + | Address | [address] | | | [place] [address] | + + + | Home Phone | | + + + | Preferred Language | Unknown | + + + | Marital Status | Single | + + + | Scientologist Affiliation | 1041 | + + + | Race | Unknown | + + + | Ethnic Group | Unknown | + + + Author + + + | Author | [facility] | | | and [place] | + + + | Organization | [facility] | | | [...] Team Providers + +------+ + | Care Theatrical Variety Agent Name | Role | Phone | + +------+ + PCP | Unavailable | + +------+ + Encounter Details +--------+ + + + + | Date | Type | Department | Care Team | Description | +--------+ + + + + | 03/03/ | Orders Only | [facility] | Monet Mcginnis MD | | | 2017 | | [address] [facility] | [address] | | | | | [place] | [place] | | | | | [address] | [address] | | | | | [phone] | | | +--------+ + + + [...] [place] | | | | | | [address] | | | | | | | | +--------+---------+ + + + | 08/01/ | Office | Pulmonology | Jorge, | | | 2019 | Visit | | aCitlyn Simon, | | | | | | [address] | | | | | | [place], | | | | | | [place] [address] | | | | | | [phone] | | | | | | | [...]
--- OUTSIDE RECORDS SUMMARY | ~2019-01-25 | XMS | Encounter Summary ---
Demographics + + + | Address | [address] | | | [place] [address] | + + + | Home Phone [...] Team Providers + +------+ + | Care Mold Washer Name | Role | Phone | + [...] Emmanuel | | | | | | [facility] | [facility] | | | | | | [facility] | [address] [place], | | | | | | [address] | [place] | | | | | [address] | [address] | | | | | | [place], | Phone: | | | | | | [place] [address] | [phone] | | | | | | Phone: | Fax: | | | | | | [phone] | [phone] | | | | | | Fax: | | | | | | | [phone] | | +--------+--------+ + + + + [...] | | | [address]aling [address] | [place], [place] | (Primary Dx); | | | | [address] Mailcode: | [address] | Conversion disorder | | | | [facility] | [phone] | | | | | [facility], | | | | | | Building | | | | | | Floor [place], [place] | | | | | | [address] | | | | | | [phone] | | | +--------+---------+ + + + [...] her in the process. Rebecca Webster MD [facility] Neurology documented in this encounter Progress [...] inherently dangerous. Sarita Brandt MD NEUROLOGY AT [facility] [address] Mail Code: [address] [address] aird, Rebecca Landeros MD - 07/04/2014 4:12 PM PDT NEUROLOGY CLINIC FOLLOW UP NOTE 07/04/2014 Author: REBECCA WEBSTER MD SUBJECTIVE/HPI: Hazel Bhatti is a 57 y.o. female with a pmh of HLD, HTN, anxiety, depression, minor stutte r at baseline, and COPD who was admitted to [facility] from [facility] in early October 14 for a [...] to a state-funded counselor. Beverly Junior from [employer] is her therapist, who said she was ready to "graduate" or stop therapy. Shonda has an apointment wit h a psychiatrist on the . Her family members will send me the name through [facility]. Neurologic ROS: MCNULTY: + Focal weakness: + [...] and combined with the nonepileptic seizures are client care representative of conver rodo disorder that has been quite disabling for this patient. This patient has been staffed with Dr. Sarita Brandt, attending physician, who agrees with the above assessment and plan. Rebecca Webster MD Neurology PGY-2 Pager [phone] documented in this enco unter Plan of Treatment Not on filedocumented as of this encounter Visit Diagnoses + + | Diagnosis | + + | Abnormal movement of lower extremity - Primary Abnormal involuntary movements | + + | Conversion disorder | + + documented in this encounter
--- OUTSIDE RECORDS SUMMARY | ~2019-01-25 | XMS | Encounter Summary ---
Demographics + + + | Address | [address] | | | [place] [address] | + + + | Home Phone | | + + + | Preferred Language | Unknown | + + + | Marital Status | Single | + + + | Moravian Affiliation | CAT | + + + | Race | White | + + + | Ethnic Group | Not or | + + + Author + + + | Author | [facility] | + + + | Organization | [facility] | + + + [...] Team Providers + +------+ + | Care Clam Digger Name | Role | Phone | + [...] | | | | | extremity | [place], [place] | | | | | | Procedures | [address] | | | | | | CONSULT TO | Phone: | | | | | | PSYCHIATRY - | [phone] | | | | | | ADULT | Fax: | | | | | | | [phone] | | +--------+--------+ + + + + [...] | | | | | extremity | [place], [place] | | | | | | Procedures | [address] | | | | | | REHAB SPEECH | Phone: | | | | | | | [phone] | | | | | | LANGUAGE/COG | Fax: | | | | | | NITIVE | [phone] | | | | | | REFERRAL [...] | | | | | extremity | [place], [place] | | | | | | Procedures | [address] | | | | | | PHYS DYS | Phone: | | | | | | OCCUPATIONAL | [phone] | | | | | | THERAPY | Fax: | | | | | | REFERRAL | [phone] | | +--------+--------+ + + + + [...] | | | | | extremity | [place], [place] | | | | | | Procedures | [address] | | | | | | PHYSICAL | Phone: | | | | | | THERAPY | [phone] | | | | | | REFERRAL | Fax: | | | | | | | [phone] | | +--------+--------+ + + + + [...] + + | 10/17/ | Hospital | [facility] [address] | Kerry Fernández MD | | | 2013 - | Encounter | CAMPUS | [address] | | | | | [id number]/[id number] JORGE | [place]MT[place]ESUS [place] [address] | | | [address]808/ | | JORDAN [place], | [phone] | | | 2013 | | [place] [address] | | | | | | [phone] | | | +--------+ + + + [...] mal slowing or epileptiform activity were seen. care home EEG monitoring to follow. Long-term EEG [...] who presents as a direct admission from [facility] for a v ariety of neurological [...] a chair where she sat until her gidkcxls-xh-mcq returned home and found her with a [...] and instability by Dr. Benito zazueta at [facility] has included 2 MRIs, normal CSF analysis [...] index were pending at time of discharge. care home VEEG was performed 10/19- 10/20 which showed no epileptiform activi ty. One push-button event was captured on 10/20 in the gambling cashier hours, which was describe d by the [...] Neurological: Mental status: Orientation: Oriented to person, [facility], month Attention/Concentration: Normal Language: speech slow and [...] 5 5 5 5 - Cerebellar: Smooth xjxioe-uo-awaa Proprioception: no pronator drift Gait: not walked [...] back. Discharge POLST completed Yes Destination: Destination: Detention Facility Condition on Discharge Stable Discharge Follow Up - Facility MD to follow Facility MD to follow patient. Follow Up Tests: Cytometry, cytology, oligoclonal bands and IgG synthesis index pending Discharging Attending: Tabitha García MD Physician Signature: Rebecca Webster MD Neurology PGY-2 Pager [phone] signed by Tabitha García MD at 10/20/2013 1:27 PM LEONdoyg lang in this encounter Discharge Instructions Instructions Yolande Johnson - 10/20/2013Discharge to [facility] in [place] [address] [phone] documented in this encounter Medications at Time [...] physical examination and personally formulated the [facility] Drake I reviewed the resident s [...] protein. LOC was captured during admission with penitentiary EEG monitoring and no associated epileptiform activity [...] w ith a mental health provider. MD TABTIHA Pate MD [facility] [address] [place] [address] [facility] DEPARTMENT: Neurology Attending - [phone] Place of Service: [facility] [address] Date of Service: 10/20/2013 CSN: [id number] Suggestive Modifier: GC - Resident Present Suggested CPT: 96764 - Subsequent, Level 2 Suggested Diagnosis: 780.39 [...] lower extremities. Interval History --LP completed yesterday --penitentiary EEG on overnight: one event this AM [...] oral TID PRN All Allergies Allergen Reactions Browning Diarrhea PE Last Vitals: BP 92/57 | [...] Neurological: Mental status: Orientation: Oriented to person, [facility], month Attention/Concentration: Adequate for conversation Language: speech [...] 5 5 5 5 - Cerebellar: Smooth jwnfta-xx-gvkx Proprioception: no pronator drift Gait: not walked [...] who presents as a direct admission from [facility] for a variety of neurological complaints including [...] Jennifer Drake MD, PhD Pediatric Neurology, PGY-3 [facility] Pager [phone] Tabitha Neumann MD - 10/19/2013 6:32 AM PDTI personally interviewed the patient, duplicated the pertinent parts of the physical examination and personally formulated the plan with Dr. Drake. I reviewed the resident s note and agree with the documented findings and plan of care. MD TABITHA Pate MD [facility] [address] [address] [address] [facility] DEPARTMENT: Neurology Attending - [phone] Place of Service: - Date of Service: 10/19/2013 CSN: [id number] Suggestive Modifier: GC - Resident Present Suggested CPT: 03396 - Subsequent, Level 2 Suggested Diagnosis: 780.39 [...] zofran and ibuprofen --LP completed this AM --intermediate project manager EEG placed today Inpatient Meds Current Inpatient [...] mEq oral DAILY All Allergies Allergen Reactions Browning Diarrhea PE Last Vitals: BP 116/70 | [...] Neurological: Mental status: Orientation: Oriented to person, [facility], date Attention/Concentration: Adequate for conversation Language: speech [...] 5 5 5 - Cerebellar: Very smooth akhjbz-zc-uudp today, but exam appears exhausting. Proprioception: no [...] who presents as a direct admission from [facility] for a variety of neurological complaints including [...] Jennifer Drake MD, PhD Pediatric Neurology, PGY-3 [facility] Pager [phone] ollo Teran - 6:18 AM PDT NEUROLOGY [...] Hour Events: -PT recs: would benefit for prison facility level rehab at discharge -Seen by social work and case management: working on SNF placement in [place] -Episode of heavy breathing, full body shaking, [...] status at home. Hospital course at referring [facility] complicated by convulsive episodes without a post-ictal period. Neurologic symptoms first began 9 months ago after a GLF (did not hit head or lose consciousness at this time). Shaggy p since then has included MRI with white matter abnormalities and normal CSF analysis includ ing negative VDRL, AFB, WHITNEY, and oligoclonal bands. Since transfer to [facility], has had a few ep isodes of bilateral generalized shaking and labored breathing while remaining responsive. Sp eech fluency improving with strategies given by KINDERGARTNER. Episode on 10/14 is not consistent with [...] 1) Convulsive spells/speech difficulties/gait instability - Continue PT/OT/KINDERGARTNER - care home vEEG to further characterize and evaluate [...] gadol inium When reviewed with radiology at [facility], differential included demyelinating disease such as [...] difficult to determine clinically. Kerry Fernández MD Dye Stand Loader Department of Neurology Jennifer Melgar MD,P hD [...] stopped --2 brief episodes this morning (around 4836-3630) of staring. Second episode with bilatera l [...] mEq oral DAILY All Allergies Allergen Reactions Browning Diarrhea PE Last Vitals: BP 101/68 | [...] Neurological: Mental status: Orientation: Oriented to person, [facility], date Attention/Concentration: Generally slow speech with frequent [...] Cerebellar: Some dysmetria and intention tremor on gyrsvq-qu-rggz that improves with concen tration. Heel-stovall intact [...] who presents as a direct admission from [facility] for a variety of neurological complaints including [...] Jennifer Drake MD, PhD Pediatric Neurology, PGY-3 [facility] Pager [phone] ollo Teran D - 014 7:03 AM [...] night -2 brief episodes this morning (around 1534-5622) of staring. Second episode with bilateral shaking [...] difficulties and inability to walk after a auyr ef period of altered mental status at [...] causes. Plan: - Restart home medications - PT/OT/KINDERGARTNER - Psych evaluation (pt and family request) - care home vEEG to further characterize and evaluate [...] | + +------+--------+ + + | NON MIDDLE SCHOOL COUNSELOR CYTOLOGY | Lab | Routin | | [...] + +--------+ + + + | NON MIDDLE SCHOOL COUNSELOR CYTOLOGY | Routin | 10/19/2013 | | [...] | [facility] - | | Record Number: [id number] Date of Test: 10/20/2013 Place of Service: | [facility] | | [facility] [phone] [facility] Department: EEG [facility] - [phone] | POINT OF CARE | | GROUP HOME VIDEO EEG Start Date/Time: 10/20/2013 at 0833 [...] Carmen MD Suggested CPT: | | | 18303 - EEG Extended (1 - 6 hours); if used in addition to 63788, | | | then add modifier 59 Suggested Dx: 780.39-Convulsions | | | | | + + + + + + + + | Performing | Address | City/State/Zipcode | Phone Number | | Organization | | | | + + + + + | [facility] | [address] | [place], [place] | | | [facility] | [address] | [address] | | | TESTS | | | | + + + + + EEG ROUTINE (10/19/2013 3:42 PM PDT) + + + | Narrative | Performed At | + + + | Patient Name: Hazel Bhatti Date of : 1955 Medical | [facility] - | | Record Number: [id number] Date of Test: 10/19/2013 Place of Service: | [facility], | | [facility] [phone] [facility] Department: EEG [facility] - [phone] | POINT OF CARE | | ROUTINE EEG Reason for Exam: Evaluate for epileptiform | TESTS | | activity. History: 57 y.o. female with a pmh of HLD, HTN, | | | anxiety, depression, minor stutter at baseline, and COPD who presents | | | as a direct admission from [facility] for a variety of | | [...] | | | epileptiform activity were seen. care home EEG monitoring to follow. | | [...] Resident | | | Present Suggested CPT: 21165 - EEG Routine Awake Only Suggested Dx: | | | 780.39-Convulsions | | + + + + + + + + | Performing | Address | City/State/Zipcode | Phone Number | | Organization | | | | + + + + + | [facility] | [address] | [place], [place] | | | [facility] | [address] | [address] | | | TESTS | | | | + + + + + EEG CONTINUOUS, ADULT (10/19/2013 3:20 PM PDT) + + + | Narrative | Performed At | + + + | Patient Name: Hazel Bhatti Date of : 1955 Medical | [facility] - | | Record Number: [id number] Date of Test: 10/19/2013 Place of Service: | [facility], | | [facility] [phone] - [phone] [facility] Department: EEG [facility] - [id number] | POINT OF CARE | | BAG WORKER VIDEO EEG Start Date/Time: 10/19/2013 at 1500 End | TESTS | | Date/Time:10/20/2013 at 0832 Telemetry Number: [id number] | | | Indication: 57 y.o. female with a pmh of HLD, HTN, anxiety, | | | depression, minor stutter at baseline, and COPD who presents as a | | | direct admission from [facility] for a variety of | | [...] This study was | | | a Rn Cardiology EEG record. The digital recording was performed [...] | | Interpretation: This is a normal penitentiary EEG. The one clinical | | | event captured was non-epileptic. There were no epileptiform | | | discharges, abnormal slowing or seizures on this record. The | | | above result was directly conveyed to the Neurology team. Honorio | | | Veronica Carmen Suggested CPT: 27283 - EEG Video, (12 - 24 hours) | | | Suggested Dx: 780.39-Convulsions | | + + + + + + + + | Performing | Address | City/State/Zipcode | Phone Number | | Organization | | | | + + + + + | [facility] | [address] | [place], [place] | | | ANDI POINT OF CARE | [facility] | [address] | | | TESTS | | | [...] | + + + + + | [facility] | [address] | [place] [address] | | | SERVICES, CORE | DAGOBERTO [...] | + + + + + | [facility] | [address] | [place] [address] | | | SERVICES, CORE | PARK [...] [facility] | [address] | [place] [address] | | | SERVICES, CORE | PARK [...] Directory | | | | | | ([facility]). | | | | + + + [...] | | | | | result.Performed by [facility] | | | | | | [facility],[address] | | | | | | Quinten Ramos, [facility] [place] | | | | | | [address] | | | | | | [email or web address]. | | | | | | [facility], Buck Cabrera, | | | | [...] [facility] | [address] | [place], [place] | | | [facility] | | [address] | | + + + + + [...] [facility] | [address] | [place] [address] | | | SERVICES, CORE | PARK [...] | + + + + + | [facility] | [address] | [place] [address] | | | SERVICES, KASSIDY | [address] | | | + + + + + NON MIDDLE SCHOOL COUNSELOR CYTOLOGY (10/19/2013) + + + + + + | Component | Value | Ref Range | Performed | Pathologist | | | | | At | Signature | + + + + + + | NON-MIDDLE SCHOOL COUNSELOR | SOURCE OF SPECIMEN:A | | [facility] [...] Vega | | | | | | CT([facility])Certified Nurse Operating Room | | | | | | Electronically [...] | + + + + + | [facility] | [address] | [place] [address] | | | PATHOLOGY | [address] [...] | | | | | Case Reviewed by:Elvia | | | | | | MD [...] | + + + + + | [facility] DEPART[facility] | [address] | [place] [address] | | | PATHOLOGY | [address] [...] | + + + + + | [facility] | [address] | [place] [address] | | | SERVICES, CORE | DAGOBERTO [...] [facility] | [address] | [place] [address] | | | SERVICES, CORE | PARK [...] | + + + + + | [facility] | [address] | [place] [address] | | | KASSIDY MACARIO | [address] [...] | | | LABORATORY | | | ERITREAN | | | SERVICES, | | | [...] ANION GAP | 7 | mmol/L | [facility] | | | | | | [...] [facility] | [address] | [place] [address] | | | SERVICES, CORE | DAGOBERTO [...] 10:36 | | | | | dose, [facility] 10/19/13 at 1045 | | AM PDT [...]
--- OUTSIDE RECORDS SUMMARY | ~2019-01-25 | XMS | Encounter Summary ---
Demographics + + + | Address | [address] | | | [place] [address] | + + + | Home Phone | | + + + | Preferred Language | Unknown | + + + | Marital Status | Single | + + + | Faith Affiliation | CAT | + + + [...] Team Providers + +------+ + | Care Wrapping Checker Name | Role | Phone | [...] as of this encounter Progress Notes Interface, Senior C Software Developer In - 03/20/2005 6:23 AM PST [id number] GENEVIEVE GRAY Ultrasound Evaluation Report Patient: MARINA [...] Mcgarry M.D. and Nawaf Yip, Ophthalmic Echographer CO / [id number] / [id number] / [id number] / Electronically signed by Jr. Jd Mcgarry [...] | Transcriptions | + + | Interface, Senior C Software Developer In - 03/20/2005 6:23 AM PST | | [id number] | | [id number] GENEVIEVE GRAY | | | | | [...] | | ME / HS | | [id number] / [id number] / [id number] / | | | | | | | | | | | | | | Electronically signed by Jr. Jd Mcgarry 03-30-2004 04:30:14 PM | + + documented in this encounter Visit Diagnoses Not on filedocumented in this encounter"
--- OUTSIDE RECORDS SUMMARY | ~2019-01-25 | XMS | Encounter Summary ---
Demographics + + + | Address | [address] | | | [place] [address] | + + + | Home Phone | | + + + | Preferred Language | Unknown | + + + | Marital Status | Single | + + + | Episcopal Affiliation | 1041 | + + + | Race | Unknown | + + + | Ethnic Group | Unknown | + + + Author + + + | Author | [facility] | | | and [place] | + + + | Organization | [facility] | | | and [...] Team Providers + +------+ + | Care Bellows Assembler Name | Role | Phone | [...] Provider Unknown | | | | | [place], [place] | [phone] | | | | | [address] | | | | | | [phone] | | | +--------+ + + + [...] | 05/02/ | Office | Oncology | Mnoet Mcginnis MD | | | 2019 | Visit | | [address] | | | | | | [place] | | | | | | [address] | | | | | | | | +--------+---------+ + + + | 08/01/ | Office | Pulmonology | Jorge, | | | 2019 | Visit | | Caitlyn Simon, | | | | | | MD [address] | | | | | | [place], | | | | | | [place] [address] | | | | | | [phone] | | | | | | | [...]
--- OUTSIDE RECORDS SUMMARY | ~2019-01-25 | XMS | Encounter Summary ---
Demographics + + + | Address | [address] | | | [place] [address] | + + + | Home Phone | | + + + | Preferred Language | Unknown | + + + | Marital Status | Single | + + + | Sabianism Affiliation | 1041 | + + + | Race | Unknown | + + + | Ethnic Group | Unknown | + + + Author + + + | Author | [facility] | | | and [place] | + + + | Organization | [facility] | | [...] Team Providers + +------+ + | Care See Wheeler Name | Role | Phone | + +------+ + PCP | Unavailable | + +------+ + Encounter Details +--------+ + + + + | Date | Type | Department | Care Team | Description | +--------+ + + + + | 09/20/ | Hospital | [facility] | Conversion | Multiple pulmonary | | 2018 | Encounter | MEDICAL CENTER | Transaction, | nodules | | | | CLINICAL DECISION | Provider Unknown | | | | | [address] | [phone] | | | | | [place], [place] | | | | | | [address] | Sofiya Quintero, | | | | | [phone] | MD [facility]le[facility] | | | | | | [place], [place] | | | | | | [address] | | | | | | | [...] 1631 Date of Service: 09/20/171626 Status: Signed Inspector Cold Working: Pauline Rodriges RN (Registered Nurse) Pt has [...] 1328 Date of Service: 09/20/171326 Status: Signed Inspector Cold Working: Julisa Mata RN (Registered Nurse) Pt tolerated [...] [place] | | | | | | [address] | | | | | | | | +--------+---------+ + + + | 08/01/ | Office | Pulmonology | Jorge, | | | 2019 | Visit | | Caitlyn Simon, | | | | | | MD [address] | | | | | | [place], | | | | | | [place] [address] | | | | | | [phone] | | | | | | | [...] | | with automated exposure control. Axial seedling puller images were obtained | | | through [...] performed with | | automated exposure control.Axial seedling puller images were obtained through region of interest [...] | | | Patient | performed at [facility];[address] | [address] | | | [address];[place], [place] | | | | | | [address] | | | | + + + [...] | | | | | performed at [facility];[address] | | | | | | [address] [facility];[place], [place] | | | | | | [address] | | | | + + + [...] | | | Basophils | performed at [facility];[address] | [address] | LAB | | | | [address];[place], [place] | | | | | | [address] | | | | + + + [...] case was reviewed by another member of [employer] | | | [facility] (CLAUDE). AMB:emb: C1NR GROSS DESCRIPTION: The | [...] | | | Intraprocedural Cytologic Exam [I.C.E.] ([id number], 51835) The patient's | | | name, date, [...] preparation was performed | | | by [facility], [facility], [address] | | | [place] [address] (Dietary Manager: Edwin Cross M.D.; | | | CLIA#: [id number]). ADDITIONAL NOTES: Immunohistochemistry (IHC) | | | studies for PD-L1 using the concentrated Dako 22C3 clone on the | | | VENTANA BenchMark Ultra platform with OptiView detection was performed | | | at [facility], [address] [place], [place]. The | | | Dako 22C3 [...] developed and its performance characteristics determined by [email or web address] | | | [facility]ostics, but this does not represent FDA-approved application of | | | this assay. [facility] is certified under the Clinical | | [...] | | immunohistochemistry platforms. PLOS ONE 12(8): k7656598. | | | https://doi.org/10.1371/journal.pone.9703993 PERFORMING LABORATORY: | | | The technical component and professional interpretation were | | | performed by [facility], [address] [facility] | | | [place] [address] (Dietary Manager: Amandeep Pleitez D.O.; [facility]#: | | | [id number]). REASON FOR ADDENDUM: To add results of [...] add additional testing | | | from [facility] (BRAF Mutation Analysis Molecular Genetics | | | | | | [id number]). Results: BRAF Mutation Not Detected Clinical | [...] | | | Kanika R, et al., [id number], a selective BRAF(V600E) kinase inhibitor, | | [...] Component of this test was completed at [facility], [address] | | | [place], [place] / [address] / [phone] / CLIA #[id number] / | | | Dietary Manager(s): Suresh Carreno M.D. . The performance | | | characteristics of this test have been determined by [facility] | | | [facility]. This test has not been approved by the FDA. The FDA has | | | determined such clearance or approval is not necessary. This | | | laboratory is CLIA certified to perform high complexity clinical | | | testing. Images that may be included within this report are | | | financial foundations representative of the patient but not all testing in its entirety and | | | should not be used to render a result. To add additional testing from | | | [facility] (EGFR Mutation Analysis Molecular Genetics | | | | | | [id number]). Results: EGFR Mutation Not Detected EGFR | [...] with Locked | | | Nucleic Acid (LIFE SCIENCES INSTRUCTOR) for T790M. The sensitivity for detecting the [...] | | | factor receptor mutations in dhj-egybx-uxqv lung cancer: implications | | | for treatment and tumor biology. J Clin Oncol. 2005; 23:3227-34. 2. | | | Apolinar BLOOD, et al. Activating mutations in the epidermal growth factor | | | receptor underlying responsiveness of def-rxikj-djzj lung cancer to | | | gefitinib. [...] gefitinib therapy. Science. | | | 2004; 304:3855-6525. 5. Patrice DB, et al. Differential responses [...] Component of this test was completed at [facility], | | | [facility] [place], [place] / [address] / [phone] / CLIA #[id number] / | | | Dietary Manager(s): Suresh Carreno M.D. . The performance | | | characteristics of this test have been determined by [facility] | | | [facility]. This test has not been approved by the FDA. The FDA has | | | determined such clearance or approval is not necessary. This | | | laboratory is CLIA certified to perform high complexity clinical | | | testing. Images that may be included within this report are | | | financial foundations representative of the patient but not all [...] 6: ROS1 3' Manual | | | 12711 1 Electronic Signature Mary Jo Corea M.D., | | | Hematopathologist All controls were within expected ranges. The | | | Technical Component Processing and Analysis of this test was completed | | | at [facility], [address] [place] [address] / [address] / | | | [phone] / CLIA #[id number] / Dietary Manager(s): Suresh | | | Veronica Carreno . The Professional Component of this test was completed at | | | [facility], [address] [place] [address] / | | | / . [facility] | | | FISH test uses either FDA cleared and/or analyte specific reagent | | | (ASR) probes. This test was developed and its performance | | | characteristics determined by [facility] in [facility] | | | [facility], [place]. It has not been cleared or approved [...] within this report are | | | financial foundations representative of the patient but not all [...] 2: ALK 5 Manual | | | 49393 1 Electronic Signature Mary Jo | | | Veronica Corea, Hematopathologist All controls were within expected | | | ranges. The Technical Component Processing and Analysis of this test | | | was completed at [facility] [place], [address] [place] [address] | | | / [address] / [phone] / CLIA #[id number] / Dietary Manager(s): | | | Suresh Carreno M.D. . The Professional Component of this test was | | | completed at [facility], [address] [place] [address], | | | [place] [address] / / . [facility] | | | Laboratories FISH test uses either FDA cleared and/or analyte specific | | | reagent (ASR) probes. This test was developed and its performance | | | characteristics determined by [facility]. It has not | | | been [...] within this | | | report are financial foundations representative of the patient but not all testing in its | | | entirety and should not be used to render a result. ADDENDUM COMMENT: | | | This case was interpreted at [facility] in [place], [place] by Mary Jo Corea | | | Veronica, Hematopathologist. Their report (#[id number], [id number]) | | | is filed electronically within the [facility] computer system. Please see | | | [...]
--- OUTSIDE RECORDS SUMMARY | ~2019-01-25 | XMS | Encounter Summary ---
Demographics + + + | Address | [address] | | | [place] [address] | + + + | Home Phone | | + + + | Preferred Language | Unknown | + + + | Marital Status | Single | + + + | Hinduism Affiliation | 1041 | + + + | Race | Unknown | + + + | Ethnic Group | Unknown | + + + Author + + + | Author | [facility] | | | and [place] | + + + | Organization | [facility] | | [...] Team Providers + +------+ + | Care Rice Field Worker Name | Role | Phone | [...] Provider Unknown | | | | | [place], [place] | [phone] | | | | | [address] | | | | | | [phone] | | | +--------+ + + + [...] [place] | | | | | | [address] | | | | | | | | +--------+---------+ + + + | 08/01/ | Office | Pulmonology | Jorge, | | | 2019 | Visit | | Caitlyn Simon, | | | | | | MD [address] | | | | | | [place], | | | | | | [place] [address] | | | | | | [phone] | | | | | | | | +--------+---------+ + + + documented as of this encounter Visit Diagnoses Not on filedocumented in this encounter"
--- OUTSIDE RECORDS SUMMARY | ~2019-01-25 | XMS | Encounter Summary ---
Demographics + + + | Address | [address] | | | [place] [address] | + + + | Home Phone [...] Providers + +------+ + | Care Human Resources Hr Generalist Name | Role | Phone | + [...] + + | 12/23/ | Telephone | [facility] | Monet Mcginnis MD | LABS | | 2019 | | HEMATOLOGY AND | [address] | | | | | ONCOLOGY [address] | [place], [place] | | | | [address] | [address] | | | | | [place] | | | | | | [address] | | | | | | [phone] | | | +--------+ + + + [...] | | 2019 | Visit | | [address] | | | | | | [place] | | | | | | [address] | | | | | | | | +--------+---------+ + + + | 08/01/ | Office | Pulmonology | Jorge | | | 2019 | Visit | | Caitlyn Simon | | | | | [address] | | | | | | [place], | | | | | | [place] [address] | | | | | | [phone] | | | | | | | [...]
[~2019-01-25 04:38] MED LIST changes: +GLUCOPHAGE500 MG PO; +MACROBID 100 M100 MG PO
[2019-01-25] MEDS ORDERED: LISINOPRIL20 MG PO (05:16)
[2019-01-25] MEDS ORDERED: GABAPENTIN300 MG PO (05:17)
[2019-01-25] MEDS ORDERED: PRAZOSIN HCL1 MG PO (05:19)
--- OUTSIDE RECORDS SUMMARY | 2019-01-25 06:24 | XMS | Encounter Summary ---
Demographics + + + | Address | [address] | | | [place] [address] | + + + | Home Phone | | + + + | Preferred Language | Unknown | + + + | Marital Status | Single | + + + | Catholic Affiliation | CAT | + + + | Race | White | + + + | Ethnic Group | Not or | + + + Author + + + | Author | [facility] | + + + | Organization | [facility] | + + + | Address | Unknown | + + + | Phone | Unavailable | + + + Support + + +---------+ + | Name | Relationship | Address | Phone | + + +---------+ + | Guy Bhatti | ECON | Unknown | | + + +---------+ + | Carlos Bhatti | ECON | Unknown | | + + +---------+ + Care Team Providers + +------+ + | Care Pediatric Urologist Name | Role | Phone | + +------+ + | Jim Wiley MD | PCP | | + +------+ + Encounter Details +--------+ + + + + | Date | Type | Department | Care Team | Description | +--------+ + + + + | 07/10/ | MyChart | Pediatric | Jennifer Drake, | Dr Jackson | | 2015 | Encounter | Neurology at | MD [facility] | | | | | [address] | [address] | | | | | [facility] | [place], [place] | | | | | [address] | [address] | | | | | Brittany Ellis Mailcode: | [phone] | | | | | [address] | | | | | | [place], [place] | | | | | | [address] | | | | | | [phone] | | | +--------+ + + + + Social History + + + +--------+------+ | Tobacco Use | Types | Packs/Day | Years | Date | | | | | Used | | + + + +--------+------+ | Former Smoker | Cigarettes | | | | + + + +--------+------+ + + +---------+ + | Alcohol Use | Drinks/Week | oz/Week | Comments | + + +---------+ + | Not Asked | | | | + + +---------+ + + + + | Sex Assigned at | Date Recorded | | | | + + + | Not on file | | + + + + + + + | Job Start Date | Occupation | Industry | + + + + | Not on file | Not on file | Not on file | + + + + + + + + | Travel History | Travel Start | Travel End | + + + + + + | No recent travel history available. | + + documented as of this encounter Plan of Treatment Not on filedocumented as of this encounter Visit Diagnoses Not on filedocumented in this encounter"
--- OUTSIDE RECORDS SUMMARY | 2019-01-25 06:24 | XMS | Encounter Summary ---
Demographics + + + | Address | [address] | | | [place] [address] | + + + | Home Phone | | + + + | Preferred Language | Unknown | + + + | Marital Status | Single | + + + | Yazidi Affiliation | CAT | + + + | Race | White | + + + | Ethnic Group | Not or | + + + Author + + + | Author | [facility] | + + + | Organization | [facility] | + + + | Address [...] Team Providers + +------+ + | Care Reproductive Endocrinologist Name | Role | Phone | + +------+ + | Jim Wiley MD | PCP | | + +------+ + Reason for Visit + + + | Reason | Comments | + + + | Return Patient | | + + + Consultation (Routine) +--------+--------+ + + + + | Status | Reason | Specialty | Diagnoses / | Referred By | Referred To | | | | | Procedures | Contact | Contact | +--------+--------+ + + + + | Closed | | Neurology | | Inez, | Osei, | | | | | | Jim Villa MD | MD Tim | | | | | | [facility] | [address] | | | | | | [facility] | [facility] | | | | | | [facility] | [address] [place], | | | | | | [address] | [place] | | | | | [address] | [address] | | | | | | [place], | Phone: | | | | | | [place] [address] | [phone] | | | | | | Phone: | Fax: | | | | | | [phone] | [phone] | | | | | | Fax: | | | | | | | [phone] | | +--------+--------+ + + + + Encounter Details +--------+---------+ + + + | Date | Type | Department | Care Team | Description | +--------+---------+ + + + | 07/04/ | Office | Neurology at | Rebecca Yuen MD | Abnormal movement of | | 2015 | Visit | [facility] | [address] | lower extremity | | | | Healing [address] | [place], [place] | (Primary Dx); | | | | [address] Mailcode: | [id number] | Conversion disorder | | | | [facility] | [phone] | | | | | Health and Healing, | | | | | | Building | | | | | | Floor [place], [place] | | | | | | [address] | | | | | | [phone] | | | +--------+---------+ + + + Social History + + [...] + + documented as of this encounter Last Filed Vital Signs + + + + + | Vital Sign | Reading | Time Taken | Comments | + + + + + | Blood Pressure | 145/86 | 07/04/2014 3:27 PM | | | | | PDT | | + + + + + | Pulse | 77 | 07/04/2014 3:27 PM | | | | | PDT | | + + + + + | Temperature | - | - | | + + + + + | Respiratory Rate | - | - | | + + + + + | Oxygen Saturation | - | - | | + + + + + | Inhaled Oxygen | - | - | | | Concentration | | | | + + + + + | Weight | 91.2 kg (201 lb) | 07/04/2014 3:27 PM | | | | | PDT | | + + + + + | Height | - | - | | + + + + + | Body Mass Index | 34.5 | 03/21/2014 12:33 PM | | | | | PST | | + + + + + documented in this encounter Patient Instructions Patient Instructions Rebecca Yuen MD - 07/04/2014 4:45 PM PDTProtocol for Ms. Bhatti's co nvulsions: If she feels unwell or feels a convulsion coming on, have her carefully sit down or lay aline n on the ground or on a bed where she cannot fall and hurt herself. Make sure the area is sa fe and that sharp corners are padded. During the convulsion: Stay calm and reassuring. Shonda is conscious during these episodes. T ell her that she is safe and that everything is going to be okay. Do not try to restrain her or put a bite block between her teeth. These episodes may last a half hour or more. DO NOT bring her to the Emergency Room unless she is turning blue or there are signs of hyp oxia, or if she truly loses consciousness and becomes unreactive. Can try to take vitals if able to during/after event if this is a concern. Can attempt to give her 1mg lorazepam (she is prescribed this) which may help calm her down . Only attempt this if you think she can swallow it safely and if you do not have to restrai n her in the process. Rebecca Webster MD [facility] Neurology documented in this encounter Progress Notes Sarita Brandt MD - 07/24/2014 9:29 PM PDTNeurology Attending Attestation: I performed a history and physical examination of the patient and discussed her management with the resident. I reviewed the resident s note and agree with the documented findings and plan of care. Counseled patient on PNES and importance of ongoing supportive mental health treatment and how events are not inherently dangerous. Sarita Brandt MD [facility]OLOG[facility] [address] Mail Code: [address] [address] aird, Rebecca Landeros MD - 07/04/2014 4:12 PM PDT NEUROLOGY CLINIC FOLLOW UP NOTE 07/04/2014 Author: REBECCA WEBSTER MD SUBJECTIVE/HPI: Hazel Bhatti is a 57 y.o. female with a pmh of HLD, HTN, anxiety, depression, minor stutte r at baseline, and COPD who was admitted to [facility] from [facility] in early October 14 for a variety of neurological complaints including abnormal movements of her lower extre mities, instability, and increased stutter. Outside MRI was reviewed and LP was performed. E EG did not show any epileptic activity. She was diagnosed with nonepileptic seizures and dis charged to SNF for rehab and external Psychiatry referral was placed. Last visit in March, she complained of worsening vision (loss of peripheral vision, blurr iness of central vision) and had active shingles in R V1 dermatome with weeping sores and pa in. ROS also positive for back pain with no radiation, weakness of legs below knees. She was referred to Neuro-ophthalmology and seen by Dr. Calderón who found severely constricted vi sual ma without ophthalmic pathology to account for such an abnormality, convergence spa sm which is typically psychogenic in nature, and pseudoseizure witnessed during her exam. Dr Fransico Calderón explained to Shonda and her family members that her vision loss is likely psychoge eli, however nonintentional, and may be another manifestation of her anxiety and depression or of conversion disorder. In June at her assisted living facility, Shonda had a very severe nonepileptic event, lasted at least 35 minutes. No associated head trauma, but she was brought to the ED where she was given IV lorazepam. She and the family members that accompany her would like a protocol for these events, since they are very alarming for nursing staff. Next week will be the end of her year in mental health, going to a state-funded counselor. Beverly Junior from [facility] is her therapist, who said she was ready to "graduate" or stop therapy. Shonda has an apointment wit h a psychiatrist on the . Her family members will send me the name through [facility]. Neurologic ROS: MCNULTY: + Focal weakness: + legs bilaterally below knees Focal numbness: - Tingling/paresthesias: - Difficulty walking: + but improved from last admission Difficulty with balance: + but improved from last admission Vertigo: - [place]: loss of peripheral vision Change in vision: peripheral vision getting worse, central vision getting blurrier Change in hearing: no Tinnitus: + Exam: Last Vitals: BP 145/86 | Pulse 77 | Wt 91.173 kg (201 lb) | BMI 34.48 kg/(m^2) Constitutional: overweight female wearing dark glasses, NAD Neurological: Mental Status: General: Normal activity, good hygiene, appropriate appearance. Level of consciousness: Awake, alert. Orientation: Oriented to person, place, time and situation. Concentration/Attention Span: Difficulty concentrating Comprehension/Praxis: Able to perform a three step command. Neglect: Normal double simultaneous stimulation. Fund of Knowledge/memory: Adequate recent recall, reports issues with short term memory Language: Occasional stutter or pause while she finds a word but no overt aphasia -Comprehension: Intact -Repetition: Intact -Naming: Intact Mood/Affect: Anxious but pleasant Thought Content: Normal, no auditory or visual hallucinations Cranial nerves: I: Not tested II: PERRL, visual ma with circumferentially reduced peripheral vision, unable to visual ize fundi due to uncontrollable blinking III, IV, : cannot gaze up, eyes do not stay fixed on lateral gaze and dart back to midlin e irregularly V: Sensation intact and symmetric to light touch V1-V3 VII: Symmetric facial motor function bilaterally VIII: Intact to finger rub bilaterally IX: Palate elevates symmetrically X: Normal cough XI: Normal shrug bilaterally XII: Tongue protrudes midline Motor: Normal bulk and tone, fine low amplitude tremor with hands outstretched, no pronator drift Delt Tri Bi WE WF DI HF KF KE ADF APF EHL Left 5 5 5 5 5 5 5 5 5 5 5 5 Right 5 5 5 5 5 5 5 5 5 5 5 5 DTRs: Biceps Triceps Brachioradialis Knee Ankle Right 2+ 2+ 2+ 2+ 2+ Left 2+ 2+ 2+ 2+ 2+ Toes downgoing bilaterally, negative sims's Sensation: Light touch: Intact and symmetric in the bilateral upper and lower extremities. Temp: Intact and symmetric in the bilateral upper and lower extremities. Vibration: Intact and symmetric in the bilateral upper and lower extremities. Coordination: Finger to nose is of normal speed, no action tremor, and no end-point dysmetria Patient cannot sufficiently lift legs to perform heel-stovall Gait: Wide-based, normal stride length, steady with walker smooth turning HEENT: No lesions, conjunctiva clear Pulm: breathing comfortably on room air CV: extremities with palpable pulses RRR Extremities: warm and well perfused, no rash or edema Labs: from 10/19 LP Cytometry negative for malignancy cytology negative for malignancy oligoclonal bands : none IgG synthesis index : normal Imaging: Routine EEG 10/19/13: This awake only routine EEG is within normal limits. No seizures, abnor mal slowing or epileptiform activity were seen. residential EEG monitoring to follow. Long-term EEG 10/19-10/20/13: No epileptic activity seen during push-button event on 10/20 at chery roximately 4AM. MRI from outside hospital reviewed with neuroradiology, multiple discrete white matter lesi ons Assessment/Recommendations: This is a 58 yo woman with history of HLD, HTN, anxiety, depres rodo and COPD who is following up after an admission for limbshaking events and difficulty w alking. Her gait has improved with rehab, now quite steady with walker, and her subsequent l imbshaking events have been associated with increased stress, and all have preserved conscio usness, consistent with the PNES (nonepileptic seizures) diagnosis. MRI and LP performed dur ing her admission only revealing of small vessel white matter disease and EEG was normal, ev en during push-button event. 1. Psychogenic non-epileptic seizures - Ms. Bhatti does not need further follow up in Neurol ogy clinic for these, although I would be happy to see her again if new questions arise. I h ave written instructions for staff in how to deal with these events in the Patient Instructi ons packet that she will receive today. The most crucial part is that everyone around her re main calm, that she is lowered safely to the ground and that objects that could harm her are removed, that she is not restrained, and that she is not taken to the ED unless there is co ncern for respiratory compromise. It would be reasonable to give PO lorazepam if able for th e anxiety component of these events. It is crucial that she continue to have mental health f ollow up as these events are a manifestation of prior trauma, anxiety, and depression. 2. Visual symptoms - I agree with Dr. Calderón that these symptoms are psychogenic in orig in, nonintentional, and combined with the nonepileptic seizures are appliance service representative of conver rodo disorder that has been quite disabling for this patient. This patient has been staffed with Dr. Sarita Brandt, attending physician, who agrees with the above assessment and plan. Rebecca Webster MD Neurology PGY-2 Pager [phone] documented in this enco unter Plan of Treatment Not on filedocumented as of this encounter Visit Diagnoses + + | Diagnosis | + + | Abnormal movement of lower extremity - Primary Abnormal involuntary movements | + + | Conversion disorder | + + documented in this encounter
--- OUTSIDE RECORDS SUMMARY | 2019-01-25 06:24 | XMS | Encounter Summary ---
Demographics + + + | Address | [address] | | | [place] [address] | + + + | Home Phone | | + + + | Preferred Language | Unknown | + + + | Marital Status | Single | + + + | Sabianism Affiliation | CAT | + + + | Race | White | + + + | Ethnic Group | Not or | + + + Author + + + | Author | [facility] | + + + | Organization | [facility] | + + + | Address [...] Team Providers + +------+ + | Care Medical Staff Physician Name | Role | Phone | + +------+ + | Jim Wiley MD | PCP | | + +------+ + Encounter Details +--------+ + + + + | Date | Type | Department | Care Team | Description | +--------+ + + + + | 09/24/ | MyChart | Neurology at | Rebecca Yuen MD | RE: Hazel Bhatti | | 2015 | Encounter | [facility] & | [address] | | | | | [address] | [place], [place] | | | | | [address] Mailcode: | [id number] | | | | | [facility] | [phone] | | | | | Health and Healing, | | | | | | [facility] | | | | | | [place], [place] | | | | | | [address] | | | | | | [phone] | | | +--------+ + + + [...]
--- OUTSIDE RECORDS SUMMARY | 2019-01-25 06:24 | XMS | Encounter Summary ---
Demographics + + + | Address | [address] | | | [place] [address] | + + + | Home Phone | | + + + | Preferred Language | Unknown | + + + | Marital Status | Single | + + + | Mormon Affiliation | CAT | + + + | Race | White | + + + | Ethnic Group | Not or | + + + Author + + + | Author | [facility] | + + + | Organization | [facility] | + + + | Address | [...] Team Providers + +------+ + | Care Used Car Make Ready Worker Name | Role | Phone | + +------+ + | Jim Wiley MD | PCP | | + +------+ + Encounter Details +--------+ + + + + | Date | Type | Department | Care Team | Description | +--------+ + + + + | 09/20/ | MyChart | Neurology at | Rebecca Yuen MD | RE:Patient Advocate | | 2015 | Encounter | [facility] & | [address] | | | | | [address]aling [address] | [place], [place] | | | | | [address] Mailcode: | [phone] | | | | | [facility] | [phone] | | | | | Health and Healing, | | | | | | [facility] | | | | | | [place], [place] | | | | | | [address] | | | | | | [phone] | | | +--------+ + + + [...]
--- OUTSIDE RECORDS SUMMARY | 2019-01-25 06:24 | XMS | Encounter Summary ---
Demographics + + + | Address | [address] | | | [place] [address] | + + + | Home Phone | | + + + | Preferred Language | Unknown | + + + | Marital Status | Single | + + + | Temple Affiliation | CAT | + + + | Race | White | + + + | Ethnic Group | Not or | + + + Author + + + | Author | [facility] | + + + | Organization | [facility] | + + + | Address [...] Team Providers + +------+ + | Care Warehouser Name | Role | Phone | + +------+ + | Jim Wiley MD | PCP | | + +------+ + Reason for Visit + + + | Reason | Comments | + + + | Visual field defect | | + + + Consultation (Routine) +--------+--------+ + + + + | Status | Reason | Specialty | Diagnoses / | Referred By | Referred To | | | | | Procedures | Contact | Contact | +--------+--------+ + + + + | Closed | | Ophthalmology | Diagnoses | Wilfrid, | Stephane, | | | | | Unspecified | Rebecca Landeros MD | MD Kerry | | | | | visual loss | [address] | [address] | | | | | Multiple | Ave | Ave | | | | | sclerosis | [place], [place] | [place], [place] | | | | | ([facility]) | [address] | [address] | | | | | Procedures | Phone: | Phone: | | | | | CONSULT TO | [phone] | [phone] | | | | | NEURO | Fax: | Fax: | | | | | OPHTHALMOLOG | [phone] | [phone] | | | | | Y | | | +--------+--------+ + + + + Encounter Details +--------+---------+ + + + | Date | Type | Department | Care Team | Description | +--------+---------+ + + + | 07/03/ | Office | [facility] | Kerry Calderón, | Unqualified visual | | 2015 | Visit | [place] | [address] | loss, both eyes | | | | Neuro-Ophthalmology | [place], [place] | (Primary Dx); | | | | at [facility] [address] | [address] | Generalized | | | | Ave Mailcode: [facility] | [phone] | contraction or | | | | [facility] | | constriction in | | | | and Healing, | | visual field, | | | | Building | | bilateral; | | | | Floor [place], [place] | | Photophobia of both | | | | [address] | | eyes; Abnormal MRI | | | | [phone] | | | +--------+---------+ + + + [...] + + documented as of this encounter Progress Notes Kerry Calderón MD - 07/03/2014 2:00 PM PDTFormatting of this note might be different fr om the original. Neuro-Ophthalmology New Patient Evaluation Referred by: Rebecca Jackson MD Source of History: patient Chief Complaint: Visual field defect New patient referred for visual field loss. History of endophthalmitis left eye following u ncomplicated cataract surgery. Failed treatment and work-up negative. 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 Seen by Dr Tiesha davis and Dr Durán at [facility]. S/p vitrectomy and IOL removal, left eye. Since around that time, she has noted progressive visual decline in both eyes, especially in the p ast year.Occasional stabbing needle like eye pain. Eye pain can be both right and left. Floa ters in right eye that appear to make up shapes. Headache bitemporal. Significant light sens itivity. She was admitted at [facility] in October 2013 for evaluation of difficulty walking, light sensiti vity, stuttering, and shaking spells. MRI of the brain done at outside facility showed white matter lesions. CSF studies negative for MS. Routine EEG 10/19/13: This awake only routine EEG is within normal limits. No seizures, abnor mal slowing or epileptiform activity were seen. [facility]iary EEG monitoring to follow. Long-term EEG 10/19-10/20/13: No epileptic activity seen It was felt that her anxiety disorder was most likely contributing to her symptoms. Re-evaluated in neurology at [facility] in March 2014. 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 Abnormal eye movements noted during that visit, s uspicious for functional disorder. Neuro-ophthalmic evaluation recommended as well as contro l MRI since baseline MRI of the brain showed some enhancing lesions. Current Outpatient Prescriptions Medication Sig albuterol 90 mcg/actuation inhalation HFA aerosol inhaler Inhale 2 puffs every four nigel rs as needed. aspirin 325 mg oral tablet Take 325 mg by mouth once daily. atorvastatin 40 mg oral tablet Take 40 mg by mouth once daily. CARBOXYMETHYLCELLULOSE SODIUM (REFRESH OPHT) Instill in eye. citalopram 20 mg oral tablet Take 20 mg by mouth once daily. hydrochlorothiazide 12.5 mg oral capsule Take 12.5 mg by mouth once daily. ibuprofen 600 mg oral tablet Take 1 tablet by mouth every six hours as needed for moder ate pain. LORAZEPAM ORAL Take by mouth. losartan 50 mg oral tablet Take 50 mg by mouth once daily. multivitamin oral capsule Take 1 capsule by mouth once daily. potassium chloride SR 20 mEq oral tablet,ER particles/crystals Take 20 mEq by mouth onc e daily. No current facility-administered medications for this visit. Allergies: [place] Past Medical History Diagnosis Date HBP (high blood pressure) Depression Past Surgical History Procedure Laterality Date Cataract extraction, right eye Cataract extraction, left eye Vitrectomy, left eye 2003 Toxic Exposures:no Special Diet: no Review of Systems: General: Fever: Negative Unintentional Weight Loss: Negative Skin: Negative Ear, Nose, Throat: Negative Cardiovascular: Negative Pulmonary: Negative Gastrointestinal: Negative Genitourinary: Negative Muscle, Bones, Joints: Lower back pain, stiffness in hands Neurological: weakness in legs, hands and feet Psychiatric: anxiety, depression, insomnia Allergic/Immunologic: Negative Family History: Macular Degeneration: No Retinitis Pigmentosa: No Strabismus or Lazy Eye: No Brain Tumors: No Stroke: father Brain Aneurysm: No Alzheimer's Disease: No Nerve or Muscle Disease: No Epilepsy or Seizures: No Migraine: brother Multiple Sclerosis: mother Social History: Ethnic Background: Patient Drives: no History Smoking status Former Smoker Types: Cigarettes Smokeless tobacco Not on file Base Exam Visual Acuity Right Left Dist cc 20/60 -2 20/100 -1 Dist ph cc NI NI Method: Snellen - Linear Correction: Glasses, Contacts Comments: Contact OS Tonometry Right Left Pressure 20 18 Method: Tonopen Time: 2:01 PM Dilation Both eyes: 1.0% Mydriacyl @ 2:02 PM Pupils Dark Light APD Right 5 3 None Left 5 3 none Comments: Difficult to assess, patient is photophobia. Visual العراقي Left Right Restrictions Partial superior temporal, inferior temporal, superior nasal, inferior nasal d eficiencies Partial superior temporal, inferior temporal, superior nasal, inferior nasal def iciencies Method: Counting fingers Extraocular Movement Right Left Result Full Full Comments: Occasional convergence spasm noted during ocular motility. Neuro/Psych Oriented x3: Yes Additional Tests Color Right Left Color 2.07/22 03/24 Method: Berry - Royal - Rittler Slit Lamp and Fundus Exam External Exam Right Left External Normal Normal Slit Lamp Exam Right Left Lids/Lashes Normal Normal Conjunctiva/Sclera White and quiet White and quiet Cornea All layers clear All layers clear Anterior Chamber Deep and quiet Deep and quiet Iris Normal Normal Lens PCIOL Aphakic Vitreous Normal PVD Fundus Exam Right Left Disc Normal, Peripapillary atrophy Normal C/D Ratio 0.4 0.4 Macula Normal Normal Vessels Normal Normal Periphery Normal Normal VISUAL FIELD INTERPRETATION - [place] 24-2 Right eye tested first. Reliability: poor Severely constricted, both eyes - only 5 degrees of central VF. Not consistent with visual behavior (could easily reach for peripheral targets) Ancillary tests/Review of data: - HVF from 05/23, 07/26, and 02/25 reviewed. Progressive generalized constiction noted OU - VEP from 02/05/14 reviewed: abnormal OU but doubt reliable given today's performance on t esting (poor fixation) Impression: 1. Functional vision/visual field loss, both eyes - severely constricted visual field on formal testing without ophthalmic pathology to acco unt for such finding - not consistent with visual behavior - did not miss any peripheral target when tested for saccades 2. 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 Photophobia - no ophthalmic pathology to account for severe photophobia 4. Body shakes usually associated with anxiety - pseudoseizure seen during my exam today 5. 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 Pseudophakia RE and aphakia LE 7. History of anxiety/depression 8. Abnormal MRI of the brain (white matter lesions with some enhancing lesions) - monitored by neurology I believe that Ms Bhatti's bilateral visual field loss is non organic in nature. I explained in details to the patient and family members the concept of functional vision loss related to underlying psychological disorder. It is unclear if she suffers from a conversion disorde r or if related to her underlying anxiety and depression. I do not believe that she is a mal ingerer. She clearly has severe anxiety and she needs evaluation with psychologist/psychiatr ist so hopefully she can improve. Plan: 1. Explanations - no further work-up needed from a neuro-ophthalmic standpoint 2. Strongly recommend seeing psychologist/psychiatrist 3. Follow-up with Dr Vasquez for her routine eye care 4. Follow-up as planned with neurology 5. Return to neuro-op PRN Attestations: The cable installation technician, under the supervision of the physician, is responsible for performing the f ollowing sections: RFV, ROS, PMH, PSH, SocHx, FH, Med list, Base Ophth Exam, and formal visu al field testing. The attending physician is responsible for the entire content of the note, has reviewed the data gathered by the cable installation technician, and has personally performed the HPI, the physical examina tion, and the medical decision making. Kerry Calderón MD Cash Management Officer of Ophthalmology Bruce Professor Neuro-Ophthalmology Service [facility] [phone] documented in this e ncounter Plan of Treatment Not on filedocumented as of this encounter Visit Diagnoses + + | Diagnosis | + + | Unqualified visual loss, both eyes - Primary | + + | Generalized contraction or constriction in visual field, bilateral | + + | Photophobia of both eyes Visual discomfort | + + | Abnormal MRI Other nonspecific (abnormal) findings on radiological and other | | examinations of body structure | + + documented in this encounter"
--- OUTSIDE RECORDS SUMMARY | 2019-01-25 06:24 | XMS | Clinical Summary ---
Demographics + + + | Address | [address] | | | [place] [address] | + + + | Home Phone | | + + + | Preferred Language | Unknown | + + + | Marital Status | Single | + + + | Congregational Affiliation | CAT | + + + | Race | White | + + + | Ethnic Group | Not or | + + + Author + + + | Author | [facility] | + + + | Organization | [facility] | + + + | Address | [...] Team Providers + +------+ + | Care Keyboard Operator Name | Role | Phone | + +------+ + | Jim Wiley MD | PCP | | + +------+ + Source Comments GEOVANI is fully live on both [facility] and [facility] Allergies + + + + + + | Active Allergy | Reactions | Severity | Noted | Comments | | | | | Date | | + + + + + + | [place] | Diarrhea | Medium | 10/19/19 | | | | | | 14 | | + + + + + + Medications + + + +---------+------+------+-------+ | Medication | Sig | Dispensed | Refills | Star | End | Statu | | | | | | t | Date | s | | | | | | Date | | | + + + +---------+------+------+-------+ | citalopram 20 mg | Take 20 mg by mouth | | 0 | | | Activ | | oral tablet | once daily. | | | | | e | + + + +---------+------+------+-------+ | potassium chloride | Take 20 mEq by mouth | | 0 | | | Activ | | SR 20 mEq oral | once daily. | | | | | e | | tablet,ER | | | | | | | | particles/crystals | | | | | | | + + + +---------+------+------+-------+ | losartan 50 mg | Take 50 mg by mouth | | 0 | | | Activ | | oral tablet | once daily. | | | | | e | + + + +---------+------+------+-------+ | | Take 12.5 mg by | | 0 | | | Activ | | hydrochlorothiazide | mouth once daily. | | | | | e | | 12.5 mg oral capsule | | | | | | | + + + +---------+------+------+-------+ | albuterol 90 | Inhale 2 puffs every | | 0 | | | Activ | | mcg/actuation | four hours as | | | | | e | | inhalation HFA | needed. | | | | | | | aerosol inhaler | | | | | | | + + + +---------+------+------+-------+ | aspirin 325 mg | Take 325 mg by mouth | | 0 | | | Activ | | oral tablet | once daily. | | | | | e | + + + +---------+------+------+-------+ | atorvastatin 40 mg | Take 40 mg by mouth | | 0 | | | Activ | | oral tablet | once daily. | | | | | e | + + + +---------+------+------+-------+ | ibuprofen 600 mg | Take 1 tablet by | 30 | 0 | 08/0 | | Activ | | oral tablet | mouth every six | tablet | | 7/20 | | e | | | hours as needed for | | | 14 | | | | | moderate pain. | | | | | | + + + +---------+------+------+-------+ | LORAZEPAM ORAL | Take 1 mg by mouth | | 0 | | | Activ | | | two times daily. | | | | | e | + + + +---------+------+------+-------+ | multivitamin oral | Take 1 capsule by | | 0 | | | Activ | | capsule | mouth once daily. | | | | | e | + + + +---------+------+------+-------+ | | Tamanna in eye. | | 0 | | | Activ | | CARBOXYMETHYLCELLULO | | | | | | e | | SE SODIUM (REFRESH | | | | | | | | OPHT) | | | | | | | + + + +---------+------+------+-------+ Active Problems + + + | Problem | Noted Date | + + + | Abnormal MRI | 03/23/2014 | + + + | Abnormal movement of lower extremity | 10/17/2013 | + + + Social History + + [...] recent travel history available. | + + Last Filed Vital Signs + + + [...] + + + + | Temperature | 36.3 C (97.3 F) | 10/20/2013 8:45 AM | | | | | PDT | | + + + + + | Respiratory Rate | 18 | 10/20/2013 8:45 AM | | | | | PDT | | + + + + + | Oxygen Saturation | 94% | 10/20/2013 8:45 AM | | | | | PDT | | + + + + + | Inhaled Oxygen | - | - | | | Concentration | | | | + + + + + | Weight | 91.2 kg (201 lb) | 07/04/2014 3:27 PM | | | | | PDT | | + + + + + | Height | 162.6 cm (5' 4") | 03/21/2014 12:33 PM | | | | | PST | | + + + + + | Body Mass Index | 34.5 | 03/21/2014 12:33 PM | | | | | PST | | + + + + + Plan of Treatment + + + + + | Health Maintenance | Due Date | Last Done | Comments | + + + + + | Influenza (Flu) | | | | | vaccination (#1) | 9 | | | + + + + + | Pneumococcal | Aged Out | | No longer eligible | | vaccination | | | based on patient's | | | | | age to complete this | | | | | topic | + + + + + Results Not on filefrom Last 3 Months Insurance + +--------+ +--------+-------+---------+--------+ | Payer | Benefi | Subscriber | Effect | Phone | Address | Type | | | t Plan | ID | aubrey | | | | | | / | | Dates | | | | | | Group | | | | | | + +--------+ +--------+-------+---------+--------+ | COMMERCIAL [employer] AP[employer]ER MEDICAID | COMMERCIAL [employer] APPRAISER | [id number] | 03/15/19 | | | Medica | | | [place] | | 14-Pre | | | id | | | [place] | | sent | | | | + +--------+ +--------+-------+---------+--------+ + +--------+ +--------+ + + | Guarantor Name | Accoun | Relation to | Date | Phone | Billing Address | | | t Type | Patient | of | | | | | | | | | | + +--------+ +--------+ + + | Hazel Bhatti | Person | Self [birth year] | [address] | | | al/Fam | | 1956 | [phone] | [address] [place], | | | [place] | | | [address] (Home) | [place] [address] | + +--------+ +--------+ + + Advance Directives + + + + + | Code Status | Date | Date | Comments | | | Activated | Inactivated | | + + + + + | Full Code | 10/17/2013 | 10/20/2013 | | | | 11:37 PM | 6:19 PM | | + + + + +
--- OUTSIDE RECORDS SUMMARY | 2019-01-25 06:24 | XMS | Encounter Summary ---
Demographics + + + | Address | [address] | | | [place] [address] | + + + | Home Phone | | + + + | Preferred Language | Unknown | + + + | Marital Status | Single | + + + | Synagogue Affiliation | CAT | + + + | Race | White | + + + | Ethnic Group | Not or | + + + Author + + + | Author | [facility] | + + + | Organization | [facility] | + + + | Address | [...] Team Providers + +------+ + | Care Stitching Machine Feeder Or Offbearer Name | Role | Phone | + +------+ + | Jmi Wiley MD | PCP | | + +------+ + Encounter Details +--------+ + + + + | Date | Type | Department | Care Team | Description | +--------+ + + + + | 02/21/ | Outside | Neurophysiology | Jim Wiley | | | 2014 | Referral | EEG at [facility] [address] | | | | Order | [facility] | [facility] | | | | | Mailcode: [id number] | CLINIC [address] [facility] | | | | | [address] | [place] [address] | | | | | [place], [place] | [phone] | | | | | [address] | | | | | | [phone] | | | +--------+ + + + [...] Not on filedocumented as of this encounter Procedures + +--------+ + + + | Procedure Name | Priori | Date/Time | Associated Diagnosis | Comments | | | ty | | | | + +--------+ + + + | EEG ROUTINE | Routin | 02/21/2015 | | Results for this | | | e | | | procedure are in the | | | | | | results section. | + +--------+ + + + documented in this encounter Results EEG ROUTINE (02/21/2015) + + | Specimen | + + | | + + + + + | Narrative | Performed At | + + + | Patient Name: Hazel Bhatti Date of : 1955 Medical | | | Record Number: [id number] Date of Test: 02/21/2015 Place of | | | Service: [facility] Department: EEG [facility] - [id number] ROUTINE | | | EEG Indication: 59 year old woman with refractory seizure-like | | | episodes, with a non-epileptic event recorded on a intermediate accountant EEG at | | | [facility] in October 2013; she has had persistent events since then. EEG to | | | reevaluate seizure risk. Medications: Current Inpatient | | | Medications: albuterol 90 mcg/actuation inhalation HFA aerosol | | | inhaler aspirin 325 mg oral tablet atorvastatin 40 mg oral tablet | | | CARBOXYMETHYLCELLULOSE SODIUM (REFRESH OPHT) citalopram 20 mg oral | | | tablet hydrochlorothiazide 12.5 mg oral capsule ibuprofen 600 mg | | | oral tablet Xanax ORAL losartan 50 mg oral tablet multivitamin oral | | | capsule potassium chloride SR 20 mEq oral tablet,ER | | | particles/crystals No current facility-administered medications | | | for this visit. Methods: This study was a Routine EEG with a | | | duration of 30 minutes. The recording was performed with routine | | | electrodes applied according to the 10-20 electrode placement system. | | | Video, EKG, and EOG monitoring were utilized. The recording was | | | obtained on a digital system. EEG computer review was utilized. | | | Automated digital spike and seizure detection analysis was used, | | | along with patient-activated alarms and nursing observations. | | | Technologist's Note: No skull defect or scalp edema were present. | | | EEG Description: Background: The record was obtained in awake, | | | drowsy and sleep states. No sedation was used. The awake background | | | consisted of a well organized mixture of alpha frequencies with | | | overriding excessive beta activity, arranged in a normal anterior to | | | posterior gradient. There was an 8.5-9 Hz posterior dominant rhythm, | | | which was symmetric and well modulated, and attenuated with eye | | | opening. In drowsiness, there was attenuation of the posterior | | | dominant rhythm, and emergence of central theta rhythms. Sleep was | | | not recorded during this study. Interictal Findings: | | | Abnormal slow wave activity: None Epileptiform activity: None | | | Ictal Activity: No seizures were observed. Clinical Events: None | | | Activation: a) HV: Hyperventilation was performed for 3 minutes | | | with fair effort that was noncontributory. b) IPS: During IPS at | | | 1, 3, 6, 9, 12, 15, 18, 21, 24, 27, 30 Hz, symmetric bilateral | | | driving of the occipital rhythms appeared. Extra leads: Single EKG | | | lead showed a normal sinus rhythm. IMPRESSION This awake and | | | drowsy routine EEG is essentially normal except for the presence of | | | excessive beta activity, which can be seen with benzodiazepine use. | | | No abnormal slowing or epileptiform activity is seen. Annetta Allison | | | Veronica Cardenas Suggested CPT: 99588 - EEG Routine Awake Only | | | Suggested Dx: R56.9 Unspecified convulsions | | + + + documented in this encounter Visit Diagnoses Not on filedocumented in this encounter"
--- OUTSIDE RECORDS SUMMARY | 2019-01-25 06:24 | XMS | Encounter Summary ---
Demographics + + + | Address | [address] | | | [place] [address] | + + + | Home Phone | | + + + | Preferred Language | Unknown | + + + | Marital Status | Single | + + + | Religion Affiliation | CAT | + + + | Race | White | + + + | Ethnic Group | Not or | + + + Author + + + | Author | [facility] | + + + | Organization | [facility] | + + + | Address [...] Team Providers + +------+ + | Care Chummer Name | Role | Phone | + +------+ + | Jim Wiley MD | PCP | | + +------+ + Encounter Details +--------+ + + + + | Date | Type | Department | Care Team | Description | +--------+ + + + + | 08/20/ | Document-Sc | Health Information | Unknown . | | | 2017 | anned | Services [id number] | | | | | | [address] | | | | | | Mailcode: [id number] | | | | | | [facility] | | | | | | [place], [place] | | | | | | [address] | | | | | | [phone] | | | +--------+ + + + [...]
--- OUTSIDE RECORDS SUMMARY | 2019-01-25 06:24 | XMS | Encounter Summary ---
Demographics + + + | Address | [address] | | | [place] [address] | + + + | Home Phone | | + + + | Preferred Language | Unknown | + + + | Marital Status | Single | + + + | Quaker Affiliation | CAT | + + + | Race | White | + + + | Ethnic Group | Not or | + + + Author + + + | Author | [facility] | + + + | Organization | [facility] | + + + | Address | [...] Team Providers + +------+ + | Care Hypoid Gear Generator Name | Role | Phone | + +------+ + | Jim Wiley MD | PCP | | + +------+ + Encounter Details +--------+ + + + + | Date | Type | Department | Care Team | Description | +--------+ + + + + | 09/20/ | Documentati | SOCIAL WORK | Kassie Mohamud | | | 2015 | on | AMBULATORY [address] | [address] | | | | | [address] | Brittany [place], | | | | | Mailcode: [id number] | [place] [address] | | | | | [place], [place] | | | | | | [address] | | | | | | [phone] | | | +--------+ + + + [...]
--- OUTSIDE RECORDS SUMMARY | 2019-01-25 06:25 | XMS | Encounter Summary ---
Demographics + + + | Address | [address] | | | [place] [address] | + + + | Home Phone | | + + + | Preferred Language | Unknown | + + + | Marital Status | Single | + + + | Latter-Day Affiliation | CAT | + + + | Race | White | + + + | Ethnic Group | Not or | + + + Author + + + | Author | [facility] | + + + | Organization | [facility] | + + + | [...] Team Providers + +------+ + | Care Ice Guard Skating Rink Name | Role | Phone | + +------+ + | Jim Wiley MD | PCP | | + +------+ + Encounter Details +--------+ + + + + | Date | Type | Department | Care Team | Description | +--------+ + + + + | 06/22/ | Abstract | Neurology at | Clinic, Neurology | | | 2014 | | [facility] & | | | | | | Healing [address] | | | | | | [address] Mailcode: | | | | | | [facility] | | | | | | Health and Healing, | | | | | | Building | | | | | | Floor [place], [place] | | | | | | [address] | | | | | | [phone] | | | +--------+ + + + [...]
--- OUTSIDE RECORDS SUMMARY | 2019-01-25 06:25 | XMS | Encounter Summary ---
Demographics + + + | Address | [address] | | | [place] [address] | + + + | Home Phone | | + + + | Preferred Language | Unknown | + + + | Marital Status | Single | + + + | Voodoo Affiliation | CAT | + + + | Race | White | + + + | Ethnic Group | Not or | + + + Author + + + | Author | [facility] | + + + | Organization | [facility] | + + + | [...] Team Providers + +------+ + | Care Marketing Analytics Lead Name | Role | Phone | + +------+ + | Jim Wiley MD | PCP | | + +------+ + Encounter Details +--------+ + + + + | Date | Type | Department | Care Team | Description | +--------+ + + + + | 05/21/ | MyChart | Pediatric | Jennifer Drake, | RE: June 20 | | 2015 | Encounter | Neurology at | [address] | appointment | | | | [address] | [address] | | | | | [facility] | [place], [place] | | | | | [address] | [address] | | | | | Brittany Ellis Mailcode: | [phone] | | | | | [address] | | | | | | [place], [place] | | | | | | [address] | | | | | | [phone] | | | +--------+ + + + [...]
--- NOTE | 2019-01-25 20:01 | EKG ---
[facility] [address] [facility] [place], [place] [address] Signed Normal sinus rhythm Normal ECG When compared with ECG of 25-APR-2018 08:20, No significant change was found Confirmed by FRAN QUACH MD ([id number]) on 01/25/2019 8:01:18 PM Electronically Signed By: FRAN QUACH MD 01/25/192000 PATIENT NAME: MARINA VALLEJO MAYCO Electrocardiogram DATE OF : 53 PHYSICIAN: FRAN QUACH MD REPORT #: [id number] REPORT IS CONFIDENTIAL AND NOT TO BE RELEASED WITHOUT AUTHORIZATION
== END 2019-01-25 08:36 | disposition short-term general hospital (02) ==
LOC: ED 04:38
PROC: 0T9B70Z Drainage of Bladder with Drainage Device, Via Natural or Artificial Opening (ICD-10-PCS; principal; 2019-01-25)
DX: S82.852A Displaced trimalleolar fracture of left lower leg, initial encounter for closed fracture (principal); S80.211A Abrasion, right knee, initial encounter; N17.9 Acute kidney failure, unspecified; E86.0 Dehydration; R19.7 Diarrhea, unspecified; I10 Essential (primary) hypertension; J44.9 Chronic obstructive pulmonary disease, unspecified; E78.5 Hyperlipidemia, unspecified; F41.9 Anxiety disorder, unspecified; F32.9 Major depressive disorder, single episode, unspecified; Z87.891 Personal history of nicotine dependence; Z91.018 Allergy to other foods; Z79.899 Other long term (current) drug therapy; Z79.84 Long term (current) use of oral hypoglycemic drugs; W18.30XA Fall on same level, unspecified, initial encounter; Y92.002 Bathroom of unspecified non-institutional (private) residence as the place of occurrence of the external cause
CPT/HCPCS: 51701; 73560; 73610; 80053; 81001; 83690; 84484; 85025; 93005; 93010; 99285-25; J7030

== ENCOUNTER 2022-11-02 11:53 | Emergency (ER) | payer MEDICARE, OTHER ==
[~2022-11-02] VITALS: Ht 162.6 cm; Wt 97.5 kg
[~2022-11-02 11:53] MED LIST changes: +GABAPENTIN300 MG PO; +LISINOPRIL20 MG PO; +PRAZOSIN HCL1 MG PO
[2022-11-02 12:14] LABS: BASOPHILS 0.9 % (0-2); EOSINOPHILS 3.1 % (0-6); HEMATOCRIT 40.7 % (35.0-50.0); MCH 25.8 (27-36); MCV 80.8 fl (81-99); MONOCYTES 7.6 % (0-12); NEUTROPHILS 60.4 % (39-80); PLATELET COUNT 188 K/uL (140-440); RBC 5.04 M/ul (4.3-5.7); RDW 16.6 (10.5-15.0)
[2022-11-02 12:32] LABS: ALBUMIN 3.8 g/dL (3.4-5.0); ALBUMIN/GLOBULIN RATIO 1.19 (1.1-2.4); ALCOHOL, MEDICAL <3 ng/dL (<3); ALKALINE PHOSPHATASE 76 U/L (46-116); ALT (SGPT) 23 U/L (14-59); ANION GAP 12.9 (7-21); AST (SGOT) 15 U/L (15-37); BILIRUBIN, TOTAL 1.1 ng/dL (0.2-1.0); CALCIUM 9.5 mg/dL (8.5-10.1); CARBON DIOXIDE 28 mmol/L (21-32); CHLORIDE 101 mmol/L (98-107); CREATININE, SERUM 0.96 mg/dL (0.55-1.02); GLOMERULAR FILTRATION RATE,EST 65 mL/min (>60); POTASSIUM 3.9 mmol/L (3.5-5.1); UREA NITROGEN 17 mg/dL (7-18)
[2022-11-02 13:00] LABS: BILIRUBIN, URINE NEGATIVE (negative); BLOOD/HGB, URINE NEGATIVE (Negative); KETONE, URINE NEGATIVE (Negative); LEUK ESTERASE, URINE TRACE (negative); NITRITE, URINE POSITIVE (negative); PH, URINE 5.5 (5-7)
[2022-11-02 13:05] LABS: AMPHETAMINES, UR NEGATIVE (NEGATIVE); BARBITURATES, UR NEGATIVE (NEGATIVE); MARIJUANA (THC), UR POSITIVE (NEGATIVE)
[2022-11-02 13:06] LABS: BENZODIAZEPINES, UR NEGATIVE (NEGATIVE); BUPRENORPHINE,UR NEGATIVE (NEGATIVE); COCAINE, UR NEGATIVE (NEGATIVE); MDMA, UR NEGATIVE (NEGATIVE); METHADONE, UR NEGATIVE (NEGATIVE); METHAMPHETAMINE, UR NEGATIVE (NEGATIVE); OPIATES, UR NEGATIVE (NEGATIVE); OXYCODONE, UR NEGATIVE (NEGATIVE); PHENCYCLIDINE, UR NEGATIVE (NEGATIVE); TRICYCLIC ANTIDEPRESSANT, UR NEGATIVE (NEGATIVE)
[2022-11-02 13:09] LABS: BACTERIA, URINE 3+ /hpf (negative); CASTS, URINE NONE SEEN \\lpf; COLLECTION TYPE, URINE CLEAN CATCH; CRYSTALS, URINE NONE SEEN (0-1+); EPITHELIAL CELLS, URINE SQUAMOUS 1+ /lpf (0-1+); RED BLOOD CELLS, URINE 0-1 /hpf (0-5); REFLEX CULTURE, URINE Yes (No)
[2022-11-02 16:59] VITALS: BP 121/83
--- NOTE | 2022-11-04 08:03 | EKG ---
[facility] [address] [facility] [place] [address] Signed Sinus bradycardia with 1st degree AV block Otherwise normal ECG When compared with ECG of 25-JAN-2019 05:43, OR interval has increased Confirmed by KATEY DUTTON MD ([id number]) on 11/04/2022 8:03:02 AM Electronically Signed By: KATEY DUTTON 11/04/22802 PATIENT NAME: MARINA VALLEJO MAYCO Electrocardiogram DATE OF : 53 PHYSICIAN: KATEY DUTTON REPORT #: [id number] REPORT IS CONFIDENTIAL AND NOT TO BE RELEASED WITHOUT AUTHORIZATION
== END 2022-11-02 17:02 | disposition home or self-care (01) ==
LOC: ED 11:53
PROVIDERS: Emergency Medicine
DX: G40.909 Epilepsy, unspecified, not intractable, without status epilepticus (principal); J06.9 Acute upper respiratory infection, unspecified; I10 Essential (primary) hypertension; J44.9 Chronic obstructive pulmonary disease, unspecified; E78.5 Hyperlipidemia, unspecified; Z91.018 Allergy to other foods
CPT/HCPCS: 36415; 70450; 71045; 80053; 81001; 84484; 85025; 87088; 93005; 93010; 99285-25; G0480

== ENCOUNTER 2023-11-25 07:47 | Day surgery (SDC) | payer MEDICARE, OTHER ==
[2023-11-18 13:39] VITALS: BP 130/79
[~2023-11-25] VITALS: Ht 162.6 cm; Wt 80.9 kg
[~2023-11-25 07:47] MED LIST changes: +ALPHAGAN P5 M1; +AMITRIPTYLINE H50 MG PO; +BRAIN MIGHT-DH1 EACH PO; +CALCIUM 1,0001 EAC1 PO; +ESZOPICLONE2 MG PO; +IBLOOD GLUCOSE TEST STRIP 1 EA TEST VI PRN; +LACTATED RINGER'S 1,000 ML IV SCH; +LATANOPROST2.5 ML OPTH; +LIDOCAINE HCL 1% 5 ML SDV INJ ONE; +LORAZEPAM0.5 MG PO; +MIDAZOLAM HCL 5 MG/5 ML VIAL IV PRN; +PROAIR DIGIHAL90 MCG IH; +ROPINIROLE HCL2 MG PO; +ROSUVASTATIN CA40 MG PO; +RYBELSUS3 MG PO; +TRAZODONE HCL100 MG PO; +TURMERIC500 M3 PO; +fentaNYL citrate 100 MCG/2 ML VIAL IV PRN
[2023-11-25 08:05] VITALS: BP 144/77
--- NOTE | 2023-11-25 08:16 | NUR ---
NO ONE WAITING. STATES COMFORTABLE.
[2023-11-25] MEDS ORDERED: propofoL 200 MG/20 ML VIAL ONE (08:55)
[2023-11-25] MEDS ORDERED: LIDOCAINE HCL 2% 5 ML SDV ONE (08:58)
--- NOTE | 2023-11-25 09:32 | NUR ---
11/25/23 0932 Kalli Hughes 0915 PT ARRIVES TO PACU. BREATHING EVEN AND UNLABORED ON ROOM AIR. PT REACTIVE TO STIMULUS IN LL POSITION. LR INFUSING IN RH. ABD SOFT AND ROUND. ALL MONITORS APPLIED. 0930 PT REACTIVE TO STIMULUS AND EASILY FALLS BACK TO SLEEP.
[2023-11-25 09:49] VITALS: BP 109/69
--- NOTE | 2023-11-26 06:55 | OR ---
[facility] [address] [place], [place] [address] Signed DATE OF OPERATION: 11/25/2023 SURGEON: Alfonzo Monroy MD PREOPERATIVE DIAGNOSES: 1. Diverticulosis. 2. Personal history of colonic polyps in 2019 at age 62. POSTOPERATIVE DIAGNOSIS: Extremely poor bowel prep. PROCEDURE: None. ESTIMATED BLOOD LOSS: None. INDICATIONS: Marina is a 67-year-old female, asked to see me for a followup colonoscopy. I helped her in 2017 at the age of 60 with her initial colonoscopy. She was having generalized abdominal pain with constipation and diarrhea. We found a little bit of diverticulosis. All the biopsies were negative. We asked her to follow up in 10 years. She has to use monitored anesthesia care because of her extensive polypharmacy and past medical history. Since I have seen her last, she had lung cancer and she received radiation therapy. During that workup, she was found to have iron-deficiency anemia. I helped her with upper and lower endoscopy at age 62 in 2019 at that time. She had a small tubular adenomatous polyp in her left colon along with diverticulosis. We asked her to follow up in 5 years given that finding. She currently has no lower GI complaints. There is no family history of colon cancer or polyps. In the office, I had given her a pamphlet on colonoscopy. We had reviewed the nature of the test. There is risk including, but not limited to gas bloating, crampy abdominal pain, bleeding, perforation requiring surgery, and missed diagnosis. We also reviewed the written instructions for a bowel prep line by line. It is the same bowel prep she has used previously. We also reminded her the need for monitored anesthesia care given her polypharmacy along with her significant past medical history of what she describes as irritable larynx syndrome and use of alcohol, marijuana, her heart failure and so forth. In that regard, she needed preoperative blood work and an EKG. She understands an adult person has to take her home afterwards. She had expressed understanding and wished to proceed. PROCEDURE IN DETAIL: Electronically Signed By: ALFONZO MONROY MD 11/26/23 0655 PATIENT NAME: MARIAN VALLEJO MAYCO OPERATIVE REPORT DATE OF : 53 REPORT #: [id number] PHYSICIAN: ALFONZO MONROY MD PCP: JOHNNY RIZO MD REPORT IS CONFIDENTIAL AND NOT TO BE RELEASED WITHOUT AUTHORIZATION [address] [address] Signed Marina was taken into our endoscopy suite and placed in the left lateral decubitus position. She was given monitored anesthesia care with propofol infusion per our nurse power generation plant operator. A digital rectal exam was performed and she had good sphincter tone. She had no external hemorrhoids. There were no masses. She had brown liquid particulate stool matter on the index finger. The adult colonoscope was inserted and the entire rectum was covered in brown thick pasty particulate stool matter. I could not see any mucosa whatsoever. I passed the scope up to the rectosigmoid junction. I simply could not see beyond that area to pass the scope safely. Consequently, we had to abort the endoscopy. The gas was suctioned out and the colonoscope removed. Marina tolerated the truncated procedure quite well. RECOMMENDATIONS: We will reschedule Marina with a double bowel prep. Of course, she will need monitored anesthesia care as always. Alfonzo Monroy MD ALB/MODL /[id number] cc: MD Johnny Hurst MD Copies: ALFONZO MONROY MD, MALCOLM MD ~ Electronically Signed By: ALFONZO MONROY MD 11/26/23 0655 PATIENT NAME: MARINA VALLJEO MAYCO OPERATIVE REPORT DATE OF : 53 REPORT #: [id number] PHYSICIAN: ALFONZO MONROY MD PCP: JOHNNY RIZO MD REPORT IS CONFIDENTIAL AND NOT TO BE RELEASED WITHOUT AUTHORIZATION
== END 2023-11-25 10:03 | disposition home or self-care (01) ==
LOC: DS 07:47
PROVIDERS: ATTEND Colon & Rectal Surgery
PROC: 0DJD8ZZ Inspection of Lower Intestinal Tract, Via Natural or Artificial Opening Endoscopic (ICD-10-PCS; principal; 2023-11-25 09:30)
DX: Z12.11 Encounter for screening for malignant neoplasm of colon (principal); Z86.010 Personal history of colon polyps; Z53.8 Procedure and treatment not carried out for other reasons; I10 Essential (primary) hypertension; E78.5 Hyperlipidemia, unspecified; J44.89 Other specified chronic obstructive pulmonary disease; Z79.899 Other long term (current) drug therapy
CPT/HCPCS: G0104; 00811; J2001; J2704; J7121

== ENCOUNTER 2024-01-20 07:45 | Day surgery (SDC) | payer MEDICARE, OTHER ==
[2024-01-18 10:31] VITALS: BP 101/67
[~2024-01-20] VITALS: Ht 162.6 cm; Wt 77.7 kg
[~2024-01-20 07:45] MED LIST changes: +AZO BLADDER CO300 MG PO; +CRESTOR40 MG NG; +ESTRADIOL TD; +propofoL 200 MG/20 ML VIAL ONE
[2024-01-20 07:56] VITALS: BP 155/69
--- NOTE | 2024-01-20 10:09 | NUR ---
01/20/24 1009 Gisele Amador 0958-PT ARRIVES TO PACU RESTING ON LT SIDE. PT NOT REPSONSIVE TO NOXIOUS STIMULI. VSS ON 10L VIA MASK AND OPA IN PLACE, REU. 1002-PT AWAKES TO VERBAL STIMULI, OPA REMOVED AND PT TITRATED TO RA, VS REMAIN STABLE, REU. 1005-PT ASKING FOR WATER, PT SAT UP. PT DENIES PAIN AND NAUSEA. PT ENCOURAGED TO PASS GAS.
[2024-01-20 10:24] VITALS: BP 128/73
--- NOTE | 2024-01-21 08:35 | OR ---
[facility] [address] [place], [place] [address] Signed DATE OF OPERATION: 01/20/2024 SURGEON: Alfonzo Monroy MD PREOPERATIVE DIAGNOSES: 1. Diverticulosis. 2. Personal history of colonic polyps in 2019 at age 62. 3. Extremely poor bowel prep on 11/25/2023. POSTOPERATIVE DIAGNOSIS: Minimal to moderate sigmoid diverticulosis. PROCEDURE: Colonoscopy without biopsy. ESTIMATED BLOOD LOSS: None. INDICATIONS: Marina is a 68-year-old female, asked to see me for followup colonoscopy. I helped her in 2016 at the age of 60 with her initial colonoscopy. She was having generalized abdominal pain with constipation and diarrhea. We found a little bit of diverticulosis. All the biopsies were negative. We asked her to follow up in 10 years. Of course, she has to use monitored anesthesia care because of her rather extensive polypharmacy and her past medical history. She ended up with lung cancer and had to have radiation therapy as well. She was found to have iron-deficiency anemia at that time. I helped her again with upper and lower endoscopy in 2019 at the age of 62 with respect to the above. She had a small tubular adenomatous polyp in her left colon along with diverticulosis. Consequently, we asked her to follow up in 5 years. As always, she requires monitored anesthesia care. She tells me she does not have any specific lower GI complaints currently. There is no family history of colon cancer or polyps. In the office, I gave Marina a pamphlet on colonoscopy. We had reviewed the nature of the test. There is risk including, but not limited to gas bloating, crampy abdominal pain, bleeding, perforation requiring surgery, and missed diagnosis. We also reviewed the written instructions for bowel prep line by line. It was the same bowel prep she took before. However, when she came in November there was so much stool we could not even get past the rectosigmoid junction. We therefore rescheduled her for today and she had to utilize a double bowel prep. That involves a full gallon of polyethylene glycol along with some Dulcolax tablets. She said on this occasion she thinks she is much flue cleaner. She understands an adult person has to take her home afterwards. She had Electronically Signed By: ALFONZO MONROY MD 01/21/24 0835 PATIENT NAME: MARINA VALLEJO MAYCO OPERATIVE REPORT DATE OF : 53 REPORT #: [id number] PHYSICIAN: ALFONZO MONROY MD PCP: JOHNNY RIZO MD REPORT IS CONFIDENTIAL AND NOT TO BE RELEASED WITHOUT AUTHORIZATION [address] [address] Signed expressed understanding and wished to proceed. PROCEDURE IN DETAIL: Marina was taken into our endoscopy suite and placed in the left lateral decubitus position. She was given monitored anesthesia care with propofol infusion per our nurse automotive tire tester. A digital rectal exam was performed. This was unremarkable. She did have a little bit of liquid particulate stool matter during the digital rectal exam. The adult colonoscope had been introduced and we were able to suction some of that out from the rectum. We did advance the scope slowly up through the colon. It took a little extra sedation and some abdominal compression to get the scope into the cecum itself. We could easily see her appendiceal orifice and the ileocecal valve. The scope was then slowly withdrawn. She had several areas of liquid particulate stool matter that we suctioned out. Her prep was much improved on this occasion. Once again, she does have some diverticula in the left and sigmoid colon. They were small to moderate in size, few to moderate in number and scattered about. The rectum itself was unremarkable. Upon retroflexion of the scope, there was no additional pathology noted above the anal canal. After this, the gas was suctioned out and the colonoscope removed. Marina tolerated the procedure quite well. RECOMMENDATIONS: Marina to follow up in 5 years for repeat screening colonoscopy. She will always need monitored anesthesia care. She will need a full gallon of polyethylene glycol along with Dulcolax tablets. Alfonzo Monroy MD ALB/MODL /[id number] cc: MD Johnny Hurst MD Copies: ALFONZO MONROY MD Electronically Signed By: ALFONZO MONROY MD 01/21/24 0835 PATIENT NAME: MARINA VALLEJO MAYCO OPERATIVE REPORT DATE OF : 53 REPORT #: [id number] PHYSICIAN: ALFONZO MONROY MD PCP: JOHNNY RIZO MD REPORT IS CONFIDENTIAL AND NOT TO BE RELEASED WITHOUT AUTHORIZATION [address] [address] Signed JOHNNY RIZO MD ~ Electronically Signed By: ALFONZO MONROY MD 01/21/24 0835 PATIENT NAME: MARINA VALLEJO MAYCO OPERATIVE REPORT DATE OF : 53 REPORT #: [id number] PHYSICIAN: ALFONZO MONROY MD PCP: JOHNNY RIZO MD REPORT IS CONFIDENTIAL AND NOT TO BE RELEASED WITHOUT AUTHORIZATION
== END 2024-01-20 10:35 | disposition home or self-care (01) ==
LOC: DS 07:45
PROVIDERS: ATTEND Colon & Rectal Surgery
PROC: 0DJD8ZZ Inspection of Lower Intestinal Tract, Via Natural or Artificial Opening Endoscopic (ICD-10-PCS; principal; 2024-01-20 09:00)
DX: Z12.11 Encounter for screening for malignant neoplasm of colon (principal); K57.30 Diverticulosis of large intestine without perforation or abscess without bleeding; I11.0 Hypertensive heart disease with heart failure; I50.9 Heart failure, unspecified; E78.5 Hyperlipidemia, unspecified; F43.10 Post-traumatic stress disorder, unspecified; J44.9 Chronic obstructive pulmonary disease, unspecified; E11.9 Type 2 diabetes mellitus without complications; G47.33 Obstructive sleep apnea (adult) (pediatric); K76.0 Fatty (change of) liver, not elsewhere classified; Z79.84 Long term (current) use of oral hypoglycemic drugs; Z79.899 Other long term (current) drug therapy; Z91.018 Allergy to other foods; Z98.51 Tubal ligation status; Z86.0101 Personal history of adenomatous and serrated colon polyps; Z90.49 Acquired absence of other specified parts of digestive tract
CPT/HCPCS: 00811; J2704; J7121

== ENCOUNTER 2024-11-25 10:55 | Emergency (ER) | payer MEDICARE, OTHER ==
[~2024-11-25] VITALS: Ht 162.6 cm; Wt 83.5 kg
[~2024-11-25 10:55] MED LIST changes: -IBLOOD GLUCOSE TEST STRIP 1 EA TEST VI PRN; -LACTATED RINGER'S 1,000 ML IV SCH; -LIDOCAINE HCL 1% 5 ML SDV INJ ONE; -MIDAZOLAM HCL 5 MG/5 ML VIAL IV PRN; -fentaNYL citrate 100 MCG/2 ML VIAL IV PRN; -propofoL 200 MG/20 ML VIAL ONE
[2024-11-25] MEDS ORDERED: SODIUM CHLORIDE 0.9% 500 ML IV ONE (11:30)
[2024-11-25 11:52] LABS: BASOPHILS 0.3 % (0.1-1.2); EOSINOPHILS 0.1 % (0.7-5.8); LYMPHOCYTES 14.9 % (19.3-51.7); MCH 26.2 PG (25.6-32.2); MCHC 32.6 g/dL (32.2-35.5); MCV 80.3 fL (79.4-94.8); MONOCYTES 16.6 % (4.7-12.5); NEUTROPHILS 67.7 % (34.0-71.1); RBC 4.51 M/uL (3.93-5.22)
[2024-11-25 12:09] LABS: CORONAVIRUS COVID-19 AG NEGATIVE (NEGATIVE)
[2024-11-25 12:12] LABS: ALT (SGPT) 116.0 U/L (14-59); AST (SGOT) 82.0 U/L (15-37); GLOMERULAR FILTRATION RATE,EST 55.0 mL/min (>60); PROTEIN, TOTAL 6.6 g/dL (6.4-8.2); UREA NITROGEN 12.0 mg/dL (7-18)
[2024-11-25 12:40] LABS: BLOOD/HGB, URINE MODERATE (Negative); KETONE, URINE NEGATIVE (Negative); LEUK ESTERASE, URINE LARGE (negative); NITRITE, URINE POSITIVE (negative)
[2024-11-25 12:46] LABS: BACTERIA, URINE 4+ /hpf (negative); CASTS, URINE NONE SEEN \\lpf; CRYSTALS, URINE NONE SEEN (0-1+); EPITHELIAL CELLS, URINE SQUAMOUS 1+ /lpf (0-1+); REFLEX CULTURE, URINE Yes (No)
[2024-11-25] MEDS ORDERED: CEFDINIR300 MG PO (14:32)
[2024-11-25 14:42] VITALS: BP 120/91
== END 2024-11-25 14:42 | disposition home or self-care (01) ==
LOC: ED 10:55
PROVIDERS: Emergency Medicine
DX: N39.0 Urinary tract infection, site not specified (principal); R79.89 Other specified abnormal findings of blood chemistry; I10 Essential (primary) hypertension; J44.9 Chronic obstructive pulmonary disease, unspecified; E78.5 Hyperlipidemia, unspecified; Z91.81 History of falling; Z87.891 Personal history of nicotine dependence; Z91.018 Allergy to other foods; Z79.899 Other long term (current) drug therapy
CPT/HCPCS: 36415; 70450; 71045; 76705; 80053; 81001; 84484; 85025; 87088; 96361; 96365; 99285-25; J0696; J7040